=== PATIENT | male | born 1955 | race Caucasian/White ===

== ENCOUNTER 2016-09-02 14:29 | Outpatient (RCR) | payer MEDICARE, MEDICAID ==
[2016-07-01 12:21] LABS: INR 1.8 (0.8-1.4); PROTHROMBIN TIME PATIENT 20.8 SEC (12.2-14.7)
[2016-07-21 11:15] LABS: INR 2.4 (0.8-1.4); PROTHROMBIN TIME PATIENT 25.8 SEC (12.2-14.7)
[2016-08-03 15:06] LABS: INR 2.3 (0.8-1.4); PROTHROMBIN TIME PATIENT 24.8 SEC (12.2-14.7)
[~2016-09-02 14:29] MED LIST: ARPZ10T PO; ASP325TEC PO; ASPI-586 PO; ATEN100T88 PO; ATEN25TA PO; BUPR300T51 PO; CITA40TA11 PO; CITA40TA19 PO; DIGO250T15 PO; DILT240C PO; DILT240C53 PO; DILT360C26 PO; DIPH1TAB25 PO; DIPH1TAB45 PO; ENXP100I SC; ESCI20TA2 PO; ETRA200T PO; FRSM40T PO; FURO40TA4 PO; LISI20TA PO; LISI5TAB PO; LORA10TA56 PO; NAPR220T66 PO; OFL.3OP5 OP; OXC10TCR PO; OXYC-465 PO; OXYC10TA63 PO; OXYC10TA7 PO; POTA10CA43 PO; RALT400T PO; RISP0.5T21 PO; RISP0.5T3 PO; TENO300T5 PO; VIREAD PO; WARF-48 PO; WARF7.5T PO; WRF10T PO; WRF5T PO; ZLP10T PO; ZOLP10TA5 PO; intelence PO
[2016-09-02 14:54] LABS: INR 1.9 (0.8-1.4); PROTHROMBIN TIME PATIENT 21.4 SEC (12.2-14.7)
== END 2016-09-29 | disposition home or self-care (01) ==
LOC: LAB 14:29
PROVIDERS: ATTEND Internal Medicine Cardiovascular Disease
DX: I48.0 Paroxysmal atrial fibrillation (principal); Z79.01 Long term (current) use of anticoagulants
CPT/HCPCS: 36415; 85610

== ENCOUNTER 2016-09-30 08:00 | Outpatient (RCR) | payer MEDICARE, MEDICAID ==
[2016-11-07 09:08] LABS: INR 2.1 (0.8-1.4); PROTHROMBIN TIME PATIENT 23.2 SEC (12.2-14.7)
== END 2016-12-29 | disposition home or self-care (01) ==
LOC: LAB 08:00
PROVIDERS: ATTEND Internal Medicine Cardiovascular Disease
DX: I48.0 Paroxysmal atrial fibrillation (principal); Z79.01 Long term (current) use of anticoagulants
CPT/HCPCS: 36415; 85610

== ENCOUNTER → 2017-03-31 | Outpatient (CLI) | payer MEDICARE ==
[~2017-03-31] MED LIST changes: +DILT180C90 PO; +ELVI1TAB3 PO; +FA/M1TAB28 PO; +FURO80TA83 PO; +IBUP-2055 PO; +MULT-1029 PO; +POTA-51 PO
[2017-03-31 11:46] LABS: INR 1.6 (0.8-1.4); PROTHROMBIN TIME PATIENT 19.3 SEC (12.2-14.7)
[2017-03-31 11:51] LABS: CALCIUM 9.7 MG/DL (8.5-10.1); CREATININE SERUM 1.22 MG/DL (0.60-1.30); POTASSIUM 4.2 MMOL/L (3.6-5.0)
== END ==
LOC: LAB 11:17
PROVIDERS: ATTEND Nurse Practitioner Family
DX: Z51.81 Encounter for therapeutic drug level monitoring (principal); I48.91 Unspecified atrial fibrillation; Z79.01 Long term (current) use of anticoagulants
CPT/HCPCS: 36415; 80048; 85610

== ENCOUNTER 2017-07-19 09:30 | Outpatient (RCR) | payer MEDICARE ==
[2017-04-24 08:49] LABS: INR 3.7 (0.8-1.4); PROTHROMBIN TIME PATIENT 36.6 SEC (12.2-14.7)
[2017-04-24 08:56] LABS: BUN/CREATININE RATIO 16; CALCIUM 8.8 MG/DL (8.5-10.1); CARBON DIOXIDE 26 MMOL/L (21-32); CHLORIDE 102 MMOL/L (98-107); GFR ESTIMATED > 60; GLUCOSE 116 MG/DL (70-105); MAGNESIUM 1.7 MG/DL (1.8-2.4); POTASSIUM 3.7 MMOL/L (3.6-5.0); SODIUM 141 MMOL/L (135-145)
[2017-05-08 08:36] LABS: INR 2.6 (0.8-1.4)
[2017-05-31 08:41] LABS: INR 1.7 (0.8-1.4); PROTHROMBIN TIME PATIENT 20.4 SEC (12.2-14.7)
[2017-07-19 09:55] LABS: INR 2.8 (0.8-1.4); PROTHROMBIN TIME PATIENT 29.5 SEC (12.2-14.7)
== END 2017-07-23 | disposition home or self-care (01) ==
LOC: LAB 09:30
PROVIDERS: ATTEND Nurse Practitioner Family
DX: I48.0 Paroxysmal atrial fibrillation (principal); Z79.01 Long term (current) use of anticoagulants
CPT/HCPCS: 36415; 80048; 83735; 85610

== ENCOUNTER 2017-10-02 09:27 | Outpatient (RCR) | payer MEDICARE ==
[2017-10-02 09:44] LABS: INR 2.2 (0.8-1.4); PROTHROMBIN TIME PATIENT 24.4 SEC (12.2-14.7)
== END 2017-10-27 | disposition home or self-care (01) ==
LOC: LAB 09:27
PROVIDERS: ATTEND Nurse Practitioner Family
DX: I48.0 Paroxysmal atrial fibrillation (principal); Z79.01 Long term (current) use of anticoagulants
CPT/HCPCS: 36415; 85610

== ENCOUNTER → 2017-11-21 | Outpatient (CLI) | payer MEDICARE | LOC: CARD 11:09 | PROVIDERS: ATTEND Internal Medicine Cardiovascular Disease | DX: I48.0 Paroxysmal atrial fibrillation (principal); I50.33 Acute on chronic diastolic (congestive) heart failure; Z21 Asymptomatic human immunodeficiency virus [HIV] infection status; E66.9 Obesity, unspecified; M79.89 Other specified soft tissue disorders; Z79.01 Long term (current) use of anticoagulants | CPT/HCPCS: 93225; 93226 ==

== ENCOUNTER 2018-02-07 12:00 | Outpatient (CLI) | payer MEDICARE ==
[~2018-02-07] VITALS: Ht 182.9 cm; Wt 183.4 kg
== END 2018-02-07 13:33 | disposition home or self-care (01) ==
LOC: PREOP 12:00
PROVIDERS: ATTEND Surgery
DX: Z01.818 Encounter for other preprocedural examination (principal)

== ENCOUNTER 2018-02-12 09:22 | Day surgery (SDC) | payer MEDICARE ==
[~2018-02-12] VITALS: Ht 182.9 cm; Wt 183.4 kg
[2018-02-12] MEDS ORDERED: NS IV 500 ML 500 ML IV PRN (09:28)
[2018-02-12] MEDS ORDERED: MIDAZOLAM 2 MG/2 ML (VERSED) VIAL IVP ONE (09:30)
[2018-02-12] MEDS ORDERED: fentaNYL INJECTION 100 MCG/2 ML AMP IVP ONE (09:30)
[2018-02-12] MEDS ORDERED: NS IV 500 ML 500 ML ONE (09:31)
--- NOTE | 2018-02-12 09:39 | History & Physicial ---
History of Present Illness History of Present Illness Reason for visit/HPI to undergo colonoscopy regarding chronic diarrhea. Date of Admission 02/12/18 Date Seen by a Provider: Feb 12, 2018 Time Seen by a Provider: 09:36 I consulted on this patient on 02/12/18 09:35 Attending Physician Jonny Herrera MD Admitting Physician Marlene Cunningham MD Consult Allergies and Home Medications Allergies Coded Allergies: No Known Drug Allergies (Unverified , 02/07/18) Home Medications Bupropion HCl 300 Mg Tab.er.24h, 300 MG PO HS, (Reported) Citalopram Hydrobromide 40 Mg Tablet, 40 MG PO HS, (Reported) Digoxin 250 Mcg Tablet, 0.25 MG PO DAILY Prescribed by: ERMIAS POWELL on 12/03/14 1152 Diltiazem HCl 180 Mg Cap.er.24h, 360 MG PO DAILY@0900 Prescribed by: JOSE E CHAO on 03/28/17 1105 Diphenoxylate HCl/Atropine 1 Each Tablet, 1 TAB PO QID PRN for DIARRHEA, ( Reported) Elviteg/Chyna/Emtric/Tenofo Ala 1 Each Tablet, 1 TAB PO DAILY, (Reported) Furosemide 80 Mg Tablet, 80 MG PO DAILY Prescribed by: JOSE E CHAO on 03/28/17 1105 Ibuprofen 200 Mg Tablet, 400 MG PO DAILY PRN for PAIN-MILD, (Reported) TAKES 2 (200 MG) TABLETS Multivit-Min/FA/Lycopene/Lut 1 Each Tablet, 1 TAB PO HS, (Reported) Potassium Chloride 20 Meq Tablet.er, 20 MEQ PO DAILY Prescribed by: JOSE E CHAO on 03/28/17 1105 Risperidone 0.5 Mg Tablet, 0.5 MG PO HS, (Reported) Warfarin Sodium 5 Mg Tablet, 10 MG PO SuMoWeSa, (Reported) TAKES 2 (5 MG) TABLETS Warfarin Sodium 5 Mg Tablet, 5 MG PO TuTh, (Reported) Patient Home Medication List Home Medication List Reviewed: Yes Past Mvnshrk-Oqfwxb-Melzuq Hx Patient Social History Marrital Status: single Employed/Student: retired Recent Foreign Travel: No Contact w/other who traveled: No Recent Hopitalizations: No Immunizations Up To Date Date of Pneumonia Vaccine: Oct 31, 2014 Date of Influenza Vaccine: Dec 04, 2017 Seasonal Allergies Seasonal Allergies: No Surgeries Yes (CA REMOVED FROM NECK, SEVERAL BX) Respiratory Yes Currently Using BIPAP: Yes Cardiovascular Yes Atrial Fibrillation, Hypertension Neurological No Reproductive System Hx Reproductive Disorders: No HIV/AIDS: Yes (hiv) Genitourinary No Gastrointestinal Yes Chronic Diarrhea Musculoskeletal No Endocrine History of Endocrine Disorders: No HEENT History of HEENT Disorders: No Cancer Yes (Neck) Skin, Lymphoma Did You Recieve Any Treatments: Yes Type of Treatment: Surgical Intervention Psychosocial History of Psychiatric Problem: Yes Behavioral Health Disorders: Depression Integumentary History of Skin or Integumenta: No Blood Transfusions History of Blood Disorders: Yes (HIV DX IN 1994, ) Family Medical History Significant Family History: No Pertinent Family Hx Review of Systems Constitutional: no symptoms reported EENTM: no symptoms reported Cardiovascular: palpitations Gastrointestinal: see HPI Genitourinary: no symptoms reported Musculoskeletal: no symptoms reported Skin: no symptoms reported Psychiatric/Neurological: No Symptoms Reported Physical Exam Vital Signs Capillary Refill : Height, Weight, BMI Height: 6'0.00" Weight: 404lbs. 6.0oz. 183.199550hm; 54.8 BMI Method:Stated General Appearance: No Apparent Distress Neck: Normal Inspection Respiratory: Lungs Clear Cardiovascular: No Gallop, No JVD Gastrointestinal: Non Tender, Soft Rectal: Deferred Neurologic/Psychiatric: Alert, Oriented x3 Assessment/Plan Assessment and Plan gentleman with chronic diarrhea. Previous non-Hodgkin's lymphoma. For colonoscopy. Admission Diagnosis Admission Status: Other (Outpt Proc) JONNY HERRERA MD Feb 12, 2018 09:39
--- NOTE | 2018-02-12 09:39 | Conscious Sedation/ASA ---
Conscious Sedation Pre-Proced Time 09:39 ASA Score 3 For ASA 3 and 4: Consider anesthesia and medical clearance. Also, for patients with a history of failed moderate sedation consider anesthesia. Airway Lungs Heart ASA score ASA 1: a normal healthy patient ASA 2: a patient with a mild systemic disease (mid diabetes, controlled hypertension, obesity ASA 3: a patient with a severe systemic disease that limits activity (angina , COPD, prior Myocardial infarction) ASA 4: a patient with an incapacitating disease that is a constant threat to life (CHF, renal failure) ASA 5: a moribund patient not expected to survive 24 hrs. (ruptured aneurysm) ASA 6: a declared brain patient whose organs are being harvested. For emergent operations, add the letter E after the classification Mallampati Classification Grade 2 Sedation Plan Discussed options with patient/fam The patient is an appropriate candidate to undergo the planned procedure, sedation, and anesthesia. The patient immediately re-assessed prior to indication. LAKE HERRERA MD Feb 12, 2018 09:39
[2018-02-12] MEDS ORDERED: DILT120C53 PO (09:49)
[2018-02-12] MEDS ORDERED: MIDAZOLAM 2 MG/2 ML (VERSED) VIAL ONE ×6 (09:56→10:08)
[2018-02-12] MEDS ORDERED: fentaNYL INJECTION 100 MCG/2 ML AMP ONE ×2 (09:56→10:08)
[2018-02-12 09:58] VITALS: BP 142/107
--- NOTE | 2018-02-12 10:54 | Endo Procedure Record ---
Endo Procedure Report Date of Procedure Last Colonoscopy: Yes (UNSURE) Feb 12, 2018 Surgeon (s) LAKE HERRERA MD Post Procedure/Op Diagnosis sigmoid diverticulosis Sessile lesion at the mid-sigmoid colon at about 40 cm from the anal verge Procedure Performed colonoscopy to cecum Biopsy of sigmoid lesion Tattooing of sigmoid colon area Description of Procedure Anesthesia Type: Conscious Sedation Specimen(s) collected/removed tissue from the lesion at the sigmoid colon Description of the Procedure Indication for the procedure: This gentleman came in for colonoscopy to investigate chronic diarrhea. In addition, he has a family history of colon cancer as well. Informed consent was obtained after reviewing the procedure in detail. Description of the procedure: He was placed in left lateral decubitus position and his vital signs were monitored. Conscious sedation was achieved using Versed and fentanyl. Digital rectal examination was unremarkable. The colonoscope was then introduced into the rectum and advanced to the cecum. The quality of bowel preparation was excellent. The scope was then withdrawn slowly and the mucosa examined in a systematic fashion. Findings: 1. Sigmoid diverticulosis 2. Sessile lesion about 18 cm in diameter at the mid-sigmoid colon, about 40 cm from the anal verge. A few biopsy fragments were obtained and the area was tattooed with Ashley ink. He tolerated the procedure well and was taken back to the nursing area in a stable condition. Impression: Family history of colon cancer. Sessile lesion at the sigmoid colon possibly an early carcinoma or a villous adenoma. Regardless, it would require segmental resection, that would be scheduled subsequently Copy Copies To 1: FLORIAN BLUE MD, XAVIER M MD Feb 12, 2018 10:54
--- NOTE | 2018-02-12 10:55 | Discharge Inst-Simple/Standard ---
Discharge Inst-Standard Discharge Medications New, Converted or Re-Newed RX: Other Patient Instructions/Follow Up Plan of Care/Instructions/FU: resume warfarin tomorrow. Follow-up with me in a week to discuss and schedule surgery Activity as Tolerated: Yes Discharge Diet: No Restrictions LAKE HERRERA MD Feb 12, 2018 10:55
[2018-02-12 11:00] VITALS: BP 143/80
[2018-02-12 11:30] VITALS: BP 133/106
[2018-02-12 12:45] VITALS: BP 133/106
== END 2018-02-12 12:45 | disposition home or self-care (01) ==
LOC: ENDO 09:22
PROVIDERS: ATTEND Surgery
DX: K57.30 Diverticulosis of large intestine without perforation or abscess without bleeding (principal); Z80.0 Family history of malignant neoplasm of digestive organs; I48.91 Unspecified atrial fibrillation; I10 Essential (primary) hypertension; F32.9 Major depressive disorder, single episode, unspecified; Z85.828 Personal history of other malignant neoplasm of skin; Z85.72 Personal history of non-Hodgkin lymphomas; Z79.01 Long term (current) use of anticoagulants; Z79.899 Other long term (current) drug therapy

== ENCOUNTER 2018-03-13 15:23 | Outpatient (CLI) | payer MEDICARE ==
[~2018-03-13] VITALS: Ht 182.9 cm; Wt 183.3 kg
[~2018-03-13 15:23] MED LIST changes: +DILT120C53 PO
[2018-03-13] MEDS ORDERED: ALLO100T PO (15:33)
[2018-03-13] MEDS ORDERED: METO2.5T PO (15:33)
[2018-03-13] MEDS ORDERED: POTA-51 PO (15:33)
[2018-03-13] MEDS ORDERED: FURO80TA3 PO (15:33)
[2018-03-13] MEDS ORDERED: RISP0.5T3 PO (15:33)
[2018-03-13] MEDS ORDERED: WARF-48 PO ×2 (15:33)
[2018-03-13] MEDS ORDERED: DIGO250T PO (15:33)
== END 2018-03-13 15:35 | disposition home or self-care (01) ==
LOC: PREOP 15:23
PROVIDERS: ATTEND Surgery
DX: Z01.818 Encounter for other preprocedural examination (principal)

== ENCOUNTER 2018-04-24 14:20 | Outpatient (CLI) | payer MEDICARE, MEDICAID ==
[~2018-04-24] VITALS: Ht 182.9 cm; Wt 183.3 kg
[~2018-04-24 14:20] MED LIST changes: +ALLO100T PO; +DIGO250T PO; +FURO80TA3 PO; +METO2.5T PO
== END 2018-04-24 14:25 ==
LOC: PREOP 14:20
PROVIDERS: ATTEND Surgery
DX: Z01.818 Encounter for other preprocedural examination (principal)

== ENCOUNTER 2018-04-30 08:10 | Day surgery (SDC) | payer MEDICARE, MEDICAID ==
[~2018-04-30] VITALS: Ht 182.9 cm; Wt 183.3 kg
[2018-04-30 08:30] VITALS: BP 137/99
[2018-04-30] MEDS ORDERED: NS IV 500 ML 500 ML IV PRN (08:38)
[2018-04-30] MEDS ORDERED: NS IV 500 ML 500 ML ONE (08:43)
[2018-04-30] MEDS ORDERED: MIDAZOLAM 2 MG/2 ML (VERSED) VIAL IVP ONE (08:45)
[2018-04-30] MEDS ORDERED: fentaNYL INJECTION 100 MCG/2 ML AMP IVP ONE (08:45)
--- NOTE | 2018-04-30 09:32 | History & Physicial ---
History of Present Illness History of Present Illness Reason for visit/HPI to undergo flexible sigmoidoscopy regarding a lesion found at the sigmoid colon on a recent colonoscopy. Biopsies revealed inflammatory changes. Date of Admission 04/30/18 Date Seen by a Provider: Apr 30, 2018 Time Seen by a Provider: 09:30 I consulted on this patient on 04/30/18 09:30 Attending Physician Jonny Gaxiola MD Admitting Physician Marlene Cunningham MD Consult Allergies and Home Medications Allergies Coded Allergies: No Known Drug Allergies (Unverified , 02/07/18) Home Medications Allopurinol 100 Mg Tablet, 100 MG PO DAILY, (Reported) Bupropion HCl 300 Mg Tab.er.24h, 300 MG PO HS, (Reported) Citalopram Hydrobromide 40 Mg Tablet, 40 MG PO HS, (Reported) Digoxin 250 Mcg Tablet, 250 MCG PO DAILY, (Reported) Diltiazem HCl 120 Mg Cap.er.24h, 120 MG PO DAILY, (Reported) Diphenoxylate HCl/Atropine 1 Each Tablet, 1 TAB PO QID PRN for DIARRHEA, ( Reported) Elviteg/Chyna/Emtric/Tenofo Ala 1 Each Tablet, 1 TAB PO DAILY, (Reported) Furosemide 80 Mg Tablet, 80 MG PO DAILY, (Reported) Ibuprofen 200 Mg Tablet, 400 MG PO DAILY PRN for PAIN-MILD, (Reported) TAKES 2 (200 MG) TABLETS Metolazone 2.5 Mg Tablet, 2.5 MG PO DAILY, (Reported) Multivit-Min/FA/Lycopene/Lut 1 Each Tablet, 1 TAB PO HS, (Reported) Potassium Chloride 20 Meq Tablet.er, 40 MEQ PO BID, (Reported) take 2 (20meq) tabs Risperidone 0.5 Mg Tablet, 0.5 MG PO HS, (Reported) Risperidone 0.5 Mg Tablet, 0.5 MG PO DAILY, (Reported) Warfarin Sodium 5 Mg Tablet, 5 MG PO TuTh, (Reported) Warfarin Sodium 5 Mg Tablet, 10 MG PO SuMoWeFrSa, (Reported) take 2 (5mg) tabs Patient Home Medication List Home Medication List Reviewed: Yes Past Lqrdgcy-Hchfjy-Lhqrto Hx Patient Social History Marrital Status: single Employed/Student: retired Alcohol Use: Denies Use Recreational Drug Use: No Smoking Status: Never a Smoker 2nd Hand Smoke Exposure: No Recent Foreign Travel: No Contact w/other who traveled: No Recent Hopitalizations: No Immunizations Up To Date Date of Pneumonia Vaccine: Oct 31, 2014 Date of Influenza Vaccine: Dec 04, 2017 Seasonal Allergies Seasonal Allergies: No Surgeries Yes (CA REMOVED FROM NECK, SEVERAL BX) Respiratory Yes Currently Using BIPAP: Yes Cardiovascular Yes Atrial Fibrillation, Hypertension Neurological No Reproductive System Hx Reproductive Disorders: No HIV/AIDS: Yes (hiv) Genitourinary No Gastrointestinal Yes Chronic Diarrhea, Polyps Musculoskeletal No Endocrine History of Endocrine Disorders: No HEENT History of HEENT Disorders: No Cancer Yes (Neck) Skin, Lymphoma Did You Recieve Any Treatments: Yes Type of Treatment: Surgical Intervention Psychosocial History of Psychiatric Problem: Yes Behavioral Health Disorders: Depression Integumentary History of Skin or Integumenta: No Blood Transfusions History of Blood Disorders: Yes (HIV DX IN 1994, ) Family Medical History Significant Family History: No Pertinent Family Hx Review of Systems Constitutional: no symptoms reported EENTM: no symptoms reported Cardiovascular: no symptoms reported Gastrointestinal: no symptoms reported Genitourinary: no symptoms reported Musculoskeletal: no symptoms reported Skin: no symptoms reported Psychiatric/Neurological: No Symptoms Reported Physical Exam Vital Signs Vital Signs - First Documented 04/30/18 08:30 Temp 98.0 Pulse 77 Resp 16 B/P (MAP) 137/99 (112) Pulse Ox 93 O2 Delivery Room Air Capillary Refill : Height, Weight, BMI Height: 6'0.00" Weight: 404lbs. 0.0oz. 183.643791os; 54.8 BMI Method:Stated General Appearance: No Apparent Distress Neck: Normal Inspection Cardiovascular: Regular Rate, Rhythm Gastrointestinal: Soft Rectal: Deferred Neurologic/Psychiatric: Oriented x3 Assessment/Plan Assessment and Plan will depend on [place] monitor the family history of colon cancer. Sessile lesion at the sigmoid colon with inflammatory changes on histology. 4 repeat flexible sigmoidoscopy. Admission Diagnosis Admission Status: Other (Outpt Proc) JONNY GAXIOLA MD Apr 30, 2018 09:32
--- NOTE | 2018-04-30 09:32 | Conscious Sedation/ASA ---
Conscious Sedation Pre-Proced Time 09:32 ASA Score 2 For ASA 3 and 4: Consider anesthesia and medical clearance. Also, for patients with a history of failed moderate sedation consider anesthesia. Airway Lungs Heart ASA score ASA 1: a normal healthy patient ASA 2: a patient with a mild systemic disease (mid diabetes, controlled hypertension, obesity ASA 3: a patient with a severe systemic disease that limits activity (angina , COPD, prior Myocardial infarction) ASA 4: a patient with an incapacitating disease that is a constant threat to life (CHF, renal failure) ASA 5: a moribund patient not expected to survive 24 hrs. (ruptured aneurysm) ASA 6: a declared brain- patient whose organs are being harvested. For emergent operations, add the letter E after the classification Mallampati Classification Grade 2 Sedation Plan Discussed options with patient/fam The patient is an appropriate candidate to undergo the planned procedure, sedation, and anesthesia. The patient immediately re-assessed prior to indication. LAKE HERRERA MD Apr 30, 2018 09:32
[2018-04-30] MEDS ORDERED: MIDAZOLAM 2 MG/2 ML (VERSED) VIAL ONE ×4 (09:47→10:15)
[2018-04-30] MEDS ORDERED: fentaNYL INJECTION 100 MCG/2 ML AMP ONE (09:47)
--- NOTE | 2018-04-30 10:29 | Endo Procedure Record ---
Endo Procedure Report Date of Procedure Last Colonoscopy: Yes (02/12/18) Apr 30, 2018 Surgeon (s) LAKE HERRERA MD Post Procedure/Op Diagnosis sigmoid diverticulosis Tattoo over the sigmoid colon with no residual lesion identified Procedure Performed flexible sigmoidoscopy Description of Procedure Anesthesia Type: Conscious Sedation Specimen(s) collected/removed None Description of the Procedure Indication for the procedure: This gentleman, who has a family history of colon cancer, was found to have a sessile lesion at the sigmoid colon, a few months ago. Biopsies however showed inflammatory changes of the mucosa. Therefore, it is felt reasonable to perform proximal sigmoidoscopy to have a second look at the lesion prior to recommending definitive therapy. Informed consent was obtained after reviewing the procedure in detail. Description of the procedure: He was placed in left lateral decubitus position and his vital signs were monitored. Conscious sedation was achieved using Versed and fentanyl. Digital rectal examination was unremarkable. The flexible sigmoidoscope was introduced into the rectum and advanced to the descending colon. The scope was then withdrawn slowly and the mucosa examined in a systematic fashion. Findings: 1. Uncomplicated sigmoid diverticulosis 2.Tattoo used for marking the previous lesion identified a few months ago with no other mucosal abnormalities around the tattoo. It is therefore likely that mucosal inflammation was the culprit, leading to the false appearance of a definitive mucosal lesion. he tolerated the procedure well and was taken back to the nursing area in a stable condition. Impression: Sessile lesion identified in the sigmoid colon confirmed to be inflamed mucosa, which has since resolved. Positive family history. Recommend screening colonoscopy in 5 years. Copy Copies To 1: FLORIAN BLUE MD,LAKE Lim MD Apr 30, 2018 10:29
--- NOTE | 2018-04-30 10:31 | Discharge Inst-Simple/Standard ---
Discharge Inst-Standard Discharge Medications New, Converted or Re-Newed RX: Other Patient Instructions/Follow Up Plan of Care/Instructions/FU: repeat colonoscopy in 5 years Activity as Tolerated: Yes Discharge Diet: No Restrictions LAKE HERRERA MD Apr 30, 2018 10:31
[2018-04-30 10:40] VITALS: BP 108/57
[2018-04-30 11:10] VITALS: BP 110/68
[2018-04-30 11:45] VITALS: BP 110/68
== END 2018-04-30 11:45 | disposition home or self-care (01) ==
LOC: ENDO 08:10
PROVIDERS: ATTEND Surgery
DX: Z09 Encounter for follow-up examination after completed treatment for conditions other than malignant neoplasm (principal); Z86.010 Personal history of colon polyps; K57.30 Diverticulosis of large intestine without perforation or abscess without bleeding; Z80.0 Family history of malignant neoplasm of digestive organs; I48.91 Unspecified atrial fibrillation; I10 Essential (primary) hypertension; K52.9 Noninfective gastroenteritis and colitis, unspecified; B20 Human immunodeficiency virus [HIV] disease; F32.9 Major depressive disorder, single episode, unspecified; Z79.01 Long term (current) use of anticoagulants; Z79.899 Other long term (current) drug therapy; Z85.828 Personal history of other malignant neoplasm of skin; Z85.72 Personal history of non-Hodgkin lymphomas

== ENCOUNTER 2018-06-18 12:55 | Outpatient (RCR) | payer MEDICARE, MEDICAID ==
[2018-06-18 13:20] LABS: PROTHROMBIN TIME PATIENT 23.3 SEC (12.2-14.7)
[2018-06-18 13:24] LABS: BUN/CREATININE RATIO 18; CALCIUM 10.2 MG/DL (8.5-10.1); CARBON DIOXIDE 30 MMOL/L (21-32); CHLORIDE 99 MMOL/L (98-107); CREATININE SERUM 1.14 MG/DL (0.60-1.30); GFR ESTIMATED > 60; GLUCOSE 141 MG/DL (70-105); MAGNESIUM 1.4 MG/DL (1.8-2.4); POTASSIUM 3.2 MMOL/L (3.6-5.0); SODIUM 141 MMOL/L (135-145)
== END 2018-09-16 | disposition home or self-care (01) ==
LOC: LAB 12:55
PROVIDERS: ATTEND Internal Medicine Cardiovascular Disease
DX: I48.0 Paroxysmal atrial fibrillation (principal); I49.5 Sick sinus syndrome; I50.23 Acute on chronic systolic (congestive) heart failure; Z79.01 Long term (current) use of anticoagulants
CPT/HCPCS: 36415; 80048; 83735; 85610

== ENCOUNTER 2018-07-16 11:07 | Outpatient (RCR) | payer MEDICARE, MEDICAID ==
[2018-07-16 12:05] LABS: INR 2.7 (0.8-1.4); PROTHROMBIN TIME PATIENT 30.1 SEC (12.2-14.7)
== END 2018-10-14 | disposition home or self-care (01) ==
LOC: LAB 11:07
PROVIDERS: ATTEND Internal Medicine Cardiovascular Disease
DX: Z51.81 Encounter for therapeutic drug level monitoring (principal); I48.0 Paroxysmal atrial fibrillation; I50.33 Acute on chronic diastolic (congestive) heart failure; M79.89 Other specified soft tissue disorders; I49.5 Sick sinus syndrome; Z79.01 Long term (current) use of anticoagulants
CPT/HCPCS: 36415; 80162; 85610

== ENCOUNTER → 2018-07-16 | Outpatient (CLI) | payer MEDICARE, MEDICAID ==
[2018-07-16 12:10] LABS: BUN/CREATININE RATIO 21; CALCIUM 9.3 MG/DL (8.5-10.1); CARBON DIOXIDE 26 MMOL/L (21-32); CHLORIDE 101 MMOL/L (98-107); CREATININE SERUM 1.07 MG/DL (0.60-1.30); GFR ESTIMATED > 60; GLUCOSE 127 MG/DL (70-105); MAGNESIUM 1.5 MG/DL (1.8-2.4); POTASSIUM 3.4 MMOL/L (3.6-5.0); SODIUM 140 MMOL/L (135-145)
== END ==
LOC: LAB 11:15
PROVIDERS: ATTEND Nurse Practitioner Family
DX: E87.6 Hypokalemia (principal)
CPT/HCPCS: 36415; 80048; 83735

== ENCOUNTER → 2019-02-13 | Outpatient (CLI) | payer MEDICARE, MEDICAID ==
[2019-02-13 14:43] LABS: INR 3.1 (0.8-1.4); PROTHROMBIN TIME PATIENT 33.6 SEC (12.2-14.7)
[2019-02-13 14:45] LABS: ALBUMIN 3.8 GM/DL (3.2-4.5); BILIRUBIN,TOTAL 0.6 MG/DL (0.1-1.0); CALCIUM 9.6 MG/DL (8.5-10.1); CREATININE SERUM 1.27 MG/DL (0.60-1.30); MAGNESIUM 1.5 MG/DL (1.6-2.4); POTASSIUM 3.8 MMOL/L (3.6-5.0); TOTAL PROTEIN 7.3 GM/DL (6.4-8.2)
== END ==
LOC: LAB 14:14
PROVIDERS: ATTEND Nurse Practitioner Family
DX: I48.20 Chronic atrial fibrillation, unspecified (principal); I50.32 Chronic diastolic (congestive) heart failure; G47.33 Obstructive sleep apnea (adult) (pediatric)
CPT/HCPCS: 36415; 80053; 80162; 83735; 85610

== ENCOUNTER 2019-04-13 10:28 | Inpatient (IN) | payer MEDICARE, MEDICAID ==
[~2019-04-13] VITALS: Ht 182.8 cm; Wt 176.3 kg
[~2019-04-13 10:28] MED LIST changes: -DIGO250T PO; +DIGO250T3 PO; +DILT-28 PO; -DILT180C90 PO; -IBUP-2055 PO; +IBUP-2473 PO
[2019-04-13 10:50] LABS: BASOPHILS % (AUTO) 0 % (0-10); EOSINOPHILS # (AUTO) 0.1 10^3/uL (0.0-0.3); EOSINOPHILS % (AUTO) 1 % (0-10); HEMATOCRIT 46 % (40-54); HEMOGLOBIN 15.3 G/DL (13.3-17.7); LYMPHOCYTES # (AUTO) 2.9 X 10^3 (1.0-4.0); LYMPHOCYTES % (AUTO) 24 % (12-44); MEAN CORPUSCULAR HEMOGLOBIN 30 PG (25-34); MEAN CORPUSCULAR HGB CONC 33 G/DL (32-36); MEAN CORPUSCULAR VOLUME 90 FL (80-99); MEAN PLATELET VOLUME 9.5 FL (7.4-10.4); MONOCYTES # (AUTO) 1.2 X 10^3 (0.0-1.0); MONOCYTES % (AUTO) 10 % (0-12); NEUTROPHILS # (AUTO) 7.6 X 10^3 (1.8-7.8); NEUTROPHILS % (AUTO) 65 % (42-75); PLATELET COUNT 246 10^3/uL (130-400); RED CELL DISTRIBUTION WIDTH 14.5 % (10.0-14.5); WHITE BLOOD COUNT 11.8 10^3/uL (4.3-11.0)
[2019-04-13 11:07] LABS: INR 3.2 (0.8-1.4); PROTHROMBIN TIME PATIENT 33.9 SEC (12.2-14.7)
--- NOTE | 2019-04-13 11:11 | Diagnostic Imaging Report ---
INDICATION: Productive cough. Comparison made to the prior study from 08/24/2017. FINDINGS: Interstitial markings appear prominent which could relate to a bronchitis or interstitial pneumonia. There is no alveolar consolidation evident. There is no large effusion. No pneumothorax. Heart size prominent. The central pulmonary vascularity appears appropriate IMPRESSION: 1. Mild prominence of basilar interstitial markings which may relate to a bronchitis or interstitial pneumonia. No alveolar consolidation evident by plain radiography. There is no significant effusion. Cardiomegaly is unchanged from previous exam. Dictated by: Dictated on workstation # [id number]
[2019-04-13 11:14] LABS: ALANINE AMINOTRANSFERASE 26 U/L (0-55); ALBUMIN 3.8 GM/DL (3.2-4.5); ALKALINE PHOSPHATASE 103 U/L (40-136); BILIRUBIN,TOTAL 0.9 MG/DL (0.1-1.0); BUN/CREATININE RATIO 17; CALCIUM 9.5 MG/DL (8.5-10.1); CARBON DIOXIDE 27 MMOL/L (21-32); CHLORIDE 101 MMOL/L (98-107); CREATININE SERUM 1.16 MG/DL (0.60-1.30); GFR ESTIMATED > 60; GLUCOSE 136 MG/DL (70-105); MAGNESIUM 1.6 MG/DL (1.6-2.4); POTASSIUM 3.3 MMOL/L (3.6-5.0); SODIUM 141 MMOL/L (135-145); TOTAL PROTEIN 7.9 GM/DL (6.4-8.2)
[2019-04-13] MEDS ORDERED: RT-ALBUTEROL/IPRATROPIUM 3 ML (DUONEB) VIAL INH ONE (12:15)
--- NOTE | 2019-04-13 13:04 | ED General ---
General Chief Complaint: Respiratory Problems Stated Complaint: SOB/HX OF CHF Nursing Triage Note: PT PRESENTS TO ED WITH COMPLAINTS OF SOA AND COUGH/COLD S/S X 2 WEEKS BUT WORSE SINCE YESTERDAY Nursing Sepsis Screen: No Definite Risk Source of Information: Patient Exam Limitations: No Limitations History of Present Illness Date Seen by Provider: Apr 13, 2019 Time Seen by Provider: 10:33 Initial Comments This 63-year-old gentleman with HIV and congestive heart failure presents to the emergency room with history of one to 2 weeks of increasing shortness of breath. He has had some mild cough as well. He presumes this to be congestive heart failure exacerbation. He is afebrile. He denies any respiratory disease such as COPD or asthma. Oxygen saturation is 88 percent on room air on arrival. He denies chest pain. He takes Biktarvy for HIV suppression. Allergies and Home Medications Allergies Coded Allergies: No Known Drug Allergies (Unverified , 02/07/18) Home Medications Allopurinol 100 Mg Tablet, 100 MG PO DAILY, (Reported) Bupropion HCl 300 Mg Tab.er.24h, 300 MG PO HS, (Reported) Citalopram Hydrobromide 40 Mg Tablet, 40 MG PO HS, (Reported) Digoxin 250 Mcg Tablet, 250 MCG PO DAILY, (Reported) Diphenoxylate HCl/Atropine 1 Each Tablet, 1 TAB PO QID PRN for DIARRHEA, (Reported) Elviteg/Chyna/Emtric/Tenofo Ala 1 Each Tablet, 1 TAB PO DAILY, (Reported) Furosemide 80 Mg Tablet, 80 MG PO DAILY, (Reported) Ibuprofen 200 Mg Tablet, 400 MG PO DAILY PRN for PAIN-MILD, (Reported) TAKES 2 (200 MG) TABLETS Metolazone 2.5 Mg Tablet, 2.5 MG PO DAILY, (Reported) Multivit-Min/FA/Lycopene/Lut 1 Each Tablet, 1 TAB PO HS, (Reported) Potassium Chloride 20 Meq Tablet.er, 40 MEQ PO BID, (Reported) take 2 (20meq) tabs Risperidone 0.5 Mg Tablet, 0.5 MG PO HS, (Reported) Warfarin Sodium 5 Mg Tablet, 5 MG PO TuTh, (Reported) Warfarin Sodium 5 Mg Tablet, 10 MG PO SuMoWeFrSa, (Reported) take 2 (5mg) tabs Patient Home Medication List Home Medication List Reviewed: Yes Review of Systems Review of Systems Constitutional: no symptoms reported EENTM: no symptoms reported Respiratory: see HPI Cardiovascular: see HPI Gastrointestinal: no symptoms reported Genitourinary: no symptoms reported Musculoskeletal: no symptoms reported Skin: no symptoms reported Psychiatric/Neurological: No Symptoms Reported Hematologic/Lymphatic: See HPI Immunological/Allergic: no symptoms reported Past Mzpsjkf-Nhuqqf-Qsixui Hx Past Med/Social Hx: Reviewed Nursing Past Med/Soc Hx Patient Social History Alcohol Use: Rarely Uses Recreational Drug Use: No Smoking Status: Never a Smoker 2nd Hand Smoke Exposure: No Recent Foreign Travel: No Contact w/Someone Who Travel: No Recent Infectious Disease Expo: No Recent Hopitalizations: No Physical Abuse: No Sexual Abuse: No Mistreated: No Fear: No Immunizations Up To Date Date of Pneumonia Vaccine: Oct 31, 2014 Date of Influenza Vaccine: Dec 04, 2017 Seasonal Allergies Seasonal Allergies: No Past Medical History Surgeries: Yes (CA REMOVED FROM NECK, SEVERAL BX) Tonsillectomy Respiratory: Yes Asthma, Pneumonia, Sleep Apnea Currently Using CPAP: Yes Currently Using BIPAP: Yes Cardiac: Yes (CHF) Atrial Fibrillation, Chronic Edema/Swelling, Hypertension Neurological: No Reproductive Disorders: No HIV/AIDS: Yes (hiv) Genitourinary: No Gastrointestinal: Yes Chronic Diarrhea, Polyps Musculoskeletal: No Endocrine: No HEENT: No Cancer: Yes (Neck) Skin, Lymphoma Did You Recieve Any Treatments: Yes What Type of Treatment Did You: Surgical Intervention Psychosocial: Yes Depression Integumentary: No Blood Disorders: Yes (HIV DX IN 1994, ) Family Medical History No Pertinent Family Hx Physical Exam Vital Signs Vital Signs - First Documented 04/13/19 04/13/19 10:38 15:01 Temp 36.1 Pulse 92 Resp 20 B/P (MAP) 126/78 (94) Pulse Ox 93 O2 Delivery Nasal Cannula O2 Flow Rate 2.00 FiO2 32 Capillary Refill : Less Than 3 Seconds Height, Weight, BMI Height: 6'0.00" Weight: 404lbs. 0.0oz. 183.798859af; 55.00 BMI Method:Stated General Appearance: No Apparent Distress, WD/WN, Obese HEENT: PERRL/EOMI, Normal ENT Inspection Neck: Normal Inspection Respiratory: Lungs Clear, Normal Breath Sounds, No Accessory Muscle Use, No Respiratory Distress; No Crackles, No Wheezing Cardiovascular: No Edema, No Murmur, Irregularly Irregular Gastrointestinal: Non Tender, Soft Extremity: Non Tender, Other (mild lower extremity edema with chronic skin changes) Neurologic/Psychiatric: Alert, Oriented x3, No Motor/Sensory Deficits, Normal Mood/Affect Skin: Normal Color, Warm/Dry Focused Exam Lactate Level 04/13/19 13:30: Lactic Acid Level 1.78 Progress/Results/Core Measures Suspected Sepsis Recent Fever Within 48 Hours: No Infection Criteria Present: None New/Unexplained Altered Menta: No Sepsis Screen: No Definite Risk SIRS Temperature: Pulse: 92 Respiratory Rate: 20 Laboratory Tests 04/13/19 10:39: White Blood Count 11.8H Blood Pressure 126 /78 Mean: 94 04/13/19 13:30: Lactic Acid Level 1.78 Laboratory Tests 04/13/19 10:39: Creatinine 1.16, INR Comment 3.2H, Platelet Count 246, Total Bilirubin 0.9 Results/Orders Lab Results Laboratory Tests Test 04/13/19 10:39 04/13/19 13:30 04/14/19 05:38 Range/Units White Blood Count 11.8 H 4.3-11.0 10^3/uL Red Blood Count 5.09 4.35-5.85 10^6/uL Hemoglobin 15.3 13.3-17.7 G/DL Hematocrit 46 40-54 % Mean Corpuscular Volume 90 80-99 FL Mean Corpuscular Hemoglobin 30 25-34 PG Mean Corpuscular Hemoglobin Concent 33 32-36 G/DL Red Cell Distribution Width 14.5 10.0-14.5 % Platelet Count 246 130-400 10^3/uL Mean Platelet Volume 9.5 7.4-10.4 FL Neutrophils (%) (Auto) 65 42-75 % Lymphocytes (%) (Auto) 24 12-44 % Monocytes (%) (Auto) 10 0-12 % Eosinophils (%) (Auto) 1 0-10 % Basophils (%) (Auto) 0 0-10 % Neutrophils # (Auto) 7.6 1.8-7.8 X 10^3 Lymphocytes # (Auto) 2.9 1.0-4.0 X 10^3 Monocytes # (Auto) 1.2 H 0.0-1.0 X 10^3 Eosinophils # (Auto) 0.1 0.0-0.3 10^3/uL Basophils # (Auto) 0.0 0.0-0.1 10^3/uL Prothrombin Time 33.9 H 12.2-14.7 SEC INR Comment 3.2 H 0.8-1.4 Activated Partial Thromboplast Time 50 H 24-35 SEC Sodium Level 141 135-145 MMOL/L Potassium Level 3.3 L 3.6-5.0 MMOL/L Chloride Level 101 98-107 MMOL/L Carbon Dioxide Level 27 21-32 MMOL/L Anion Gap 13 5-14 MMOL/L Blood Urea Nitrogen 20 H 7-18 MG/DL Creatinine 1.16 0.60-1.30 MG/DL Estimat Glomerular Filtration Rate > 60 BUN/Creatinine Ratio 17 Glucose Level 136 H 70-105 MG/DL Calcium Level 9.5 8.5-10.1 MG/DL Corrected Calcium 9.7 8.5-10.1 MG/DL Magnesium Level 1.6 1.6-2.4 MG/DL Total Bilirubin 0.9 0.1-1.0 MG/DL Aspartate Amino Transf (AST/SGOT) 30 5-34 U/L Alanine Aminotransferase (ALT/SGPT) 26 0-55 U/L Alkaline Phosphatase 103 40-136 U/L Myoglobin 134.9 H 10.0-92.0 NG/ML Troponin I < 0.028 <0.028 NG/ML C-Reactive Protein High Sensitivity 2.50 H 0.00-0.50 MG/DL B-Type Natriuretic Peptide 99.2 <100.0 PG/ML Total Protein 7.9 6.4-8.2 GM/DL Albumin 3.8 3.2-4.5 GM/DL Digoxin Level 1.18 0.80-2.00 NG/ML Lactic Acid Level 1.78 0.50-2.00 MMOL/L Triglycerides Level 94 <150 MG/DL Cholesterol Level 143 < 200 MG/DL LDL Cholesterol Direct 107 1-129 MG/DL VLDL Cholesterol 19 5-40 MG/DL HDL Cholesterol 34 L 40-60 MG/DL Micro Results Microbiology 04/13/19 Influenza Types A,B Antigen (OFELIA) - Final, Complete My Orders Orders - RADHA TAVAREZ MD Cbc With Automated Diff (04/13/19 10:33) Magnesium (04/13/19 10:33) Chest 1 View, Ap/Pa Only (04/13/19 10:33) Ekg Tracing (04/13/19 10:33) Comprehensive Metabolic Panel (04/13/19 10:33) Myoglobin Serum (04/13/19 10:33) Protime With Inr (04/13/19 10:33) Partial Thromboplastin Time (04/13/19 10:33) O2 (04/13/19 10:33) Monitor-Rhythm Ecg Trace Only (04/13/19 10:33) Lipid Panel (04/14/19 06:00) Ed Iv/Invasive Line Start (04/13/19 10:33) BNP (04/13/19 10:33) Hs C Reactive Protein (04/13/19 10:39) Troponin I (04/13/19 10:39) Digoxin (04/13/19 12:10) Influenza A And B Antigens (04/13/19 12:10) Albuterol/Ipra Inhalation Soln (Duoneb I (04/13/19 12:15) Svn Small Volume Nebulizer (04/13/19 12:10) Blood Culture (04/13/19 13:15) Sputum Culture (04/13/19 13:15) Urinalysis (04/13/19 13:15) Urine Culture (04/13/19 13:15) Vital Signs Adult Sepsis Patie Q15M (04/13/19 13:15) Remove Rings In Anticipation O (04/13/19 13:15) Lactic Acid Analyzer (04/13/19 13:15) Ceftriaxone For Iv Use (Rocephin For I (04/13/19 13:30) Medications Given in ED Vital Signs/I&O 04/13/19 04/13/19 04/14/19 04/14/19 20:48 21:25 00:00 01:00 Temp 36.6 Pulse 85 74 81 Resp 18 B/P (MAP) 119/57 (77) Pulse Ox 90 94 O2 Delivery Nasal Cannula NIV CPAP O2 Flow Rate 4.00 04/14/19 04/14/19 04/14/19 04/14/19 02:41 04:00 07:00 07:56 Temp 35.8 37.0 Pulse 74 75 83 Resp 20 20 B/P (MAP) 121/63 (82) 120/69 (86) Pulse Ox 93 93 95 O2 Delivery NIV CPAP NIV CPAP Nasal Cannula O2 Flow Rate 4.00 4.00 Capillary Refill : Less Than 3 Seconds Blood Pressure Mean: 94 Progress Note : Time: 13:31 Progress Note Patient was placed on supportive oxygen therapy with nasal cannula. DuoNeb treatment was administered but did not improve his shortness of breath much. Chest x-ray was suggestive of bibasilar infiltrate. Influenza screen was negative. Based on workup findings, patient may have a mild bibasilar pneumonia. We will start antibiotic therapy with Rocephin and azithromycin. Lactic acid and blood cultures are pending. Admission was accepted by Dr. PATEL. Patient does not meet septic criteria at this time. ECG Initial ECG Impression Date: Apr 13, 2019 Initial ECG Impression Time: 10:41 Initial ECG Rate: 98 Initial ECG Rhythm: A Fib/Flutter Initial ECG Impression: Atrial Fibrillation Comment Atrial fibrillation with no acute ischemic changes. Rate controlled. Diagnostic Imaging Diagonstic Imaging: Xray Plain Films/CT/US/NM/MRI: chest Comments Chest x-ray viewed by me and report reviewed. See report below: NAME: BROOK GILBERT [facility] REC#: [id number] PT STATUS: REG ER : 1955 PHYSICIAN: RADHA TAVAREZ MD ADMIT DATE: 04/13/19/ER Signed Date of Exam:04/13/19 CHEST 1 VIEW, AP/PA ONLY INDICATION: Productive cough. Comparison made to the prior study from 08/24/2017. FINDINGS: Interstitial markings appear prominent which could relate to a bronchitis or interstitial pneumonia. There is no alveolar consolidation evident. There is no large effusion. No pneumothorax. Heart size prominent. The central pulmonary vascularity appears appropriate IMPRESSION: 1. Mild prominence of basilar interstitial markings which may relate to a bronchitis or interstitial pneumonia. No alveolar consolidation evident by plain radiography. There is no significant effusion. Cardiomegaly is unchanged from previous exam. Dictated by: Dictated on workstation # [id number] Dict: 04/13/19 1109 Trans: 04/13/19 1153 CV [id number] Interpreted by: ANAID RADFORD MD Electronically signed by: ANAID RADFORD MD 04/13/19 1153 Departure Communication (Admissions) Time/Spoke to Admitting Phy: 13:04 Dr. Patel Impression Primary Impression: Pneumonia Qualified Codes: J18.1 - Lobar pneumonia, unspecified organism Additional Impressions: Hypoxia HIV (human immunodeficiency virus infection) Qualified Codes: B20 - Human immunodeficiency virus [HIV] disease Disposition: ADMITTED INPATIENT Condition: Stable Admissions Decision to Admit Reason: Admit from ER (General) Decision to Admit/Date: Apr 13, 2019 Time/Decision to Admit Time: 13:00 Departure-Patient Inst. Referrals: FLORIAN BLUE MD (PCP/Family) Primary Care Physician RADHA TAVAREZ MD Apr 13, 2019 13:04
[2019-04-13] MEDS ORDERED: cefTRIAXone FOR IV USE 1,000 MG in WATER (STERILE) FOR INJECTION 10 ML IV ONE (13:30)
--- NOTE | 2019-04-13 14:00 | NUR ---
BROOK GILBERT Rolando admitted to room 416-1, with an admitting diagnosis of PNEUMONIA, on 04/13/19 from ER, accompanied by FAMILY.BROOK GILBERT introduced to surroundings, call light, bed controls, phone, TV, temperature control, lights, meal times, smoking policy, visitor policy, side rail policy, bathrooms and showers. Patient Rights given to patient in the handbook. BROOK GILBERT verbalizes understanding that [facility] is not responsible for the loss or damage to any personal effects or valuables that are kept in the patients posession during their hospitalization. The following Patient Care Plans were discussed with the PATIENT: Discharge Planning, INFECTION CONTROL,ADEQUATE OXYGENATION, and PAIN CONTROL. BROOK GILBERT verbalizes understanding of Interdisciplinary Patient Education.
[2019-04-13 14:05] VITALS: BP 122/69
--- NOTE | 2019-04-13 14:33 | History & Physical-Hospitalist ---
History of Present Illness HPI/Chief Complaint This is a 63-year-old white male well-known to me. He was originally diagnosed with HIV approximate 25 years ago. He presents to the emergency room today with a two-week history of an upper respiratory tract infection. He has been tested twice for influenza but has been told he was negative both times. He has been having a cough productive of greenish sputum and having progressive shortness of breath. At the time of my interview he is dyspneic with talking. Source: patient Exam Limitations: no limitations Date Seen 04/13/19 Time Seen by a Provider: 14:30 Attending Physician Stephenie Patel MD PCP Marlene Cunningham MD Referring Physician Date of Admission Apr 13, 2019 at 13:27 Home Medications & Allergies Home Medications Reviewed patient Home Medication Reconciliation performed by pharmacy medication reconciliations crane service technician and/or nursing. Patients Allergies have been reviewed. Allergies Allergies Coded Allergies No Known Drug Allergies (Nmlxqagvak63/12/18) Past Vbhdkqe-Xtwjea-Iekpih Hx Past Med/Social Hx: Reviewed Nursing Past Med/Soc Hx Patient Social History Marrital Status: single Employed/Student: retired ([employer]unte[employer]) Alcohol Use: Rarely Uses Recreational Drug Use: No Smoking Status: Never a Smoker 2nd Hand Smoke Exposure: No Recent Foreign Travel: No Contact w/other who traveled: No Recent Hopitalizations: No Recent Infectious Disease Expo: No Immunizations Up To Date Date of Pneumonia Vaccine: Oct 31, 2014 Date of Influenza Vaccine: Dec 04, 2017 Seasonal Allergies Seasonal Allergies: No Past Medical History Surgeries: Tonsillectomy Currently Using CPAP: Yes Currently Using BIPAP: Yes Cardiac: Atrial Fibrillation, Chronic Edema/Swelling, Hypertension Reproductive: No HIV/AIDS: Yes (hiv) Gastrointestinal: Chronic Diarrhea, Polyps Cancer: Skin, Lymphoma Did You Recieve Any Treatments: Yes What Type of Treatment Did You: Surgical Intervention Psychosocial: Depression History of Blood Disorders: Yes (HIV DX IN 1994, ) Family History No Pertinent Family Hx Review of Systems Constitutional: see HPI EENTM: dental problems Respiratory: cough, dyspnea on exertion, phlegm Cardiovascular: no symptoms reported Gastrointestinal: diarrhea Genitourinary: no symptoms reported Musculoskeletal: muscle pain Skin: no symptoms reported Psychiatric/Neurological: No Symptoms Reported Physical Exam Physical Exam Vital Signs Vital Signs - First Documented 04/13/19 10:38 Temp 36.1 Pulse 92 Resp 20 B/P (MAP) 126/78 (94) Pulse Ox 93 O2 Delivery Nasal Cannula O2 Flow Rate 2.00 Capillary Refill : Less Than 3 Seconds Height, Weight, BMI Height: 6'0.00" Weight: 404lbs. 0.0oz. 183.724499ai; 55.00 BMI Method:Stated General Appearance: Obese HEENT: Other (Poor dentition) Neck: Limited Range of Motion Respiratory: Rales, Rhonci, Wheezing Cardiovascular: No Murmur, Irregularly Irregular Gastrointestinal: Normal Bowel Sounds, Soft Rectal: Deferred Back: Normal Inspection, No CVA Tenderness Extremity: Pedal Edema, Other (Varicosities) Neurologic/Psychiatric: Alert, Oriented x3, No Motor/Sensory Deficits, Normal Mood/Affect Skin: Normal Color, Warm/Dry Results Results/Procedures Labs Laboratory Tests 04/13/19 10:39 Patient resulted labs reviewed. Imaging: Reviewed Imaging Report Assessment/Plan Admission Diagnosis Right lower lobe pneumonia with hypoxia Reactive airway disease Chronic atrial fibrillation Possible COPD History of CHF with diastolic dysfunction Aids with undetectable CD4 counts recently on retroviral therapy Plan to continue his home medications and begin on Rocephin and Zithromax for community-acquired pneumonia Admission Status: Inpatient Order (span 2 midnights) Reason for Inpatient Admission: Complicated medical problems in an immunocompromised patient Copy Copies To 1: MARLENE CUNNINGHAM MD, KATHLEEN M MD Apr 13, 2019 14:32
[2019-04-13 14:46] VITALS: BP 122/69
[2019-04-13] MEDS ORDERED: CATHETER FLUSH 10 ML SYR IV PRN (15:00)
[2019-04-13] MEDS ORDERED: ONDANSETRON 4 MG/2 ML (SDV) Z0FRAN IV PRN (15:00)
[2019-04-13] MEDS ORDERED: RT-ALBUTEROL/IPRATROPIUM 3 ML (DUONEB) VIAL INH PRN (15:15)
[2019-04-13] MEDS ORDERED: PATIENT MAY USE OWN MEDS, ALL MC SCH (15:30)
[2019-04-13] MEDS ORDERED: RX-DIPHENO./ATROP. 2.5/0.25 MG (LOMOTIL) TAB PPK#4 PO PRN (15:30)
[2019-04-13] MEDS ORDERED: IBUPROFEN TABLET 200 MG TAB PO PRN (15:30)
[2019-04-13] MEDS: AZITHROMYCIN INJECTION 500 MG in NS (IVPB) 250 ML IV SCH (15:48)
[2019-04-13 16:00] VITALS: BP 109/65
[2019-04-13] MEDS ORDERED: DIPHENOXYLATE/ATROPINE 2.5MG/0.025MG (LOMOTIL) TAB PO PRN (16:15)
[2019-04-13] MEDS: BIKTARVY PO SCH (17:10)
[2019-04-13] MEDS: KCL 20 MEQ TAB (K-DUR) PO SCH (17:11)
--- NOTE | 2019-04-13 17:22 | NUR ---
PATIENT HAS TAKEN SOME OF TODAY'S MEDS AND WANTS TO TAKE THEM ON SAME SCHEDULE AT HOME. PER THIS IS OK . PLEASE SEE NURSING ORDER TO HAVE PHARM RETIME TO PATIENT'S SCHEDULE
[2019-04-13] MEDS: RT-ALBUTEROL/IPRATROPIUM 3 ML (DUONEB) VIAL INH SCH ×2 (18:21→21:25)
[2019-04-13 20:00] VITALS: BP 112/52
[2019-04-13] MEDS: BUPROPION 300 MG PO SCH (20:08)
[2019-04-13] MEDS: RISPERIDONE 0.5 MG TABLET PO SCH (20:09)
[2019-04-13] MEDS: CITALOPRAM 40 MG TABLET PO SCH (20:09)
[2019-04-13] MEDS: warFARin 5 MG (COUMADIN) TAB PO SCH (20:11)
[2019-04-13] MEDS ORDERED: NON-FORMULARY MEDICATION 1 EA EA (Risperidone 0.5 MG) PO SCH (21:00)
[2019-04-13] MEDS ORDERED: NON-FORMULARY MEDICATION 1 EA EA (Citalopram Hydrobromide (Citalopram HBr) 40 MG) PO SCH (21:00)
[2019-04-13] MEDS ORDERED: NON-FORMULARY MEDICATION 1 EA EA (Potassium Chloride 40 MEQ) PO SCH (21:00)
[2019-04-13] MEDS ORDERED: NON-FORMULARY MEDICATION 1 EA EA (Bupropion HCl (Bupropion Xl) 300 MG) PO SCH (21:00)
--- NOTE | 2019-04-13 21:00 | NUR ---
Went through patient's night medications. Pt took all meds due on the eMAR and some medications not on the eMar including potassium and magnesium. Provided patient education on what medications to take while in the hospital, pt understood but still insisted on taking his home medications
[2019-04-13] MEDS: CATHETER FLUSH 10 ML SYR IV SCH (22:33)
[2019-04-14] VITALS: BP 119/57
[2019-04-14] MEDS: RT-ALBUTEROL/IPRATROPIUM 3 ML (DUONEB) VIAL INH SCH ×6 (02:38→21:43)
[2019-04-14 04:00] VITALS: BP 121/63
[2019-04-14] MEDS: CATHETER FLUSH 10 ML SYR IV SCH ×3 (06:00→19:57)
[2019-04-14 06:14] LABS: CHOLESTEROL 143 MG/DL (< 200); HDL CHOLESTEROL 34 MG/DL (40-60); TRIGLYCERIDES 94 MG/DL (<150); VLDL CHOLESTEROL 19 MG/DL (5-40)
[2019-04-14] MEDS ORDERED: FUROSEMIDE 40 MG (LASIX) TAB PO SCH (07:00)
[2019-04-14] MEDS: MULTIVIT W/MINERALS TAB (THERAGRAN M) PO SCH (07:32)
[2019-04-14] MEDS: KCL 20 MEQ TAB (K-DUR) PO SCH ×2 (07:34→13:47)
[2019-04-14 07:56] VITALS: BP 120/69
[2019-04-14] MEDS ORDERED: NON-FORMULARY MEDICATION 1 EA EA (Furosemide 80 MG) PO SCH (09:00)
[2019-04-14] MEDS ORDERED: DIGOXIN 0.25 MG (LANOXIN) TAB PO SCH (09:00)
[2019-04-14] MEDS: cefTRIAXone 1,000 MG/SWFI 10 ML IV PUSH IV SCH ×2 (09:40)
[2019-04-14] MEDS: ALLOPURINOL 100 MG (ZYLOPRIM) TAB PO SCH (09:40)
[2019-04-14] MEDS: BIKTARVY PO SCH (10:33)
[2019-04-14] MEDS: DIGOXIN 0.25 MG (LANOXIN) TAB PO SCH (10:34)
--- NOTE | 2019-04-14 11:47 | Progress Note - Hospitalist ---
Subjective HPI/CC On Admission Date Seen by Provider: Apr 14, 2019 Time Seen by Provider: 11:15 This is a 63-year-old white male well-known to me. He was originally diagnosed with HIV approximate 25 years ago. He presents to the emergency room today with a two-week history of an upper respiratory tract infection. He has been tested twice for influenza but has been told he was negative both times. He has been having a cough productive of greenish sputum and having progressive shortness of breath. At the time of my interview he is dyspneic with talking. Subjective/Events-last exam Patient looks a little stronger and is less dyspneic is morning. His cough is keeping him awake some but is nonproductive. Review of Systems Pulmonary: Dyspnea, Cough Focused Exam Lactate Level 04/13/19 13:30: Lactic Acid Level 1.78 Objective Exam Vital Signs Vital Signs Date Time Temp Pulse Resp B/P (MAP) Pulse Ox O2 Delivery O2 Flow Rate FiO2 04/15/19 12:13 76 04/15/19 11:31 92 Nasal Cannula 4.00 04/15/19 08:00 37.7 24 134/56 (82) 04/13/19 18:22 89 Capillary Refill : Less Than 3 SecondsLess Than 3 Seconds General Appearance: No Apparent Distress, WD/WN, Obese HEENT: Other (Or dentition) Neck: Limited Range of Motion Respiratory: Crackles, Rales, Wheezing Cardiovascular: Regular Rate, Rhythm, No Gallop, No JVD, No Murmur Gastrointestinal: Normal Bowel Sounds, Soft Rectal: Deferred Extremity: Pedal Edema Results/Procedures Lab Laboratory Tests 04/15/19 05:00 Patient resulted labs reviewed. Imaging: Reviewed Imaging Report Assessment/Plan Assessment and Plan Assess & Plan/Chief Complaint Right lower lobe pneumonia with hypoxia-Day number 2 Rocephin and Zithromax- preliminary sputum shows staph will add vancomycin and consider DC Zithromax Reactive airway disease-consider steroids Chronic atrial fibrillation-follow INR closely Possible COPD History of CHF with diastolic dysfunction Aids with undetectable viral load recently; on retroviral therapy Clinical Quality Measures DVT/VTE Risk/Contraindication: Risk Factor Score Per Nursin RFS Level Per Nursing on Admit: 4+=Very High PANFILO ESPARZA MD Apr 14, 2019 11:47
[2019-04-14 12:00] VITALS: BP 110/70
[2019-04-14] MEDS ORDERED: VANCOMYCIN INJECTION 0.1 MG in NS (IVPB) 250 ML IV SCH (12:00)
--- NOTE | 2019-04-14 12:09 | NUR ---
CR 1.16; CR CL > 70; WT 176.3 KG; VANCO 2000 MG IV Q12H; TROUGH AFTER 3RD DOSE
[2019-04-14] MEDS: VANCOMYCIN 2000 MG/NS 500 ML IVPB IV SCH ×4 (12:25→23:53)
[2019-04-14] MEDS: FUROSEMIDE 80 MG TABLET PO SCH (13:47)
[2019-04-14] MEDS: METOLAZONE 2.5 MG (ZAROXOLYN) TAB PO SCH (13:48)
[2019-04-14] MEDS: ACETAMINOPHEN 500 MG TAB (TYLENOL) PO PRN (14:24)
[2019-04-14 15:35] VITALS: BP 117/71
[2019-04-14] MEDS: AZITHROMYCIN INJECTION 500 MG in NS (IVPB) 250 ML IV SCH (15:56)
--- NOTE | 2019-04-14 18:55 | NUR ---
PT VOICED HE WOULD TAKE HIS COUMADIN AT 1999 --
[2019-04-14 19:21] VITALS: BP 102/67
[2019-04-14] MEDS: warFARin 5 MG (COUMADIN) TAB PO SCH (19:53)
[2019-04-14] MEDS: BUPROPION 300 MG PO SCH (19:54)
[2019-04-14] MEDS: RISPERIDONE 0.5 MG TABLET PO SCH (19:55)
[2019-04-14] MEDS: CITALOPRAM 40 MG TABLET PO SCH (19:57)
[2019-04-15] VITALS: BP 123/57
[2019-04-15] MEDS: RT-ALBUTEROL/IPRATROPIUM 3 ML (DUONEB) VIAL INH SCH ×6 (02:26→23:03)
[2019-04-15 04:00] VITALS: BP 126/57
[2019-04-15 05:43] LABS: BASOPHILS % (AUTO) 0 % (0-10); EOSINOPHILS # (AUTO) 0.1 10^3/uL (0.0-0.3); EOSINOPHILS % (AUTO) 0 % (0-10); HEMATOCRIT 40 % (40-54); HEMOGLOBIN 13.3 G/DL (13.3-17.7); LYMPHOCYTES # (AUTO) 3.1 X 10^3 (1.0-4.0); LYMPHOCYTES % (AUTO) 23 % (12-44); MEAN CORPUSCULAR HEMOGLOBIN 30 PG (25-34); MEAN CORPUSCULAR HGB CONC 33 G/DL (32-36); MEAN CORPUSCULAR VOLUME 91 FL (80-99); MEAN PLATELET VOLUME 10.1 FL (7.4-10.4); MONOCYTES # (AUTO) 1.6 X 10^3 (0.0-1.0); MONOCYTES % (AUTO) 12 % (0-12); NEUTROPHILS # (AUTO) 8.5 X 10^3 (1.8-7.8); NEUTROPHILS % (AUTO) 64 % (42-75); PLATELET COUNT 221 10^3/uL (130-400); RED CELL DISTRIBUTION WIDTH 14.4 % (10.0-14.5); WHITE BLOOD COUNT 13.3 10^3/uL (4.3-11.0)
[2019-04-15 06:00] LABS: PROTHROMBIN TIME PATIENT 40.9 SEC (12.2-14.7)
[2019-04-15 06:08] LABS: ALANINE AMINOTRANSFERASE 21 U/L (0-55); ALBUMIN 3.4 GM/DL (3.2-4.5); ALKALINE PHOSPHATASE 90 U/L (40-136); BUN/CREATININE RATIO 21; CALCIUM 8.7 MG/DL (8.5-10.1); CARBON DIOXIDE 26 MMOL/L (21-32); CHLORIDE 98 MMOL/L (98-107); CREATININE SERUM 1.13 MG/DL (0.60-1.30); GFR ESTIMATED > 60; GLUCOSE 164 MG/DL (70-105); POTASSIUM 2.7 MMOL/L (3.6-5.0); SODIUM 137 MMOL/L (135-145); TOTAL PROTEIN 7.4 GM/DL (6.4-8.2)
[2019-04-15] MEDS: MULTIVIT W/MINERALS TAB (THERAGRAN M) PO SCH (06:37)
[2019-04-15] MEDS: CATHETER FLUSH 10 ML SYR IV SCH ×3 (06:37→22:30)
[2019-04-15] MEDS: KCL 20 MEQ TAB (K-DUR) PO SCH ×2 (06:37→16:20)
[2019-04-15] MEDS: FUROSEMIDE 80 MG TABLET PO SCH (07:31)
[2019-04-15] MEDS: METOLAZONE 2.5 MG (ZAROXOLYN) TAB PO SCH (07:31)
[2019-04-15] MEDS: BIKTARVY PO SCH (07:33)
[2019-04-15] MEDS: DIGOXIN 0.25 MG (LANOXIN) TAB PO SCH (07:33)
[2019-04-15] MEDS: ALLOPURINOL 100 MG (ZYLOPRIM) TAB PO SCH (07:42)
[2019-04-15] MEDS: cefTRIAXone 1,000 MG/SWFI 10 ML IV PUSH IV SCH ×2 (07:43)
[2019-04-15 08:00] VITALS: BP 134/56
[2019-04-15] MEDS ORDERED: DILT-27 PO (08:04)
[2019-04-15] MEDS ORDERED: DILT180C85 PO (08:04)
[2019-04-15] MEDS ORDERED: FLUT16SP22 NSEACH (08:04)
[2019-04-15] MEDS ORDERED: BICT1TAB PO (08:11)
[2019-04-15] MEDS ORDERED: ASPI-983 PO (08:11)
[2019-04-15] MEDS ORDERED: MAGN400T39 PO (08:11)
--- NOTE | 2019-04-15 08:16 | NUR ---
SPOKE WITH THE PT (HE HAD ALL HIS HOME MEDS LABELED FOR USE) WELL GOING THRU THE EXT MED HISTORY TO COMPLETE THE MED REC, ALL MEDICATIONS HE HAS MATCHED THE EXT MED HISTORY AND HE WAS ABLE TO TELL ME HOW/WHEN HE TAKES ALL MEDS. PT TAKES 2 DIFFERENT STRENGTHS OF DILTIAZEM- DILTIAZEM 180MG: THE PT TAKES 2 CAPS AND DILTIAZEM 120MG: PT TAKES 1 CAP. HE TAKES THESE ALL AT THE SAME TIME. OTC MEDS: ASPIRIN 81MG [employer] MAGNESIUM
--- NOTE | 2019-04-15 09:38 | NUR ---
Pt is [employer] and declined Communion for today.
[2019-04-15 12:00] VITALS: BP 118/58
--- NOTE | 2019-04-15 13:08 | NUR ---
CM DISCHARGE PLANNING: Doctor has indicated that the patient might need oxygen when he is dismissed. Visited with the patient about what DME he would like to use if this is the case. He has elected [facility] if needed. Will fax to them if needed. He denies any further needs at this time.
[2019-04-15] MEDS ORDERED: KCL 20 MEQ TAB (K-DUR) PO NR (13:15)
--- NOTE | 2019-04-15 13:18 | NUR ---
DR. WEINER NOTIFIED OF KCL LEVEL OF 2.7. NEW ORDER NOTED.
--- NOTE | 2019-04-15 13:19 | NUR ---
DR. WEINER NOTIFIED OF INR LEVEL 4. STATED SHE WOULD TALK TO PHARMACIST ISRA ABOUT GIVING A LOWER DOSE OF COUMADIN.
--- NOTE | 2019-04-15 13:53 | NUR ---
RD ASSESSMENT PMHx: HIV; afib; HTN; chronic diarrhea; lymphoma; CHF PT INTERACTION: Pt was awake and pleasant during consult for MST score. Pt states current appetite is pretty good. Note avg PO intake of 100% of meals, per chart review. Pt states following a regular diet at home and has no issues with chewing/swallowing food. Pt states no recent episodes of nausea/vomiting, but note 3 episodes of emesis on 04/14 per chart review. Pt states some recent issues with diarrhea. Note last BM was 04/14 and pt not currently on bowel regimen per chart review. Pt states recent wt loss of "31# since January." This is significant wt loss at 7% [id number]. Note unable to determine recent wt hx, per chart review. Upon visual exam, pt appears to be very well-nourished with no visible signs of muscle/fat wasting and a BMI of 52.8. Though pt has had significant wt loss, given his PO intake and visual exam, pt does not meet criteria for malnutrition per ASPEN guidelines. ABNORMAL NUTRITION-RELATED LAB VALUES LOW: K 2.7 HIGH: BUN 24; glu 164 Est. kcal needs: 6156-9259 kcal | 25-30 kcal/kg IBW, based on IBW of 81 kg Est. Pro needs: 65-81 g Pro | 0.8-1.0 g Pro/kg IBW, based on IBW of 81 kg PES STATEMENT: Given pt's PO intake, no nutrition diagnosis at this time (NO-1.1) INTERVENTION: Continue with current diet order of 2000mg Na diet. Discontinue nutrition supplementation order of Ensure Enlive with meals TID, for increase kcal intake. Pt PO intake sufficient at this time to meet needs. Will continue to follow and reassess as pt needs and status change. MONITOR/EVALUATE: PO Intake; Plan of Care; Hydration Status; Weight Status; Lab Values Sebastián Martin, MS, RD, LD
[2019-04-15] MEDS: AZITHROMYCIN INJECTION 500 MG in NS (IVPB) 250 ML IV SCH (14:26)
[2019-04-15 16:14] VITALS: BP 118/72
[2019-04-15] MEDS: ACETAMINOPHEN 500 MG TAB (TYLENOL) PO PRN (16:19)
--- NOTE | 2019-04-15 16:19 | Progress Note ---
Subjective Subjective/Events-last exam Patient states that he is feeling better but not ready to go home. Patient does not have home oxygen requirement but is on 4LPM at this time. Tolerating PO diet. States that he gets short of breath with ambulation but is able to get up around the room. Review of Systems Pulmonary: Dyspnea, Cough Cardiovascular: No: Chest Pain, Palpitations Neurological: Weakness, Incoordination Focused Exam Lactate Level 04/13/19 13:30: Lactic Acid Level 1.78 Objective Exam Last Set of Vital Signs Vital Signs Date Time Temp Pulse Resp B/P (MAP) Pulse Ox O2 Delivery O2 Flow Rate FiO2 04/15/19 16:14 37.6 72 22 118/72 (87) 92 Nasal Cannula 4.00 04/13/19 18:22 89 Capillary Refill : Less Than 3 SecondsLess Than 3 Seconds I&O Intake and Output0 04/15/19 00:00 Intake Total 4260 ml Balance 4260 ml Intake Oral 3480 ml IV Total 780 ml # Voids 12 # Bowel Movements 2 # Emeses 3 General: Alert, Oriented X3, Cooperative, No Acute Distress Lungs: Clear to Auscultation, Normal Air Movement Heart: Regular Rate, No Murmurs Abdomen: Normal Bowel Sounds, Soft, No Tenderness, No Masses Extremities: No Edema, No Tenderness/Swelling Skin: No Rashes, No Breakdown Neuro: Sensation Intact, Cranial Nerves 3-12 NL Psych/Mental Status: Mental Status NL, Mood NL Results/Procedures Lab Laboratory Tests 04/15/19 05:00: White Blood Count 13.3H, Red Blood Count 4.40, Hemoglobin 13.3, Hematocrit 40, Mean Corpuscular Volume 91, Mean Corpuscular Hemoglobin 30, Mean Corpuscular Hemoglobin Concent 33, Red Cell Distribution Width 14.4, Platelet Count 221, Mean Platelet Volume 10.1, Neutrophils (%) (Auto) 64, Lymphocytes (%) (Auto) 23, Monocytes (%) (Auto) 12, Eosinophils (%) (Auto) 0, Basophils (%) (Auto) 0, Neutrophils # (Auto) 8.5H, Lymphocytes # (Auto) 3.1, Monocytes # (Auto) 1.6H, Eosinophils # (Auto) 0.1, Basophils # (Auto) 0.0, Prothrombin Time 40.9H, INR Comment 4.0H, Sodium Level 137, Potassium Level 2.7L, Chloride Level 98, Carbon Dioxide Level 26, Anion Gap 13, Blood Urea Nitrogen 24H, Creatinine 1.13, Estimat Glomerular Filtration Rate > 60, BUN/Creatinine Ratio 21, Glucose Level 164H, Calcium Level 8.7, Corrected Calcium 9.2, Total Bilirubin 1.0, Aspartate Amino Transf (AST/SGOT) 26, Alanine Aminotransferase (ALT/SGPT) 21, Alkaline Phosphatase 90, Total Protein 7.4, Albumin 3.4 Microbiology 04/13/19 Blood Culture - Preliminary, Resulted No growth 04/13/19 Gram Stain - Final, Resulted 04/13/19 Sputum Culture - Preliminary, Resulted Staphylococcus aureus Haemophilus influenza Usual oral raman Assessment/Plan Assessment/Plan (1) Right lower lobe pneumonia Status: Acute Assessment & Plan: - Continue IV antibiotics, MAT protocol Qualifiers: Qualified Codes: J18.1 - Lobar pneumonia, unspecified organism (2) Acute respiratory failure with hypoxia Status: Acute Assessment & Plan: - No home oxygen baseline requirement, will continue to titrate oxygen as tolerated (3) HIV (human immunodeficiency virus infection) Status: Acute Assessment & Plan: - Continue home anti viral medications Qualifiers: Qualified Codes: B20 - Human immunodeficiency virus [HIV] disease (4) Anticoagulant long-term use Status: Acute Assessment & Plan: - INR elevated today, holding coumadin today, Daily INRs (5) Obesity hypoventilation syndrome Status: Acute (6) Morbid obesity Status: Acute (7) DVT prophylaxis Status: Acute Assessment & Plan: - Coumadin Clinical Quality Measures DVT/VTE Risk/Contraindication: Risk Factor Score Per Nursin RFS Level Per Nursing on Admit: 4+=Very High LORRI WEINER MD Apr 15, 2019 16:19
[2019-04-15 20:04] VITALS: BP 128/59
[2019-04-15] MEDS: RISPERIDONE 0.5 MG TABLET PO SCH (21:00)
[2019-04-15] MEDS: BUPROPION 300 MG PO SCH (21:00)
[2019-04-15] MEDS: CITALOPRAM 40 MG TABLET PO SCH (21:00)
[2019-04-15] MEDS ORDERED: TROUGH ORDER-PHARMACY XX NR (23:00)
[2019-04-16] VITALS (7 sets, daily range): BP systolic 107–133; BP diastolic 62–72
[2019-04-16] MEDS: RT-ALBUTEROL/IPRATROPIUM 3 ML (DUONEB) VIAL INH SCH ×6 (02:49→22:28)
[2019-04-16] MEDS: CATHETER FLUSH 10 ML SYR IV SCH ×3 (05:36→23:06)
[2019-04-16 06:40] LABS: PROTHROMBIN TIME PATIENT 40.7 SEC (12.2-14.7)
[2019-04-16 06:48] LABS: ALBUMIN 3.4 GM/DL (3.2-4.5); BILIRUBIN,TOTAL 0.7 MG/DL (0.1-1.0); CALCIUM 8.8 MG/DL (8.5-10.1); CREATININE SERUM 1.22 MG/DL (0.60-1.30); POTASSIUM 3.3 MMOL/L (3.6-5.0); TOTAL PROTEIN 7.7 GM/DL (6.4-8.2)
[2019-04-16] MEDS: cefTRIAXone 1,000 MG/SWFI 10 ML IV PUSH IV SCH ×2 (08:17)
[2019-04-16] MEDS: AZITHROMYCIN 250 MG TAB (ZITHROMAX) PO SCH (08:17)
[2019-04-16] MEDS: KCL 20 MEQ TAB (K-DUR) PO SCH ×2 (08:17→17:40)
[2019-04-16] MEDS: ALLOPURINOL 100 MG (ZYLOPRIM) TAB PO SCH (08:17)
[2019-04-16] MEDS: BIKTARVY PO SCH (08:18)
[2019-04-16] MEDS: MULTIVIT W/MINERALS TAB (THERAGRAN M) PO SCH (08:19)
[2019-04-16] MEDS: FUROSEMIDE 80 MG TABLET PO SCH (08:20)
[2019-04-16] MEDS: DIGOXIN 0.25 MG (LANOXIN) TAB PO SCH (08:20)
[2019-04-16] MEDS: METOLAZONE 2.5 MG (ZAROXOLYN) TAB PO SCH (08:20)
--- NOTE | 2019-04-16 08:50 | NUR ---
patient refused to take his Lasix and Zaroxolyn this AM. patient stated he doesn't take them in the AM that he would take them later in the afternoon. patient also informed this nurse that he took his own Cardizem early this AM without letting anyone know
--- NOTE | 2019-04-16 17:41 | NUR ---
patient told this RN that he took his own 40meq K
[2019-04-16] MEDS ORDERED: warFARin 5 MG (COUMADIN) TAB PO SCH (18:00)
--- NOTE | 2019-04-16 20:42 | Progress Note ---
Subjective Subjective/Events-last exam Improved this AM. Tolerating ambulation and PO diet. Still requiring oxygen. Review of Systems General: No Chills, No Malaise Pulmonary: Dyspnea (with activity), Cough Cardiovascular: No: Chest Pain, Palpitations, Edema Gastrointestinal: No: Nausea, Vomiting, Abdominal Pain, Diarrhea, Constipation Genitourinary: No Dysuria, No Frequency Neurological: Weakness, Incoordination Objective Exam Last Set of Vital Signs Vital Signs Date Time Temp Pulse Resp B/P (MAP) Pulse Ox O2 Delivery O2 Flow Rate FiO2 04/16/19 20:00 37.4 78 18 114/62 (79) 92 Nasal Cannula 4.00 04/16/19 10:18 36 Capillary Refill : Less Than 3 SecondsLess Than 3 Seconds I&O Intake and Output 04/16/19 00:00 Intake Total 4312 ml Balance 4312 ml Intake Oral 3782 ml IV Total 530 ml # Voids 11 # Bowel Movements 5 General: Alert, Oriented X3, Cooperative, No Acute Distress HEENT: Mucous Memb Moist/[place] Lungs: Other (diffuse wheezing, normal work of breathing, no crackles) Heart: Regular Rate, No Murmurs Abdomen: Normal Bowel Sounds, Soft, No Tenderness, No Masses Extremities: Other (1+ pitting edema bilaterally) Neuro: Normal Speech, Sensation Intact, Cranial Nerves 3-12 NL Psych/Mental Status: Mental Status NL, Mood NL Results/Procedures Lab Laboratory Tests 04/16/19 06:14: Prothrombin Time 40.7H, INR Comment 4.0H, Sodium Level 141, Potassium Level 3.3L , Chloride Level 100, Carbon Dioxide Level 30, Anion Gap 11, Blood Urea Nitrogen 24H, Creatinine 1.22, Estimat Glomerular Filtration Rate 60, BUN/Creatinine Ratio 20, Glucose Level 117H, Calcium Level 8.8, Corrected Calcium 9.3, Total Bilirubin 0.7, Aspartate Amino Transf (AST/SGOT) 25, Alanine Aminotransferase (ALT/SGPT) 19, Alkaline Phosphatase 88, Total Protein 7.7, Albumin 3.4 Microbiology 04/13/19 Blood Culture - Preliminary, Resulted No growth 04/13/19 Gram Stain - Final, Complete 04/13/19 Sputum Culture - Final, Complete Usual oral raman Staphylococcus aureus Haemophilus influenza Assessment/Plan Assessment/Plan (1) Right lower lobe pneumonia Status: Acute Assessment & Plan: - Continue IV antibiotics, MAT protocol Qualifiers: Qualified Codes: J18.1 - Lobar pneumonia, unspecified organism (2) Acute respiratory failure with hypoxia Status: Acute Assessment & Plan: - No home oxygen baseline requirement, will continue to titrate oxygen as tolerated 04/16: Transition steroids to PO, home oxygen study in AM (3) HIV (human immunodeficiency virus infection) Status: Acute Assessment & Plan: - Continue home anti viral medications Qualifiers: Qualified Codes: B20 - Human immunodeficiency virus [HIV] disease (4) Anticoagulant long-term use Status: Acute Assessment & Plan: - INR elevated today, holding coumadin today, Daily INRs 04/16: Hold today, Repeat INR Monday as outpatient (5) Obesity hypoventilation syndrome Status: Acute (6) Morbid obesity Status: Acute (7) DVT prophylaxis Status: Acute Assessment & Plan: - Coumadin Clinical Quality Measures DVT/VTE Risk/Contraindication: Risk Factor Score Per Nursin RFS Level Per Nursing on Admit: 4+=Very High LORRI WEINER MD Apr 16, 2019 20:42
[2019-04-16] MEDS ORDERED: KCL 20 MEQ TAB (K-DUR) PO ONE (20:45)
[2019-04-16] MEDS: BUPROPION 300 MG PO SCH (23:05)
[2019-04-16] MEDS: CITALOPRAM 40 MG TABLET PO SCH (23:05)
[2019-04-16] MEDS: RISPERIDONE 0.5 MG TABLET PO SCH (23:06)
[2019-04-17] VITALS: BP 110/62
[2019-04-17] MEDS: RT-ALBUTEROL/IPRATROPIUM 3 ML (DUONEB) VIAL INH SCH ×6 (02:57→21:07)
[2019-04-17 04:00] VITALS: BP 100/68
[2019-04-17] MEDS: CATHETER FLUSH 10 ML SYR IV SCH ×3 (05:24→19:44)
[2019-04-17 05:46] LABS: BASOPHILS % (AUTO) 0 % (0-10); EOSINOPHILS # (AUTO) 0.1 10^3/uL (0.0-0.3); EOSINOPHILS % (AUTO) 1 % (0-10); HEMATOCRIT 40 % (40-54); HEMOGLOBIN 13.1 G/DL (13.3-17.7); LYMPHOCYTES # (AUTO) 3.5 X 10^3 (1.0-4.0); LYMPHOCYTES % (AUTO) 31 % (12-44); MEAN CORPUSCULAR HEMOGLOBIN 30 PG (25-34); MEAN CORPUSCULAR HGB CONC 33 G/DL (32-36); MEAN CORPUSCULAR VOLUME 92 FL (80-99); MEAN PLATELET VOLUME 9.6 FL (7.4-10.4); MONOCYTES # (AUTO) 1.3 X 10^3 (0.0-1.0); MONOCYTES % (AUTO) 12 % (0-12); NEUTROPHILS # (AUTO) 6.2 X 10^3 (1.8-7.8); NEUTROPHILS % (AUTO) 56 % (42-75); PLATELET COUNT 242 10^3/uL (130-400); RED CELL DISTRIBUTION WIDTH 14.3 % (10.0-14.5); WHITE BLOOD COUNT 11.1 10^3/uL (4.3-11.0)
[2019-04-17 06:17] LABS: BUN/CREATININE RATIO 21; CALCIUM 8.8 MG/DL (8.5-10.1); CARBON DIOXIDE 27 MMOL/L (21-32); CHLORIDE 99 MMOL/L (98-107); CREATININE SERUM 1.11 MG/DL (0.60-1.30); GFR ESTIMATED > 60; GLUCOSE 114 MG/DL (70-105); POTASSIUM 3.5 MMOL/L (3.6-5.0); SODIUM 139 MMOL/L (135-145)
[2019-04-17] MEDS: ALLOPURINOL 100 MG (ZYLOPRIM) TAB PO SCH (07:54)
[2019-04-17] MEDS: AZITHROMYCIN 250 MG TAB (ZITHROMAX) PO SCH (07:54)
[2019-04-17] MEDS: KCL 20 MEQ TAB (K-DUR) PO SCH ×2 (07:55→18:28)
[2019-04-17] MEDS: MULTIVIT W/MINERALS TAB (THERAGRAN M) PO SCH (07:56)
[2019-04-17 08:00] VITALS: BP 129/73
[2019-04-17] MEDS: cefTRIAXone 1,000 MG/SWFI 10 ML IV PUSH IV SCH ×2 (08:01)
[2019-04-17] MEDS: METOLAZONE 2.5 MG (ZAROXOLYN) TAB PO SCH (08:02)
[2019-04-17] MEDS: BIKTARVY PO SCH (08:02)
[2019-04-17] MEDS: DIGOXIN 0.25 MG (LANOXIN) TAB PO SCH (08:05)
[2019-04-17] MEDS: FUROSEMIDE 80 MG TABLET PO SCH (08:07)
--- NOTE | 2019-04-17 08:44 | Diagnostic Imaging Report ---
INDICATION: Hypoxemia. EXAMINATION: PA and lateral chest. FINDINGS: The heart size and pulmonary vascularity are normal. The lungs are clear. There are no effusions or pneumothoraces. IMPRESSION: Negative chest. Dictated by: Dictated on workstation # [id number]
--- NOTE | 2019-04-17 09:47 | NUR ---
PT IS COMPLAINING NOW OF PAIN STARTING IN HIS RT GROIN AREA AND GOING DOEN TO HIS RT FOOT. PAIN ON MOVEMENT,DESCRIBED STABBING AND CONSTANT. PAIN RATED AT 7
--- NOTE | 2019-04-17 10:05 | NUR ---
SPOKE WITH DR. WEINER. ORDER FOR TORADOL 30 MG IV ONCE.
[2019-04-17] MEDS ORDERED: KETOROLAC 30 MG/ML VIAL IVP NR (10:15)
[2019-04-17] MEDS ORDERED: KCL 20 MEQ TAB (K-DUR) PO NR (10:45)
--- NOTE | 2019-04-17 11:38 | NUR ---
PT STATES HE WILL NOT WALK TODAY FOR HOME O2 QUALIFICATION.
[2019-04-17 12:00] VITALS: BP 116/56
[2019-04-17] MEDS ORDERED: oxyCODONE/APAP 5/325MG (PERCOCET 5) TABLET PO NR (12:07)
--- NOTE | 2019-04-17 14:25 | NUR ---
Will continue to follow along for any discharge planning needs.
--- NOTE | 2019-04-17 14:31 | NUR ---
provided prayer and Communion.
[2019-04-17 16:00] VITALS: BP 117/56
[2019-04-17 19:38] VITALS: BP 120/72
[2019-04-17] MEDS: oxyCODONE/APAP 5/325MG (PERCOCET 5) TABLET PO PRN (19:44)
--- NOTE | 2019-04-17 19:44 | Progress Note ---
Subjective Subjective/Events-last exam Patient states that this AM he started having right leg pain with movement but it is ok when he is laying in bed. No other concerns. Tolerating PO diet. Review of Systems Pulmonary: Dyspnea, Cough Cardiovascular: No: Chest Pain, Palpitations Gastrointestinal: No: Nausea, Vomiting, Abdominal Pain, Diarrhea, Constipation Musculoskeletal: leg pain Neurological: Weakness, Incoordination Objective Exam Last Set of Vital Signs Vital Signs Date Time Temp Pulse Resp B/P (MAP) Pulse Ox O2 Delivery O2 Flow Rate FiO2 04/17/19 18:50 92 Room Air 04/17/19 16:00 37.4 83 22 117/56 (76) 04/17/19 08:00 4.00 04/16/19 10:18 36 Capillary Refill : Less Than 3 SecondsLess Than 3 Seconds I&O Intake and Output 04/17/19 00:00 Intake Total 3700 ml Balance 3700 ml Intake Oral 3700 ml # Voids 15 # Bowel Movements 4 General: Alert, Oriented X3, Cooperative, No Acute Distress Lungs: Clear to Auscultation, Normal Air Movement Heart: Regular Rate, No Murmurs Abdomen: Normal Bowel Sounds, Soft, No Tenderness, No Masses Extremities: Other (Right leg pain with active and passive ROM, no rashes or wounds present) Neuro: Normal Speech, Sensation Intact, Cranial Nerves 3-12 NL Results/Procedures Lab Laboratory Tests 04/17/19 05:25: White Blood Count 11.1H, Red Blood Count 4.34L, Hemoglobin 13.1L, Hematocrit 40, Mean Corpuscular Volume 92, Mean Corpuscular Hemoglobin 30, Mean Corpuscular Hemoglobin Concent 33, Red Cell Distribution Width 14.3, Platelet Count 242, Mean Platelet Volume 9.6, Neutrophils (%) (Auto) 56, Lymphocytes (%) (Auto) 31, Monocytes (%) (Auto) 12, Eosinophils (%) (Auto) 1, Basophils (%) (Auto) 0, Neutrophils # (Auto) 6.2, Lymphocytes # (Auto) 3.5, Monocytes # (Auto) 1.3H, Eosinophils # (Auto) 0.1, Basophils # (Auto) 0.0 04/17/19 05:35: Sodium Level 139, Potassium Level 3.5L, Chloride Level 99, Carbon Dioxide Level 27, Anion Gap 13, Blood Urea Nitrogen 23H, Creatinine 1.11, Estimat Glomerular Filtration Rate > 60, BUN/Creatinine Ratio 21, Glucose Level 114H, Calcium Level 8.8 Microbiology 04/13/19 Blood Culture - Preliminary, Resulted No growth 04/13/19 Gram Stain - Final, Complete 04/13/19 Sputum Culture - Final, Complete Usual oral raman Staphylococcus aureus Haemophilus influenza Assessment/Plan Assessment/Plan (1) Right lower lobe pneumonia Status: Acute Assessment & Plan: - Continue IV antibiotics, MAT protocol Qualifiers: Qualified Codes: J18.1 - Lobar pneumonia, unspecified organism (2) Acute respiratory failure with hypoxia Status: Acute Assessment & Plan: - No home oxygen baseline requirement, will continue to titrate oxygen as tolerated 04/16: Transition steroids to PO, home oxygen study in AM 04/17: Home oxygen study today (3) HIV (human immunodeficiency virus infection) Status: Acute Assessment & Plan: - Continue home anti viral medications Qualifiers: Qualified Codes: B20 - Human immunodeficiency virus [HIV] disease (4) Anticoagulant long-term use Status: Acute Assessment & Plan: - INR elevated today, holding coumadin today, Daily INRs 04/16: Hold today, Repeat INR Monday as outpatient (5) Obesity hypoventilation syndrome Status: Acute (6) Morbid obesity Status: Acute (7) DVT prophylaxis Status: Acute Assessment & Plan: - Coumadin (8) Right leg pain Status: Acute Assessment & Plan: 04/17: Started on pain medication, PT to work on ROM and Stretching, seems to be muscle related since he has been sitting in recliner most of the days Clinical Quality Measures DVT/VTE Risk/Contraindication: Risk Factor Score Per Nursin RFS Level Per Nursing on Admit: 3=High LORRI WEINER MD Apr 17, 2019 19:44
[2019-04-17] MEDS: RISPERIDONE 0.5 MG TABLET PO SCH (21:00)
[2019-04-17] MEDS: BUPROPION 300 MG PO SCH (22:30)
[2019-04-17] MEDS: CITALOPRAM 40 MG TABLET PO SCH (22:30)
[2019-04-18] VITALS: BP 119/62
[2019-04-18] MEDS: oxyCODONE/APAP 5/325MG (PERCOCET 5) TABLET PO PRN (01:00)
[2019-04-18] MEDS: RT-ALBUTEROL/IPRATROPIUM 3 ML (DUONEB) VIAL INH SCH ×4 (01:55→15:24)
[2019-04-18 03:55] VITALS: BP 104/58
[2019-04-18] MEDS: CATHETER FLUSH 10 ML SYR IV SCH (06:17)
[2019-04-18 06:35] LABS: BASOPHILS % (AUTO) 0 % (0-10); EOSINOPHILS # (AUTO) 0.1 10^3/uL (0.0-0.3); EOSINOPHILS % (AUTO) 1 % (0-10); HEMATOCRIT 36 % (40-54); HEMOGLOBIN 11.8 G/DL (13.3-17.7); LYMPHOCYTES # (AUTO) 3.3 X 10^3 (1.0-4.0); LYMPHOCYTES % (AUTO) 29 % (12-44); MEAN CORPUSCULAR HEMOGLOBIN 30 PG (25-34); MEAN CORPUSCULAR HGB CONC 33 G/DL (32-36); MEAN CORPUSCULAR VOLUME 92 FL (80-99); MEAN PLATELET VOLUME 9.4 FL (7.4-10.4); MONOCYTES # (AUTO) 1.4 X 10^3 (0.0-1.0); MONOCYTES % (AUTO) 13 % (0-12); NEUTROPHILS # (AUTO) 6.5 X 10^3 (1.8-7.8); NEUTROPHILS % (AUTO) 57 % (42-75); PLATELET COUNT 264 10^3/uL (130-400); RED CELL DISTRIBUTION WIDTH 14.2 % (10.0-14.5); WHITE BLOOD COUNT 11.4 10^3/uL (4.3-11.0)
[2019-04-18 06:48] LABS: INR 1.9 (0.8-1.4); PROTHROMBIN TIME PATIENT 22.2 SEC (12.2-14.7)
[2019-04-18 06:56] LABS: ALANINE AMINOTRANSFERASE 24 U/L (0-55); ALBUMIN 3.3 GM/DL (3.2-4.5); ALKALINE PHOSPHATASE 93 U/L (40-136); BILIRUBIN,TOTAL 0.8 MG/DL (0.1-1.0); BUN/CREATININE RATIO 25; CARBON DIOXIDE 29 MMOL/L (21-32); CHLORIDE 99 MMOL/L (98-107); CREATININE SERUM 1.13 MG/DL (0.60-1.30); GFR ESTIMATED > 60; GLUCOSE 112 MG/DL (70-105); POTASSIUM 3.4 MMOL/L (3.6-5.0); SODIUM 140 MMOL/L (135-145); TOTAL PROTEIN 7.7 GM/DL (6.4-8.2)
[2019-04-18 08:00] VITALS: BP 124/67
[2019-04-18] MEDS: KCL 20 MEQ TAB (K-DUR) PO SCH (08:26)
[2019-04-18] MEDS: MULTIVIT W/MINERALS TAB (THERAGRAN M) PO SCH (08:26)
[2019-04-18] MEDS: BIKTARVY PO SCH (08:28)
[2019-04-18] MEDS: DIGOXIN 0.25 MG (LANOXIN) TAB PO SCH (08:29)
[2019-04-18] MEDS: METOLAZONE 2.5 MG (ZAROXOLYN) TAB PO SCH (08:29)
[2019-04-18] MEDS: FUROSEMIDE 80 MG TABLET PO SCH (08:29)
[2019-04-18] MEDS: ALLOPURINOL 100 MG (ZYLOPRIM) TAB PO SCH (08:29)
[2019-04-18] MEDS: ACETAMINOPHEN 500 MG TAB (TYLENOL) PO PRN (08:34)
--- NOTE | 2019-04-18 10:47 | Discharge Summary ---
Diagnosis/Chief Complaint Date of Admission Apr 13, 2019 at 13:27 Date of Discharge 04/18/2019 Admission Diagnosis Admission Diagnosis See problem list Discharge Diagnosis See below Problems/Diagnosis: (1) Right lower lobe pneumonia Assessment & Plan: - Continue IV antibiotics, MAT protocol 04/18: Patient completed course of antibiotics while in the hospital Qualifiers: Qualified Codes: J18.1 - Lobar pneumonia, unspecified organism Status: Acute (2) Acute respiratory failure with hypoxia Assessment & Plan: - No home oxygen baseline requirement, will continue to titrate oxygen as tolerated 04/16: Transition steroids to PO, home oxygen study in AM 04/17: Home oxygen study today 04/18: Did not require any oxygen with activity, Would benefit from outpatient pulmonary rehab Status: Acute (3) HIV (human immunodeficiency virus infection) Assessment & Plan: - Continue home anti viral medications Qualifiers: Qualified Codes: B20 - Human immunodeficiency virus [HIV] disease Status: Acute (4) Anticoagulant long-term use Assessment & Plan: - INR elevated today, holding coumadin today, Daily INRs 04/16: Hold today, Repeat INR Monday as outpatient Status: Acute (5) Obesity hypoventilation syndrome Status: Acute (6) Morbid obesity Status: Acute (7) DVT prophylaxis Assessment & Plan: - Coumadin Status: Acute (8) Right leg pain Assessment & Plan: 04/17: Started on pain medication, PT to work on ROM and Stretching, seems to be muscle related since he has been sitting in recliner most of the days 04/18: Improved today, Continue to work on ambulation Status: Acute Discharge Summary-Simple/Stand Consultations Discharge Physical Examination Allergies: Coded Allergies: No Known Drug Allergies (Unverified , 02/07/18) Vitals & I&Os Vital Sign - Last 12Hours Date Time Temp Pulse Resp B/P (MAP) Pulse Ox O2 Delivery O2 Flow Rate FiO2 04/18/19 08:00 36.3 76 18 124/67 (86) 92 Nasal Cannula 4.00 04/16/19 10:18 36 Intake and Output 04/18/19 00:00 Intake Total 2440 ml Output Total 900 ml Balance 1540 ml General Appearance: Alert, Oriented X3, Cooperative, No Acute Distress HEENT: Mucous Memb Moist/[place] Respiratory: Clear to Auscultation, Normal Air Movement Cardiovascular: Regular Rate, No Murmurs Abdominal: Normal Bowel Sounds, Soft, No Tenderness, No Masses Extremities: Other (chronic venous statis changes bilaterally) Skin: No Rashes, No Breakdown Neuro: Normal Speech, Strength at 5/5 X4 Ext, Sensation Intact, Cranial Nerves 3-12 NL Psych/Mental Status: Mental Status NL, Mood NL Hospital Course Was the Problem List Reviewed?: Yes See final discharge diagnosis. Pending Labs Needs INR recheck Discussion & Recommendations 63 yo M with h/o HIV that presented with acute respiratory failure that was found to have PNA. Patient was started on IV antibiotics and was able to titrate off oxygen. Patient WBC count remained stable throughout admission. Follows with Dr Blue for HIV treatment. Patient would benefit from outpatient pulmonary rehab. Discharge Condition at discharge stable Instructions to patient/family Please see electronic discharge instructions given to patient. Discharge Medications Reviewed and agree with Discharge Medication list on patient's Discharge Instruction sheet Clinical Quality Measures DVT/VTE Risk/Contraindication: Risk Factor Score Per Nursin RFS Level Per Nursing on Admit: 3=High Copy Copies To 1: FLORIAN BLUE MD, HOLLY R MD Apr 18, 2019 10:47
--- NOTE | 2019-04-18 10:51 | Discharge Summary ---
Discharge [facility] Reconcile Patient Problems Problems Reviewed?: Yes Discharge Medications New, Converted or Re-Newed RX: Other Continued Medications: Allopurinol (Allopurinol) 100 Mg Tablet 100 MG PO DAILY, TAB Aspirin (Aspirin EC) 81 Mg Tablet.dr 81 MG PO HS, TAB Bictegrav/Emtricit/Tenofov Ala (Biktarvy 50-200-25 mg Tablet) 1 Each Tablet 1 EACH PO DAILY, TAB Bupropion HCl (Bupropion Xl) 300 Mg Tab.er.24h 300 MG PO HS, TAB Citalopram Hydrobromide (Citalopram HBr) 40 Mg Tablet 40 MG PO HS Digoxin (Digoxin) 250 Mcg Tablet 250 MCG PO DAILY, TAB Diphenoxylate HCl/Atropine (Diphenoxylate-Atrop 2.5-0.025) 1 Each Tablet 1 TAB PO QID PRN for DIARRHEA Fluticasone Propionate (Fluticasone Propionate) 16 Gm [place].susp 1 SPRAY NSEACH DAILY Furosemide (Furosemide) 80 Mg Tablet 80 MG PO 1400, TAB Ibuprofen (Ibuprofen) 200 Mg Tablet 400 MG PO DAILY PRN for PAIN-MILD, TAB TAKES 2 (200 MG) TABLETS Magnesium Oxide (Magnesium) 400 Mg Tablet 400 MG PO BID, TAB Metolazone (Metolazone) 2.5 Mg Tablet 2.5 MG PO 1400, TAB Multivit-Min/FA/Lycopene/Lut (Centrum Silver Tablet) 1 Each Tablet 1 TAB PO DAILY, TAB Potassium Chloride (Potassium Chloride) 20 Meq Tablet.er 60 MEQ PO TID, TAB TAKES 3 (20MEQ) TABS TO EQUAL 60MEQ THREE TIMES DAILY Risperidone (Risperidone) 0.5 Mg Tablet 0.5 MG PO HS Warfarin Sodium (Warfarin Sodium) 5 Mg Tablet 5 MG PO TuTh, TAB Warfarin Sodium (Warfarin Sodium) 5 Mg Tablet 10 MG PO SuMoWeFrSa, TAB TAKES 2 (5MG) TABS TO EQUAL 10MG Discontinued Medications: Diltiazem HCl (Diltiazem 24Hr ER) 180 Mg Cap.er.24h 360 MG PO DAILY Diltiazem HCl (Diltiazem 24Hr ER) 120 Mg Cap.er.24h 120 MG PO DAILY Patient Instructions Goal/Follow Up Appt: You will be called with appt for Dr Cunningham next week Activity & Diet Discharge Diet: Cardiac Diet Activity as Tolerated: Yes LORRI WEINER MD Apr 18, 2019 10:51
--- NOTE | 2019-04-18 11:51 | NUR ---
provided prayer and Communion.
[2019-04-18 12:00] VITALS: BP 110/69
--- NOTE | 2019-04-18 12:12 | NUR ---
PT WALKED 300 FEET ON ROOM AIR DIN'T REQUIRE OXYGEN
--- NOTE | 2019-04-18 15:00 | NUR ---
Important Message from Medicare presented, reviewed, signed and placed in patient chart. Patient voiced no intention to appeal and deny any needs or further questions at this time.
[2019-04-18 15:30] VITALS: BP 110/69
--- NOTE | 2019-04-18 15:44 | NUR ---
CM FINALIZED DISCHARGE PLAN: Discharge to home, self care. He did not need oxygen at discharge per RT O2 study. The patient denied any other needs for discharge.
--- NOTE | 2019-04-18 15:55 | NUR ---
ADITYABOOGIEBROOK demonstrates understanding of discharge instructions and accurately returns instructions upon questioning. Copy of Post-Discharge Instructions and Medication Discharge Instructions given to patient. ADITYABOOGIEBROOK is able to manage continuing needs after discharge. Patients belongings returned to patient. Skin dry and intact; no breakdown noted. Patient discharged from [facility] on 04/18/19 at 1555. BROOK GILBERT Rolando left floor via wheelchair, accompanied by staff and friend.
== END 2019-04-18 15:55 | disposition home or self-care (01) | DRG 974 ==
LOC: EDUNIT# 10:28 → ER 10:29 → 4TH 13:27
PROVIDERS: ADMIT Internal Medicine; ATTEND Internal Medicine
DX: J18.9 Pneumonia, unspecified organism (principal); B20 Human immunodeficiency virus [HIV] disease; J96.01 Acute respiratory failure with hypoxia; I48.20 Chronic atrial fibrillation, unspecified; I50.32 Chronic diastolic (congestive) heart failure; E66.2 Morbid (severe) obesity with alveolar hypoventilation; Z68.43 Body mass index [BMI] 50.0-59.9, adult; C85.90 Non-Hodgkin lymphoma, unspecified, unspecified site; I11.0 Hypertensive heart disease with heart failure; Z66 Do not resuscitate; J44.9 Chronic obstructive pulmonary disease, unspecified; R09.02 Hypoxemia; K52.9 Noninfective gastroenteritis and colitis, unspecified; Z79.899 Other long term (current) drug therapy; Z79.01 Long term (current) use of anticoagulants; Z85.828 Personal history of other malignant neoplasm of skin; G47.30 Sleep apnea, unspecified
CPT/HCPCS: 36415; 71045; 71046; 80048; 80053; 80061; 80162; 83605; 83735; 83874; 83880; 84484; 85025; 85610; 85730; 86141; 87040; 87070; 87077; 87185; 87186; 87205; 87804; 93005; 93041; 94640; 94760; 94761; 96374

== ENCOUNTER → 2019-09-13 | Outpatient (CLI) | payer MEDICARE, MEDICAID ==
[~2019-09-13] MED LIST changes: +ASPI-983 PO; +BICT1TAB PO; -BUPR300T51 PO; +BUPR300T98 PO; +DILT-27 PO; +DILT180C85 PO; +FLUT16SP22 NSEACH; +MAGN400T39 PO
[2019-09-13 09:24] LABS: INR 2.1 (0.8-1.4); PROTHROMBIN TIME PATIENT 23.6 SEC (12.2-14.7)
[2019-09-13 09:26] LABS: CHLORIDE 103 MMOL/L (98-107); POTASSIUM 3.8 MMOL/L (3.6-5.0); SODIUM 141 MMOL/L (135-145)
[2019-09-13 09:27] LABS: CALCIUM 9.3 MG/DL (8.5-10.1); GLUCOSE 118 MG/DL (70-105)
[2019-09-13 09:29] LABS: CARBON DIOXIDE 26 MMOL/L (21-32)
[2019-09-13 09:31] LABS: CREATININE SERUM 1.18 MG/DL (0.60-1.30); GFR ESTIMATED > 60
[2019-09-13 09:32] LABS: BUN/CREATININE RATIO 20
[2019-09-13 09:33] LABS: MAGNESIUM 1.5 MG/DL (1.6-2.4)
== END ==
LOC: LAB 08:49
PROVIDERS: ATTEND Internal Medicine Cardiovascular Disease
DX: Z79.01 Long term (current) use of anticoagulants (principal); I48.20 Chronic atrial fibrillation, unspecified
CPT/HCPCS: 36415; 80048; 83735; 85610

== ENCOUNTER → 2020-07-17 | Outpatient (CLI) | payer MEDICARE, MEDICAID ==
[~2020-07-17] MED LIST changes: +ASPI-1238 PO; -ASPI-983 PO; +CEPH500T PO; +DILT180C82 PO; -OXYC-465 PO; +OXYC-556 PO; +POTA20TA8 PO; -RISP0.5T3 PO; +RISP0.5T65 PO; +SPIR25TA5 PO; +SPIR50TA PO
== END ==
LOC: WOUNDCARE 13:21
PROVIDERS: ATTEND Surgery
DX: L97.512 Non-pressure chronic ulcer of other part of right foot with fat layer exposed (principal); I89.0 Lymphedema, not elsewhere classified; S91.109A Unspecified open wound of unspecified toe(s) without damage to nail, initial encounter; L84 Corns and callosities
CPT/HCPCS: 99213

== ENCOUNTER 2020-07-25 10:30 | Observation (INO) | payer MEDICARE, MEDICAID ==
[2020-07-25] VITALS (11 sets, daily range): BP systolic 80–144; BP diastolic 51–105
[~2020-07-25] VITALS: Ht 180.3 cm; Wt 186.0 kg
--- NOTE | 2020-07-25 11:29 | ED GI ---
General Chief Complaint: Rect Problems Stated Complaint: BLOODY STOOL Source of Information: Patient Exam Limitations: No Limitations History of Present Illness Date Seen by Provider: July 25, 2020 Time Seen by Provider: 11:22 Initial Comments Patient is a 64-year-old male who presents to the emergency department today with a chief complaint of bloody stools and diarrhea. Patient states that he has been having diarrhea with bloody stools since . He had a little bit of nausea on Monday prior to the onset of symptoms. He denies any abdominal pain or cramping. He denies any recent fevers or chills. No chest pain or shortness of breath. The patient is chronically anticoagulated on Coumadin with a history of atrial fibrillation. He states that he is having diarrhea "hourly". He is currently on cefdinir for history of having the second toe on his right foot removed at the beginning of the month. All other review of systems reviewed and negative except as stated above. Timing/Duration: 3-4 Days Severity/Quality: Moderate Activities at Onset: None Allergies and Home Medications Allergies Coded Allergies: No Known Drug Allergies (Unverified , 02/07/18) Home Medications Allopurinol 100 Mg Tablet, 100 MG PO DAILY, (Reported) Last Action: Continued Aspirin 81 Mg Tablet.dr, 81 MG PO HS, (Reported) Last Action: Held Bictegrav/Emtricit/Tenofov Ala 1 Each Tablet, 1 EACH PO DAILY, (Reported) Last Action: Converted Bupropion HCl 300 Mg Tab.er.24h, 300 MG PO HS, (Reported) Last Action: Converted Cefdinir 300 Mg Capsule, 300 MG PO BID, (Reported) Last Action: Continued Citalopram Hydrobromide 40 Mg Tablet, 40 MG PO HS, (Reported) Last Action: Converted Diltiazem HCl 180 Mg Capsule.er, 360 MG PO DAILY, (Reported) TAKES 120MG + 2 (180MG) TABS TO EQUAL 480MG DAILY Last Action: Converted Diltiazem HCl 120 Mg Cap.er.24h, 120 MG PO DAILY, (Reported) TAKES 120MG + 2 (180MG) TABS TO EQUAL 480MG DAILY Last Action: Continued Furosemide 80 Mg Tablet, 80 MG PO BID Prescribed by: JOSE E CHAO on 06/29/20 0940 Last Action: Converted Ibuprofen 200 Mg Tablet, 400 MG PO DAILY PRN for PAIN-MILD, (Reported) TAKES 2 (200 MG) TABLETS Last Action: Continued Magnesium Oxide 400 Mg Tablet, 400 MG PO BID, (Reported) Last Action: Converted Multivit-Min/FA/Lycopene/Lut 1 Each Tablet, 1 TAB PO DAILY, (Reported) Last Action: Converted Potassium Chloride 20 Meq Tab.er.prt, 120 MEQ PO BID, (Reported) TAKES 6 (20MEQ) TABS TWICE DAILY Last Action: Continued Risperidone 0.5 Mg Tablet, 0.5 MG PO HS, (Reported) Last Action: Continued Spironolactone 50 Mg Tablet, 50 MG PO DAILY Prescribed by: JOSE E CHAO on 06/29/20 0940 Last Action: Converted Warfarin Sodium 5 Mg Tablet, 5 MG PO , (Reported) Last Action: Held Warfarin Sodium 5 Mg Tablet, 10 MG PO SUN,MO,WE,FR,SA, (Reported) TAKES 2 (5MG) TABS TO EQUAL 10MG Last Action: Held Patient Home Medication List Home Medication List Reviewed: Yes Review of Systems Review of Systems Constitutional: see HPI EENTM: No Symptoms Reported Respiratory: No Symptoms Reported Gastrointestinal: Diarrhea, Other (Bloody stools) Genitourinary: No Symptoms Reported Musculoskeletal: no symptoms reported Skin: no symptoms reported All Other Systems Reviewed Negative Unless Noted: Yes Past Hczmshp-Vyykkc-Nexejs Hx Patient Social History 2nd Hand Smoke Exposure: No Recent Hopitalizations: No Immunizations Up To Date Date of Pneumonia Vaccine: Apr 17, 2013 Date of Influenza Vaccine: Nov 28, 2019 Seasonal Allergies Seasonal Allergies: No Past Medical History Surgeries: Yes (CA REMOVED FROM NECK, SEVERAL BX) Tonsillectomy Respiratory: Yes Asthma, Pneumonia, Sleep Apnea Currently Using CPAP: Yes Currently Using BIPAP: Yes Cardiac: Yes (CHF) Atrial Fibrillation, Chronic Edema/Swelling, Hypertension Neurological: No Reproductive Disorders: No HIV/AIDS: Yes (hiv) Genitourinary: No Gastrointestinal: Yes Chronic Diarrhea, Polyps Musculoskeletal: No Endocrine: No HEENT: No Cancer: Yes (Neck) Skin, Lymphoma Did You Recieve Any Treatments: Yes What Type of Treatment Did You: Surgical Intervention Psychosocial: Yes Depression Integumentary: No Blood Disorders: Yes (HIV DX IN 1994, ) Family Medical History Cardiovascular disease G8 SISTER Colon cancer G8 BROTHER Diabetes mellitus 19 MOTHER G8 SISTER FHx: COPD (chronic obstructive pulmonary disease) 19 FATHER Malignant neoplasm of prostate G8 BROTHER Paternal family history of emphysema No Pertinent Family Hx Physical Exam Vital Signs Vital Signs - First Documented 07/25/20 10:45 Temp 35.5 Pulse 66 Resp 20 B/P (MAP) 119/108 (112) Pulse Ox 95 O2 Delivery Room Air Capillary Refill : Height/Weight/BMI Height: 6'0.00" Weight: 404lbs. 0.0oz. [id number]; 58.68 BMI Method:Stated General Appearance: WD/WN, no apparent distress HEENT: PERRL/EOMI Respiratory: lungs clear, normal breath sounds, no respiratory distress Cardiovascular: irregularly irregular Gastrointestinal: normal bowel sounds, non tender, soft Extremities: non-tender, normal inspection, other (Right foot in a walking boot with foot wrapped) Skin: normal color, warm/dry Progress/Results/Core Measures Results/Orders Lab Results Laboratory Tests Test 07/25/20 11:04 07/25/20 11:13 Range/Units Stool Occult Blood Immunoassay POSITIVE H NEGATIVE White Blood Count 10.6 4.3-11.0 10^3/uL Red Blood Count 4.78 4.30-5.52 10^6/uL Hemoglobin 14.6 13.3-17.7 g/dL Hematocrit 45 40-54 % Mean Corpuscular Volume 93 80-99 fL Mean Corpuscular Hemoglobin 31 25-34 pg Mean Corpuscular Hemoglobin Concent 33 32-36 g/dL Red Cell Distribution Width 14.2 10.0-14.5 % Platelet Count 190 130-400 10^3/uL Mean Platelet Volume 9.7 9.0-12.2 fL Immature Granulocyte % (Auto) 1 % Neutrophils (%) (Auto) 52 42-75 % Lymphocytes (%) (Auto) 36 12-44 % Monocytes (%) (Auto) 9 0-12 % Eosinophils (%) (Auto) 1 0-10 % Basophils (%) (Auto) 0 0-10 % Neutrophils # (Auto) 5.6 1.8-7.8 10^3/uL Lymphocytes # (Auto) 3.8 1.0-4.0 10^3/uL Monocytes # (Auto) 1.0 0.0-1.0 10^3/uL Eosinophils # (Auto) 0.1 0.0-0.3 10^3/uL Basophils # (Auto) 0.0 0.0-0.1 10^3/uL Immature Granulocyte # (Auto) 0.1 0.0-0.1 10^3/uL Prothrombin Time 26.1 H 12.2-14.7 SEC INR Comment 2.4 H 0.8-1.4 Sodium Level 137 135-145 MMOL/L Potassium Level 5.8 H 3.6-5.0 MMOL/L Chloride Level 99 98-107 MMOL/L Carbon Dioxide Level 22 21-32 MMOL/L Anion Gap 16 H 5-14 MMOL/L Blood Urea Nitrogen 26 H 7-18 MG/DL Creatinine 1.42 H 0.60-1.30 MG/DL Estimat Glomerular Filtration Rate 50 BUN/Creatinine Ratio 18 Glucose Level 109 H 70-105 MG/DL Calcium Level 10.0 8.5-10.1 MG/DL Corrected Calcium 9.9 8.5-10.1 MG/DL Total Bilirubin 0.6 0.1-1.0 MG/DL Aspartate Amino Transf (AST/SGOT) 25 5-34 U/L Alanine Aminotransferase (ALT/SGPT) 16 0-55 U/L Alkaline Phosphatase 91 40-136 U/L Total Protein 8.4 H 6.4-8.2 GM/DL Albumin 4.1 3.2-4.5 GM/DL My Orders Orders - ANTHONY SORENSEN MD Occult Blood Stool (07/25/20 11:31) Cbc With Automated Diff (07/25/20 11:31) Protime With Inr (07/25/20 11:31) Orthostatic Vital Signs (Adult (07/25/20 12:08) Vital Signs/I&O 07/25/20 10:45 Temp 35.5 Pulse 66 Resp 20 B/P (MAP) 119/108 (112) Pulse Ox 95 O2 Delivery Room Air Progress Progress Note : Time: 12:48 Progress Note Case discussed with Dr. Savage, will consult, request the patient be admitted to medicine. Recommends n.p.o., 2 units of FFP, every 8 hour CBCs and 2 units of PRBCs on standby. Discussed with Dr. Keane who asks for a CMP to be added to the labs and consult with Dr. Obrien as well Departure Communication (Admissions) Time/Spoke to Admitting Phy: 12:[address] Keane who accepts the patient for admission Time/Spoke to Consulting Phy: 12:[address] Savage Impression Primary Impression: Lower GI bleed Additional Impression: Anticoagulated on Coumadin Disposition: ADMITTED INPATIENT Condition: Stable Admissions Decision to Admit Reason: Admit from ER (General) Decision to Admit/Date: July 25, 2020 Time/Decision to Admit Time: 12:49 Departure-Patient Inst. Referrals: [facility] (PCP) Primary Care Physician SAVANNAH RHOADES APRN (Family) Primary Care Physician ANTHONY SORENSEN MD July 25, 2020 11:29
[2020-07-25 11:38] LABS: BASOPHILS % (AUTO) 0 % (0-10); EOSINOPHILS # (AUTO) 0.1 10^3/uL (0.0-0.3); EOSINOPHILS % (AUTO) 1 % (0-10); HEMATOCRIT 45 % (40-54); HEMOGLOBIN 14.6 g/dL (13.3-17.7); LYMPHOCYTES # (AUTO) 3.8 10^3/uL (1.0-4.0); LYMPHOCYTES % (AUTO) 36 % (12-44); MEAN CORPUSCULAR HEMOGLOBIN 31 pg (25-34); MEAN CORPUSCULAR HGB CONC 33 g/dL (32-36); MEAN CORPUSCULAR VOLUME 93 fL (80-99); MEAN PLATELET VOLUME 9.7 fL (9.0-12.2); MONOCYTES % (AUTO) 9 % (0-12); NEUTROPHILS # (AUTO) 5.6 10^3/uL (1.8-7.8); NEUTROPHILS % (AUTO) 52 % (42-75); PLATELET COUNT 190 10^3/uL (130-400); WHITE BLOOD COUNT 10.6 10^3/uL (4.3-11.0)
[2020-07-25 11:43] LABS: INR 2.4 (0.8-1.4); PROTHROMBIN TIME PATIENT 26.1 SEC (12.2-14.7)
--- NOTE | 2020-07-25 12:51 | History & Physical-Hospitalist ---
History of Present Illness HPI/Chief Complaint Chief complaint: Gastrointestinal bleed History of present illness: This is a 64-year-old white male clinic patient of [facility] with multiple comorbidities including atrial fibrillation on Coumadin for stroke prophylaxis anticoagulation who presents with bloody stools. He reports an abrupt onset of this issue and has never had anything like this before. He denies any pain or nausea. Dr. Savage's been consulted and 2 units of FFP will be given for reversal of INR coagulopathy from Coumadin and we will be monitoring patient closely for the need of transfusion. Even though his hemoglobin admission was 14 he has had 17 bloody stools since he was admitted to the ER. Cardiology will be consulted also. Considering how many bloody stools he is having we will admit to cardiac stepdown for close monitoring. He has made it clear he is DO NOT RESUSCITATE and that order is placed. It is to be noted he was just discharged on 06/29/20 by this examiner after osteomyelitis of a toe with cellulitis and severe hypokalemia. Source: patient Exam Limitations: no limitations Date Seen 07/25/20 Time Seen by a Provider: 13:00 Attending Physician [facility]/k,[facility] Referring Physician Date of Admission Home Medications & Allergies Home Medications Reviewed patient Home Medication Reconciliation performed by pharmacy medication reconciliations shampoo technician and/or nursing. Patients Allergies have been reviewed. Allergies Allergies Coded Allergies No Known Drug Allergies ([id number]/12/18) Past [place]-[employer]-Futnck Hx Patient Social History Marrital Status: single Employed/Student: retired Smoking Status: Former Smoker Alcohol Use?: No Immunizations Up To Date Date of Influenza Vaccine: Nov 28, 2019 Tetanus Booster (TDap): Less Than 5 Years Hepatitis A: No Hepatitis B: No Date of Pneumonia Vaccine: Apr 17, 2013 Seasonal Allergies Seasonal Allergies: No Current Status Primary Language: Romansh Past Medical History Surgeries: Tonsillectomy Asthma, Pneumonia, Sleep Apnea Currently Using CPAP: Yes Currently Using BIPAP: Yes Atrial Fibrillation, Chronic Edema/Swelling, Hypertension HIV/AIDS: Yes (hiv) Chronic Diarrhea, Polyps Skin, Lymphoma Did You Recieve Any Treatments: Yes What Type of Treatment Did You: Surgical Intervention Depression Blood Disorders: Yes (HIV DX IN 1994, ) PMHx: HIV Non-Hodgkin's lymphoma (1994, remission) Depression Congestive heart failure Atrial fibrillation Sleep apnea on CPAP SurgHx: Tonsillectomy Right neck mass removal 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 Family Medical History Cardiovascular disease G8 SISTER Colon cancer G8 BROTHER Diabetes mellitus 19 MOTHER G8 SISTER FHx: COPD (chronic obstructive pulmonary disease) 19 FATHER Malignant neoplasm of prostate G8 BROTHER Paternal family history of emphysema No Pertinent Family Hx Review of Systems Constitutional: see HPI, malaise, weakness Gastrointestinal: melena Physical Exam Physical Exam Vital Signs Vital Signs - First Documented 07/25/20 10:45 Temp 35.5 Pulse 66 Resp 20 B/P (MAP) 119/108 (112) Pulse Ox 95 O2 Delivery Room Air Capillary Refill : Greater Than 3 Seconds Height, Weight, BMI Height: 6'0.00" Weight: 404lbs. 0.0oz. 183.624944tl; 57.00 BMI Method:Stated General Appearance: Anxious, Chronically ill, Mild Distress, Obese Eyes: Right Eye Normal Inspection, Right Eye PERRL HEENT: PERRL/EOMI, Normal ENT Inspection, Pharynx Normal, Moist Mucous Membranes Neck: Full Range of Motion, Normal Inspection, Non Tender Respiratory: Chest Non Tender, Lungs Clear, Normal Breath Sounds, No Accessory Muscle Use, No Respiratory Distress Cardiovascular: Regular Rate, Rhythm, No Edema, No Gallop, No JVD, No Murmur, Normal Peripheral Pulses Gastrointestinal: Normal Bowel Sounds, No Organomegaly, No Pulsatile Mass, Non Tender, Soft Back: Normal Inspection, No CVA Tenderness, No Vertebral Tenderness Extremity: Normal Capillary Refill, Normal Inspection, Normal Range of Motion, Non Tender, No Calf Tenderness, No Pedal Edema Neurologic/Psychiatric: Alert, Oriented x3, No Motor/Sensory Deficits, Normal Mood/Affect Skin: Normal Color, Warm/Dry Lymphatic: No Adenopathy Results Results/Procedures Labs Laboratory Tests 07/25/20 11:13 Patient resulted labs reviewed. Assessment/Plan Admission Diagnosis Assessment: GI Bleed AF OAC GAGE OHS CHF Hypoxemia HIV+ Plan: Monitor closely Transfuse if necessary FFP to reverse INR Hold Coumadin Admission Status: Inpatient Order (span 2 midnights) Reason for Inpatient Admission: GIB Diagnosis/Problems Diagnosis/Problems (1) Lower GI bleed Status: Acute (2) Anticoagulated on Coumadin Status: Acute (3) CHF (congestive heart failure) (4) Nocturnal hypoxia Status: Chronic (5) Human immunodeficiency virus Status: Chronic (6) Atrial fibrillation Status: Chronic (7) Morbid obesity Status: Chronic (8) Sleep apnea, obstructive Status: Chronic (9) Obesity hypoventilation syndrome Status: Chronic PAULA GOLDSMITH DO July 25, 2020 12:51
[2020-07-25] MEDS ORDERED: NS IV 500 ML 500 ML IV SCH ×2 (13:00→14:45)
[2020-07-25 13:03] LABS: ALBUMIN 4.1 GM/DL (3.2-4.5)
[2020-07-25 13:04] LABS: POTASSIUM 5.8 MMOL/L (3.6-5.0)
[2020-07-25 13:06] LABS: TOTAL PROTEIN 8.4 GM/DL (6.4-8.2)
[2020-07-25 13:08] LABS: BILIRUBIN,TOTAL 0.6 MG/DL (0.1-1.0)
[2020-07-25 13:10] LABS: CREATININE SERUM 1.42 MG/DL (0.60-1.30)
--- NOTE | 2020-07-25 13:54 | Pulmonary Consultation ---
History of Present Illness History of Present Illness Date Seen by Provider: July 25, 2020 Date of Admission 64 y/o male on coumadin for a fib presents with 3 day hx of bloody stools and diarrhea. Hgb: 14.6 INR: 2.4 PLAN: ICU admission for jessica LGI bleed FFP being given Monitor for ongoing bleeding Allergies and Home Medications Allergies Coded Allergies: No Known Drug Allergies (Unverified , 02/07/18) Home Medications Allopurinol 100 Mg Tablet, 100 MG PO DAILY, (Reported) Aspirin 81 Mg Tablet.dr, 81 MG PO HS, (Reported) Bictegrav/Emtricit/Tenofov Ala 1 Each Tablet, 1 EACH PO DAILY, (Reported) Bupropion HCl 300 Mg Tab.er.24h, 300 MG PO HS, (Reported) Cephalexin 500 Mg Tablet, 500 MG PO TID Prescribed by: JIM MEEK on 06/28/20 1143 Citalopram Hydrobromide 40 Mg Tablet, 40 MG PO HS, (Reported) Diltiazem HCl 180 Mg Capsule.er, 360 MG PO DAILY, (Reported) TAKES 120MG + 2 (180MG) TABS TO EQUAL 480MG DAILY Diltiazem HCl 120 Mg Cap.er.24h, 120 MG PO DAILY, (Reported) TAKES 120MG + 2 (180MG) TABS TO EQUAL 480MG DAILY Furosemide 80 Mg Tablet, 80 MG PO BID Prescribed by: JOSE E CHAO on 06/29/20 0940 Ibuprofen 200 Mg Tablet, 400 MG PO DAILY PRN for PAIN-MILD, (Reported) TAKES 2 (200 MG) TABLETS Magnesium Oxide 400 Mg Tablet, 400 MG PO BID, (Reported) Multivit-Min/FA/Lycopene/Lut 1 Each Tablet, 1 TAB PO DAILY, (Reported) Potassium Chloride 20 Meq Tab.er.prt, 120 MEQ PO BID, (Reported) TAKES 6 (20MEQ) TABS TWICE DAILY Risperidone 0.5 Mg Tablet, 0.5 MG PO HS, (Reported) Spironolactone 50 Mg Tablet, 50 MG PO DAILY Prescribed by: JOSE E CHAO on 06/29/20 0940 Warfarin Sodium 5 Mg Tablet, 5 MG PO ,TH, (Reported) Warfarin Sodium 5 Mg Tablet, 10 MG PO SUN,MO,WE,FR,SA, (Reported) TAKES 2 (5MG) TABS TO EQUAL 10MG Past Medical/Social/Family Hx Immunizations Up To Date Tetanus Booster (TDap): Less Than 5 Years Hepatitis A: No Hepatitis B: No TB Skin Test: Negative Date of Pneumonia Vaccine: Apr 17, 2013 Current Status Primary Language: Icelandic Past Medical History PMHx: HIV Non-Hodgkin's lymphoma (1994, remission) Depression Congestive heart failure Atrial fibrillation Sleep apnea on CPAP SurgHx: Tonsillectomy Right neck mass removal 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 Sepsis Event Evaluation Height, Weight, BMI Height: 6'0.00" Weight: 404lbs. 0.0oz. 183.573056ka; 57.00 BMI Method:Stated Exam Exam Vital Signs Date Time Temp Pulse Resp B/P (MAP) Pulse Ox O2 Delivery O2 Flow Rate FiO2 07/25/20 10:45 35.5 66 20 119/108 (112) 95 Room Air Height & Weight Height: 6'0.00" Weight: 404lbs. 0.0oz. 183.418639bk; 57.00 BMI Method:Stated Capillary Refill: Greater Than 3 Seconds Gastrointestinal: normal bowel sounds, non tender, soft Results Lab Laboratory Tests 07/25/20 11:13 RUSTAM SANTOS MD July 25, 2020 13:54
[2020-07-25] MEDS ORDERED: NS IV 500 ML 500 ML ONE (14:24)
[2020-07-25] MEDS ORDERED: RT-ALBUTEROL SULF 2.5 MG/3 ML PRE-MIX VIAL INH PRN (15:00)
[2020-07-25] MEDS ORDERED: CEFD300C3 PO (15:10)
[2020-07-25] MEDS ORDERED: IBUPROFEN TABLET 200 MG TAB PO PRN (17:00)
[2020-07-25] MEDS ORDERED: PATIENT MAY USE OWN MEDS, ALL MC SCH (17:00)
--- NOTE | 2020-07-25 17:20 | Consultation-Cardiology ---
HPI-Cardiology Cardiology Consultation: Date of Consultation 07/25/20 Date of Admission Attending Physician Suha Keane DO Admitting Physician [facility] Consulting Physician Raphael OBRIEN MD HPI: Time Seen by a Provider: 16:30 Chief Complaint: Lower GI bleeding This is a 64-year-old gentleman who has history of longstanding persistent atrial fibrillation on Coumadin. He presents with complaints of bloody stools. He has been having it for a few days. He denies any other abdominal symptoms. He denies any other cardiac symptoms and specifically denies chest pain and shortness of breath. He denies active smoking. Review of Systems-Cardiology Review of Systems Constitutional: As described under HPI; No As described under HPI, No no symptoms reported, No chills, No fever, No lightheadedness Eyes: No As described under HPI, No no symptoms reported, No blindness, No blurred vision, No contact lenses, No drainage, No decreased acuity, No foreign body sensation, No pain, No vision change Ears/Nose/Throat: No As described under HPI, No no symptoms reported, No chronic hearing loss, No ear discharge, No ear pain, No nasal drainage, No ulcerations Respiratory: No no symptoms reported; As described under HPI; No As described under HPI, No cough, No orthopnea, No shortness of breath, No SOB with excertion Cardiovascular: No no symptoms reported; As described under HPI; No As described under HPI, No chest pain, No edema, No irregular heart rate, No lightheadedness, No palpitations Gastrointestinal: No no symptoms reported, No As described under HPI, No abdomen distended, No abdominal pain; blood streaked bowels; No constipation, No diarrhea, No nausea, No vomiting, No stool coloration changes Genitourinary: No As described under HPI, No burning, No dysuria, No discharge, No frequency, No flank pain, No hematuria, No urgency Skin: No rash, No skin related problems, No ulcerations Psychiatric/Neurological: No anxiety, No depression, No seizure, No focal weakness, No syncope Hematologic: No bleeding abnormalities All Other Systems Reviewed Negative Unless Noted: Yes MDZ-Nrcnbl-Tqouqg Hx Patient Social History Marrital Status: single Employed/Student: retired Smoking Status: Former Smoker 2nd Hand Smoke Exposure: No Have you traveled recently?: No Alcohol Use?: No Pt feels they are or have been: No Immunizations Up To Date Date of Pneumonia Vaccine: Apr 17, 2013 Date of Influenza Vaccine: Nov 28, 2019 Past Medical History PMH As described under Assessment. Family Medical History Family Medical History: He has reported that his mother had a heart attck in her 50s. He also has fam h/o DM Family History: Cardiovascular disease G8 SISTER Colon cancer G8 BROTHER Diabetes mellitus 19 MOTHER G8 SISTER FHx: COPD (chronic obstructive pulmonary disease) 19 FATHER Malignant neoplasm of prostate G8 BROTHER Paternal family history of emphysema Allergies and Home Medications Allergies Coded Allergies: No Known Drug Allergies (Unverified , 02/07/18) Home Medications Allopurinol 100 Mg Tablet, 100 MG PO DAILY, (Reported) Last Action: Continued Aspirin 81 Mg Tablet.dr, 81 MG PO HS, (Reported) Last Action: Held Bictegrav/Emtricit/Tenofov Ala 1 Each Tablet, 1 EACH PO DAILY, (Reported) Last Action: Converted Bupropion HCl 300 Mg Tab.er.24h, 300 MG PO HS, (Reported) Last Action: Converted Cefdinir 300 Mg Capsule, 300 MG PO BID, (Reported) Last Action: Continued Citalopram Hydrobromide 40 Mg Tablet, 40 MG PO HS, (Reported) Last Action: Converted Diltiazem HCl 180 Mg Capsule.er, 360 MG PO DAILY, (Reported) TAKES 120MG + 2 (180MG) TABS TO EQUAL 480MG DAILY Last Action: Converted Diltiazem HCl 120 Mg Cap.er.24h, 120 MG PO DAILY, (Reported) TAKES 120MG + 2 (180MG) TABS TO EQUAL 480MG DAILY Last Action: Continued Furosemide 80 Mg Tablet, 80 MG PO BID Prescribed by: JOSE E CHAO on 06/29/20 0940 Last Action: Converted Ibuprofen 200 Mg Tablet, 400 MG PO DAILY PRN for PAIN-MILD, (Reported) TAKES 2 (200 MG) TABLETS Last Action: Continued Magnesium Oxide 400 Mg Tablet, 400 MG PO BID, (Reported) Last Action: Converted Multivit-Min/FA/Lycopene/Lut 1 Each Tablet, 1 TAB PO DAILY, (Reported) Last Action: Converted Potassium Chloride 20 Meq Tab.er.prt, 120 MEQ PO BID, (Reported) TAKES 6 (20MEQ) TABS TWICE DAILY Last Action: Continued Risperidone 0.5 Mg Tablet, 0.5 MG PO HS, (Reported) Last Action: Continued Spironolactone 50 Mg Tablet, 50 MG PO DAILY Prescribed by: JOSE E CHAO on 06/29/20 0940 Last Action: Converted Warfarin Sodium 5 Mg Tablet, 5 MG PO , (Reported) Last Action: Held Warfarin Sodium 5 Mg Tablet, 10 MG PO SUN,MO,WE,FR,SA, (Reported) TAKES 2 (5MG) TABS TO EQUAL 10MG Last Action: Held Patient Home Medication List Home Medication List Reviewed: Yes Physical Exam-Cardiology Physical Exam Vital Signs/I&O 07/25/20 07/25/20 07/25/20 07/25/20 10:45 14:06 14:15 14:15 Temp 35.5 35.5 Pulse 66 75 98 95 75 98 Resp 20 20 23 B/P (MAP) 119/108 (112) 80/51 (61) 89/67 (74) 140/101 (114) 106/78 (87) 89/67 (74) Pulse Ox 95 95 95 O2 Delivery Room Air Room Air 07/25/20 07/25/20 07/25/20 07/25/20 14:23 14:53 14:53 15:00 Temp 35.5 35.5 Pulse 97 118 118 92 Resp 21 31 B/P (MAP) 105/86 100/86 (91) Pulse Ox 95 97 O2 Delivery Room Air FiO2 21 07/25/20 07/25/20 15:11 16:58 Temp 36.4 36.4 Pulse 92 70 Resp 21 B/P (MAP) 100/86 144/89 Pulse Ox 95 O2 Delivery Room Air Capillary Refill : Greater Than 3 Seconds Constitutional: appears stated age, AAO x 3; No apparent distress; well- developed, well-nourished HEENT: PERRL; No discharge; hearing is well preserved, oral hygience is good; No ulceration, No xanthelasmas are seen Neck: No carotid bruit; carotid pulses are 2 + bilaterally Respiratory: chest is bilaterally symmetric, lungs clear to auscultation Cardiovascular: irregularly irregular, S1 and S2 Gastrointestinal: soft, audible bowel sounds; No spleenomegaly Rectal: deferred Extremities: No clubbing, No cyanosis; no lower extremity edema bilateral; No significant edema Neurologic/Psychiatric: no motor/sensory deficits, alert, normal mood/affect, oriented x 3, power is 5/5 both on sides Skin: No rash, No ulcerations Data Review Labs Laboratory Tests 07/25/20 11:04: Stool Occult Blood Immunoassay POSITIVEH 07/25/20 11:13: White Blood Count 10.6, Red Blood Count 4.78, Hemoglobin 14.6, Hematocrit 45, Mean Corpuscular Volume 93, Mean Corpuscular Hemoglobin 31, Mean Corpuscular Hemoglobin Concent 33, Red Cell Distribution Width 14.2, Platelet Count 190, Mean Platelet Volume 9.7, Immature Granulocyte % (Auto) 1, Neutrophils (%) (Auto) 52, Lymphocytes (%) (Auto) 36, Monocytes (%) (Auto) 9, Eosinophils (%) (Auto) 1, Basophils (%) (Auto) 0, Neutrophils # (Auto) 5.6, Lymphocytes # (Auto) 3.8, Monocytes # (Auto) 1.0, Eosinophils # (Auto) 0.1, Basophils # (Auto) 0.0, Immature Granulocyte # (Auto) 0.1, Prothrombin Time 26.1H, INR Comment 2.4H, Sodium Level 137, Potassium Level 5.8H, Chloride Level 99, Carbon Dioxide Level 22, Anion Gap 16H, Blood Urea Nitrogen 26H, Creatinine 1.42H, Estimat Glomerular Filtration Rate 50, BUN/Creatinine Ratio 18, Glucose Level 109H, Calcium Level 10.0, Corrected Calcium 9.9, Total Bilirubin 0.6, Aspartate Amino Transf (AST/SGOT) 25, Alanine Aminotransferase (ALT/SGPT) 16, Alkaline Phosphatase 91, Total Protein 8.4H, Albumin 4.1 ECG Impression ECG Initial ECG Impression: Atrial Fibrillation A/P-Cardiology Assessment/Admission Diagnosis Lower GI bleeding, Longstanding persistent atrial fibrillation on oral anticoagulation Plan Awaiting general surgery evaluation. Atrial fibrillation with well-controlled ventricular rate. Due to very likely active lower GI bleeding, I have discussed at length with the patient and recommended to hold Coumadin till evaluation of general surgery and further endoscopies are completed. There is a risk of stroke if the patient is off Coumadin but I explained that the risk of significant worsening of bleeding is higher therefore we will hold Coumadin. In the presence of INR 2.4 on Coumadin, the likelihood of acute mesenteric ischemia is low, however I will defer that to the general surgery team. Thank you for your consultation. Please call me if you have any questions. Karthikeyan Obrien MD, FACP, FACC, FSCAI, FHRS, CCDS Interventional Cardiology Cardiac Electrophysiology Vascular Medicine and Endovascular Interventions Raphael OBRIEN MD July 25, 2020 17:20
--- NOTE | 2020-07-25 17:53 | Consultation - Surgery ---
History of Present Illness History of Present Illness Patient Consulted On(drake/time) 07/25/20 17:47 Date Seen by Provider: July 25, 2020 Time Seen by Provider: 16:44 History of Present Illness Consult requested for GI bleed from Dr. Keane. Patient is a 64-year-old male who for approximately 2 days has been having diarrhea stools and bleeding. Patient frequency of bloody stools was increasing so he went to the emergency department today. Patient states nothing really helping improve this. Nothing really seems to be making it worse either that he knows of. Patient is on Coumadin for atrial fibrillation. Patient denies any abdominal pain. He denies any reflux symptoms. Patient with last colonoscopy and flexible sigmoidoscopy in 2019 which demonstrated diverticulosis and sessile polyp in the sigmoid region which was tattooed reexamined with flexible sigmoidoscopy and not present. He denies any nausea vomiting fever sweats chills shortness of breath or chest pain. Patient with recent right second toe amputation which she states he really has not been taking any pain medication for either. Allergies and Home Medications Allergies Coded Allergies: No Known Drug Allergies (Unverified , 02/07/18) Home Medications Allopurinol 100 Mg Tablet, 100 MG PO DAILY, (Reported) Last Action: Continued Aspirin 81 Mg Tablet.dr, 81 MG PO HS, (Reported) Last Action: Held Bictegrav/Emtricit/Tenofov Ala 1 Each Tablet, 1 EACH PO DAILY, (Reported) Last Action: Converted Bupropion HCl 300 Mg Tab.er.24h, 300 MG PO HS, (Reported) Last Action: Converted Cefdinir 300 Mg Capsule, 300 MG PO BID, (Reported) Last Action: Continued Citalopram Hydrobromide 40 Mg Tablet, 40 MG PO HS, (Reported) Last Action: Converted Diltiazem HCl 180 Mg Capsule.er, 360 MG PO DAILY, (Reported) TAKES 120MG + 2 (180MG) TABS TO EQUAL 480MG DAILY Last Action: Converted Diltiazem HCl 120 Mg Cap.er.24h, 120 MG PO DAILY, (Reported) TAKES 120MG + 2 (180MG) TABS TO EQUAL 480MG DAILY Last Action: Continued Furosemide 80 Mg Tablet, 80 MG PO BID Prescribed by: JOSE E CHAO on 06/29/20 0940 Last Action: Converted Ibuprofen 200 Mg Tablet, 400 MG PO DAILY PRN for PAIN-MILD, (Reported) TAKES 2 (200 MG) TABLETS Last Action: Continued Magnesium Oxide 400 Mg Tablet, 400 MG PO BID, (Reported) Last Action: Converted Multivit-Min/FA/Lycopene/Lut 1 Each Tablet, 1 TAB PO DAILY, (Reported) Last Action: Converted Potassium Chloride 20 Meq Tab.er.prt, 120 MEQ PO BID, (Reported) TAKES 6 (20MEQ) TABS TWICE DAILY Last Action: Continued Risperidone 0.5 Mg Tablet, 0.5 MG PO HS, (Reported) Last Action: Continued Spironolactone 50 Mg Tablet, 50 MG PO DAILY Prescribed by: JOSE E CHAO on 06/29/20 0940 Last Action: Converted Warfarin Sodium 5 Mg Tablet, 5 MG PO , (Reported) Last Action: Held Warfarin Sodium 5 Mg Tablet, 10 MG PO SUN,MO,WE,FR,SA, (Reported) TAKES 2 (5MG) TABS TO EQUAL 10MG Last Action: Held Patient Home Medication List Home Medication List Reviewed: Yes Past Eqibxit-Ogqdhg-Nbmqfc Hx Patient Social History Smoking Status: Former Smoker 2nd Hand Smoke Exposure: No Recent Hopitalizations: No Alcohol Use?: No Have you traveled recently?: No Immunizations Up To Date Date of Pneumonia Vaccine: Apr 17, 2013 Date of Influenza Vaccine: Nov 28, 2019 Seasonal Allergies Seasonal Allergies: No Surgeries History of Surgeries: Yes (CA REMOVED FROM NECK, SEVERAL BX) Surgeries: Tonsillectomy Respiratory History of Respiratory Disorde: Yes Respiratory Disorders: Asthma, Pneumonia, Sleep Apnea Cardiovascular History of Cardiac Disorders: Yes (CHF) Cardiac Disorders: Atrial Fibrillation, Chronic Edema/Swelling, Hypertension Neurological History of Neurological Disord: No Reproductive System Hx Reproductive Disorders: No HIV/AIDS: Yes (hiv) Genitourinary History of Genitourinary Disor: No Gastrointestinal History of Gastrointestinal Di: Yes Gastrointestinal Disorders: Chronic Diarrhea, Polyps Musculoskeletal History of Musculoskeletal Dis: No Endocrine History of Endocrine Disorders: No HEENT History of HEENT Disorders: No Cancer History of Cancer: Yes (Neck) Cancer: Skin, Lymphoma Psychosocial History of Psychiatric Problem: Yes Behavioral Health Disorders: Depression Integumentary History of Skin or Integumenta: No Blood Transfusions History of Blood Disorders: Yes (HIV DX IN 1994, ) Reviewed Nursing Assessment Reviewed/Agree w Nursing PMH: Yes Family Medical History Significant Family History: No Pertinent Family Hx Family Medial History: Cardiovascular disease G8 SISTER Colon cancer G8 BROTHER Diabetes mellitus 19 MOTHER G8 SISTER FHx: COPD (chronic obstructive pulmonary disease) 19 FATHER Malignant neoplasm of prostate G8 BROTHER Paternal family history of emphysema Review of Systems-General Constitutional: No chills, No diaphoresis EENTM: No blurred vision, No double vision Respiratory: No cough, No dyspnea on exertion Cardiovascular: No chest pain, No edema Gastrointestinal: melena; No nausea, No vomiting Genitourinary: No decreased output, No discharge Musculoskeletal: No back pain, No joint pain Skin: No change in color, No change in hair/nails Psychiatric/Neurological: Denies Anxiety, Denies Depressed, Denies Emotional Problems All Other Systems Reviewed Negative Unless Noted: Yes (Negative excepted noted.) Physical Exam-General Problems Physical Exam Vital Signs Vital Signs - First Documented 07/25/20 10:45 Temp 35.5 Pulse 66 Resp 20 B/P (MAP) 119/108 (112) Pulse Ox 95 O2 Delivery Room Air Capillary Refill : Greater Than 3 Seconds General Appearance: no apparent distress, obese HEENT: PERRL/EOMI, normal ENT inspection Neck: non-tender, supple Respiratory: chest non-tender, no respiratory distress, no accessory muscle use Cardiovascular: no JVD, irregularly irregular Gastrointestinal: non tender, soft, no organomegaly Rectal: deferred Back: normal inspection, no CVA tenderness Extremities: non-tender, normal inspection, other (Right second toe amputation) 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, alert, normal mood/affect, oriented x 3 Skin: normal color, warm/dry Lymphatic: no adenopathy Data Review Labs Laboratory Tests 07/25/20 11:04: Stool Occult Blood Immunoassay POSITIVEH 07/25/20 11:13: White Blood Count 10.6, Red Blood Count 4.78, Hemoglobin 14.6, Hematocrit 45, Mean Corpuscular Volume 93, Mean Corpuscular Hemoglobin 31, Mean Corpuscular Hemoglobin Concent 33, Red Cell Distribution Width 14.2, Platelet Count 190, Mean Platelet Volume 9.7, Immature Granulocyte % (Auto) 1, Neutrophils (%) (Auto) 52, Lymphocytes (%) (Auto) 36, Monocytes (%) (Auto) 9, Eosinophils (%) (Auto) 1, Basophils (%) (Auto) 0, Neutrophils # (Auto) 5.6, Lymphocytes # (Auto) 3.8, Monocytes # (Auto) 1.0, Eosinophils # (Auto) 0.1, Basophils # (Auto) 0.0, I mmature Granulocyte # (Auto) 0.1, Prothrombin Time 26.1H, INR Comment 2.4H, Sodium Level 137, Potassium Level 5.8H, Chloride Level 99, Carbon Dioxide Level 22, Anion Gap 16H, Blood Urea Nitrogen 26H, Creatinine 1.42H, Estimat Glomerular Filtration Rate 50, BUN/Creatinine Ratio 18, Glucose Level 109H, Calcium Level 10.0, Corrected Calcium 9.9, Total Bilirubin 0.6, Aspartate Amino Transf (AST/SGOT) 25, Alanine Aminotransferase (ALT/SGPT) 16, Alkaline Phosphatase 91, Total Protein 8.4H, Albumin 4.1 Assessment/Plan Assessment/Plan Assessment/Plan Gastrointestinal bleed likely lower Atrial fibrillation Long-term anticoagulation HIV Recent right second toe amputation Morbid obesity Diverticulosis Patient is a 64-year-old male who is having bleeding per rectum. He is on long- term anticoagulation with Coumadin. He is receiving 2 units of FFP to reverse this he has an elevated INR of 2.4. His hemoglobin is 14 however he is continu ed to have bloody bowel movements so we will continue to monitor and give packed red blood cells as needed. We will continue to follow INR and giving FFP to keep at 1.6 or lower. Patient n.p.o. except meds. Hold anticoagulation. If continues to have bleeding may need to have endoscopy. Will give Protonix 40 mg twice daily in case upper source. SARABJIT ORTIZ DO July 25, 2020 17:53
[2020-07-25 18:27] LABS: INR 2.1 (0.8-1.4); PROTHROMBIN TIME PATIENT 23.8 SEC (12.2-14.7)
[2020-07-25] MEDS: NS IV 1000 ML 1,000 ML IV SCH (19:01)
[2020-07-25] MEDS: BUPROPION HCL PO SCH (20:20)
[2020-07-25] MEDS: FUROSEMIDE PO SCH (20:20)
[2020-07-25] MEDS: risperiDONE 0.5 MG (RisperDAL) TABLET PO SCH (20:28)
[2020-07-25] MEDS: CEFDINIR 300 MG (OMNICEF) CAP PO SCH (20:29)
[2020-07-25] MEDS: PANTOPRAZOLE 40 MG (PROTONIX) VIAL IV SCH (20:29)
[2020-07-25] MEDS: CITALOPRAM HYDROBROMIDE PO SCH (20:30)
[2020-07-25] MEDS: KCL 20 MEQ TAB (K-DUR) PO SCH (20:30)
[2020-07-25] MEDS: MAGNESIUM OXIDE (MAG-OX)400 MG TAB PO SCH (20:30)
[2020-07-25 23:48] LABS: BASOPHILS % (AUTO) 0 % (0-10); EOSINOPHILS # (AUTO) 0.1 10^3/uL (0.0-0.3); EOSINOPHILS % (AUTO) 2 % (0-10); HEMATOCRIT 36 % (40-54); LYMPHOCYTES # (AUTO) 3.2 10^3/uL (1.0-4.0); LYMPHOCYTES % (AUTO) 42 % (12-44); MEAN CORPUSCULAR HEMOGLOBIN 31 pg (25-34); MEAN CORPUSCULAR HGB CONC 33 g/dL (32-36); MEAN CORPUSCULAR VOLUME 93 fL (80-99); MEAN PLATELET VOLUME 9.5 fL (9.0-12.2); MONOCYTES # (AUTO) 0.8 10^3/uL (0.0-1.0); MONOCYTES % (AUTO) 10 % (0-12); NEUTROPHILS # (AUTO) 3.6 10^3/uL (1.8-7.8); NEUTROPHILS % (AUTO) 46 % (42-75); PLATELET COUNT 143 10^3/uL (130-400); WHITE BLOOD COUNT 7.7 10^3/uL (4.3-11.0)
[2020-07-25 23:59] LABS: PROTHROMBIN TIME PATIENT 22.9 SEC (12.2-14.7)
[2020-07-26] VITALS (10 sets, daily range): BP systolic 89–120; BP diastolic 58–82
[2020-07-26] MEDS ORDERED: NS IV 500 ML 500 ML IV SCH ×2 (00:30→07:30)
[2020-07-26] MEDS: NS IV 1000 ML 1,000 ML IV SCH ×2 (03:20→10:45)
[2020-07-26 06:16] LABS: BASOPHILS % (AUTO) 1 % (0-10); EOSINOPHILS # (AUTO) 0.1 10^3/uL (0.0-0.3); EOSINOPHILS % (AUTO) 2 % (0-10); HEMATOCRIT 35 % (40-54); HEMOGLOBIN 11.1 g/dL (13.3-17.7); LYMPHOCYTES # (AUTO) 2.3 10^3/uL (1.0-4.0); LYMPHOCYTES % (AUTO) 38 % (12-44); MEAN CORPUSCULAR HEMOGLOBIN 30 pg (25-34); MEAN CORPUSCULAR HGB CONC 32 g/dL (32-36); MEAN CORPUSCULAR VOLUME 94 fL (80-99); MEAN PLATELET VOLUME 9.1 fL (9.0-12.2); MONOCYTES # (AUTO) 0.6 10^3/uL (0.0-1.0); MONOCYTES % (AUTO) 11 % (0-12); NEUTROPHILS # (AUTO) 2.9 10^3/uL (1.8-7.8); NEUTROPHILS % (AUTO) 48 % (42-75); PLATELET COUNT 125 10^3/uL (130-400); WHITE BLOOD COUNT 6.1 10^3/uL (4.3-11.0)
[2020-07-26 06:25] LABS: INR 1.8 (0.8-1.4); PROTHROMBIN TIME PATIENT 21.7 SEC (12.2-14.7)
[2020-07-26 06:26] LABS: ALBUMIN 3.4 GM/DL (3.2-4.5); POTASSIUM 4.1 MMOL/L (3.6-5.0)
[2020-07-26 06:29] LABS: TOTAL PROTEIN 6.7 GM/DL (6.4-8.2)
[2020-07-26 06:31] LABS: BILIRUBIN,TOTAL 0.8 MG/DL (0.1-1.0)
[2020-07-26 06:32] LABS: CREATININE SERUM 1.25 MG/DL (0.60-1.30)
--- NOTE | 2020-07-26 06:42 | Progress Note - Hospitalist ---
Subjective HPI/CC On Admission Date Seen by Provider: July 26, 2020 Time Seen by Provider: 11:00 Chief complaint: Gastrointestinal bleed History of present illness: This is a 64-year-old white male clinic patient of replaced by [facility] with multiple comorbidities including atrial fibrillation on Coumadin for stroke prophylaxis anticoagulation who presents with bloody stools. He reports an abrupt onset of this issue and has never had anything like this before. He denies any pain or nausea. Dr. Savage's been consulted and 2 units of FFP will be given for reversal of INR coagulopathy from Coumadin and we will be monitoring patient closely for the need of transfusion. Even though his hemoglobin admission was 14 he has had 17 bloody stools since he was admitted to the ER. Cardiology will be consulted also. Considering how many bloody stools he is having we will admit to cardiac stepdown for close monitoring. He has made it clear he is DO NOT RESUSCITATE and that order is placed. It is to be noted he was just discharged on 06/29/20 by this examiner after osteomyelitis of a toe with cellulitis and severe hypokalemia. Subjective/Events-last exam Patient doing much better Less bloody stools now Seems to be doing pretty well otherwise Hemoglobin 11 INR 1.8 status post 1 more unit of FFP today Dr. Savage looked at the amputated toe site and local wound care was given to nurse Review of Systems Gastrointestinal: Melena, Hematochezia Objective Exam Vital Signs Vital Signs Date Time Temp Pulse Resp B/P (MAP) Pulse Ox O2 Delivery O2 Flow Rate FiO2 07/26/20 18:28 70 22 117/82 (94) 94 Room Air 07/26/20 16:00 35.6 07/26/20 03:52 3.00 07/25/20 14:53 21 Capillary Refill : Greater Than 3 Seconds General Appearance: No Apparent Distress, WD/WN, Chronically ill, Obese Respiratory: Lungs Clear Cardiovascular: Regular Rate, Rhythm Neurologic/Psychiatric: Alert, Oriented x3 Results/Procedures Lab Laboratory Tests 07/25/20 23:40 07/26/20 05:57 07/26/20 13:58 Patient resulted labs reviewed. Assessment/Plan Assessment and Plan Assess & Plan/Chief Complaint Assessment: GI Bleed AF OAC GAGE OHS CHF Hypoxemia HIV+ Plan: Monitor closely Transfuse if necessary FFP to reverse INR Hold Coumadin 07/26/2020 Local wound care to amputation site on toe 1 more unit of FFP Monitor for bloody stools Diagnosis/Problems Diagnosis/Problems (1) Lower GI bleed Status: Acute (2) Anticoagulated on Coumadin Status: Acute (3) CHF (congestive heart failure) (4) Nocturnal hypoxia Status: Chronic (5) Human immunodeficiency virus Status: Chronic (6) Atrial fibrillation Status: Chronic (7) Morbid obesity Status: Chronic (8) Sleep apnea, obstructive Status: Chronic (9) Obesity hypoventilation syndrome Status: Chronic PAULA GOLDSMITH DO July 26, 2020 06:42
[2020-07-26] MEDS: PANTOPRAZOLE 40 MG (PROTONIX) VIAL IV SCH ×2 (07:21→20:39)
[2020-07-26] MEDS: KCL 20 MEQ TAB (K-DUR) PO SCH ×2 (07:22→20:42)
[2020-07-26] MEDS: NON-FORMULARY MEDICATION 1 EA EA (Bictegrav/Emtricit/Tenofov Ala (Biktarvy 50-200-25 mg Ta PO SCH (07:22)
[2020-07-26] MEDS: CEFDINIR 300 MG (OMNICEF) CAP PO SCH ×2 (07:28→20:43)
[2020-07-26] MEDS: ALLOPURINOL 100 MG (ZYLOPRIM) TAB PO SCH (07:28)
[2020-07-26] MEDS: FUROSEMIDE PO SCH ×2 (07:29→20:41)
[2020-07-26] MEDS: DILTIAZEM HCL PO SCH (07:30)
[2020-07-26] MEDS: dilTIAZem120 MG (CARDIZEM CD) CAP PO SCH (07:31)
[2020-07-26] MEDS: MULTIVIT W/MINERALS TAB (THERAGRAN M) PO SCH (07:31)
[2020-07-26] MEDS: SPIRONOLACTONE PO SCH (07:31)
[2020-07-26] MEDS: MAGNESIUM OXIDE (MAG-OX)400 MG TAB PO SCH ×2 (07:32→20:42)
--- NOTE | 2020-07-26 10:33 | Pulmonary Progress Note ---
Subjective Date Seen by a Provider: July 26, 2020 Time Seen by a Provider: 11:13 Subjective/Events-last exam ICU rounding, Here for A fib and LGI bleed No more active bleeding, Was on coumadin, was given one more unit of FFP, INR down from 2.4 to 1.8 Hb has been stable 11 this am. Chronic a fib, rate between 70 to 120, controlled with Cardizem BP has been ok, not orthostatic Getting HAART for HIV, DNR by pt request Sepsis Event Evaluation Height, Weight, BMI Height: 6'0.00" Weight: 404lbs. 0.0oz. [id number]; 57.18 BMI Method:Stated Exam Exam Vital Signs Date Time Temp Pulse Resp B/P (MAP) Pulse Ox O2 Delivery O2 Flow Rate FiO2 07/26/20 10:13 35.5 110 27 114/78 96 Room Air 07/26/20 09:00 95 Room Air 07/26/20 08:45 35.6 92 29 120/79 95 Room Air 07/26/20 08:31 35.6 77 26 110/66 96 Room Air 07/26/20 07:20 35.8 Room Air 07/26/20 07:00 99 07/26/20 04:00 81 18 105/73 (84) 98 Non Rebreather 07/26/20 03:52 35.6 108 26 92 Nasal Cannula 3.00 07/26/20 01:19 35.6 77 15 91/58 95 Room Air 07/26/20 01:04 35.7 80 18 89/74 94 Room Air 07/26/20 01:00 83 07/26/20 00:04 36.0 81 18 116/60 (78) 98 Room Air 07/26/20 00:00 95 Room Air 07/25/20 20:28 35.7 74 17 109/80 98 Room Air 07/25/20 20:14 35.7 81 16 114/69 (84) 94 Room Air 07/25/20 20:13 35.7 81 15 114/69 94 Room Air 07/25/20 20:00 76 21 114/69 (84) 94 Room Air 07/25/20 20:00 94 Room Air 07/25/20 19:00 85 07/25/20 16:58 36.4 70 144/89 07/25/20 16:00 77 20 123/105 (111) 95 Room Air 07/25/20 15:11 36.4 92 21 100/86 95 Room Air 07/25/20 15:00 95 Room Air 07/25/20 15:00 92 31 100/86 (91) 97 Room Air 07/25/20 14:53 35.5 118 21 105/86 07/25/20 14:53 35.5 118 95 21 07/25/20 14:23 97 07/25/20 14:15 95 23 140/101 (114) 95 Room Air 07/25/20 14:15 35.5 98 20 89/67 (74) 95 07/25/20 14:06 75 80/51 (61) 75 106/78 (87) 98 89/67 (74) 07/25/20 10:45 35.5 66 20 119/108 (112) 95 Room Air I & O 07/26/20 07:00 Intake Total 500 ml Balance 500 ml Height & Weight Height: 6'0.00" Weight: 404lbs. 0.0oz. 183.577005jp; 57.18 BMI Method:Stated General Appearance: Anxious, Chronically ill, Mild Distress, Obese HEENT: PERRL/EOMI, Normal ENT Inspection, Pharynx Normal, Moist Mucous Membranes Neck: Full Range of Motion, Normal Inspection, Non Tender Respiratory: Chest Non Tender, Lungs Clear, Normal Breath Sounds, No Accessory Muscle Use, No Respiratory Distress Cardiovascular: Regular Rate, Rhythm, No Edema, No Gallop, No JVD, No Murmur, Normal Peripheral Pulses, Irregularly Irregular Capillary Refill: Greater Than 3 Seconds Gastrointestinal: normal bowel sounds, non tender, soft, no organomegaly; No no pulsatile mass, No abnormal bowel sounds, No distended, No guarding, No rebound, No tenderness, No hernia, No mass, No hepatomegaly, No spleenomegaly, No other Extremity: Normal Capillary Refill, Normal Inspection, Normal Range of Motion, Non Tender, No Calf Tenderness, No Pedal Edema Neurologic/Psychiatric: Alert, Oriented x3, No Motor/Sensory Deficits, Normal Mood/Affect Skin: Normal Color, Warm/Dry Lymphatic: No Adenopathy Results Lab Laboratory Tests 07/25/20 11:13 07/25/20 23:40 07/26/20 05:57 Assessment/Plan Assessment/Plan Bleeding appears under control, a fib mostly controlled, pt requests DNR Plan to observe, if no further bleeding and Hb stable, can go to from cardiac step down to [facility] On Cardizem for rate control and cefedinir for HIV Time spent with patient (mins): 15 RUSTAM SAMANIEGO MD July 26, 2020 10:33
--- NOTE | 2020-07-26 10:48 | Progress Note - Surgery ---
Subjective Date Seen by a Provider: July 26, 2020 Time Seen by a Provider: 10:40 Subjective/Events-last exam Less bloody bm had 6 overnight. INR 1.8 and got another unit of FFP. Hgb 11.1 has received one unit of blood. No new complaints. Denies n/v fever sweats chills shortness of breath or chest pain. Currently NPO. Objective Exam Vital Signs Date Time Temp Pulse Resp B/P (MAP) Pulse Ox O2 Delivery O2 Flow Rate FiO2 07/26/20 10:13 35.5 110 27 114/78 96 Room Air 07/26/20 09:00 95 Room Air 07/26/20 08:45 35.6 92 29 120/79 95 Room Air 07/26/20 08:31 35.6 77 26 110/66 96 Room Air 07/26/20 07:20 35.8 Room Air 07/26/20 07:00 99 07/26/20 04:00 81 18 105/73 (84) 98 Non Rebreather 07/26/20 03:52 35.6 108 26 92 Nasal Cannula 3.00 07/26/20 01:19 35.6 77 15 91/58 95 Room Air 07/26/20 01:04 35.7 80 18 89/74 94 Room Air 07/26/20 01:00 83 07/26/20 00:04 36.0 81 18 116/60 (78) 98 Room Air 07/26/20 00:00 95 Room Air 07/25/20 20:28 35.7 74 17 109/80 98 Room Air 07/25/20 20:14 35.7 81 16 114/69 (84) 94 Room Air 07/25/20 20:13 35.7 81 15 114/69 94 Room Air 07/25/20 20:00 76 21 114/69 (84) 94 Room Air 07/25/20 20:00 94 Room Air 07/25/20 19:00 85 07/25/20 16:58 36.4 70 144/89 07/25/20 16:00 77 20 123/105 (111) 95 Room Air 07/25/20 15:11 36.4 92 21 100/86 95 Room Air 07/25/20 15:00 95 Room Air 07/25/20 15:00 92 31 100/86 (91) 97 Room Air 07/25/20 14:53 35.5 118 21 105/86 07/25/20 14:53 35.5 118 95 21 07/25/20 14:23 97 07/25/20 14:15 95 23 140/101 (114) 95 Room Air 07/25/20 14:15 35.5 98 20 89/67 (74) 95 07/25/20 14:06 75 80/51 (61) 75 106/78 (87) 98 89/67 (74) 07/25/20 10:45 35.5 66 20 119/108 (112) 95 Room Air I & O 07/26/20 07:00 Intake Total 500 ml Balance 500 ml Capillary Refill : Greater Than 3 Seconds General Appearance: No Apparent Distress, Anxious, Chronically ill, Obese HEENT: PERRL/EOMI, Normal ENT Inspection, Pharynx Normal, Moist Mucous Membranes Neck: Full Range of Motion, Normal Inspection, Non Tender Respiratory: Chest Non Tender, No Accessory Muscle Use, No Respiratory Distress Cardiovascular: No Murmur, Normal Peripheral Pulses, Irregularly Irregular Gastrointestinal: normal bowel sounds, non tender, soft, no organomegaly; No no pulsatile mass, No abnormal bowel sounds, No distended, No guarding, No rebound, No tenderness, No hernia, No mass, No hepatomegaly, No spleenomegaly, No other Extremity: Normal Capillary Refill, Normal Range of Motion, Non Tender, No Calf Tenderness, No Pedal Edema Neurologic/Psychiatric: Alert, Oriented x3, No Motor/Sensory Deficits, Normal Mood/Affect Skin: Normal Color, Warm/Dry Lymphatic: No Adenopathy Results Lab Laboratory Tests 07/25/20 11:04: Stool Occult Blood Immunoassay POSITIVEH 07/25/20 11:13: White Blood Count 10.6, Red Blood Count 4.78, Hemoglobin 14.6, Hematocrit 45, Mean Corpuscular Volume 93, Mean Corpuscular Hemoglobin 31, Mean Corpuscular Hemoglobin Concent 33, Red Cell Distribution Width 14.2, Platelet Count 190, Mean Platelet Volume 9.7, Immature Granulocyte % (Auto) 1, Neutrophils (%) (Auto) 52, Lymphocytes (%) (Auto) 36, Monocytes (%) (Auto) 9, Eosinophils (%) (Auto) 1, Basophils (%) (Auto) 0, Neutrophils # (Auto) 5.6, Lymphocytes # (Auto) 3.8, Monocytes # (Auto) 1.0, Eosinophils # (Auto) 0.1, Basophils # (Auto) 0.0, Immature Granulocyte # (Auto) 0.1, Prothrombin Time 26.1H, INR Comment 2.4H, Sodium Level 137, Potassium Level 5.8H, Chloride Level 99, Carbon Dioxide Level 22, Anion Gap 16H, Blood Urea Nitrogen 26H, Creatinine 1.42H, Estimat Glomerular Filtration Rate 50, BUN/Creatinine Ratio 18, Glucose Level 109H, Calcium Level 10.0, Corrected Calcium 9.9, Total Bilirubin 0.6, Aspartate Amino Transf (AST/SGOT) 25, Alanine Aminotransferase (ALT/SGPT) 16, Alkaline Phosphatase 91, Total Protein 8.4H, Albumin 4.1 07/25/20 18:09: Prothrombin Time 23.8H, INR Comment 2.1H 07/25/20 23:40: White Blood Count 7.7, Red Blood Count 3.87L, Hemoglobin 12.0L, Hematocrit 36L, Mean Corpuscular Volume 93, Mean Corpuscular Hemoglobin 31, Mean Corpuscular Hemoglobin Concent 33, Red Cell Distribution Width 14.2, Platelet Count 143, Mean Platelet Volume 9.5, Immature Granulocyte % (Auto) 1, Neutrophils (%) (Au to) 46, Lymphocytes (%) (Auto) 42, Monocytes (%) (Auto) 10, Eosinophils (%) (Auto) 2, Basophils (%) (Auto) 0, Neutrophils # (Auto) 3.6, Lymphocytes # (Auto) 3.2, Monocytes # (Auto) 0.8, Eosinophils # (Auto) 0.1, Basophils # (Auto) 0.0, Immature Granulocyte # (Auto) 0.1, Prothrombin Time 22.9H, INR Comment 2.0H 07/26/20 05:57: White Blood Count 6.1, Red Blood Count 3.69L, Hemoglobin 11.1L, Hematocrit 35L, Mean Corpuscular Volume 94, Mean Corpuscular Hemoglobin 30, Mean Corpuscular Hemoglobin Concent 32, Red Cell Distribution Width 14.4, Platelet Count 125L, Mean Platelet Volume 9.1, Immature Granulocyte % (Auto) 1, Neutrophils (%) (Aut o) 48, Lymphocytes (%) (Auto) 38, Monocytes (%) (Auto) 11, Eosinophils (%) (Auto) 2, Basophils (%) (Auto) 1, Neutrophils # (Auto) 2.9, Lymphocytes # (Auto) 2.3, Monocytes # (Auto) 0.6, Eosinophils # (Auto) 0.1, Basophils # (Auto) 0.0, Immature Granulocyte # (Auto) 0.1, Prothrombin Time 21.7H, INR Comment 1.8H, Sodium Level 139, Potassium Level 4.1, Chloride Level 102, Carbon Dioxide Level 25, Anion Gap 12, Blood Urea Nitrogen 24H, Creatinine 1.25, Estimat Glomerular Filtration Rate 58, BUN/Creatinine Ratio 19, Glucose Level 105, Calcium Level 9.0, Corrected Calcium 9.5, Total Bilirubin 0.8, Aspartate Amino Transf (AST/SGOT) 21, Alanine Aminotransferase (ALT/SGPT) 13, Alkaline Phosphatase 71, Total Protein 6.7, Albumin 3.4 Assessment/Plan Assessment/Plan Assessment/Plan Gastrointestinal bleed likely lower Atrial fibrillation Long-term anticoagulation HIV Recent right second toe amputation Morbid obesity Diverticulosis Patient is a 64-year-old male who is having bleeding per rectum. He is on long- term anticoagulation with Coumadin. He is receiving FFP to reverse this he has an elevated INR of 1.8 last draw, follow. Will continue to monitor hgb and give packed red blood cells as needed. We will continue to follow INR and giving FFP to keep at 1.6 or lower. Patient start clears. Hold anticoagulation. If continues to have bleeding may need to have endoscopy. Will give Protonix 40 mg twice daily in case upper source. SARABJIT ORTIZ DO July 26, 2020 10:48
--- NOTE | 2020-07-26 13:33 | Cardiology Progress Note ---
Cardiology SOAP Progress Note Subjective: No cardiac complaints. Objective: I&O/Vital Signs 07/26/20 07/26/20 07/26/20 07/26/20 03:52 04:00 07:00 07:20 Temp 35.6 35.8 Pulse 108 81 99 Resp 26 18 B/P (MAP) 105/73 (84) Pulse Ox 92 98 O2 Delivery Nasal Cannula Non Rebreather Room Air O2 Flow Rate 3.00 07/26/20 07/26/20 07/26/20 07/26/20 08:31 08:45 09:00 10:13 Temp 35.6 35.6 35.5 Pulse 77 92 110 Resp 26 29 27 B/P (MAP) 110/66 120/79 114/78 Pulse Ox 96 95 95 96 O2 Delivery Room Air Room Air Room Air Room Air 07/26/20 07/26/20 11:59 12:40 Temp 35.2 Pulse 82 92 Resp 20 B/P (MAP) 105/66 (79) Pulse Ox 97 O2 Delivery Room Air 07/26/20 00:00 Intake Total 500 ml Balance 500 ml Weight (Pounds): 404 Weight (Ounces): 0.0 Weight (Calculated Kilograms): 183.467177 Constitutional: appears stated age, AAO x 3; No apparent distress; well- developed, well-nourished Respiratory: chest is bilaterally symmetric, lungs clear to auscultation Cardiovascular: irregularly irregular, S1 and S2 Gastrointestional: soft, audible bowel sounds; No spleenomegaly Extremities: No clubbing, No cyanosis; no lower extremity edema bilateral; No significant edema Neurologic/Psychiatric: no motor/sensory deficits, alert, normal mood/affect, oriented x 3, power is 5/5 both on sides Skin: No rash, No ulcerations Results/Procedures: Labs Laboratory Tests 07/25/20 18:09: Prothrombin Time 23.8H, INR Comment 2.1H 07/25/20 23:40: Prothrombin Time 22.9H, INR Comment 2.0H, White Blood Count 7.7, Red Blood Count 3.87L, Hemoglobin 12.0L, Hematocrit 36L, Mean Corpuscular Volume 93, Mean Corpuscular Hemoglobin 31, Mean Corpuscular Hemoglobin Concent 33, Red Cell Distribution Width 14.2, Platelet Count 143, Mean Platelet Volume 9.5, Immature Granulocyte % (Auto) 1, Neutrophils (%) (Auto) 46, Lymphocytes (%) (Auto) 42, Monocytes (%) (Auto) 10, Eosinophils (%) (Auto) 2, Basophils (%) (Auto) 0, Neutrophils # (Auto) 3.6, Lymphocytes # (Auto) 3.2, Monocytes # (Auto) 0.8, Eosinophils # (Auto) 0.1, Basophils # (Auto) 0.0, Immature Granulocyte # (Auto) 0.1 07/26/20 05:57: Prothrombin Time 21.7H, INR Comment 1.8H, White Blood Count 6.1, Red Blood Count 3.69L, Hemoglobin 11.1L, Hematocrit 35L, Mean Corpuscular Volume 94, Mean Corpuscular Hemoglobin 30, Mean Corpuscular Hemoglobin Concent 32, Red Cell Distribution Width 14.4, Platelet Count 125L, Mean Platelet Volume 9.1, Immature Granulocyte % (Auto) 1, Neutrophils (%) (Auto) 48, Lymphocytes (%) (Auto) 38, Monocytes (%) (Auto) 11, Eosinophils (%) (Auto) 2, Basophils (%) (Auto) 1, Neutrophils # (Auto) 2.9, Lymphocytes # (Auto) 2.3, Monocytes # (Auto) 0.6, Eosinophils # (Auto) 0.1, Basophils # (Auto) 0.0, Immature Granulocyte # (Auto) 0.1, Sodium Level 139, Potassium Level 4.1, Chloride Level 102, Carbon Dioxide Level 25, Anion Gap 12, Blood Urea Nitrogen 24H, Creatinine 1.25, Estimat Glomerular Filtration Rate 58, BUN/Creatinine Ratio 19, Glucose Level 105, Calcium Level 9.0, Corrected Calcium 9.5, Total Bilirubin 0.8, Aspartate Amino Transf (AST/SGOT) 21, Alanine Aminotransferase (ALT/SGPT) 13, Alkaline Phosphatase 71, Total Protein 6.7, Albumin 3.4 A/P: Assessment/Dx: Lower GI bleeding, Longstanding persistent atrial fibrillation on oral anticoagulation Plan: Awaiting general surgery evaluation. Atrial fibrillation with well-controlled ventricular rate. Due to very likely active lower GI bleeding, I have discussed at length with the patient and recommended to hold Coumadin till evaluation of general surgery and further endoscopies are completed. There is a risk of stroke if the patient is off Coumadin but I explained that the risk of significant worsening of bleeding is higher therefore we will hold Coumadin. In the presence of INR 2.4 on Coumadin, the likelihood of acute mesenteric ischemia is low, however I will defer that to the general surgery team. Coumadin will be restarted once primary team and gene ral surgery gives their clearance of no bleeding. Thank you for your consultation. Please call me if you have any questions. Karthikeyan Obrien MD, FACP, FACC, FSCAI, FHRS, CCDS Interventional Cardiology Cardiac Electrophysiology Vascular Medicine and Endovascular Interventions Raphael OBRIEN MD July 26, 2020 13:33
[2020-07-26 14:04] LABS: BASOPHILS % (AUTO) 0 % (0-10); EOSINOPHILS # (AUTO) 0.1 10^3/uL (0.0-0.3); EOSINOPHILS % (AUTO) 2 % (0-10); HEMATOCRIT 37 % (40-54); LYMPHOCYTES # (AUTO) 3.7 10^3/uL (1.0-4.0); LYMPHOCYTES % (AUTO) 42 % (12-44); MEAN CORPUSCULAR HEMOGLOBIN 31 pg (25-34); MEAN CORPUSCULAR HGB CONC 33 g/dL (32-36); MEAN CORPUSCULAR VOLUME 94 fL (80-99); MEAN PLATELET VOLUME 9.3 fL (9.0-12.2); MONOCYTES # (AUTO) 0.8 10^3/uL (0.0-1.0); MONOCYTES % (AUTO) 9 % (0-12); NEUTROPHILS # (AUTO) 4.2 10^3/uL (1.8-7.8); NEUTROPHILS % (AUTO) 47 % (42-75); PLATELET COUNT 156 10^3/uL (130-400)
[2020-07-26 14:18] LABS: INR 1.8 (0.8-1.4); PROTHROMBIN TIME PATIENT 21.4 SEC (12.2-14.7)
[2020-07-26] MEDS: CITALOPRAM HYDROBROMIDE PO SCH (20:40)
[2020-07-26] MEDS: BUPROPION HCL PO SCH (20:41)
[2020-07-26] MEDS: risperiDONE 0.5 MG (RisperDAL) TABLET PO SCH (20:42)
[2020-07-26 22:03] LABS: BASOPHILS % (AUTO) 0 % (0-10); EOSINOPHILS # (AUTO) 0.2 10^3/uL (0.0-0.3); EOSINOPHILS % (AUTO) 2 % (0-10); HEMATOCRIT 35 % (40-54); HEMOGLOBIN 11.6 g/dL (13.3-17.7); LYMPHOCYTES # (AUTO) 4.1 10^3/uL (1.0-4.0); LYMPHOCYTES % (AUTO) 45 % (12-44); MEAN CORPUSCULAR HEMOGLOBIN 31 pg (25-34); MEAN CORPUSCULAR HGB CONC 33 g/dL (32-36); MEAN CORPUSCULAR VOLUME 94 fL (80-99); MEAN PLATELET VOLUME 9.8 fL (9.0-12.2); MONOCYTES # (AUTO) 0.9 10^3/uL (0.0-1.0); MONOCYTES % (AUTO) 10 % (0-12); NEUTROPHILS # (AUTO) 3.9 10^3/uL (1.8-7.8); NEUTROPHILS % (AUTO) 43 % (42-75); PLATELET COUNT 170 10^3/uL (130-400); WHITE BLOOD COUNT 9.2 10^3/uL (4.3-11.0)
[2020-07-26 22:17] LABS: INR 1.8 (0.8-1.4); PROTHROMBIN TIME PATIENT 21.4 SEC (12.2-14.7)
[2020-07-27 00:09] VITALS: BP 107/62
[2020-07-27 04:20] VITALS: BP 112/72
[2020-07-27 06:10] LABS: BASOPHILS % (AUTO) 0 % (0-10); EOSINOPHILS # (AUTO) 0.1 10^3/uL (0.0-0.3); EOSINOPHILS % (AUTO) 2 % (0-10); HEMATOCRIT 34 % (40-54); LYMPHOCYTES # (AUTO) 2.4 10^3/uL (1.0-4.0); LYMPHOCYTES % (AUTO) 40 % (12-44); MEAN CORPUSCULAR HEMOGLOBIN 30 pg (25-34); MEAN CORPUSCULAR HGB CONC 32 g/dL (32-36); MEAN CORPUSCULAR VOLUME 95 fL (80-99); MEAN PLATELET VOLUME 9.6 fL (9.0-12.2); MONOCYTES # (AUTO) 0.6 10^3/uL (0.0-1.0); MONOCYTES % (AUTO) 10 % (0-12); NEUTROPHILS # (AUTO) 2.8 10^3/uL (1.8-7.8); NEUTROPHILS % (AUTO) 47 % (42-75); PLATELET COUNT 135 10^3/uL (130-400); WHITE BLOOD COUNT 6.1 10^3/uL (4.3-11.0)
[2020-07-27 06:21] LABS: INR 1.8 (0.8-1.4); PROTHROMBIN TIME PATIENT 21.5 SEC (12.2-14.7)
[2020-07-27] MEDS: MULTIVIT W/MINERALS TAB (THERAGRAN M) PO SCH (07:52)
[2020-07-27] MEDS: MAGNESIUM OXIDE (MAG-OX)400 MG TAB PO SCH ×2 (07:52→20:27)
[2020-07-27] MEDS: FUROSEMIDE PO SCH ×2 (07:53→20:25)
[2020-07-27] MEDS: NON-FORMULARY MEDICATION 1 EA EA (Bictegrav/Emtricit/Tenofov Ala (Biktarvy 50-200-25 mg Ta PO SCH (07:54)
[2020-07-27] MEDS: SPIRONOLACTONE PO SCH (07:54)
[2020-07-27] MEDS: DILTIAZEM HCL PO SCH (07:55)
[2020-07-27] MEDS: CEFDINIR 300 MG (OMNICEF) CAP PO SCH ×2 (07:56→20:32)
[2020-07-27] MEDS: ALLOPURINOL 100 MG (ZYLOPRIM) TAB PO SCH (07:57)
[2020-07-27] MEDS: KCL 20 MEQ TAB (K-DUR) PO SCH ×2 (07:58→20:28)
[2020-07-27] MEDS: dilTIAZem120 MG (CARDIZEM CD) CAP PO SCH (07:58)
[2020-07-27] MEDS: PANTOPRAZOLE 40 MG (PROTONIX) VIAL IV SCH ×2 (07:59→20:27)
[2020-07-27 10:22] LABS: ALBUMIN 3.6 GM/DL (3.2-4.5); CHLORIDE 100 MMOL/L (98-107); POTASSIUM 4.5 MMOL/L (3.6-5.0); SODIUM 138 MMOL/L (135-145)
[2020-07-27 10:23] LABS: CALCIUM 9.1 MG/DL (8.5-10.1)
[2020-07-27 10:24] LABS: GLUCOSE 105 MG/DL (70-105)
[2020-07-27 10:25] LABS: TOTAL PROTEIN 6.9 GM/DL (6.4-8.2)
--- NOTE | 2020-07-27 10:25 | Progress Note - Hospitalist ---
Subjective HPI/CC On Admission Date Seen by Provider: July 27, 2020 Time Seen by Provider: 11:00 Chief complaint: Gastrointestinal bleed History of present illness: This is a 64-year-old white male clinic patient of [facility] with multiple comorbidities including atrial fibrillation on Coumadin for stroke prophylaxis anticoagulation who presents with bloody stools. He reports an abrupt onset of this issue and has never had anything like this before. He denies any pain or nausea. Dr. Savage's been consulted and 2 units of FFP will be given for reversal of INR coagulopathy from Coumadin and we will be monitoring patient closely for the need of transfusion. Even though his hemoglobin admission was 14 he has had 17 bloody stools since he was admitted to the ER. Cardiology will be consulted also. Considering how many bloody stools he is having we will admit to cardiac stepdown for close monitoring. He has made it clear he is DO NOT RESUSCITATE and that order is placed. It is to be noted he was just discharged on 06/29/20 by this examiner after osteomyelitis of a toe with cellulitis and severe hypokalemia. Subjective/Events-last exam Patient doing pretty well No more bloody stools and he has had 2 bowel movements Creatinine 1.19 INR 1.8 after 3 units of FFP total Hemoglobin is 11 Transferring to the floor Advancing diet to soft Review of Systems General: Fatigue Objective Exam Vital Signs Vital Signs Date Time Temp Pulse Resp B/P (MAP) Pulse Ox O2 Delivery O2 Flow Rate FiO2 07/27/20 16:00 36.3 70 16 105/51 (69) 95 Room Air 07/27/20 04:20 3.00 07/25/20 14:53 21 Capillary Refill : Greater Than 3 Seconds General Appearance: No Apparent Distress, WD/WN, Chronically ill, Obese Respiratory: No Accessory Muscle Use, No Respiratory Distress, Decreased Breath Sounds Cardiovascular: Regular Rate, Rhythm Neurologic/Psychiatric: Alert Results/Procedures Lab Laboratory Tests 07/26/20 22:00 07/27/20 06:05 Patient resulted labs reviewed. Assessment/Plan Assessment and Plan Assess & Plan/Chief Complaint Assessment: GI Bleed AF OAC GAGE OHS CHF Hypoxemia HIV+ Plan: Monitor closely Transfuse if necessary FFP to reverse INR Hold Coumadin 07/26/2020 Local wound care to amputation site on toe 1 more unit of FFP Monitor for bloody stools 07/27/2020: Monitor hemoglobin Transfer to the floor Monitor closely Diagnosis/Problems Diagnosis/Problems (1) Lower GI bleed Status: Acute (2) Anticoagulated on Coumadin Status: Acute (3) CHF (congestive heart failure) (4) Nocturnal hypoxia Status: Chronic (5) Human immunodeficiency virus Status: Chronic (6) Atrial fibrillation Status: Chronic (7) Morbid obesity Status: Chronic (8) Sleep apnea, obstructive Status: Chronic (9) Obesity hypoventilation syndrome Status: Chronic PAULA GOLDSMITH DO July 27, 2020 10:25
[2020-07-27 10:26] LABS: BILIRUBIN,TOTAL 0.6 MG/DL (0.1-1.0); CARBON DIOXIDE 27 MMOL/L (21-32)
[2020-07-27 10:28] LABS: ALKALINE PHOSPHATASE 68 U/L (40-136); CREATININE SERUM 1.19 MG/DL (0.60-1.30); GFR ESTIMATED > 60
[2020-07-27 10:29] LABS: BUN/CREATININE RATIO 14
[2020-07-27 10:31] LABS: ALANINE AMINOTRANSFERASE 15 U/L (0-55)
--- NOTE | 2020-07-27 11:42 | Progress Note - Surgery ---
Subjective Date Seen by a Provider: July 27, 2020 Time Seen by a Provider: 11:39 Subjective/Events-last exam Having regular bowel movements without blood. Hgb 11. INR 1.8. No abdominal pain. No new complaints. Denies n/v fever sweats chills shortness of breath or chest pain. Objective Exam Vital Signs Date Time Temp Pulse Resp B/P (MAP) Pulse Ox O2 Delivery O2 Flow Rate FiO2 07/27/20 11:23 36.8 07/27/20 08:56 Room Air 07/27/20 08:05 36.2 07/27/20 07:00 64 07/27/20 04:20 36.1 80 11 112/72 (85) 98 Non Rebreather 3.00 07/27/20 01:00 75 07/27/20 00:09 35.2 77 14 107/62 (77) 99 Non Rebreather 4.00 07/26/20 20:54 95 Room Air 07/26/20 19:20 36.2 69 18 113/79 (90) 96 Room Air 07/26/20 19:00 63 07/26/20 18:28 70 22 117/82 (94) 94 Room Air 07/26/20 16:00 35.6 07/26/20 12:40 92 07/26/20 11:59 35.2 82 20 105/66 (79) 97 Room Air I & O 07/27/20 06:59 Intake Total 3040 ml Balance 3040 ml Capillary Refill : Greater Than 3 Seconds General Appearance: No Apparent Distress, WD/WN, Chronically ill, Obese HEENT: PERRL/EOMI, Normal ENT Inspection, Pharynx Normal, Moist Mucous Membranes Neck: Full Range of Motion, Normal Inspection, Non Tender Respiratory: Chest Non Tender, No Accessory Muscle Use, No Respiratory Distress Cardiovascular: Regular Rate, Rhythm, No JVD Gastrointestinal: normal bowel sounds, non tender, soft Extremity: Normal Capillary Refill, Normal Inspection, Normal Range of Motion, Non Tender, No Calf Tenderness, No Pedal Edema, Other (right lower ext 2nd toe amputation) Neurologic/Psychiatric: Alert, Oriented x3, Normal Mood/Affect Skin: Normal Color, Warm/Dry Lymphatic: No Adenopathy Results Lab Laboratory Tests 07/26/20 13:58: White Blood Count 9.0, Red Blood Count 3.91L, Hemoglobin 12.0L, Hematocrit 37L, Mean Corpuscular Volume 94, Mean Corpuscular Hemoglobin 31, Mean Corpuscular Hemoglobin Concent 33, Red Cell Distribution Width 14.4, Platelet Count 156, Mean Platelet Volume 9.3, Immature Granulocyte % (Auto) 1, Neutrophils (%) (Aut o) 47, Lymphocytes (%) (Auto) 42, Monocytes (%) (Auto) 9, Eosinophils (%) (Auto) 2, Basophils (%) (Auto) 0, Neutrophils # (Auto) 4.2, Lymphocytes # (Auto) 3.7, Monocytes # (Auto) 0.8, Eosinophils # (Auto) 0.1, Basophils # (Auto) 0.0, Immature Granulocyte # (Auto) 0.1, Prothrombin Time 21.4H, INR Comment 1.8H 07/26/20 22:00: White Blood Count 9.2, Red Blood Count 3.74L, Hemoglobin 11.6L, Hematocrit 35L, Mean Corpuscular Volume 94, Mean Corpuscular Hemoglobin 31, Mean Corpuscular Hemoglobin Concent 33, Red Cell Distribution Width 14.3, Platelet Count 170, Mean Platelet Volume 9.8, Immature Granulocyte % (Auto) 1, Neutrophils (%) (Auto) 43, Lymphocytes (%) (Auto) 45H, Monocytes (%) (Auto) 10, Eosinophils (%) (Auto) 2, Basophils (%) (Auto) 0, Neutrophils # (Auto) 3.9, Lymphocytes # (Auto) 4.1H, Monocytes # (Auto) 0.9, Eosinophils # (Auto) 0.2, Basophils # (Auto) 0.0, Immature Granulocyte # (Auto) 0.1, Prothrombin Time 21.4H, INR Comment 1.8H 07/27/20 06:05: White Blood Count 6.1, Red Blood Count 3.62L, Hemoglobin 11.0L, Hematocrit 34L, Mean Corpuscular Volume 95, Mean Corpuscular Hemoglobin 30, Mean Corpuscular Hemoglobin Concent 32, Red Cell Distribution Width 14.2, Platelet Count 135, Mean Platelet Volume 9.6, Immature Granulocyte % (Auto) 1, Neutrophils (%) (Auto) 47, Lymphocytes (%) (Auto) 40, Monocytes (%) (Auto) 10, Eosinophils (%) (Auto) 2, Basophils (%) (Auto) 0, Neutrophils # (Auto) 2.8, Lymphocytes # (Auto) 2.4, Monocytes # (Auto) 0.6, Eosinophils # (Auto) 0.1, Basophils # (Auto) 0.0, Immature Granulocyte # (Auto) 0.0, Prothrombin Time 21.5H, INR Comment 1.8H, Sodium Level 138, Potassium Level 4.5, Chloride Level 100, Carbon Dioxide Level 27, Anion Gap 11, Blood Urea Nitrogen 17, Creatinine 1.19, Estimat Glomerular Filtration Rate > 60, BUN/Creatinine Ratio 14, Glucose Level 105, Calcium Level 9.1, Corrected Calcium 9.4, Total Bilirubin 0.6, Aspartate Amino Transf (AST/SGOT) 24, Alanine Aminotransferase (ALT/SGPT) 15, Alkaline Phosphatase 68, Total Protein 6.9, Albumin 3.6 Assessment/Plan Assessment/Plan Assessment/Plan Gastrointestinal bleed likely lower Atrial fibrillation Long-term anticoagulation HIV Recent right second toe amputation Morbid obesity Diverticulosis Patient is a 64-year-old male who is having bleeding per rectum. He is on long- term anticoagulation with Coumadin. He is received FFP to reverse this he has an elevated INR of 1.8 last draw, follow. Will continue to monitor hgb and give packed red blood cells as needed. We will continue to follow INR and giving FFP if needed. Patient advance to soft. Hold anticoagulation. If continues to have bleeding may need to have endoscopy. Will give Protonix 40 mg twice daily in case upper source. SARABJIT ORTIZ DO July 27, 2020 11:42
--- NOTE | 2020-07-27 11:53 | Progress Note - Cardiology ---
Cardiology SOAP Progress Note Subjective: Gen malaise and weakness present Has not had further GI bleed No n/v No cp or palp or syncope or shortness of breath rest Objective: I&O/Vital Signs 07/27/20 07/27/20 07/27/20 07/27/20 00:09 01:00 04:20 07:00 Temp 35.2 36.1 Pulse 77 75 80 64 Resp 14 11 B/P (MAP) 107/62 (77) 112/72 (85) Pulse Ox 99 98 O2 Delivery Non Rebreather Non Rebreather O2 Flow Rate 4.00 3.00 07/27/20 07/27/20 07/27/20 08:05 08:56 11:23 Temp 36.2 36.8 O2 Delivery Room Air 07/27/20 00:00 Intake Total 1450 ml Balance 1450 ml Weight (Pounds): 404 Weight (Ounces): 0.0 Weight (Calculated Kilograms): 183.515961 Constitutional: appears stated age, AAO x 3; No apparent distress; well- developed, well-nourished Respiratory: chest is bilaterally symmetric, lungs clear to auscultation Cardiovascular: irregularly irregular, S1 and S2 Gastrointestional: soft, audible bowel sounds; No spleenomegaly Extremities: other (mild, bilateral leg edema and reddish brown skin disoloration, amputated 2 R toe); No clubbing, No cyanosis, No significant edema Neurologic/Psychiatric: no motor/sensory deficits, alert, normal mood/affect, oriented x 3, power is 5/5 both on sides Skin: No rash, No ulcerations Results/Procedures: Labs Laboratory Tests 07/26/20 13:58: White Blood Count 9.0, Red Blood Count 3.91L, Hemoglobin 12.0L, Hematocrit 37L, Mean Corpuscular Volume 94, Mean Corpuscular Hemoglobin 31, Mean Corpuscular Hemoglobin Concent 33, Red Cell Distribution Width 14.4, Platelet Count 156, Mean Platelet Volume 9.3, Immature Granulocyte % (Auto) 1, Neutrophils (%) (Auto) 47, Lymphocytes (%) (Auto) 42, Monocytes (%) (Auto) 9, Eosinophils (%) (Auto) 2, Basophils (%) (Auto) 0, Neutrophils # (Auto) 4.2, Lymphocytes # (Auto) 3.7, Monocytes # (Auto) 0.8, Eosinophils # (Auto) 0.1, Basophils # (Auto) 0.0, Immature Granulocyte # (Auto) 0.1, Prothrombin Time 21.4H, INR Comment 1.8H 07/26/20 22:00: White Blood Count 9.2, Red Blood Count 3.74L, Hemoglobin 11.6L, Hematocrit 35L, Mean Corpuscular Volume 94, Mean Corpuscular Hemoglobin 31, Mean Corpuscular Hemoglobin Concent 33, Red Cell Distribution Width 14.3, Platelet Count 170, Mean Platelet Volume 9.8, Immature Granulocyte % (Auto) 1, Neutrophils (%) (Auto) 43, Lymphocytes (%) (Auto) 45H, Monocytes (%) (Auto) 10, Eosinophils (%) (Auto) 2, Basophils (%) (Auto) 0, Neutrophils # (Auto) 3.9, Lymphocytes # (Auto) 4.1H, Monocytes # (Auto) 0.9, Eosinophils # (Auto) 0.2, Basophils # (Auto) 0.0, Immature Granulocyte # (Auto) 0.1, Prothrombin Time 21.4H, INR Comment 1.8H 07/27/20 06:05: White Blood Count 6.1, Red Blood Count 3.62L, Hemoglobin 11.0L, Hematocrit 34L, Mean Corpuscular Volume 95, Mean Corpuscular Hemoglobin 30, Mean Corpuscular He moglobin Concent 32, Red Cell Distribution Width 14.2, Platelet Count 135, Mean Platelet Volume 9.6, Immature Granulocyte % (Auto) 1, Neutrophils (%) (Auto) 47, Lymphocytes (%) (Auto) 40, Monocytes (%) (Auto) 10, Eosinophils (%) (Auto) 2, Basophils (%) (Auto) 0, Neutrophils # (Auto) 2.8, Lymphocytes # (Auto) 2.4, Monocytes # (Auto) 0.6, Eosinophils # (Auto) 0.1, Basophils # (Auto) 0.0, Immature Granulocyte # (Auto) 0.0, Prothrombin Time 21.5H, INR Comment 1.8H, Sodium Level 138, Potassium Level 4.5, Chloride Level 100, Carbon Dioxide Level 27, Anion Gap 11, Blood Urea Nitrogen 17, Creatinine 1.19, Estimat Glomerular Filtration Rate > 60, BUN/Creatinine Ratio 14, Glucose Level 105, Calcium Level 9.1, Corrected Calcium 9.4, Total Bilirubin 0.6, Aspartate Amino Transf (AST/SGOT) 24, Alanine Aminotransferase (ALT/SGPT) 15, Alkaline Phosphatase 68, Total Protein 6.9, Albumin 3.6 Laboratory Tests 07/25/20 23:40 07/26/20 05:57 07/26/20 13:58 07/26/20 22:00 07/27/20 06:05 A/P: Assessment: GI bleed, managed by Med and Surg services Chronic atrial fibrillation - OAC with warfarin, currently being held by the Med and Surg svces due to GI bleed H/o osteomyelitis of R 2nd toe, s/p amputation on 06/25/20 Bilat leg swelling related to venous insuff and ac on chronic diastolic CHF, improving Chronic diastolic CHF H/o intermittent hypokalemia due to diuretic therapy for decomp CHF Morbid obesity (BMI approx 59) HIV positive status, managed by Dr Woods in [place], [place] Chronic joint and back pain H/o depression Obstructive sleep apnea syndrome, treated with CPAP Echocardiogram of Feb [address] Obrien showed wall thickness is mildly to mod increased. Concentric hypertrophy. LVEF 55-65%. LA and RA dilated. Mild MR. Mild to mod TR Minimal carotid arterial plaque on carotid u/s of April 2019 Plan: * I interviewed and examined the patient and reviewed his records * Complex management due to multiple comorbidities * Resume oral anticoag JAMMIE (after full eval and treatment of the source of GI bleed) * I reviewed and discussed his CV issues with him and answered questions in detail * Monitor labs REKHA BLEVINS MD FACP FAC CCDS July 27, 2020 11:53
[2020-07-27 12:50] VITALS: BP 128/68
[2020-07-27 16:00] VITALS: BP 105/51
[2020-07-27 20:00] VITALS: BP 122/61
[2020-07-27] MEDS: risperiDONE 0.5 MG (RisperDAL) TABLET PO SCH (20:32)
[2020-07-27] MEDS: BUPROPION HCL PO SCH (20:33)
[2020-07-27] MEDS: CITALOPRAM HYDROBROMIDE PO SCH (20:38)
[2020-07-27 23:37] VITALS: BP 109/68
[2020-07-28 03:58] VITALS: BP 118/80
[2020-07-28 05:37] LABS: BASOPHILS % (AUTO) 0 % (0-10); EOSINOPHILS # (AUTO) 0.1 10^3/uL (0.0-0.3); EOSINOPHILS % (AUTO) 2 % (0-10); HEMATOCRIT 36 % (40-54); HEMOGLOBIN 11.6 g/dL (13.3-17.7); LYMPHOCYTES # (AUTO) 2.7 10^3/uL (1.0-4.0); LYMPHOCYTES % (AUTO) 35 % (12-44); MEAN CORPUSCULAR HEMOGLOBIN 31 pg (25-34); MEAN CORPUSCULAR HGB CONC 33 g/dL (32-36); MEAN CORPUSCULAR VOLUME 94 fL (80-99); MEAN PLATELET VOLUME 9.6 fL (9.0-12.2); MONOCYTES # (AUTO) 0.7 10^3/uL (0.0-1.0); MONOCYTES % (AUTO) 9 % (0-12); NEUTROPHILS # (AUTO) 4.2 10^3/uL (1.8-7.8); NEUTROPHILS % (AUTO) 53 % (42-75); PLATELET COUNT 147 10^3/uL (130-400); WHITE BLOOD COUNT 7.9 10^3/uL (4.3-11.0)
[2020-07-28 05:53] LABS: ALBUMIN 3.7 GM/DL (3.2-4.5); INR 1.6 (0.8-1.4); PROTHROMBIN TIME PATIENT 19.4 SEC (12.2-14.7)
[2020-07-28] MEDS: MULTIVIT W/MINERALS TAB (THERAGRAN M) PO SCH (05:54)
[2020-07-28 05:55] LABS: CALCIUM 9.5 MG/DL (8.5-10.1)
[2020-07-28 05:56] LABS: TOTAL PROTEIN 7.2 GM/DL (6.4-8.2)
[2020-07-28 05:58] LABS: BILIRUBIN,TOTAL 0.7 MG/DL (0.1-1.0)
[2020-07-28 06:00] LABS: CREATININE SERUM 1.31 MG/DL (0.60-1.30)
[2020-07-28 08:00] VITALS: BP 107/63
[2020-07-28] MEDS: PANTOPRAZOLE 40 MG (PROTONIX) VIAL IV SCH (08:45)
[2020-07-28] MEDS: MAGNESIUM OXIDE (MAG-OX)400 MG TAB PO SCH (08:45)
[2020-07-28] MEDS: SPIRONOLACTONE PO SCH (08:46)
[2020-07-28] MEDS: dilTIAZem120 MG (CARDIZEM CD) CAP PO SCH (08:49)
[2020-07-28] MEDS: FUROSEMIDE PO SCH (08:49)
[2020-07-28] MEDS: ALLOPURINOL 100 MG (ZYLOPRIM) TAB PO SCH (08:52)
[2020-07-28] MEDS: NON-FORMULARY MEDICATION 1 EA EA (Bictegrav/Emtricit/Tenofov Ala (Biktarvy 50-200-25 mg Ta PO SCH (08:57)
[2020-07-28] MEDS: DILTIAZEM HCL PO SCH (08:59)
[2020-07-28] MEDS: KCL 20 MEQ TAB (K-DUR) PO SCH (09:00)
[2020-07-28] MEDS ORDERED: FURO80TA3 PO (09:05)
[2020-07-28] MEDS ORDERED: SPIR50TA4 PO (09:05)
[2020-07-28] MEDS ORDERED: OXYC10TA7 PO (09:05)
[2020-07-28] MEDS ORDERED: PANT40TA2 PO (11:00)
--- NOTE | 2020-07-28 11:00 | Discharge Summary ---
Discharge Summary Hospital Course Was the Problem List Reviewed?: Yes Problems/Dx: (1) Lower GI bleed Status: Acute (2) Anticoagulated on Coumadin Status: Acute (3) CHF (congestive heart failure) (4) Nocturnal hypoxia Status: Chronic (5) Human immunodeficiency virus Status: Chronic (6) Atrial fibrillation Status: Chronic Qualifiers: Qualified Codes: I48.20 - Chronic atrial fibrillation, unspecified (7) Morbid obesity Status: Chronic (8) Sleep apnea, obstructive Status: Chronic (9) Obesity hypoventilation syndrome Status: Chronic Hospital Course Date of Admission: July 25, 2020 at 12:49 Admission Diagnosis : Family Physician/Provider: Bernice Skelton Aprn Date of Discharge: 07/28/20 Discharge Diagnosis: GIB, Anemia, Coumadin treatment, AF, obesity, toe amputation site Hospital Course: Hospital Course: Pt had a short hospital course. He was admitted after GI bleed closely monitored in the ICU for chronic AF and INR was reversed with FFP from Coumadin for stroke prophylaxis. Overall he did drop 3 points on his Hgb and pt was deemed stable. INR 1.6, Coumadin was restarted by Dr. Sylvester. Aspirin was held dependent on Dr. Zheng decision. He was discharged in improved condition with local wound care to his toe amputated site and he did resume home health care. Labs and Pending Lab Test: Laboratory Tests 07/28/20 05:11: White Blood Count 7.9, Red Blood Count 3.80L, Hemoglobin 11.6L, Hematocrit 36L, Mean Corpuscular Volume 94, Mean Corpuscular Hemoglobin 31, Mean Corpuscular Hemoglobin Concent 33, Red Cell Distribution Width 14.1, Platelet Count 147, Mean Platelet Volume 9.6, Immature Granulocyte % (Auto) 1, Neutrophils (%) (Auto) 53, Lymphocytes (%) (Auto) 35, Monocytes (%) (Auto) 9, Eosinophils (%) (Auto) 2, Basophils (%) (Auto) 0, Neutrophils # (Auto) 4.2, Lymphocytes # (Auto) 2.7, Monocytes # (Auto) 0.7, Eosinophils # (Auto) 0.1, Basophils # (Auto) 0.0, Immature Granulocyte # (Auto) 0.1, Prothrombin Time 19.4H, INR Comment 1.6H, Sodium Level 138, Potassium Level 5.0, Chloride Level 101, Carbon Dioxide Level 26, Anion Gap 11, Blood Urea Nitrogen 17, Creatinine 1.31H, Estimat Glomerular Filtration Rate 55, BUN/Creatinine Ratio 13, Glucose Level 96, Calcium Level 9.5, Corrected Calcium 9.7, Total Bilirubin 0.7, Aspartate Amino Transf (AST/SGOT) 28, Alanine Aminotransferase (ALT/SGPT) 15, Alkaline Phosphatase 71, Total Protein 7.2, Albumin 3.7 Home Meds Active Protonix (Pantoprazole Sodium) 40 Mg Tablet.dr 40 Mg PO DAILY Reported Oxycodone HCl 10 Mg Tablet 10 Mg PO Q6H PRN 7 Days Furosemide 80 Mg Tablet 160 Mg PO DAILY TAKES 2 (80MG) TABS Spironolactone 50 Mg Tablet 50 Mg PO DAILY Cefdinir 300 Mg Capsule 300 Mg PO BID FILLED 07-18-2020 #16/12 DAY SUPPLY Klor-Con M20 (Potassium Chloride) 20 Meq Tab.er.prt 120 Meq PO BID TAKES 6 (20MEQ) TABS TWICE DAILY Diltiazem 24Hr ER (Diltiazem HCl) 120 Mg Cap.er.24h 120 Mg PO DAILY TAKES 120MG + 2 (180MG) TABS TO EQUAL 480MG DAILY Diltiazem ER (Diltiazem HCl) 180 Mg Capsule.er 360 Mg PO DAILY TAKES 120MG + 2 (180MG) TABS TO EQUAL 480MG DAILY Aspirin EC (Aspirin) 81 Mg Tablet.dr 81 Mg PO HS Magnesium (Magnesium Oxide) 400 Mg Tablet 400 Mg PO BID Biktarvy 50-200-25 mg Tablet (Bictegrav/Emtricit/Tenofov Ala) 1 Each Tablet 1 Each PO DAILY Warfarin Sodium 5 Mg Tablet 10 Mg PO SUN,MO,WE,FR,SA TAKES 2 (5MG) TABS TO EQUAL 10MG Warfarin Sodium 5 Mg Tablet 5 Mg PO Allopurinol 100 Mg Tablet 100 Mg PO DAILY Ibuprofen 200 Mg Tablet 400 Mg PO DAILY PRN TAKES 2 (200 MG) TABLETS Centrum Silver Tablet (Multivit-Min/FA/Lycopene/Lut) 1 Each Tablet 1 Tab PO DAILY Risperidone 0.5 Mg Tablet 0.5 Mg PO HS Citalopram HBr (Citalopram Hydrobromide) 40 Mg Tablet 40 Mg PO HS Bupropion Xl (Bupropion HCl) 300 Mg Tab.er.24h 300 Mg PO HS Assessment/Pt Instructions CHC 1 week Discharge Planning: <30 minutes discharge planning Discharge Instructions Discharge Diet: Cardiac Diet Discharge Physical Examination Vital Signs Vital Signs Date Time Temp Pulse Resp B/P (MAP) Pulse Ox O2 Delivery O2 Flow Rate FiO2 07/28/20 09:00 Room Air 07/28/20 08:00 35.8 98 20 107/63 (78) 94 07/27/20 04:20 3.00 07/25/20 14:53 21 General Appearance: No Apparent Distress, WD/WN, Chronically ill Allergies: Coded Allergies: No Known Drug Allergies (Unverified , 02/07/18) Discharge Summary Date of Admission July 25, 2020 at 12:49 Date of Discharge Discharge Date: Jul 28, 2020 Admission Diagnosis Assessment: GI Bleed AF OAC GAGE OHS CHF Hypoxemia HIV+ Plan: Monitor closely Transfuse if necessary FFP to reverse INR Hold Coumadin Discharge Diagnosis Assessment: GI Bleed AF OAC GAGE OHS CHF Hypoxemia HIV+ Plan: Monitor closely Transfuse if necessary FFP to reverse INR Hold Coumadin 07/26/2020 Local wound care to amputation site on toe 1 more unit of FFP Monitor for bloody stools 07/27/2020: Monitor hemoglobin Transfer to the floor Monitor closely (1) Lower GI bleed Status: Acute (2) Anticoagulated on Coumadin Status: Acute (3) CHF (congestive heart failure) (4) Nocturnal hypoxia Status: Chronic (5) Human immunodeficiency virus Status: Chronic (6) Atrial fibrillation Status: Chronic Qualifiers: Qualified Codes: I48.20 - Chronic atrial fibrillation, unspecified (7) Morbid obesity Status: Chronic (8) Sleep apnea, obstructive Status: Chronic (9) Obesity hypoventilation syndrome Status: Chronic PAULA GOLDSMITH DO Jul 28, 2020 11:00
--- NOTE | 2020-07-28 11:01 | D/C HH Face to Face Order ---
D/C Face to Face Orders Reconcile Patient Problems Problems Reviewed?: Yes Instructions for Patient Via [facility], Patient Instructions/FollowUp: [facility] PCP [address] Sylvester managing coumadin Physician to follow Patient: [facility] Discharge Diet for Home: Soft Diet Patient Problems: GI Bleed Anemia AF Coumadin treatment Patient Data-Allergies,Ht & Wt Patient Allergies: Coded Allergies: No Known Drug Allergies (Unverified , 02/07/18) Height (Feet): 6 Height (Inches): 0.00 Weight (Pounds): 404 Weight (Ounces): 0.0 Home Health Need/Face to Face Date of Face to Face: Jul 28, 2020 Clinical Findings: Generalized weakness and fatigue, Instability, Muscle weakness, Shortness of breath, Unsteady gait I have seen Pt [id number]: Yes Discharged To: Home Diagnosis/Conditions: GIB Patient is Homebound due to: Pro fall risk due to instabilty, Muscle weakness Homebound Status Due to the above stated illness, injury or surgical procedure (medical condition or diagnosis) and associated clinical findings, the patient is homebound because of his/her inability to leave home except with aid of a supportive device and/or person AND leaving the home requires a considerable and taxing effort or is medically contraindicated. Pt req the following assistanc: [facility] Nursing Orders Home Health Services Order: Nursing Services, Patient Companion-Evaluate & Treat, Physical Therapy-Evaluate & Treat, Wound Care-Eval/Treat (toe amputation site) Home Health Infusion Therapy Line Start Date: July 26, 2020 Certify Stmt I certify that this patient is under my care and that I, a nurse practitioner or a physician; a contract assistant working with me, had a face to face encounter that - meets the physician face to face encounter requirements with this patient as dated. PAULA GOLDSMITH DO Jul 28, 2020 11:01
[2020-07-28 11:18] VITALS: BP 130/69
--- NOTE | 2020-07-28 12:20 | Progress Note - Cardiology ---
Cardiology SOAP Progress Note Objective: I&O/Vital Signs 07/28/20 07/28/20 07/28/20 07/28/20 03:58 08:00 09:00 11:18 Temp 36.2 35.8 36.4 Pulse 75 98 102 Resp 20 20 22 B/P (MAP) 118/80 (93) 107/63 (78) 130/69 (89) Pulse Ox 96 94 93 O2 Delivery Room Air Room Air Room Air Room Air 07/28/20 00:00 Intake Total 1751 ml Balance 1751 ml Weight (Pounds): 404 Weight (Ounces): 0.0 Weight (Calculated Kilograms): [phone] Constitutional: appears stated age, AAO x 3; No apparent distress; well- developed, well-nourished Respiratory: chest is bilaterally symmetric, lungs clear to auscultation Cardiovascular: irregularly irregular, S1 and S2 Gastrointestional: soft, audible bowel sounds; No spleenomegaly Extremities: other (mild, bilateral leg edema and reddish brown skin disoloration, amputated 2 R toe); No clubbing, No cyanosis, No significant edema Neurologic/Psychiatric: no motor/sensory deficits, alert, normal mood/affect, oriented x 3, power is 5/5 both on sides Skin: No rash, No ulcerations Results/Procedures: Labs Laboratory Tests 07/28/20 05:11: White Blood Count 7.9, Red Blood Count 3.80L, Hemoglobin 11.6L, Hematocrit 36L, Mean Corpuscular Volume 94, Mean Corpuscular Hemoglobin 31, Mean Corpuscular He moglobin Concent 33, Red Cell Distribution Width 14.1, Platelet Count 147, Mean Platelet Volume 9.6, Immature Granulocyte % (Auto) 1, Neutrophils (%) (Auto) 53, Lymphocytes (%) (Auto) 35, Monocytes (%) (Auto) 9, Eosinophils (%) (Auto) 2, Basophils (%) (Auto) 0, Neutrophils # (Auto) 4.2, Lymphocytes # (Auto) 2.7, Monocytes # (Auto) 0.7, Eosinophils # (Auto) 0.1, Basophils # (Auto) 0.0, Immature Granulocyte # (Auto) 0.1, Prothrombin Time 19.4H, INR Comment 1.6H, Sodium Level 138, Potassium Level 5.0, Chloride Level 101, Carbon Dioxide Level 26, Anion Gap 11, Blood Urea Nitrogen 17, Creatinine 1.31H, Estimat Glomerular Filtration Rate 55, BUN/Creatinine Ratio 13, Glucose Level 96, Calcium Level 9.5, Corrected Calcium 9.7, Total Bilirubin 0.7, Aspartate Amino Transf (AST/SGOT) 28, Alanine Aminotransferase (ALT/SGPT) 15, Alkaline Phosphatase 71, Total Protein 7.2, Albumin 3.7 Laboratory Tests 07/26/20 13:58 07/26/20 22:00 07/27/20 06:05 07/28/20 05:11 A/P: Assessment: GI bleed, managed by Med and Surg services Chronic atrial fibrillation - OAC with warfarin, currently being held by the Med and Surg svces due to GI bleed H/o osteomyelitis of R 2nd toe, s/p amputation on 06/25/20 Bilat leg swelling related to venous insuff and ac on chronic diastolic CHF, improving Chronic diastolic CHF H/o intermittent hypokalemia due to diuretic therapy for decomp CHF Morbid obesity (BMI approx 59) HIV positive status, managed by Dr Woods in [place], [place] Chronic joint and back pain H/o depression Obstructive sleep apnea syndrome, treated with CPAP Echocardiogram of Feb [address] Obrien showed wall thickness is mildly to mod increased. Concentric hypertrophy. LVEF 55-65%. LA and RA dilated. Mild MR. Mild to mod TR Minimal carotid arterial plaque on carotid u/s of April 2019 Plan: * Complex management due to multiple comorbidities * Resume oral anticoag at previous dose it ok with Dr. Savage and Dr. Keane * I reviewed and discussed his CV issues with him and answered questions in detail * Monitor labs JOSE E CHAO Jul 28, 2020 12:20
--- NOTE | 2020-07-28 15:57 | Progress Note - Surgery ---
Subjective Date Seen by a Provider: Jul 28, 2020 Time Seen by a Provider: 11:40 Subjective/Events-last exam Doing well. No more bloody bm. Hgb stable. No new complaints. Denies n/v fever sweats chills shortness of breath or chest pain. Objective Exam Vital Signs Date Time Temp Pulse Resp B/P (MAP) Pulse Ox O2 Delivery O2 Flow Rate FiO2 07/28/20 11:18 36.4 102 22 130/69 (89) 93 Room Air 07/28/20 09:00 Room Air 07/28/20 08:00 35.8 98 20 107/63 (78) 94 Room Air 07/28/20 03:58 36.2 75 20 118/80 (93) 96 Room Air 07/27/20 23:37 35.9 69 20 109/68 (82) 94 Room Air 07/27/20 20:27 Room Air 07/27/20 20:00 36.0 84 20 122/61 (81) 97 Room Air 07/27/20 16:00 36.3 70 16 105/51 (69) 95 Room Air I & O 07/28/20 06:59 Intake Total 2951 ml Balance 2951 ml Capillary Refill : Greater Than 3 Seconds General Appearance: No Apparent Distress, WD/WN, Chronically ill, Obese HEENT: PERRL/EOMI, Normal ENT Inspection, Pharynx Normal, Moist Mucous Membranes Neck: Full Range of Motion, Normal Inspection, Non Tender Respiratory: Chest Non Tender, No Accessory Muscle Use, No Respiratory Distress, Decreased Breath Sounds Cardiovascular: Regular Rate, Rhythm, No JVD Gastrointestinal: normal bowel sounds, non tender, soft Extremity: Normal Capillary Refill, Normal Inspection, Normal Range of Motion, Non Tender, No Calf Tenderness, No Pedal Edema, Other (right lower ext 2nd toe amputation slight open wound) Neurologic/Psychiatric: Alert, Oriented x3 Skin: Normal Color, Warm/Dry Lymphatic: No Adenopathy Results Lab Laboratory Tests 07/28/20 05:11: White Blood Count 7.9, Red Blood Count 3.80L, Hemoglobin 11.6L, Hematocrit 36L, Mean Corpuscular Volume 94, Mean Corpuscular Hemoglobin 31, Mean Corpuscular Hemoglobin Concent 33, Red Cell Distribution Width 14.1, Platelet Count 147, Me an Platelet Volume 9.6, Immature Granulocyte % (Auto) 1, Neutrophils (%) (Auto) 53, Lymphocytes (%) (Auto) 35, Monocytes (%) (Auto) 9, Eosinophils (%) (Auto) 2, Basophils (%) (Auto) 0, Neutrophils # (Auto) 4.2, Lymphocytes # (Auto) 2.7, Monocytes # (Auto) 0.7, Eosinophils # (Auto) 0.1, Basophils # (Auto) 0.0, Immature Granulocyte # (Auto) 0.1, Prothrombin Time 19.4H, INR Comment 1.6H, Sodium Level 138, Potassium Level 5.0, Chloride Level 101, Carbon Dioxide Level 26, Anion Gap 11, Blood Urea Nitrogen 17, Creatinine 1.31H, Estimat Glomerular Filtration Rate 55, BUN/Creatinine Ratio 13, Glucose Level 96, Calcium Level 9.5, Corrected Calcium 9.7, Total Bilirubin 0.7, Aspartate Amino Transf (AST/SGOT) 28, Alanine Aminotransferase (ALT/SGPT) 15, Alkaline Phosphatase 71, Total Protein 7.2, Albumin 3.7 Assessment/Plan Assessment/Plan Assessment/Plan Gastrointestinal bleed likely lower Atrial fibrillation Long-term anticoagulation HIV Recent right second toe amputation Morbid obesity Diverticulosis Patient is a 64-year-old male who is having bleeding per rectum. He is on long- term anticoagulation with Coumadin. Hgb stable. Tolerating diet. Can restart anticoagulation. Discussed doing endoscopy outpatient. SARABJIT ORTIZ DO Jul 28, 2020 15:57
[2020-07-28 16:05] VITALS: BP 130/69
== END 2020-07-28 16:07 | disposition home health service (06) ==
LOC: EDUNIT# 10:30 → ER 10:32 → ICU 12:49 → 4TH 07-27 12:40
PROVIDERS: ADMIT Internal Medicine; ATTEND Internal Medicine
DX: K92.2 Gastrointestinal hemorrhage, unspecified (principal); I48.91 Unspecified atrial fibrillation; F32.9 Major depressive disorder, single episode, unspecified; K59.09 Other constipation; I11.0 Hypertensive heart disease with heart failure; I50.9 Heart failure, unspecified; J45.909 Unspecified asthma, uncomplicated; R09.02 Hypoxemia; Z89.429 Acquired absence of other toe(s), unspecified side; E66.2 Morbid (severe) obesity with alveolar hypoventilation; Z21 Asymptomatic human immunodeficiency virus [HIV] infection status; Z85.828 Personal history of other malignant neoplasm of skin; Z79.899 Other long term (current) drug therapy; Z79.82 Long term (current) use of aspirin; Z79.01 Long term (current) use of anticoagulants; Z85.72 Personal history of non-Hodgkin lymphomas; Z99.89 Dependence on other enabling machines and devices; Z90.89 Acquired absence of other organs; Z87.891 Personal history of nicotine dependence; Z80.0 Family history of malignant neoplasm of digestive organs; Z83.3 Family history of diabetes mellitus; Z80.42 Family history of malignant neoplasm of prostate; Z83.6 Family history of other diseases of the respiratory system
CPT/HCPCS: 80053 ×4; 82274; 85025 ×4; 85610 ×4; 86850; 86900; 86901; 86920; 99283; P9016; P9017 ×2; 36415; 36430

== ENCOUNTER 2020-08-06 17:33 | Inpatient (IN) | payer MEDICARE, MEDICAID ==
[~2020-08-06] VITALS: Ht 180 cm; Wt 185.8 kg
[~2020-08-06 17:33] MED LIST changes: +CEFD300C3 PO; +PANT40TA2 PO; +SPIR50TA4 PO
--- NOTE | 2020-08-06 17:53 | ED Lower Extremity ---
General Chief Complaint: Lower Extremity Stated Complaint: R TOE INFECTION Source: patient Exam Limitations: no limitations (TAMERA CARPIO APRN) History of Present Illness Date Seen by Provider: Aug 06, 2020 Time Seen by Provider: 17:49 Initial Comments To ER by private vehicle from Dr. Marlene Cunningham's clinic with reports of possible fracture of the right third toe and possible osteomyelitis. Patient had an amputation of the right second toe in June of this year secondary to osteomyelitis and cellulitis. Since then he has had a problem with a dehisced wound at the amputation site. He is HIV positive with a history of Nonhodgkins lymphoma, CHF, depression, a-fib, heart failure, morbid obesity and sleep apnea. . He denies fevers chills nausea vomiting or systemic symptoms. He is currently on Levaquin 750 mg daily for wound infection in his toe. Onset: other Severity: moderate Pain/Injury Location: right 2nd toe, right 3rd toe Method of Injury: unknown Modifying Factors: Worse With Movement (TAMERA CARPIO APRN) Allergies and Home Medications Allergies Coded Allergies: No Known Drug Allergies (Unverified , 02/07/18) Home Medications Allopurinol 100 Mg Tablet, 100 MG PO DAILY, (Reported) Last Action: Continued Aspirin 81 Mg Tablet.dr, 81 MG PO HS, (Reported) Last Action: Continued Bictegrav/Emtricit/Tenofov Ala 1 Each Tablet, 1 EACH PO DAILY, (Reported) Last Action: Converted Bupropion HCl 300 Mg Tab.er.24h, 300 MG PO HS, (Reported) Last Action: Converted Citalopram Hydrobromide 40 Mg Tablet, 40 MG PO HS, (Reported) Last Action: Converted Diltiazem HCl 180 Mg Capsule.er, 360 MG PO DAILY, (Reported) TAKES 120MG + 2 (180MG) TABS TO EQUAL 480MG DAILY Last Action: Converted Diltiazem HCl 120 Mg Cap.er.24h, 120 MG PO DAILY, (Reported) TAKES 120MG + 2 (180MG) TABS TO EQUAL 480MG DAILY Last Action: Continued Furosemide 80 Mg Tablet, 160 MG PO DAILY, (Reported) TAKES 2 (80MG) TABS Last Action: Converted Levofloxacin 750 Mg Tablet, 750 MG PO DAILY, (Reported) FILLED 08-03-2020 #10 DAY SUPPLY Last Action: Held Magnesium Oxide 400 Mg Tablet, 400 MG PO BID, (Reported) Last Action: Converted Multivit-Min/FA/Lycopene/Lut 1 Each Tablet, 1 TAB PO DAILY, (Reported) Last Action: Converted Oxycodone HCl 10 Mg Tablet, 10 MG PO Q6H PRN for PAIN-SEVERE (8-10), (Reported) Last Action: Converted Pantoprazole Sodium 40 Mg Tablet.dr, 40 MG PO DAILY, (Reported) Last Action: Continued Potassium Chloride 20 Meq Tab.er.prt, 40 MEQ PO BID, (Reported) TAKES 2 (20MEQ) TABS TWICE DAILY Last Action: Continued Risperidone 0.5 Mg Tablet, 0.5 MG PO HS, (Reported) Last Action: Continued Spironolactone 50 Mg Tablet, 50 MG PO DAILY, (Reported) Last Action: Converted Warfarin Sodium 5 Mg Tablet, 5 MG PO ,, (Reported) Last Action: Continued Warfarin Sodium 5 Mg Tablet, 10 MG PO SUN,MO,WE,FR,SA, (Reported) TAKES 2 (5MG) TABS TO EQUAL 10MG Last Action: Continued Patient Home Medication List Home Medication List Reviewed: Yes (TAMERA CARPIO APRN) Review of Systems Constitutional: see HPI; No chills, No fever EENTM: see HPI Respiratory: no symptoms reported Cardiovascular: no symptoms reported Genitourinary: no symptoms reported Musculoskeletal: no symptoms reported Skin: no symptoms reported Psychiatric/Neurological: No Symptoms Reported (TAMERA CARPIO APRN) Past Hhwatxs-Dmqlpu-Tehqqn Hx Patient Social History 2nd Hand Smoke Exposure: No Recent Hopitalizations: No (TAMERA CARPIO APRN) Immunizations Up To Date Date of Pneumonia Vaccine: Apr 17, 2013 Date of Influenza Vaccine: Nov 28, 2019 (TAMERA CARPIO APRN) Seasonal Allergies Seasonal Allergies: No (TAMERA CARPIO APRN) Past Medical History Surgeries: Yes (CA REMOVED FROM NECK, SEVERAL BX) Tonsillectomy Respiratory: Yes Asthma, Pneumonia, Sleep Apnea Currently Using CPAP: Yes Currently Using BIPAP: Yes Cardiac: Yes (CHF) Atrial Fibrillation, Chronic Edema/Swelling, Hypertension Neurological: No Reproductive Disorders: No HIV/AIDS: Yes (hiv) Genitourinary: No Gastrointestinal: Yes Chronic Diarrhea, Polyps Musculoskeletal: No Endocrine: No HEENT: No Cancer: Yes (Neck) Skin, Lymphoma Did You Recieve Any Treatments: Yes What Type of Treatment Did You: Surgical Intervention Psychosocial: Yes Depression Integumentary: No Blood Disorders: Yes (HIV DX IN 1994, ) (TAMERA CARPIO APRN) Family Medical History Cardiovascular disease G8 SISTER Colon cancer G8 BROTHER Diabetes mellitus 19 MOTHER G8 SISTER FHx: COPD (chronic obstructive pulmonary disease) 19 FATHER Malignant neoplasm of prostate G8 BROTHER Paternal family history of emphysema No Pertinent Family Hx (TAMERA CARPIO APRN) Physical Exam Vital Signs Vital Signs - First Documented 08/06/20 17:54 Temp 36.8 Pulse 100 Resp 18 B/P (MAP) 137/66 (89) Pulse Ox 95 O2 Delivery Room Air (RADHA TAVAREZ MD) Vital Signs Capillary Refill : (TAMERA CARPIO APRN) Height, Weight, BMI Height: 6'0.00" Weight: 404lbs. 0.0oz. 183.516352ls; 57.18 BMI Method:Stated General Appearance: WD/WN, no apparent distress, obese Respiratory: no respiratory distress, no accessory muscle use Hips: bilateral hip non-tender, bilateral hip normal inspection, bilateral hip normal range of motion Legs: bilateral leg non-tender, bilateral leg normal inspection, bilateral leg normal range of motion Knees: bilateral knee non-tender, bilateral knee normal inspection, bilateral knee normal range of motion Ankles: bilateral ankle non-tender, bilateral ankle normal inspection, bilateral ankle normal range of motion Feet: right foot other (There is a gaping wound to the distal aspect of the right second metatarsal that is tunneling and gaping by about 1.5 cm. Minimal erythema of surrounding tissues.) Neurologic/Psychiatric: alert, normal mood/affect, oriented x 3 Skin: normal color, warm/dry (TAMERA CARPIO APRN) Progress/Results/Core Measures Results/Orders Lab Results Laboratory Tests Test 08/06/20 17:49 Range/Units White Blood Count 10.6 4.3-11.0 10^3/uL Red Blood Count 4.36 4.30-5.52 10^6/uL Hemoglobin 13.2 L 13.3-17.7 g/dL Hematocrit 41 40-54 % Mean Corpuscular Volume 93 80-99 fL Mean Corpuscular Hemoglobin 30 25-34 pg Mean Corpuscular Hemoglobin Concent 33 32-36 g/dL Red Cell Distribution Width 14.6 H 10.0-14.5 % Platelet Count 290 130-400 10^3/uL Mean Platelet Volume 8.9 L 9.0-12.2 fL Immature Granulocyte % (Auto) 3 % Neutrophils (%) (Auto) 55 42-75 % Lymphocytes (%) (Auto) 32 12-44 % Monocytes (%) (Auto) 9 0-12 % Eosinophils (%) (Auto) 1 0-10 % Basophils (%) (Auto) 1 0-10 % Neutrophils # (Auto) 5.8 1.8-7.8 10^3/uL Lymphocytes # (Auto) 3.4 1.0-4.0 10^3/uL Monocytes # (Auto) 1.0 0.0-1.0 10^3/uL Eosinophils # (Auto) 0.1 0.0-0.3 10^3/uL Basophils # (Auto) 0.1 0.0-0.1 10^3/uL Immature Granulocyte # (Auto) 0.3 H 0.0-0.1 10^3/uL Erythrocyte Sedimentation Rate 62 H 0-30 MM/HR Prothrombin Time 26.6 H 12.2-14.7 SEC INR Comment 2.4 H 0.8-1.4 Activated Partial Thromboplast Time 37 H 24-35 SEC Sodium Level 139 135-145 MMOL/L Potassium Level 4.1 3.6-5.0 MMOL/L Chloride Level 99 98-107 MMOL/L Carbon Dioxide Level 24 21-32 MMOL/L Anion Gap 16 H 5-14 MMOL/L Blood Urea Nitrogen 34 H 7-18 MG/DL Creatinine 1.88 H 0.60-1.30 MG/DL Estimat Glomerular Filtration Rate 36 BUN/Creatinine Ratio 18 Glucose Level 104 70-105 MG/DL Lactic Acid Level 2.92 *H 0.50-2.00 MMOL/L Calcium Level 10.2 H 8.5-10.1 MG/DL Corrected Calcium 10.0 8.5-10.1 MG/DL Total Bilirubin 0.6 0.1-1.0 MG/DL Aspartate Amino Transf (AST/SGOT) 24 5-34 U/L Alanine Aminotransferase (ALT/SGPT) 19 0-55 U/L Alkaline Phosphatase 83 40-136 U/L C-Reactive Protein High Sensitivity 1.38 H 0.00-0.50 MG/DL Total Protein 9.2 H 6.4-8.2 GM/DL Albumin 4.2 3.2-4.5 GM/DL (RADHA TAVAREZ MD) Vital Signs/I&O 08/06/20 17:54 Temp 36.8 Pulse 100 Resp 18 B/P (MAP) 137/66 (89) Pulse Ox 95 O2 Delivery Room Air (RADHA TAVAREZ MD) Diagnostic Imaging Diagonstic Imaging: Xray Comments NAME: BROOK GILBERT [facility] REC#: [id number] PT STATUS: REG ER : 1955 PHYSICIAN: TAMERA CARPIO APRN ADMIT DATE: 08/06/20/ER Draft Date of Exam:08/06/20 FOOT, RIGHT, 3 VIEW Right foot at 6:51. Indication: Injury to 3rd toe 3 views were obtained. There is a displaced fracture involving the lateral aspect of the base of the proximal phalanx of the 3rd digit. On the oblique view there appears to be approximately 3 mm of diastases between the main fracture fragments. There is also generalized soft tissue edema over the forefoot. There is no other fracture or acute abnormality appreciated. In particular there is no evidence for bony destruction to suggest osteomyelitis. However in the interval since the prior right foot exam of 06/16/2020 the patient has undergone amputation of the phalanges of the 2nd digit. The Lisfranc joint seems well maintained. There is no evidence for a calcaneal spur. IMPRESSION: 1. There is a displaced fracture along the lateral aspect of the base of the proximal phalanx of the 3rd digit. There is no acute bony abnormality noted otherwise. 2. There has been interval amputation of the phalanges of the 2nd digit since the prior study. Dictated on workstation # [id number] Dict: 08/06/201919 Trans: 08/06/201923 [facility] [id number] Interpreted by: TALITA GARCÍA MD Electronically signed by: (TAMERA CARPIO APRN) Departure Impression Primary Impression: Non-healing amputation site Additional Impressions: Morbid obesity Anticoagulant long-term use Disposition: ADMITTED INPATIENT Condition: Stable Departure-Patient Inst. Referrals: [facility] (PCP) Primary Care Physician SAVANNAH RHOADES APRN (Family) Primary Care Physician Attending physician note: I was physically present as attending physician in the emergency department during the care of this patient, but I did not participate directly in the care of this patient. (RADHA TAVAREZ MD) TAMERA CARPIO APRN Aug 06, 2020 17:53 RADHA TAVAREZ MD Aug 07, 2020 14:21
[2020-08-06 18:00] LABS: BASOPHILS # (AUTO) 0.1 10^3/uL (0.0-0.1); BASOPHILS % (AUTO) 1 % (0-10); EOSINOPHILS # (AUTO) 0.1 10^3/uL (0.0-0.3); EOSINOPHILS % (AUTO) 1 % (0-10); HEMATOCRIT 41 % (40-54); HEMOGLOBIN 13.2 g/dL (13.3-17.7); LYMPHOCYTES # (AUTO) 3.4 10^3/uL (1.0-4.0); LYMPHOCYTES % (AUTO) 32 % (12-44); MEAN CORPUSCULAR HEMOGLOBIN 30 pg (25-34); MEAN CORPUSCULAR HGB CONC 33 g/dL (32-36); MEAN CORPUSCULAR VOLUME 93 fL (80-99); MEAN PLATELET VOLUME 8.9 fL (9.0-12.2); MONOCYTES % (AUTO) 9 % (0-12); NEUTROPHILS # (AUTO) 5.8 10^3/uL (1.8-7.8); NEUTROPHILS % (AUTO) 55 % (42-75); PLATELET COUNT 290 10^3/uL (130-400); WHITE BLOOD COUNT 10.6 10^3/uL (4.3-11.0)
[2020-08-06] MEDS ORDERED: NS IV 1000 ML 1,000 ML IV SCH (18:00)
[2020-08-06 18:14] LABS: ALBUMIN 4.2 GM/DL (3.2-4.5); POTASSIUM 4.1 MMOL/L (3.6-5.0)
[2020-08-06 18:15] LABS: CALCIUM 10.2 MG/DL (8.5-10.1)
[2020-08-06 18:16] LABS: TOTAL PROTEIN 9.2 GM/DL (6.4-8.2)
[2020-08-06 18:18] LABS: BILIRUBIN,TOTAL 0.6 MG/DL (0.1-1.0)
[2020-08-06 18:20] LABS: CREATININE SERUM 1.88 MG/DL (0.60-1.30); INR 2.4 (0.8-1.4); PROTHROMBIN TIME PATIENT 26.6 SEC (12.2-14.7)
[2020-08-06 18:35] LABS: ERYTHROCYTE SEDIMENTATION RATE 62 MM/HR (0-30)
--- NOTE | 2020-08-06 19:24 | Diagnostic Imaging Report ---
Right foot at 6:51. Indication: Injury to 3rd toe 3 views were obtained. There is a displaced fracture involving the lateral aspect of the base of the proximal phalanx of the 3rd digit. On the oblique view there appears to be approximately 3 mm of diastases between the main fracture fragments. There is also generalized soft tissue edema over the forefoot. There is no other fracture or acute abnormality appreciated. In particular there is no evidence for bony destruction to suggest osteomyelitis. However in the interval since the prior right foot exam of 06/16/2020 the patient has undergone amputation of the phalanges of the 2nd digit. The Lisfranc joint seems well maintained. There is no evidence for a calcaneal spur. IMPRESSION: 1. There is a displaced fracture along the lateral aspect of the base of the proximal phalanx of the 3rd digit. There is no acute bony abnormality noted otherwise. 2. There has been interval amputation of the phalanges of the 2nd digit since the prior study. Dictated by: Dictated on workstation # [id number]
[2020-08-06] MEDS ORDERED: PIPERACILLIN SODIUM/TAZOBACTAM 4.5 GM in NS (IVPB) 100 ML IV ONE (20:15)
[2020-08-06 20:35] VITALS: BP 115/70
[2020-08-06] MEDS ORDERED: ASPIRIN 81 MG CHEW (CHILDREN'S ASA) PO SCH (21:00)
[2020-08-06] MEDS ORDERED: LACTATED RINGERS 1,000 ML IV SCH (21:30)
[2020-08-06] MEDS: buPROPion SR 150 MG (WELLBUTRIN SR) TAB PO SCH (21:46)
[2020-08-06] MEDS: MULTIVIT W/MINERALS TAB (THERAGRAN M) PO SCH (21:47)
[2020-08-06] MEDS: MAGNESIUM OXIDE (MAG-OX)400 MG TAB PO SCH (21:47)
[2020-08-06] MEDS: risperiDONE 0.5 MG (RisperDAL) TABLET PO SCH (21:47)
[2020-08-06 21:52] LABS: CALCIUM 9.4 MG/DL (8.5-10.1); CREATININE SERUM 1.79 MG/DL (0.60-1.30); POTASSIUM 3.9 MMOL/L (3.6-5.0)
[2020-08-06] MEDS ORDERED: warFARin 5 MG (COUMADIN) TAB PO SCH (22:00)
[2020-08-06] MEDS ORDERED: VANCOMYCIN INJECTION 2,000 MG in NS IV 500 ML 500 ML IV ONE (22:30)
[2020-08-06] MEDS: VANCOMYCIN 1 GM/NS 250 ML IVPB IV SCH ×2 (23:27)
[2020-08-07 00:11] VITALS: BP 103/65
[2020-08-07] MEDS: VANCOMYCIN 1 GM/NS 250 ML IVPB IV SCH ×6 (00:41→20:28)
[2020-08-07] MEDS: PIPERACILLIN/TAZO 4.5 GM/NS 100 ML IV SCH ×6 (01:46→17:04)
[2020-08-07] MEDS: LACTATED RINGERS 1,000 ML IV SCH ×4 (01:53→21:42)
[2020-08-07 04:28] VITALS: BP 131/72
[2020-08-07 04:31] LABS: BASOPHILS % (AUTO) 0 % (0-10); EOSINOPHILS # (AUTO) 0.1 10^3/uL (0.0-0.3); EOSINOPHILS % (AUTO) 1 % (0-10); HEMATOCRIT 34 % (40-54); HEMOGLOBIN 10.9 g/dL (13.3-17.7); LYMPHOCYTES # (AUTO) 2.2 10^3/uL (1.0-4.0); LYMPHOCYTES % (AUTO) 31 % (12-44); MEAN CORPUSCULAR HEMOGLOBIN 31 pg (25-34); MEAN CORPUSCULAR HGB CONC 32 g/dL (32-36); MEAN CORPUSCULAR VOLUME 95 fL (80-99); MEAN PLATELET VOLUME 9.1 fL (9.0-12.2); MONOCYTES # (AUTO) 0.7 10^3/uL (0.0-1.0); MONOCYTES % (AUTO) 10 % (0-12); NEUTROPHILS # (AUTO) 3.9 10^3/uL (1.8-7.8); NEUTROPHILS % (AUTO) 55 % (42-75); PLATELET COUNT 218 10^3/uL (130-400); WHITE BLOOD COUNT 7.2 10^3/uL (4.3-11.0)
[2020-08-07 04:42] LABS: CALCIUM 8.9 MG/DL (8.5-10.1)
[2020-08-07 04:47] LABS: CREATININE SERUM 1.59 MG/DL (0.60-1.30)
--- NOTE | 2020-08-07 06:24 | History & Physical-Hospitalist ---
History of Present Illness HPI/Chief Complaint Chief complaint: Wound dehiscence on foot History of present illness: This is a 65-year-old white male clinic patient of formerly [facility], [facility] known to me from multiple hospital stays most recent was for rectal bleeding on Coumadin 2 weeks ago but presented to the ER with drainage of the right second toe amputation site with dehiscence. Dr. Savage's been consulted. Culture was done on the drainage. Home meds have been restarted and INR is good at 2.3. PICC line will be needed for IV antibiotics. He has not had any more rectal bleeding. Source: patient Exam Limitations: no limitations Date Seen 08/07/20 Time Seen by a Provider: 11:00 Attending Physician Shefali Smith MD [facility] [place] Referring Physician Date of Admission Aug 06, 2020 at 19:12 Home Medications & Allergies Home Medications Reviewed patient Home Medication Reconciliation performed by pharmacy medication reconciliations polygraph technician and/or nursing. Patients Allergies have been reviewed. Allergies Allergies Coded Allergies No Known Drug Allergies (Wfgbskxmpe00/12/18) Past Fvswvud-Sywusm-Lxwpkm Hx Patient Social History Marrital Status: single Employed/Student: retired Tobacco Use?: No Smoking Status: Never a Smoker Smokeless Tobacco Frequency: Never a User Use of E-Cig and/or Vaping dev: No Use of E-Cig and/or Vaping Kevin: Never a User Substance use?: No Alcohol Use?: No Pt feels they are or have been: No Immunizations Up To Date Date of Influenza Vaccine: Nov 28, 2019 First/Initial COVID19 Vaccinat: 04/15/20 Second COVID19 Vaccination [place]ador: 05/11/20 Tetanus Booster (TDap): Unknown Hepatitis A: No Hepatitis B: No Date of Pneumonia Vaccine: Apr 17, 2013 Seasonal Allergies Seasonal Allergies: No Current Status Advance Directives: Yes Advance Directive Location: Home Communicates: Verbally Primary Language: Latvian Preferred Spoken Language: Latvian Is interpretation needed?: No Implanted or Applied Medical D: None Past Medical History Surgeries: Tonsillectomy Asthma, Pneumonia, Sleep Apnea Currently Using CPAP: Yes Currently Using BIPAP: Yes Atrial Fibrillation, Chronic Edema/Swelling, Hypertension HIV/AIDS: Yes (hiv) Chronic Diarrhea, Polyps Skin, Lymphoma Did You Recieve Any Treatments: Yes What Type of Treatment Did You: Surgical Intervention Depression Blood Disorders: Yes (HIV DX IN 1994, ) PMHx: HIV Non-Hodgkin's lymphoma (1994, remission) Depression Congestive heart failure Atrial fibrillation Sleep apnea on CPAP SurgHx: Tonsillectomy Right neck mass removal 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 Family Medical History Cardiovascular disease G8 SISTER Colon cancer G8 BROTHER Diabetes mellitus 19 MOTHER G8 SISTER FHx: COPD (chronic obstructive pulmonary disease) 19 FATHER Malignant neoplasm of prostate G8 BROTHER Paternal family history of emphysema No Pertinent Family Hx Review of Systems Constitutional: see HPI, malaise, weakness Skin: see HPI Physical Exam Physical Exam Vital Signs Vital Signs - First Documented 08/06/20 17:54 Temp 36.8 Pulse 100 Resp 18 B/P (MAP) 137/66 (89) Pulse Ox 95 O2 Delivery Room Air Capillary Refill : Less Than 3 Seconds Height, Weight, BMI Height: 6'0.00" Weight: 404lbs. 0.0oz. [id number]; 55.00 BMI Method:Stated General Appearance: No Apparent Distress, Chronically ill, Obese Eyes: Right Eye Normal Inspection, Right Eye PERRL HEENT: PERRL/EOMI, Normal ENT Inspection, Pharynx Normal, Moist Mucous Membranes Neck: Full Range of Motion, Normal Inspection, Non Tender Respiratory: Chest Non Tender, Lungs Clear, Normal Breath Sounds, No Accessory Muscle Use, No Respiratory Distress Cardiovascular: Regular Rate, Rhythm, No Edema, No Gallop, No JVD, No Murmur, Normal Peripheral Pulses Gastrointestinal: Normal Bowel Sounds, No Organomegaly, No Pulsatile Mass, Non Tender, Soft Back: Normal Inspection, No CVA Tenderness, No Vertebral Tenderness Extremity: Normal Capillary Refill, Normal Inspection, Normal Range of Motion, Non Tender, No Calf Tenderness, No Pedal Edema Neurologic/Psychiatric: Alert, Oriented x3, No Motor/Sensory Deficits, Normal Mood/Affect Skin: Normal Color, Warm/Dry, Other (Right foot with dressing) Lymphatic: No Adenopathy Results Results/Procedures Labs Laboratory Tests 08/06/20 17:49 08/06/20 21:25 08/07/20 04:22 Patient resulted labs reviewed. Assessment/Plan Admission Diagnosis Assessment: Right second toe amputation site dehiscence with drainage Chronic atrial fibrillation Coumadin for anticoagulation Recent rectal bleeding Morbid obesity Plan: IV antibiotics Dr. Savage consult Pain control Home meds Admission Status: Inpatient Order (span 2 midnights) Reason for Inpatient Admission: Wound dehiscence with infection Diagnosis/Problems Diagnosis/Problems (1) Osteomyelitis of second toe of right foot Status: Acute (2) Cellulitis of right lower extremity Status: Acute (3) Obesity hypoventilation syndrome Status: Chronic (4) Sleep apnea, obstructive Status: Chronic (5) Anticoagulant long-term use Status: Chronic (6) Congestive heart failure Status: Chronic (7) Morbid obesity Status: Chronic (8) Atrial fibrillation Status: Chronic (9) Chronic diarrhea Status: Chronic (10) Human immunodeficiency virus Status: Chronic (11) Nocturnal hypoxia Status: Chronic PAULA GOLDSMITH DO Aug 07, 2020 06:24
[2020-08-07 07:33] LABS: INR 2.3 (0.8-1.4); PROTHROMBIN TIME PATIENT 26.1 SEC (12.2-14.7)
[2020-08-07 07:40] VITALS: BP 96/65
[2020-08-07] MEDS: MAGNESIUM OXIDE (MAG-OX)400 MG TAB PO SCH ×2 (07:47→17:04)
[2020-08-07] MEDS ORDERED: LEVO750T39 PO (10:29)
[2020-08-07] MEDS ORDERED: PANT40TA52 PO (10:29)
[2020-08-07 11:50] VITALS: BP 108/66
[2020-08-07] MEDS ORDERED: warFARin 5 MG (COUMADIN) TAB PO SCH ×3 (12:30→21:00)
[2020-08-07] MEDS ORDERED: NON-FORMULARY MEDICATION 1 EA EA (Oxycodone HCl 10 MG) PO PRN (12:30)
--- NOTE | 2020-08-07 13:24 | Diagnostic Imaging Report ---
HISTORY: PICC line placement COMPARISON: 06/24/2020 TECHNIQUE: Frontal view of the chest. FINDINGS: The tip of the right PICC line projects over the cavoatrial junction. There is mild cardiomegaly which appears stable. There are central opacities which are likely due to edema, similar to the prior exam. No pleural effusion or pneumothorax is seen. IMPRESSION: 1. The tip of the right PICC line projects over the cavoatrial junction. 2. Stable cardiomegaly with perihilar opacities, likely from edema. Dictated by: Dictated on workstation # [id number]
[2020-08-07 15:45] VITALS: BP 114/58
[2020-08-07] MEDS: KCL 20 MEQ TAB (K-DUR) PO SCH (17:05)
[2020-08-07] MEDS ORDERED: PATIENT MAY USE OWN MED,SINGLE MED PO SCH (18:00)
--- NOTE | 2020-08-07 18:18 | Consultation - Surgery ---
History of Present Illness History of Present Illness Patient Consulted On(drake/time) 08/07/20 18:10 Date Seen by Provider: Aug 07, 2020 Time Seen by Provider: 15:00 History of Present Illness Consult requested by Dr. Keane for right second toe wound. Patient is a 65-year-old male who underwent amputation and has had a wound to the right foot. This is continued to get worse she states. He was scheduled for second opinion with myself outpatient however this continued to worsen and he went to the emergency department for further evaluation. Patient states he still having some drainage. He is having erythema around the wound. Concerned of patient might of fractured the third toe as well. Patient states today the wound looks little bit better. He has no other complaints. He denies any nausea vomiting fever sweats chills shortness of breath or chest pain. Patient has not had any bloody bowel movements since last hospital admission. Allergies and Home Medications Allergies Coded Allergies: No Known Drug Allergies (Unverified , 02/07/18) Home Medications Allopurinol 100 Mg Tablet, 100 MG PO DAILY, (Reported) Last Action: Continued Aspirin 81 Mg Tablet.dr, 81 MG PO HS, (Reported) Last Action: Continued Bictegrav/Emtricit/Tenofov Ala 1 Each Tablet, 1 EACH PO DAILY, (Reported) Last Action: Converted Bupropion HCl 300 Mg Tab.er.24h, 300 MG PO HS, (Reported) Last Action: Converted Citalopram Hydrobromide 40 Mg Tablet, 40 MG PO HS, (Reported) Last Action: Converted Diltiazem HCl 180 Mg Capsule.er, 360 MG PO DAILY, (Reported) TAKES 120MG + 2 (180MG) TABS TO EQUAL 480MG DAILY Last Action: Converted Diltiazem HCl 120 Mg Cap.er.24h, 120 MG PO DAILY, (Reported) TAKES 120MG + 2 (180MG) TABS TO EQUAL 480MG DAILY Last Action: Continued Furosemide 80 Mg Tablet, 160 MG PO DAILY, (Reported) TAKES 2 (80MG) TABS Last Action: Converted Levofloxacin 750 Mg Tablet, 750 MG PO DAILY, (Reported) FILLED 08-03-2020 #10/10 DAY SUPPLY Last Action: Held Magnesium Oxide 400 Mg Tablet, 400 MG PO BID, (Reported) Last Action: Converted Multivit-Min/FA/Lycopene/Lut 1 Each Tablet, 1 TAB PO DAILY, (Reported) Last Action: Converted Oxycodone HCl 10 Mg Tablet, 10 MG PO Q6H PRN for PAIN-SEVERE (8-10), (Reported) Last Action: Converted Pantoprazole Sodium 40 Mg Tablet.dr, 40 MG PO DAILY, (Reported) Last Action: Continued Potassium Chloride 20 Meq Tab.er.prt, 40 MEQ PO BID, (Reported) TAKES 2 (20MEQ) TABS TWICE DAILY Last Action: Continued Risperidone 0.5 Mg Tablet, 0.5 MG PO HS, (Reported) Last Action: Continued Spironolactone 50 Mg Tablet, 50 MG PO DAILY, (Reported) Last Action: Converted Warfarin Sodium 5 Mg Tablet, 5 MG PO , (Reported) Last Action: Continued Warfarin Sodium 5 Mg Tablet, 10 MG PO SUN,MO,WE,FR,SA, (Reported) TAKES 2 (5MG) TABS TO EQUAL 10MG Last Action: Continued Patient Home Medication List Home Medication List Reviewed: Yes Past Prkxmfs-Jqawwh-Cythbs Hx Patient Social History Smoking Status: Never a Smoker 2nd Hand Smoke Exposure: No Recent Hopitalizations: No Alcohol Use?: No Have you traveled recently?: No Immunizations Up To Date Tetanus Booster (TDap): Less than 5yrs Date of Pneumonia Vaccine: Apr 17, 2013 Date of Influenza Vaccine: Nov 28, 2019 Seasonal Allergies Seasonal Allergies: No Surgeries History of Surgeries: Yes (CA REMOVED FROM NECK, SEVERAL BX) Surgeries: Tonsillectomy Respiratory History of Respiratory Disorde: Yes Respiratory Disorders: Asthma, Pneumonia, Sleep Apnea Cardiovascular History of Cardiac Disorders: Yes (CHF) Cardiac Disorders: Atrial Fibrillation, Chronic Edema/Swelling, Hypertension Neurological History of Neurological Disord: No Reproductive System Hx Reproductive Disorders: No HIV/AIDS: Yes (hiv) Genitourinary History of Genitourinary Disor: No Gastrointestinal History of Gastrointestinal Di: Yes Gastrointestinal Disorders: Chronic Diarrhea, Polyps Musculoskeletal History of Musculoskeletal Dis: No Endocrine History of Endocrine Disorders: No HEENT History of HEENT Disorders: No Cancer History of Cancer: Yes (Neck) Cancer: Skin, Lymphoma Psychosocial History of Psychiatric Problem: Yes Behavioral Health Disorders: Depression Integumentary History of Skin or Integumenta: No Blood Transfusions History of Blood Disorders: Yes (HIV DX IN 1994, ) Reviewed Nursing Assessment Reviewed/Agree w Nursing PMH: Yes Family Medical History Significant Family History: No Pertinent Family Hx Family Medial History: Cardiovascular disease G8 SISTER Colon cancer G8 BROTHER Diabetes mellitus 19 MOTHER G8 SISTER FHx: COPD (chronic obstructive pulmonary disease) 19 FATHER Malignant neoplasm of prostate G8 BROTHER Paternal family history of emphysema Review of Systems-General Constitutional: No diaphoresis EENTM: No blurred vision, No double vision Respiratory: No cough, No dyspnea on exertion Cardiovascular: No chest pain, No palpitations Gastrointestinal: No abdominal pain, No heartburn Genitourinary: No decreased output, No discharge Musculoskeletal: No back pain, No joint pain Skin: change in color, other (Open wound right second toe amputation site) Psychiatric/Neurological: Denies Anxiety, Denies Depressed, Denies Emotional Problems All Other Systems Reviewed Negative Unless Noted: Yes (Negative excepted noted.) Physical Exam-General Problems Physical Exam Vital Signs Vital Signs - First Documented 08/06/20 17:54 Temp 36.8 Pulse 100 Resp 18 B/P (MAP) 137/66 (89) Pulse Ox 95 O2 Delivery Room Air Capillary Refill : Less Than 3 Seconds General Appearance: no apparent distress, obese HEENT: PERRL/EOMI, normal ENT inspection Neck: non-tender, supple Respiratory: chest non-tender, no respiratory distress, no accessory muscle use Cardiovascular: regular rate, rhythm, no JVD Gastrointestinal: non tender, soft, no organomegaly Rectal: deferred Back: no CVA tenderness, no vertebral tenderness Extremities: other (Right foot open wound at site of second toe amputation. Wound has a fair amount of slough and some slightly purulent material draining. Slight surrounding erythema no fluctuance) Neurologic/Psychiatric: alert, normal mood/affect, oriented x 3 Skin: normal color, warm/dry, other (Erythematous changes around right second toe wound) Data Review Labs Laboratory Tests 08/06/20 21:25: Sodium Level 138, Potassium Level 3.9, Chloride Level 101, Carbon Dioxide Level 26, Anion Gap 11, Blood Urea Nitrogen 32H, Creatinine 1.79H, Estimat Glomerular Filtration Rate 38, BUN/Creatinine Ratio 18, Glucose Level 139H, Calcium Level 9.4 08/07/20 01:05: Lactic Acid Level 4.30*H 08/07/20 04:22: Sodium Level 139, Potassium Level 4.0, Chloride Level 102, Carbon Dioxide Level 25, Anion Gap 12, Blood Urea Nitrogen 28H, Creatinine 1.59H, Estimat Glomerular Filtration Rate 44, BUN/Creatinine Ratio 18, Glucose Level 119H, Calcium Level 8.9, Lactic Acid Level 1.20, White Blood Count 7.2, Red Blood Count 3.57L, Hemoglobin 10.9L, Hematocrit 34L, Mean Corpuscular Volume 95, Mean Corpuscular Hemoglobin 31, Mean Corpuscular Hemoglobin Concent 32, Red Cell Distribution Width 14.8H, Platelet Count 218, Mean Platelet Volume 9.1, Immature Granulocyte % (Auto) 2, Neutrophils (%) (Auto) 55, Lymphocytes (%) (Auto) 31, Monocytes (%) (Auto) 10, Eosinophils (%) (Auto) 1, Basophils (%) (Auto) 0, Neutrophils # (Auto) 3.9, Lymphocytes # (Auto) 2.2, Monocytes # (Auto) 0.7, Eosinophils # (Auto) 0.1, Basophils # (Auto) 0.0, Immature Granulocyte # (Auto) 0.2H 08/07/20 07:08: Prothrombin Time 26.1H, INR Comment 2.3H Assessment/Plan Assessment/Plan Assessment/Plan Status post amputation of right second toe Right third proximal phalanx fracture along lateral aspect no other acute bony abnormality HIV positive Recent history of gastrointestinal bleed no active bleeding at this time. Long-term anticoagulation Patient was discussed need for debridement of right second toe wound. He is in agreement. Using sharp debridement technique slough was excised for an overall dimension of 2x 2 x 4 cm once slough was completely debrided, patient tolerated debridement without difficulty. Wound care nurse placed wound VAC. Wound VAC to be changed twice weekly. Continue medical management. SARABJIT ORTIZ DO Aug 07, 2020 18:18
[2020-08-07 19:27] VITALS: BP 109/66
[2020-08-07] MEDS: MULTIVIT W/MINERALS TAB (THERAGRAN M) PO SCH (20:28)
[2020-08-07] MEDS: ASPIRIN E.C. 81 MG (ECOTRIN) TAB PO SCH (20:28)
[2020-08-07] MEDS: warFARin 10 MG (COUMADIN) TAB PO SCH (20:28)
[2020-08-07] MEDS: buPROPion SR 150 MG (WELLBUTRIN SR) TAB PO SCH (20:28)
[2020-08-07] MEDS: risperiDONE 0.5 MG (RisperDAL) TABLET PO SCH (20:29)
[2020-08-07] MEDS ORDERED: NON-FORMULARY MEDICATION 1 EA EA (Magnesium Oxide (Magnesium) 400 MG) PO SCH (21:00)
[2020-08-07] MEDS ORDERED: NON-FORMULARY MEDICATION 1 EA EA (Citalopram Hydrobromide (Citalopram HBr) 40 MG) PO SCH (21:00)
[2020-08-07] MEDS ORDERED: warFARin 10 MG (COUMADIN) TAB PO SCH (21:00)
[2020-08-07] MEDS ORDERED: risperiDONE 0.5 MG (RisperDAL) TABLET PO SCH (21:00)
[2020-08-07] MEDS ORDERED: NON-FORMULARY MEDICATION 1 EA EA (Bupropion HCl (Bupropion Xl) 300 MG) PO SCH (21:00)
[2020-08-08] VITALS: BP 114/65
[2020-08-08] MEDS: PIPERACILLIN/TAZO 4.5 GM/NS 100 ML IV SCH ×6 (02:19→17:57)
[2020-08-08] MEDS: LACTATED RINGERS 1,000 ML IV SCH ×2 (02:20→10:28)
[2020-08-08] MEDS: FUROSEMIDE 40 MG (LASIX) TAB PO SCH (06:24)
[2020-08-08] MEDS: MULTIVIT W/MINERALS TAB (THERAGRAN M) PO SCH (06:24)
--- NOTE | 2020-08-08 06:30 | Progress Note - Hospitalist ---
Subjective HPI/CC On Admission Date Seen by Provider: Aug 08, 2020 Time Seen by Provider: 11:10 Chief complaint: Wound dehiscence on foot History of present illness: This is a 65-year-old white male clinic patient of [facility] known to me from multiple hospital stays most recent was for rectal bleeding on Coumadin 2 weeks ago but presented to the ER with drainage of the right second toe amputation site with dehiscence. Dr. Savage's been consulted. Culture was done on the drainage. Home meds have been restarted and INR is good at 2.3. PICC line will be needed for IV antibiotics. He has not had any more rectal bleeding. Subjective/Events-last exam Patient doing pretty well IV antibiotics tolerated Check meds and labs INR 2.4 Hep locking IV fluid Wound VAC in place Pain is controlled Review of Systems Musculoskeletal: foot pain Focused Exam Lactate Level 08/06/20 17:49: Lactic Acid Level 2.92*H 08/07/20 01:05: Lactic Acid Level 4.30*H 08/07/20 04:22: Lactic Acid Level 1.20 Objective Exam Vital Signs Vital Signs Date Time Temp Pulse Resp B/P (MAP) Pulse Ox O2 Delivery O2 Flow Rate FiO2 08/08/20 23:19 35.8 80 18 108/61 (77) 96 Room Air Capillary Refill : Less Than 3 Seconds General Appearance: No Apparent Distress, WD/WN, Chronically ill, Obese Respiratory: Lungs Clear Cardiovascular: Irregularly Irregular Neurologic/Psychiatric: Alert, Oriented x3, No Motor/Sensory Deficits Results/Procedures Lab Laboratory Tests 08/08/20 06:15 Patient resulted labs reviewed. Assessment/Plan Assessment and Plan Assess & Plan/Chief Complaint Assessment: Right second toe amputation site dehiscence with drainage Chronic atrial fibrillation Coumadin for anticoagulation Recent rectal bleeding Morbid obesity Plan: IV antibiotics Dr. Savage consult Pain control Home meds 08/08/2020: IV antibiotics Monitor labs Diagnosis/Problems Diagnosis/Problems (1) Osteomyelitis of second toe of right foot Status: Acute (2) Cellulitis of right lower extremity Status: Acute (3) Obesity hypoventilation syndrome Status: Chronic (4) Sleep apnea, obstructive Status: Chronic (5) Anticoagulant long-term use Status: Chronic (6) Congestive heart failure Status: Chronic (7) Morbid obesity Status: Chronic (8) Atrial fibrillation Status: Chronic (9) Chronic diarrhea Status: Chronic (10) Human immunodeficiency virus Status: Chronic (11) Nocturnal hypoxia Status: Chronic PAULA GOLDSMITH DO Aug 08, 2020 06:30
[2020-08-08 06:34] LABS: BASOPHILS % (AUTO) 1 % (0-10); EOSINOPHILS # (AUTO) 0.1 10^3/uL (0.0-0.3); EOSINOPHILS % (AUTO) 2 % (0-10); HEMATOCRIT 34 % (40-54); HEMOGLOBIN 10.8 g/dL (13.3-17.7); LYMPHOCYTES % (AUTO) 30 % (12-44); MEAN CORPUSCULAR HEMOGLOBIN 30 pg (25-34); MEAN CORPUSCULAR HGB CONC 32 g/dL (32-36); MEAN CORPUSCULAR VOLUME 96 fL (80-99); MEAN PLATELET VOLUME 8.9 fL (9.0-12.2); MONOCYTES # (AUTO) 0.6 10^3/uL (0.0-1.0); MONOCYTES % (AUTO) 9 % (0-12); NEUTROPHILS # (AUTO) 3.8 10^3/uL (1.8-7.8); NEUTROPHILS % (AUTO) 56 % (42-75); PLATELET COUNT 187 10^3/uL (130-400); WHITE BLOOD COUNT 6.7 10^3/uL (4.3-11.0)
[2020-08-08 06:41] LABS: ALBUMIN 3.1 GM/DL (3.2-4.5)
[2020-08-08 06:42] LABS: CALCIUM 8.5 MG/DL (8.5-10.1)
[2020-08-08 06:44] LABS: TOTAL PROTEIN 6.6 GM/DL (6.4-8.2)
[2020-08-08 06:45] LABS: BILIRUBIN,TOTAL 0.3 MG/DL (0.1-1.0); INR 2.4 (0.8-1.4); PROTHROMBIN TIME PATIENT 26.3 SEC (12.2-14.7)
[2020-08-08 06:47] LABS: CREATININE SERUM 1.27 MG/DL (0.60-1.30)
[2020-08-08 06:56] LABS: VANCOMYCIN,TROUGH 13.6 UG/ML (10.0-20.0)
[2020-08-08] MEDS ORDERED: TROUGH ORDER-PHARMACY XX NR (07:00)
[2020-08-08 08:18] VITALS: BP 116/81
[2020-08-08] MEDS: MAGNESIUM OXIDE (MAG-OX)400 MG TAB PO SCH ×2 (08:19→17:57)
[2020-08-08] MEDS: SPIRONOLACTONE 25 MG (ALDACTONE) TAB PO SCH (08:20)
[2020-08-08] MEDS: KCL 20 MEQ TAB (K-DUR) PO SCH ×2 (08:20→17:57)
[2020-08-08] MEDS: dilTIAZem120 MG (CARDIZEM CD) CAP PO SCH (08:20)
[2020-08-08] MEDS: PANTOPRAZOLE 40 MG (PROTONIX) TAB PO SCH (08:21)
[2020-08-08] MEDS: BIKTARVY PO SCH (08:24)
[2020-08-08] MEDS: VANCOMYCIN 1 GM/NS 250 ML IVPB IV SCH ×4 (08:24→20:51)
[2020-08-08] MEDS: ALLOPURINOL 100 MG (ZYLOPRIM) TAB PO SCH (08:30)
[2020-08-08] MEDS ORDERED: NON-FORMULARY MEDICATION 1 EA EA (Spironolactone 50 MG) PO SCH (09:00)
[2020-08-08] MEDS ORDERED: NON-FORMULARY MEDICATION 1 EA EA (Multivit-Min/FA/Lycopene/Lut (Centrum Silver Tablet) 1 T PO SCH (09:00)
[2020-08-08] MEDS ORDERED: FUROSEMIDE 160 MG PO SCH (09:00)
[2020-08-08] MEDS ORDERED: NON-FORMULARY MEDICATION 1 EA EA (Diltiazem HCl (Diltiazem ER) 360 MG) PO SCH (09:00)
--- NOTE | 2020-08-08 11:31 | Progress Note - Surgery ---
Subjective Date Seen by a Provider: Aug 08, 2020 Time Seen by a Provider: 11:29 Subjective/Events-last exam Patient is doing well. He has no complaints at this time. Wound VAC has been placed to the right lower extremity. No expanding erythema. Denies any other complaints at this time. Denies any nausea vomiting fever sweats chills shortness of breath or chest pain. Focused Exam Lactate Level 08/06/20 17:49: Lactic Acid Level 2.92*H 08/07/20 01:05: Lactic Acid Level 4.30*H 08/07/20 04:22: Lactic Acid Level 1.20 Objective Exam Vital Signs Date Time Temp Pulse Resp B/P (MAP) Pulse Ox O2 Delivery O2 Flow Rate FiO2 08/08/20 08:54 Room Air 08/08/20 08:18 35.6 101 22 116/81 (93) 95 Room Air 08/08/20 00:00 36.6 88 20 114/65 (81) 96 Room Air 08/07/20 20:00 Room Air 08/07/20 19:27 36.6 76 20 109/66 (80) 95 Room Air 08/07/20 15:45 36.6 85 20 114/58 (76) 95 Room Air 08/07/20 11:50 36.3 170 20 108/66 (80) 95 Room Air I & O 08/08/20 07:00 Intake Total 8600 ml Balance 8600 ml Capillary Refill : Less Than 3 Seconds General Appearance: No Apparent Distress, Chronically ill, Obese HEENT: PERRL/EOMI, Normal ENT Inspection, Pharynx Normal, Moist Mucous Membranes Neck: Full Range of Motion, Normal Inspection, Non Tender Respiratory: Chest Non Tender, No Accessory Muscle Use, No Respiratory Distress Cardiovascular: Regular Rate, Rhythm, No Edema, No Gallop, No JVD, No Murmur, Normal Peripheral Pulses Gastrointestinal: non tender, soft, no organomegaly Extremity: Normal Capillary Refill, Normal Inspection, Normal Range of Motion, Non Tender, No Calf Tenderness, No Pedal Edema Neurologic/Psychiatric: Alert, Oriented x3, No Motor/Sensory Deficits, Normal Mood/Affect Skin: Normal Color, Warm/Dry, Other (Right foot with dressing) Lymphatic: No Adenopathy Results Lab Laboratory Tests 08/08/20 06:15: White Blood Count 6.7, Red Blood Count 3.57L, Hemoglobin 10.8L, Hematocrit 34L, Mean Corpuscular Volume 96, Mean Corpuscular Hemoglobin 30, Mean Corpuscular Hemoglobin Concent 32, Red Cell Distribution Width 14.9H, Platelet Count 187, Mean Platelet Volume 8.9L, Immature Granulocyte % (Auto) 2, Neutrophils (%) (Auto) 56, Lymphocytes (%) (Auto) 30, Monocytes (%) (Auto) 9, Eosinophils (%) (Auto) 2, Basophils (%) (Auto) 1, Neutrophils # (Auto) 3.8, Lymphocytes # (Auto) 2.0, Monocytes # (Auto) 0.6, Eosinophils # (Auto) 0.1, Basophils # (Auto) 0.0, Immature Granulocyte # (Auto) 0.1, Prothrombin Time 26.3H, INR Comment 2.4H, Sodium Level 140, Potassium Level 4.0, Chloride Level 106, Carbon Dioxide Level 26, Anion Gap 8, Blood Urea Nitrogen 19H, Creatinine 1.27, Estimat Glomerular Filtration Rate 57, BUN/Creatinine Ratio 15, Glucose Level 120H, Calcium Level 8.5, Corrected Calcium 9.2, Total Bilirubin 0.3, Aspartate Amino Transf (AST/SGOT) 16, Alanine Aminotransferase (ALT/SGPT) 13, Alkaline Phosphatase 73, Total Protein 6.6, Albumin 3.1L, Vancomycin Level Trough 13.6 Microbiology 08/07/20 Gram Stain - Final, Resulted 08/07/20 Wound Culture, Resulted Pending Assessment/Plan Assessment/Plan Assessment/Plan Status post amputation of right second toe Right third proximal phalanx fracture along lateral aspect no other acute bony abnormality HIV positive Recent history of gastrointestinal bleed no active bleeding at this time. Long-term anticoagulation Wound care nurse placed wound VAC (MONDAY) Wound VAC to be changed twice weekly. Continue medical management. SARABJIT ORTIZ DO Aug 08, 2020 11:31
[2020-08-08 12:00] VITALS: BP 130/80
[2020-08-08 16:00] VITALS: BP 130/56
[2020-08-08] MEDS: warFARin 10 MG (COUMADIN) TAB PO SCH (20:51)
[2020-08-08] MEDS: ASPIRIN E.C. 81 MG (ECOTRIN) TAB PO SCH (20:51)
[2020-08-08] MEDS: risperiDONE 0.5 MG (RisperDAL) TABLET PO SCH (20:51)
[2020-08-08] MEDS: buPROPion SR 150 MG (WELLBUTRIN SR) TAB PO SCH (20:51)
[2020-08-08 23:19] VITALS: BP 108/61
[2020-08-09] MEDS: PIPERACILLIN/TAZO 4.5 GM/NS 100 ML IV SCH ×6 (02:30→17:43)
[2020-08-09] MEDS: MULTIVIT W/MINERALS TAB (THERAGRAN M) PO SCH (06:10)
[2020-08-09] MEDS: FUROSEMIDE 40 MG (LASIX) TAB PO SCH (06:10)
[2020-08-09 06:26] LABS: BASOPHILS % (AUTO) 0 % (0-10); EOSINOPHILS # (AUTO) 0.2 10^3/uL (0.0-0.3); EOSINOPHILS % (AUTO) 2 % (0-10); HEMATOCRIT 35 % (40-54); HEMOGLOBIN 10.9 g/dL (13.3-17.7); LYMPHOCYTES # (AUTO) 2.6 10^3/uL (1.0-4.0); LYMPHOCYTES % (AUTO) 33 % (12-44); MEAN CORPUSCULAR HEMOGLOBIN 30 pg (25-34); MEAN CORPUSCULAR HGB CONC 31 g/dL (32-36); MEAN CORPUSCULAR VOLUME 95 fL (80-99); MEAN PLATELET VOLUME 8.8 fL (9.0-12.2); MONOCYTES # (AUTO) 0.7 10^3/uL (0.0-1.0); MONOCYTES % (AUTO) 9 % (0-12); NEUTROPHILS # (AUTO) 4.2 10^3/uL (1.8-7.8); NEUTROPHILS % (AUTO) 53 % (42-75); PLATELET COUNT 197 10^3/uL (130-400); WHITE BLOOD COUNT 7.9 10^3/uL (4.3-11.0)
[2020-08-09 06:38] LABS: INR 2.3 (0.8-1.4); PROTHROMBIN TIME PATIENT 25.8 SEC (12.2-14.7)
[2020-08-09 06:39] LABS: ALBUMIN 3.2 GM/DL (3.2-4.5); POTASSIUM 3.7 MMOL/L (3.6-5.0)
[2020-08-09 06:41] LABS: CALCIUM 8.6 MG/DL (8.5-10.1)
[2020-08-09 06:42] LABS: TOTAL PROTEIN 6.8 GM/DL (6.4-8.2)
[2020-08-09 06:44] LABS: BILIRUBIN,TOTAL 0.3 MG/DL (0.1-1.0)
[2020-08-09 06:45] LABS: CREATININE SERUM 1.21 MG/DL (0.60-1.30)
[2020-08-09 08:24] VITALS: BP 146/72
[2020-08-09] MEDS: MAGNESIUM OXIDE (MAG-OX)400 MG TAB PO SCH ×2 (08:41→17:43)
[2020-08-09] MEDS: ALLOPURINOL 100 MG (ZYLOPRIM) TAB PO SCH (08:41)
[2020-08-09] MEDS: SPIRONOLACTONE 25 MG (ALDACTONE) TAB PO SCH (08:41)
[2020-08-09] MEDS: VANCOMYCIN 1 GM/NS 250 ML IVPB IV SCH ×4 (08:41→20:19)
[2020-08-09] MEDS: dilTIAZem120 MG (CARDIZEM CD) CAP PO SCH (08:42)
[2020-08-09] MEDS: PANTOPRAZOLE 40 MG (PROTONIX) TAB PO SCH (08:42)
[2020-08-09] MEDS: BIKTARVY PO SCH (08:42)
[2020-08-09] MEDS: KCL 20 MEQ TAB (K-DUR) PO SCH ×2 (08:48→17:43)
--- NOTE | 2020-08-09 09:36 | Progress Note - Hospitalist ---
Subjective HPI/CC On Admission Date Seen by Provider: Aug 09, 2020 Time Seen by Provider: 09:30 Chief complaint: Wound dehiscence on foot History of present illness: This is a 65-year-old white male clinic patient of [facility] known to me from multiple hospital stays most recent was for rectal bleeding on Coumadin 2 weeks ago but presented to the ER with drainage of the right second toe amputation site with dehiscence. Dr. Savage's been consulted. Culture was done on the drainage. Home meds have been restarted and INR is good at 2.3. PICC line will be needed for IV antibiotics. He has not had any more rectal bleeding. Subjective/Events-last exam Patient doing pretty well Has no complaints No pain is reported Labs noted Coumadin maintained Wound VAC fell off Wet to dry dressing maintained Review of Systems General: Fatigue, Malaise Musculoskeletal: foot pain Focused Exam Lactate Level 08/07/20 01:05: Lactic Acid Level 4.30*H 08/07/20 04:22: Lactic Acid Level 1.20 Objective Exam Vital Signs Vital Signs Date Time Temp Pulse Resp B/P (MAP) Pulse Ox O2 Delivery O2 Flow Rate FiO2 08/09/20 16:00 35.7 76 20 108/71 (83) 96 Room Air Capillary Refill : Less Than 3 Seconds General Appearance: No Apparent Distress, WD/WN, Chronically ill Respiratory: Lungs Clear Cardiovascular: Irregularly Irregular Neurologic/Psychiatric: Alert, Oriented x3 Results/Procedures Lab Laboratory Tests 08/09/20 06:16 Patient resulted labs reviewed. Assessment/Plan Assessment and Plan Assess & Plan/Chief Complaint Assessment: Right second toe amputation site dehiscence with drainage Chronic atrial fibrillation Coumadin for anticoagulation Recent rectal bleeding Morbid obesity Plan: IV antibiotics Dr. Savage consult Pain control Home meds 08/08/2020: IV antibiotics Monitor labs 08/09/2020: Wound VAC fell off will replace tomorrow IV antibiotics Diagnosis/Problems Diagnosis/Problems (1) Osteomyelitis of second toe of right foot Status: Acute (2) Cellulitis of right lower extremity Status: Acute (3) Obesity hypoventilation syndrome Status: Chronic (4) Sleep apnea, obstructive Status: Chronic (5) Anticoagulant long-term use Status: Chronic (6) Congestive heart failure Status: Chronic (7) Morbid obesity Status: Chronic (8) Atrial fibrillation Status: Chronic (9) Chronic diarrhea Status: Chronic (10) Human immunodeficiency virus Status: Chronic (11) Nocturnal hypoxia Status: Chronic PAULA GOLDSMITH DO Aug 09, 2020 09:36
[2020-08-09 12:21] VITALS: BP 127/74
--- NOTE | 2020-08-09 13:01 | Progress Note - Surgery ---
Subjective Date Seen by a Provider: Aug 09, 2020 Time Seen by a Provider: 13:00 Subjective/Events-last exam Patient pulled wound VAC out of right second toe on accident. Patient states he is doing okay no other complaints. Denies any nausea vomiting fever sweats chills shortness of breath or chest pain. Focused Exam Lactate Level 08/06/20 17:49: Lactic Acid Level 2.92*H 08/07/20 01:05: Lactic Acid Level 4.30*H 08/07/20 04:22: Lactic Acid Level 1.20 Objective Exam Vital Signs Date Time Temp Pulse Resp B/P (MAP) Pulse Ox O2 Delivery O2 Flow Rate FiO2 08/09/20 12:21 35.3 90 20 127/74 (91) 95 Room Air 08/09/20 08:24 36.1 74 22 146/72 (96) 94 Room Air 08/09/20 08:00 Room Air 08/08/20 23:19 35.8 80 18 108/61 (77) 96 Room Air 08/08/20 20:00 Room Air 08/08/20 16:00 35.8 83 18 130/56 (80) 95 Room Air I & O 08/09/20 07:00 Intake Total 4474 ml Balance 4474 ml Capillary Refill : Less Than 3 Seconds General Appearance: No Apparent Distress, WD/WN, Chronically ill, Obese HEENT: PERRL/EOMI, Normal ENT Inspection, Pharynx Normal, Moist Mucous Membranes Neck: Full Range of Motion, Normal Inspection, Non Tender Respiratory: Lungs Clear Cardiovascular: Irregularly Irregular Gastrointestinal: non tender, soft, no organomegaly Extremity: Normal Capillary Refill, Non Tender, No Calf Tenderness, No Pedal Edema, Other (Open right second toe clean no drainage) Neurologic/Psychiatric: Alert, Oriented x3, No Motor/Sensory Deficits Skin: Normal Color, Warm/Dry, Other (Right foot with dressing) Lymphatic: No Adenopathy Results Lab Laboratory Tests 08/09/20 06:16: White Blood Count 7.9, Red Blood Count 3.65L, Hemoglobin 10.9L, Hematocrit 35L, Mean Corpuscular Volume 95, Mean Corpuscular Hemoglobin 30, Mean Corpuscular Hemoglobin Concent 31L, Red Cell Distribution Width 15.1H, Platelet Count 197, Mean Platelet Volume 8.8L, Immature Granulocyte % (Auto) 2, Neutrophils (%) (Auto) 53, Lymphocytes (%) (Auto) 33, Monocytes (%) (Auto) 9, Eosinophils (%) (Auto) 2, Basophils (%) (Auto) 0, Neutrophils # (Auto) 4.2, Lymphocytes # (Auto) 2.6, Monocytes # (Auto) 0.7, Eosinophils # (Auto) 0.2, Basophils # (Auto) 0.0, Immature Granulocyte # (Auto) 0.2H, Prothrombin Time 25.8H, INR Comment 2.3H, Sodium Level 141, Potassium Level 3.7, Chloride Level 104, Carbon Dioxide Level 27, Anion Gap 10, Blood Urea Nitrogen 21H, Creatinine 1.21, Estimat Glomerular Filtration Rate 60, BUN/Creatinine Ratio 17, Glucose Level 102, Calcium Level 8.6, Corrected Calcium 9.2, Total Bilirubin 0.3, Aspartate Amino Transf (AST/SGOT) 18, Alanine Aminotransferase (ALT/SGPT) 14, Alkaline Phosphatase 64, Total Protein 6.8, Albumin 3.2 Microbiology 08/07/20 Gram Stain - Final, Resulted 08/07/20 Wound Culture, Resulted Pending 08/06/20 Blood Culture - Preliminary, Resulted No growth Assessment/Plan Assessment/Plan Assessment/Plan Status post amputation of right second toe Right third proximal phalanx fracture along lateral aspect no other acute bony abnormality HIV positive Recent history of gastrointestinal bleed no active bleeding at this time. Long-term anticoagulation Patient actually pulled wound VAC out. Placed wet-to-dry dressing. We will have wound VAC placed tomorrow. Continue with medical management. SARABJIT ORTIZ DO Aug 09, 2020 13:01
[2020-08-09 16:00] VITALS: BP 108/71
[2020-08-09] MEDS: warFARin 10 MG (COUMADIN) TAB PO SCH (20:19)
[2020-08-09] MEDS: ASPIRIN E.C. 81 MG (ECOTRIN) TAB PO SCH (20:19)
[2020-08-09] MEDS: risperiDONE 0.5 MG (RisperDAL) TABLET PO SCH (20:19)
[2020-08-09] MEDS: buPROPion SR 150 MG (WELLBUTRIN SR) TAB PO SCH (20:19)
[2020-08-10] VITALS: BP 128/78
[2020-08-10] MEDS: PIPERACILLIN/TAZO 4.5 GM/NS 100 ML IV SCH ×6 (02:34→17:39)
[2020-08-10] MEDS: FUROSEMIDE 40 MG (LASIX) TAB PO SCH (06:12)
[2020-08-10] MEDS: MULTIVIT W/MINERALS TAB (THERAGRAN M) PO SCH (06:12)
--- NOTE | 2020-08-10 06:31 | Progress Note - Hospitalist ---
Subjective HPI/CC On Admission Date Seen by Provider: Aug 10, 2020 Time Seen by Provider: 10:00 Chief complaint: Wound dehiscence on foot History of present illness: This is a 65-year-old white male clinic patient of [facility] known to me from multiple hospital stays most recent was for rectal bleeding on Coumadin 2 weeks ago but presented to the ER with drainage of the right second toe amputation site with dehiscence. Dr. Savage's been consulted. Culture was done on the drainage. Home meds have been restarted and INR is good at 2.3. PICC line will be needed for IV antibiotics. He has not had any more rectal bleeding. Subjective/Events-last exam Pt doing pretty well Wound-vac will be replaced IV antibiotics tolerated Will check labs in the morning Coumadin maintained Review of Systems Musculoskeletal: foot pain Objective Exam Vital Signs Vital Signs Date Time Temp Pulse Resp B/P (MAP) Pulse Ox O2 Delivery O2 Flow Rate FiO2 08/10/20 23:34 35.4 69 20 112/75 (87) 96 Room Air Capillary Refill : Less Than 3 Seconds General Appearance: No Apparent Distress, WD/WN, Chronically ill, Obese Respiratory: Lungs Clear Cardiovascular: Irregularly Irregular Neurologic/Psychiatric: Alert, Oriented x3 Results/Procedures Lab Patient resulted labs reviewed. Assessment/Plan Assessment and Plan Assess & Plan/Chief Complaint Assessment: Right second toe amputation site dehiscence with drainage Chronic atrial fibrillation Coumadin for anticoagulation Recent rectal bleeding Morbid obesity Plan: IV antibiotics Dr. Savage consult Pain control Home meds 08/08/2020: IV antibiotics Monitor labs 08/09/2020: Wound VAC fell off will replace tomorrow IV antibiotics 08/10/2020: Replace wound VAC IV antibiotics Diagnosis/Problems Diagnosis/Problems (1) Osteomyelitis of second toe of right foot Status: Acute (2) Cellulitis of right lower extremity Status: Acute (3) Obesity hypoventilation syndrome Status: Chronic (4) Sleep apnea, obstructive Status: Chronic (5) Anticoagulant long-term use Status: Chronic (6) Congestive heart failure Status: Chronic (7) Morbid obesity Status: Chronic (8) Atrial fibrillation Status: Chronic (9) Chronic diarrhea Status: Chronic (10) Human immunodeficiency virus Status: Chronic (11) Nocturnal hypoxia Status: Chronic PAULA GOLDSMITH DO Aug 10, 2020 06:31
[2020-08-10] MEDS: ALLOPURINOL 100 MG (ZYLOPRIM) TAB PO SCH (08:26)
[2020-08-10] MEDS: MAGNESIUM OXIDE (MAG-OX)400 MG TAB PO SCH ×2 (08:26→17:39)
[2020-08-10] MEDS: VANCOMYCIN 1 GM/NS 250 ML IVPB IV SCH ×4 (08:26→20:17)
[2020-08-10] MEDS: dilTIAZem120 MG (CARDIZEM CD) CAP PO SCH (08:27)
[2020-08-10] MEDS: PANTOPRAZOLE 40 MG (PROTONIX) TAB PO SCH (08:27)
[2020-08-10] MEDS: KCL 20 MEQ TAB (K-DUR) PO SCH ×2 (08:27→17:40)
[2020-08-10] MEDS: SPIRONOLACTONE 25 MG (ALDACTONE) TAB PO SCH (08:27)
[2020-08-10] MEDS: BIKTARVY PO SCH (08:27)
[2020-08-10 08:30] VITALS: BP 113/74
[2020-08-10 15:59] VITALS: BP 105/60
[2020-08-10] MEDS: ASPIRIN E.C. 81 MG (ECOTRIN) TAB PO SCH (20:17)
[2020-08-10] MEDS: buPROPion SR 150 MG (WELLBUTRIN SR) TAB PO SCH (20:17)
[2020-08-10] MEDS: risperiDONE 0.5 MG (RisperDAL) TABLET PO SCH (20:18)
[2020-08-10] MEDS: warFARin 10 MG (COUMADIN) TAB PO SCH (20:18)
--- NOTE | 2020-08-10 21:18 | Progress Note - Surgery ---
Subjective Date Seen by a Provider: Aug 10, 2020 Time Seen by a Provider: 07:31 Subjective/Events-last exam Patient is doing well. No new complaints. Patient to have wound VAC placed today. Denies any nausea vomiting fever sweats chills shortness of breath or chest pain. Objective Exam Vital Signs Date Time Temp Pulse Resp B/P (MAP) Pulse Ox O2 Delivery O2 Flow Rate FiO2 08/10/20 20:20 Room Air 08/10/20 15:59 36.0 71 20 105/60 (75) 96 Room Air 08/10/20 08:30 36.4 84 20 113/74 (87) 95 Room Air 08/10/20 08:00 Room Air 08/10/20 00:00 35.0 56 18 128/78 (95) 96 Room Air I & O 08/10/20 06:59 Intake Total 4280 ml Balance 4280 ml Capillary Refill : Less Than 3 Seconds General Appearance: No Apparent Distress, Chronically ill, Obese HEENT: PERRL/EOMI, Normal ENT Inspection, Pharynx Normal, Moist Mucous Membranes Neck: Full Range of Motion, Normal Inspection, Non Tender Respiratory: Chest Non Tender, No Accessory Muscle Use, No Respiratory Distress Cardiovascular: No JVD, Irregularly Irregular Gastrointestinal: non tender, soft, no organomegaly Extremity: Normal Capillary Refill, Non Tender, No Calf Tenderness, No Pedal Edema, Other (Open right second toe clean no drainage) Neurologic/Psychiatric: Alert, Oriented x3 Skin: Normal Color, Warm/Dry, Other (Right foot with dressing) Lymphatic: No Adenopathy Results Lab Microbiology 08/07/20 Gram Stain - Final, Complete 08/07/20 Wound Culture - Final, Complete Mixed Bacterial Pauline 08/06/20 Blood Culture - Preliminary, Resulted No growth Assessment/Plan Assessment/Plan Assessment/Plan Status post amputation of right second toe Right third proximal phalanx fracture along lateral aspect no other acute bony abnormality HIV positive Recent history of gastrointestinal bleed no active bleeding at this time. Long-term anticoagulation Patient accidentally pulled wound VAC out. Placed wet-to-dry dressing. We will have wound VAC placed today. Continue with medical management. We are arranging outpatient wound VAC and wound care. Home soon. SARABJIT ORTIZ DO Aug 10, 2020 21:18
[2020-08-10 23:34] VITALS: BP 112/75
[2020-08-11] MEDS: PIPERACILLIN/TAZO 4.5 GM/NS 100 ML IV SCH ×4 (01:42→09:44)
[2020-08-11] MEDS: FUROSEMIDE 40 MG (LASIX) TAB PO SCH (06:01)
[2020-08-11] MEDS: MULTIVIT W/MINERALS TAB (THERAGRAN M) PO SCH (06:01)
[2020-08-11 06:20] LABS: BASOPHILS # (AUTO) 0.1 10^3/uL (0.0-0.1); BASOPHILS % (AUTO) 1 % (0-10); EOSINOPHILS # (AUTO) 0.1 10^3/uL (0.0-0.3); EOSINOPHILS % (AUTO) 2 % (0-10); HEMATOCRIT 35 % (40-54); HEMOGLOBIN 11.1 g/dL (13.3-17.7); LYMPHOCYTES # (AUTO) 2.7 10^3/uL (1.0-4.0); LYMPHOCYTES % (AUTO) 33 % (12-44); MEAN CORPUSCULAR HEMOGLOBIN 30 pg (25-34); MEAN CORPUSCULAR HGB CONC 32 g/dL (32-36); MEAN CORPUSCULAR VOLUME 94 fL (80-99); MONOCYTES # (AUTO) 0.7 10^3/uL (0.0-1.0); MONOCYTES % (AUTO) 9 % (0-12); NEUTROPHILS # (AUTO) 4.5 10^3/uL (1.8-7.8); NEUTROPHILS % (AUTO) 55 % (42-75); PLATELET COUNT 182 10^3/uL (130-400); WHITE BLOOD COUNT 8.2 10^3/uL (4.3-11.0)
[2020-08-11 06:27] LABS: ALBUMIN 3.3 GM/DL (3.2-4.5); CHLORIDE 101 MMOL/L (98-107); POTASSIUM 3.6 MMOL/L (3.6-5.0); SODIUM 139 MMOL/L (135-145)
[2020-08-11 06:28] LABS: CALCIUM 8.6 MG/DL (8.5-10.1); INR 2.7 (0.8-1.4); PROTHROMBIN TIME PATIENT 29.2 SEC (12.2-14.7)
[2020-08-11 06:29] LABS: GLUCOSE 113 MG/DL (70-105)
[2020-08-11 06:30] LABS: CARBON DIOXIDE 28 MMOL/L (21-32)
--- NOTE | 2020-08-11 06:30 | Progress Note - Hospitalist ---
Subjective HPI/CC On Admission Date Seen by Provider: Aug 11, 2020 Time Seen by Provider: 09:30 Chief complaint: Wound dehiscence on foot History of present illness: This is a 65-year-old white male clinic patient of [facility] known to me from multiple hospital stays most recent was for rectal bleeding on Coumadin 2 weeks ago but presented to the ER with drainage of the right second toe amputation site with dehiscence. Dr. Savage's been consulted. Culture was done on the drainage. Home meds have been restarted and INR is good at 2.3. PICC line will be needed for IV antibiotics. He has not had any more rectal bleeding. Subjective/Events-last exam Pt doing pretty well Wound vac awaiting approval with insurance IV antibiotics maintained INR 2.7 Review of Systems General: Fatigue, Malaise Musculoskeletal: leg pain Objective Exam Vital Signs Vital Signs Date Time Temp Pulse Resp B/P (MAP) Pulse Ox O2 Delivery O2 Flow Rate FiO2 08/11/20 15:40 35.3 57 20 98/64 96 Room Air Capillary Refill : Less Than 3 Seconds General Appearance: No Apparent Distress, WD/WN, Chronically ill Respiratory: Lungs Clear Cardiovascular: Irregularly Irregular Neurologic/Psychiatric: Alert, Oriented x3, No Motor/Sensory Deficits, Normal Mood/Affect Results/Procedures Lab Laboratory Tests 08/11/20 06:05 Patient resulted labs reviewed. Assessment/Plan Assessment and Plan Assess & Plan/Chief Complaint Assessment: Right second toe amputation site dehiscence with drainage Chronic atrial fibrillation Coumadin for anticoagulation Recent rectal bleeding Morbid obesity Plan: IV antibiotics Dr. Savage consult Pain control Home meds 08/08/2020: IV antibiotics Monitor labs 08/09/2020: Wound VAC fell off will replace tomorrow IV antibiotics 08/10/2020: Replace wound VAC IV antibiotics 08/11/2020: Await insurance approval for wound VAC then DC Diagnosis/Problems Diagnosis/Problems (1) Osteomyelitis of second toe of right foot Status: Acute (2) Cellulitis of right lower extremity Status: Acute (3) Obesity hypoventilation syndrome Status: Chronic (4) Sleep apnea, obstructive Status: Chronic (5) Anticoagulant long-term use Status: Chronic (6) Congestive heart failure Status: Chronic (7) Morbid obesity Status: Chronic (8) Atrial fibrillation Status: Chronic Qualifiers: Qualified Codes: I48.21 - Permanent atrial fibrillation (9) Chronic diarrhea Status: Chronic (10) Human immunodeficiency virus Status: Chronic (11) Nocturnal hypoxia Status: Chronic PAULA GOLDSMITH DO Aug 11, 2020 06:30
[2020-08-11 06:31] LABS: BILIRUBIN,TOTAL 0.4 MG/DL (0.1-1.0)
[2020-08-11 06:33] LABS: ALKALINE PHOSPHATASE 63 U/L (40-136); CREATININE SERUM 1.18 MG/DL (0.60-1.30); GFR ESTIMATED > 60
[2020-08-11 06:34] LABS: BUN/CREATININE RATIO 14
[2020-08-11 06:36] LABS: ALANINE AMINOTRANSFERASE 11 U/L (0-55)
[2020-08-11 08:00] VITALS: BP 98/64
[2020-08-11] MEDS: SPIRONOLACTONE 25 MG (ALDACTONE) TAB PO SCH (08:32)
[2020-08-11] MEDS: MAGNESIUM OXIDE (MAG-OX)400 MG TAB PO SCH (08:32)
[2020-08-11] MEDS: VANCOMYCIN 1 GM/NS 250 ML IVPB IV SCH ×2 (08:33)
[2020-08-11] MEDS: ALLOPURINOL 100 MG (ZYLOPRIM) TAB PO SCH (08:33)
[2020-08-11] MEDS: KCL 20 MEQ TAB (K-DUR) PO SCH (08:33)
[2020-08-11] MEDS: PANTOPRAZOLE 40 MG (PROTONIX) TAB PO SCH (08:33)
[2020-08-11] MEDS: BIKTARVY PO SCH (08:34)
--- NOTE | 2020-08-11 12:10 | Consultation-Cardiology ---
HPI-Cardiology Cardiology Consultation: Date of Consultation 08/11/20 Time Seen by a Provider: 12:15 Date of Admission 08-06-20 Attending Physician Shefali Smith MD Admitting Physician [place]/Counts Include [facility] B[facility] At [facility] Consulting Physician Luis Sylvester MD HPI: Chief Complaint: Asymptomatic hypotension Mr. Gilbert is a 65 yr old male admitted on 08-06-20 d/t non-healing surgical site post right second toe amputation in June 2020. He currently has a wound vac in [facility]. His BP this morning was noted to be 98/64 HR 57. Therefore we have been consulted. He is currently sitting up in a recliner at the bedside. His BP has been rechecked at this time and is 107 systolic with HR 76. Apical HR is 88 at the time of my assessment. He does not report any c/o CP. No c/o dizziness, lightheadedness. No c/o syncope or near syncope. Chronic mild to mod SANCHEZ which is unchanged. No c/o palpitations. Review of Systems-Cardiology Review of Systems Constitutional: No chills, No fever, No lightheadedness, No malaise Eyes: No vision change Ears/Nose/Throat: No epistaxis, No recent hearing loss Respiratory: As described under HPI Cardiovascular: As described under HPI Gastrointestinal: No constipation, No diarrhea, No nausea, No vomiting Genitourinary: No dysuria, No hematuria Musculoskeletal: no symptoms reported Skin: other (open wound to right foot at site of amputation) Psychiatric/Neurological: No anxiety, No depression, No seizure, No focal weakness, No syncope Hematologic: No bleeding abnormalities All Other Systems Reviewed Negative Unless Noted: Yes (Negative excepted noted.) HRZ-Iurpya-Arephi Hx Patient Social History Marrital Status: single Employed/Student: retired Smoking Status: Never a Smoker 2nd Hand Smoke Exposure: No Have you traveled recently?: No Alcohol Use?: No Pt feels they are or have been: No Immunizations Up To Date Tetanus Booster (TDap): Less than 5yrs Date of Pneumonia Vaccine: Apr 17, 2013 Date of Influenza Vaccine: Nov 28, 2019 Past Medical History PMH As described under Assessment. Family Medical History Family Medical History: He has reported that his mother had a heart attck in her 50s. He also has fam h/o DM Family History: Cardiovascular disease G8 SISTER Colon cancer G8 BROTHER Diabetes mellitus 19 MOTHER G8 SISTER FHx: COPD (chronic obstructive pulmonary disease) 19 FATHER Malignant neoplasm of prostate G8 BROTHER Paternal family history of emphysema Allergies and Home Medications Allergies Coded Allergies: No Known Drug Allergies (Unverified , 02/07/18) Home Medications Allopurinol 100 Mg Tablet, 100 MG PO DAILY, (Reported) Last Action: Continued Aspirin 81 Mg Tablet.dr, 81 MG PO HS, (Reported) Last Action: Continued Bictegrav/Emtricit/Tenofov Ala 1 Each Tablet, 1 EACH PO DAILY, (Reported) Last Action: Converted Bupropion HCl 300 Mg Tab.er.24h, 300 MG PO HS, (Reported) Last Action: Converted Citalopram Hydrobromide 40 Mg Tablet, 40 MG PO HS, (Reported) Last Action: Converted Diltiazem HCl 180 Mg Capsule.er, 360 MG PO DAILY, (Reported) TAKES 120MG + 2 (180MG) TABS TO EQUAL 480MG DAILY Last Action: Converted Diltiazem HCl 120 Mg Cap.er.24h, 120 MG PO DAILY, (Reported) TAKES 120MG + 2 (180MG) TABS TO EQUAL 480MG DAILY Last Action: Continued Furosemide 80 Mg Tablet, 160 MG PO DAILY, (Reported) TAKES 2 (80MG) TABS Last Action: Converted Levofloxacin 750 Mg Tablet, 750 MG PO DAILY, (Reported) FILLED 08-03-2020 #10/10 DAY SUPPLY Last Action: Held Magnesium Oxide 400 Mg Tablet, 400 MG PO BID, (Reported) Last Action: Converted Multivit-Min/FA/Lycopene/Lut 1 Each Tablet, 1 TAB PO DAILY, (Reported) Last Action: Converted Oxycodone HCl 10 Mg Tablet, 10 MG PO Q6H PRN for PAIN-SEVERE (8-10), (Reported) Last Action: Converted Pantoprazole Sodium 40 Mg Tablet.dr, 40 MG PO DAILY, (Reported) Last Action: Continued Potassium Chloride 20 Meq Tab.er.prt, 40 MEQ PO BID, (Reported) TAKES 2 (20MEQ) TABS TWICE DAILY Last Action: Continued Risperidone 0.5 Mg Tablet, 0.5 MG PO HS, (Reported) Last Action: Continued Spironolactone 50 Mg Tablet, 50 MG PO DAILY, (Reported) Last Action: Converted Warfarin Sodium 5 Mg Tablet, 5 MG PO , (Reported) Last Action: Continued Warfarin Sodium 5 Mg Tablet, 10 MG PO SUN,MO,WE,FR,SA, (Reported) TAKES 2 (5MG) TABS TO EQUAL 10MG Last Action: Continued Physical Exam-Cardiology Physical Exam Vital Signs/I&O 08/11/20 08/11/20 07:53 08:00 Temp 35.3 Pulse 57 Resp 20 B/P (MAP) 98/64 (75) Pulse Ox 96 O2 Delivery Room Air Room Air 08/11/20 00:00 Intake Total 1844 ml Balance 1844 ml Capillary Refill : Less Than 3 Seconds Constitutional: well-developed, well-nourished HEENT: PERRL, hearing is well preserved, oral hygience is good Neck: No carotid bruit; carotid pulses are 2 + bilaterally Respiratory: No accessory muscle use, No respiratory distress; other (good air entry) Cardiovascular: irregularly irregular; No JVD; S1 and S2 Gastrointestinal: No tender; soft, round, audible bowel sounds Rectal: deferred Extremities: no lower extremity edema bilateral Neurologic/Psychiatric: grossly intact (moves all extremities) Skin: other (dressing, wound vac and podiatry shoe to right foot) Data Review Labs Laboratory Tests 08/11/20 06:05: White Blood Count 8.2, Red Blood Count 3.71L, Hemoglobin 11.1L, Hematocrit 35L, Mean Corpuscular Volume 94, Mean Corpuscular Hemoglobin 30, Mean Corpuscular Hemoglobin Concent 32, Red Cell Distribution Width 15.0H, Platelet Count 182, Mean Platelet Volume 9.0, Immature Granulocyte % (Auto) 2, Neutrophils (%) (Auto) 55, Lymphocytes (%) (Auto) 33, Monocytes (%) (Auto) 9, Eosinophils (%) (Auto) 2, Basophils (%) (Auto) 1, Neutrophils # (Auto) 4.5, Lymphocytes # (Auto) 2.7, Monocytes # (Auto) 0.7, Eosinophils # (Auto) 0.1, Basophils # (Auto) 0.1, Immature Granulocyte # (Auto) 0.1, Prothrombin Time 29.2H, INR Comment 2.7H, Sodium Level 139, Potassium Level 3.6, Chloride Level 101, Carbon Dioxide Level 28, Anion Gap 10, Blood Urea Nitrogen 17, Creatinine 1.18, Estimat Glomerular Filtration Rate > 60, BUN/Creatinine Ratio 14, Glucose Level 113H, Calcium Level 8.6, Corrected Calcium 9.2, Total Bilirubin 0.4, Aspartate Amino Transf (AST/SGOT) 17, Alanine Aminotransferase (ALT/SGPT) 11, Alkaline Phosphatase 63, Total Protein 7.0, Albumin 3.3 Microbiology 08/07/20 Gram Stain - Final, Complete 08/07/20 Wound Culture - Final, Complete Mixed Bacterial Pauline 08/06/20 Blood Culture - Preliminary, Resulted No growth Radiology NAME: [facility] REC#: [id number] PT STATUS: ADM IN : 1955 PHYSICIAN: PAULA GOLDSMITH DO ADMIT DATE: 08/07/20 Signed Date of Exam:08/07/20 CHEST 1 VIEW, AP/PA ONLY HISTORY: PICC line placement COMPARISON: 06/24/2020 TECHNIQUE: Frontal view of the chest. FINDINGS: The tip of the right PICC line projects over the cavoatrial junction. There is mild cardiomegaly which appears stable. There are central opacities which are likely due to edema, similar to the prior exam. No pleural effusion or pneumothorax is seen. IMPRESSION: 1. The tip of the right PICC line projects over the cavoatrial junction. 2. Stable cardiomegaly with perihilar opacities, likely from edema. Dictated by: Dictated on workstation # [id number] Dict: 08/07/20 1321 Trans: 08/07/20 1549 CVB [id number] Interpreted by: MANOLO WARREN MD Electronically signed by: MANOLO WARREN MD 08/07/20 1549 A/P-Cardiology Assessment/Admission Diagnosis Low normal BP - asymptomatic Chronic atrial fibrillation - OAC with warfarin - therapeutic INR H/o osteomyelitis of R 2nd toe, s/p amputation on 06/25/20 Bilat leg swelling related to venous insuff and chronic diastolic CHF - clinically compensated Chronic diastolic CHF - clinically compensated H/o intermittent hypokalemia due to diuretic therapy for decomp CHF Morbid obesity (BMI approx 59) HIV positive status, managed by Dr Woods in [place], [place] Chronic joint and back pain H/o depression Obstructive sleep apnea syndrome, treated with CPAP Echocardiogram of Feb [address] Obrien showed wall thickness is mildly to mod increased. Concentric hypertrophy. LVEF 55-65%. LA and RA dilated. Mild MR. Mild to mod TR Minimal carotid arterial plaque on carotid u/s of April 2019 Discussion and Recomendations D/t low normal BP - albeit asymptomatic we will decrease his Cardize CD to 360mg daily EKG today Continue all other cardiac medications Advise close INR f/t d/t rising INR along with abx tx Monitor electrolytes - replace as indicated Chronic diastolic CHF - clinically compensated on current regimen Management of non-healing right foot surgical wound with surgical/medical services We would like to thank Dr. Goldsmith for this consult Further recs will be based on his hospital course JOSE E CHAO Aug 11, 2020 12:10
[2020-08-11] MEDS ORDERED: DILT360C26 PO (12:41)
[2020-08-11] MEDS ORDERED: dilTIAZem120 MG (CARDIZEM CD) CAP PO NR (13:15)
--- NOTE | 2020-08-11 14:34 | D/C HH Face to Face Order ---
D/C Face to Face Orders Reconcile Patient Problems Problems Reviewed?: Yes Instructions for Patient Via [facility] [employer], Patient Instructions/FollowUp: dr sheppard as scheduled Physician to follow Patient: silver Discharge Diet for Home: No Restrictions Patient Problems: right foot wound with wound vac Patient Data-Allergies,Ht & Wt Patient Allergies: Coded Allergies: No Known Drug Allergies (Unverified , 02/07/18) Height (Feet): 6 Height (Inches): 0.00 Weight (Pounds): 404 Weight (Ounces): 0.0 Home Health Need/Face to Face Date of Face to Face: Aug 11, 2020 Clinical Findings: Non-healing wound I have seen Pt [id number]: Yes Discharged To: Home Diagnosis/Conditions: right foot wound Patient is Homebound due to: Pain w/ambulation Homebound Status Due to the above stated illness, injury or surgical procedure (medical condition or diagnosis) and associated clinical findings, the patient is homebound because of his/her inability to leave home except with aid of a supportive device and/or person AND leaving the home requires a considerable and taxing effort or is medically contraindicated. Pt req the following assistanc: [facility] Nursing Orders Home Health Services Order: Nursing Services, Wound Care-Eval/Treat Home Health Infusion Therapy Line Start Date: Aug 07, 2020 Certify Stmt I certify that this patient is under my care and that I, a nurse practitioner or a physician; a language assistant working with me, had a face to face encounter that - meets the physician face to face encounter requirements with this patient as dated. PAULA GOLDSMITH DO Aug 11, 2020 14:34
--- NOTE | 2020-08-11 14:35 | Discharge Summary ---
Discharge Summary Hospital Course Was the Problem List Reviewed?: Yes Problems/Dx: (1) Osteomyelitis of second toe of right foot Status: Acute (2) Cellulitis of right lower extremity Status: Acute (3) Obesity hypoventilation syndrome Status: Chronic (4) Sleep apnea, obstructive Status: Chronic (5) Anticoagulant long-term use Status: Chronic (6) Congestive heart failure Status: Chronic (7) Morbid obesity Status: Chronic (8) Atrial fibrillation Status: Chronic Qualifiers: Qualified Codes: I48.21 - Permanent atrial fibrillation (9) Chronic diarrhea Status: Chronic (10) Human immunodeficiency virus Status: Chronic (11) Nocturnal hypoxia Status: Chronic Hospital Course Date of Admission: Aug 07, 2020 at 14:00 Admission Diagnosis : Family Physician/Provider: Bernice Skelton Aprn Date of Discharge: 08/11/20 Discharge Diagnosis: Right foot wound status post infection, wound VAC in place Hospital Course: Standard hospital course after admitted for right toe amputation site infection with drainage. Dr. Savage consulted. Wound VAC put in place and approved with insurance. IV antibiotics maintained while he was here. Labs remained stable. Labs and Pending Lab Test: Laboratory Tests 08/11/20 06:05: White Blood Count 8.2, Red Blood Count 3.71L, Hemoglobin 11.1L, Hematocrit 35L, Mean Corpuscular Volume 94, Mean Corpuscular Hemoglobin 30, Mean Corpuscular Hemoglobin Concent 32, Red Cell Distribution Width 15.0H, Platelet Count 182, Mean Platelet Volume 9.0, Immature Granulocyte % (Auto) 2, Neutrophils (%) (Auto) 55, Lymphocytes (%) (Auto) 33, Monocytes (%) (Auto) 9, Eosinophils (%) (Auto) 2, Basophils (%) (Auto) 1, Neutrophils # (Auto) 4.5, Lymphocytes # (Auto) 2.7, Monocytes # (Auto) 0.7, Eosinophils # (Auto) 0.1, Basophils # (Auto) 0.1, Immature Granulocyte # (Auto) 0.1, Prothrombin Time 29.2H, INR Comment 2.7H, Sodium Level 139, Potassium Level 3.6, Chloride Level 101, Carbon Dioxide Level 28, Anion Gap 10, Blood Urea Nitrogen 17, Creatinine 1.18, Estimat Glomerular Filtration Rate > 60, BUN/Creatinine Ratio 14, Glucose Level 113H, Calcium Level 8.6, Corrected Calcium 9.2, Total Bilirubin 0.4, Aspartate Amino Transf (AST/SGOT) 17, Alanine Aminotransferase (ALT/SGPT) 11, Alkaline Phosphatase 63, Total Protein 7.0, Albumin 3.3 Microbiology 08/07/20 Gram Stain - Final, Complete 08/07/20 Wound Culture - Final, Complete Mixed Bacterial Pauline 08/06/20 Blood Culture - Preliminary, Resulted No growth Home Meds Active Reported Pantoprazole Sodium 40 Mg Tablet. 40 Mg PO DAILY Levofloxacin 750 Mg Tablet 750 Mg PO DAILY FILLED 08-03-2020 #12/06 DAY SUPPLY Oxycodone HCl 10 Mg Tablet 10 Mg PO Q6H PRN Furosemide 80 Mg Tablet 160 Mg PO DAILY TAKES 2 (80MG) TABS Spironolactone 50 Mg Tablet 50 Mg PO DAILY Klor-Con M20 (Potassium Chloride) 20 Meq Tab.er.prt 40 Meq PO BID TAKES 2 (20MEQ) TABS TWICE DAILY Diltiazem 24Hr ER (Diltiazem HCl) 120 Mg Cap.er.24h 120 Mg PO DAILY TAKES 120MG + 2 (180MG) TABS TO EQUAL 480MG DAILY Diltiazem ER (Diltiazem HCl) 180 Mg Capsule.er 360 Mg PO DAILY TAKES 120MG + 2 (180MG) TABS TO EQUAL 480MG DAILY Aspirin EC (Aspirin) 81 Mg Tablet. 81 Mg PO HS Magnesium (Magnesium Oxide) 400 Mg Tablet 400 Mg PO BID Biktarvy 50-200-25 mg Tablet (Bictegrav/Emtricit/Tenofov Ala) 1 Each Tablet 1 Each PO DAILY Warfarin Sodium 5 Mg Tablet 10 Mg PO MON,MO,,FR,SA TAKES 2 (5MG) TABS TO EQUAL 10MG Warfarin Sodium 5 Mg Tablet 5 Mg PO Allopurinol 100 Mg Tablet 100 Mg PO DAILY Centrum Silver Tablet (Multivit-Min/FA/Lycopene/Lut) 1 Each Tablet 1 Tab PO DAILY Risperidone 0.5 Mg Tablet 0.5 Mg PO HS Citalopram HBr (Citalopram Hydrobromide) 40 Mg Tablet 40 Mg PO HS Bupropion Xl (Bupropion HCl) 300 Mg Tab.er.24h 300 Mg PO HS Assessment/Pt Instructions [facility] [address] Savage as scheduled Discharge Planning: <30 minutes discharge planning Discharge Instructions Discharge Diet: No Restrictions Discharge Physical Examination Vital Signs Vital Signs Date Time Temp Pulse Resp B/P (MAP) Pulse Ox O2 Delivery O2 Flow Rate FiO2 08/11/20 08:00 35.3 57 20 98/64 (75) 96 Room Air General Appearance: No Apparent Distress, WD/WN Allergies: Coded Allergies: No Known Drug Allergies (Unverified , 02/07/18) Discharge Summary Date of Admission Aug 07, 2020 at 14:00 Date of Discharge Discharge Date: Aug 11, 2020 Admission Diagnosis Assessment: Right second toe amputation site dehiscence with drainage Chronic atrial fibrillation Coumadin for anticoagulation Recent rectal bleeding Morbid obesity Plan: IV antibiotics Dr. Savage consult Pain control Home meds Discharge Diagnosis Assessment: Right second toe amputation site dehiscence with drainage Chronic atrial fibrillation Coumadin for anticoagulation Recent rectal bleeding Morbid obesity Plan: IV antibiotics Dr. Savage consult Pain control Home meds 08/08/2020: IV antibiotics Monitor labs 08/09/2020: Wound VAC fell off will replace tomorrow IV antibiotics 08/10/2020: Replace wound VAC IV antibiotics (1) Osteomyelitis of second toe of right foot Status: Acute (2) Cellulitis of right lower extremity Status: Acute (3) Obesity hypoventilation syndrome Status: Chronic (4) Sleep apnea, obstructive Status: Chronic (5) Anticoagulant long-term use Status: Chronic (6) Congestive heart failure Status: Chronic (7) Morbid obesity Status: Chronic (8) Atrial fibrillation Status: Chronic Qualifiers: Qualified Codes: I48.21 - Permanent atrial fibrillation (9) Chronic diarrhea Status: Chronic (10) Human immunodeficiency virus Status: Chronic (11) Nocturnal hypoxia Status: Chronic PAULA GOLDSMITH DO Aug 11, 2020 14:35
[2020-08-11 15:40] VITALS: BP 98/64
--- NOTE | 2020-08-11 16:51 | Consultation-Cardiology ---
HPI-Cardiology Cardiology Consultation: Date of Consultation 08/11/20 Time Seen by a Provider: 15:00 Date of Admission Attending Physician Shefali Smith MD Admitting Physician [facility] Consulting Physician REKHA BLEVINS MD, MA, FACP, FACC, FSCAI, CCDS HPI: Chief Complaint: Reason for consultation: Asymptomatic hypotension HPI Mr. Cope is a 65 yr old male admitted on 08-06-20 d/t non-healing surgical site post right second toe amputation in June 2020. He currently has a wound vac in place. His BP this morning was noted to be 98/64 HR 57. Therefore we have been consulted. He is currently sitting up in a recliner at the bedside. His BP has been rechecked at this time and is 107 systolic with HR 76. Apical HR is 88 at the time of my assessment. He does not report any c/o CP. No c/o dizziness, lightheadedness. No c/o syncope or near syncope. Chronic mild to mod SANCHEZ which is unchanged. No c/o palpitations. Review of Systems-Cardiology Review of Systems Constitutional: No chills, No fever, No lightheadedness, No malaise Eyes: No vision change Ears/Nose/Throat: No epistaxis, No recent hearing loss Respiratory: As described under HPI Cardiovascular: As described under HPI Gastrointestinal: No constipation, No diarrhea, No nausea, No vomiting Genitourinary: No dysuria, No hematuria Musculoskeletal: no symptoms reported Skin: other (open wound to right foot at site of amputation) Psychiatric/Neurological: No anxiety, No depression, No seizure, No focal weakness, No syncope Hematologic: No bleeding abnormalities All Other Systems Reviewed Negative Unless Noted: Yes (Negative excepted noted.) [id number] Hx Patient Social History Marrital Status: single Employed/Student: retired Smoking Status: Never a Smoker 2nd Hand Smoke Exposure: No Have you traveled recently?: No Alcohol Use?: No Pt feels they are or have been: No Immunizations Up To Date Tetanus Booster (TDap): Less than 5yrs Date of Pneumonia Vaccine: Apr 17, 2013 Date of Influenza Vaccine: Nov 28, 2019 Past Medical History PMH As described under Assessment. Family Medical History Family Medical History: He has reported that his mother had a heart attck in her 50s. He also has fam h/o DM Family History: Cardiovascular disease G8 SISTER Colon cancer G8 BROTHER Diabetes mellitus 19 MOTHER G8 SISTER FHx: COPD (chronic obstructive pulmonary disease) 19 FATHER Malignant neoplasm of prostate G8 BROTHER Paternal family history of emphysema Allergies and Home Medications Allergies Coded Allergies: No Known Drug Allergies (Unverified , 02/07/18) Home Medications Allopurinol 100 Mg Tablet, 100 MG PO DAILY, (Reported) Last Action: Continued Aspirin 81 Mg Tablet.dr, 81 MG PO HS, (Reported) Last Action: Continued Bictegrav/Emtricit/Tenofov Ala 1 Each Tablet, 1 EACH PO DAILY, (Reported) Last Action: Converted Bupropion HCl 300 Mg Tab.er.24h, 300 MG PO HS, (Reported) Last Action: Converted Citalopram Hydrobromide 40 Mg Tablet, 40 MG PO HS, (Reported) Last Action: Converted Diltiazem HCl 180 Mg Capsule.er, 360 MG PO DAILY, (Reported) TAKES 120MG + 2 (180MG) TABS TO EQUAL 480MG DAILY Last Action: Converted Diltiazem HCl 120 Mg Cap.er.24h, 120 MG PO DAILY, (Reported) TAKES 120MG + 2 (180MG) TABS TO EQUAL 480MG DAILY Last Action: Continued Furosemide 80 Mg Tablet, 160 MG PO DAILY, (Reported) TAKES 2 (80MG) TABS Last Action: Converted Magnesium Oxide 400 Mg Tablet, 400 MG PO BID, (Reported) Last Action: Converted Multivit-Min/FA/Lycopene/Lut 1 Each Tablet, 1 TAB PO DAILY, (Reported) Last Action: Converted Oxycodone HCl 10 Mg Tablet, 10 MG PO Q6H PRN for PAIN-SEVERE (8-10), (Reported) Last Action: Converted Pantoprazole Sodium 40 Mg Tablet.dr, 40 MG PO DAILY, (Reported) Last Action: Continued Potassium Chloride 20 Meq Tab.er.prt, 40 MEQ PO BID, (Reported) TAKES 2 (20MEQ) TABS TWICE DAILY Last Action: Continued Risperidone 0.5 Mg Tablet, 0.5 MG PO HS, (Reported) Last Action: Continued Spironolactone 50 Mg Tablet, 50 MG PO DAILY, (Reported) Last Action: Converted Warfarin Sodium 5 Mg Tablet, 5 MG PO , (Reported) Last Action: Continued Warfarin Sodium 5 Mg Tablet, 10 MG PO BRIAN RODRIGUEZ,,FR,SA, (Reported) TAKES 2 (5MG) TABS TO EQUAL 10MG Last Action: Continued Patient Home Medication List Home Medication List Reviewed: Yes Physical Exam-Cardiology Physical Exam Vital Signs/I&O 08/11/20 08/11/20 08/11/20 07:53 08:00 15:40 Temp 35.3 35.3 Pulse 57 57 Resp 20 20 B/P (MAP) 98/64 (75) 98/64 Pulse Ox 96 96 O2 Delivery Room Air Room Air Room Air 08/11/20 00:00 Intake Total 1844 ml Balance 1844 ml Capillary Refill : Less Than 3 Seconds Constitutional: well-developed, well-nourished HEENT: PERRL, hearing is well preserved, oral hygience is good Neck: No carotid bruit; carotid pulses are 2 + bilaterally Respiratory: No accessory muscle use, No respiratory distress; other (good air entry) Cardiovascular: irregularly irregular; No JVD; S1 and S2 Gastrointestinal: No tender; soft, round, audible bowel sounds Rectal: deferred Extremities: no lower extremity edema bilateral Neurologic/Psychiatric: grossly intact (moves all extremities) Skin: other (dressing, wound vac and podiatry shoe to right foot) Data Review Labs Laboratory Tests 08/11/20 06:05: White Blood Count 8.2, Red Blood Count 3.71L, Hemoglobin 11.1L, Hematocrit 35L, Mean Corpuscular Volume 94, Mean Corpuscular Hemoglobin 30, Mean Corpuscular Hemoglobin Concent 32, Red Cell Distribution Width 15.0H, Platelet Count 182, Mean Platelet Volume 9.0, Immature Granulocyte % (Auto) 2, Neutrophils (%) (Auto) 55, Lymphocytes (%) (Auto) 33, Monocytes (%) (Auto) 9, Eosinophils (%) (Auto) 2, Basophils (%) (Auto) 1, Neutrophils # (Auto) 4.5, Lymphocytes # (Auto) 2.7, Monocytes # (Auto) 0.7, Eosinophils # (Auto) 0.1, Basophils # (Auto) 0.1, Immature Granulocyte # (Auto) 0.1, Prothrombin Time 29.2H, INR Comment 2.7H, Sodium Level 139, Potassium Level 3.6, Chloride Level 101, Carbon Dioxide Level 28, Anion Gap 10, Blood Urea Nitrogen 17, Creatinine 1.18, Estimat Glomerular Filtration Rate > 60, BUN/Creatinine Ratio 14, Glucose Level 113H, Calcium Level 8.6, Corrected Calcium 9.2, Total Bilirubin 0.4, Aspartate Amino Transf (AST/SGOT) 17, Alanine Aminotransferase (ALT/SGPT) 11, Alkaline Phosphatase 63, Total Protein 7.0, Albumin 3.3 Microbiology 08/07/20 Gram Stain - Final, Complete 08/07/20 Wound Culture - Final, Complete Mixed Bacterial Pauline 08/06/20 Blood Culture - Preliminary, Resulted No growth A/P-Cardiology Assessment/Admission Diagnosis Low normal BP - asymptomatic Chronic atrial fibrillation - OAC with warfarin - therapeutic INR H/o osteomyelitis of R 2nd toe, s/p amputation on 06/25/20 Bilat leg swelling related to venous insuff and chronic diastolic CHF - clinically compensated Chronic diastolic CHF - clinically compensated H/o intermittent hypokalemia due to diuretic therapy for decomp CHF Morbid obesity (BMI approx 59) HIV positive status, managed by Dr Woods in [place], [place] Chronic joint and back pain H/o depression Obstructive sleep apnea syndrome, treated with CPAP Echocardiogram of Feb [address] Obrien showed wall thickness is mildly to mod increased. Concentric hypertrophy. LVEF 55-65%. LA and RA dilated. Mild MR. Mild to mod TR Minimal carotid arterial plaque on carotid u/s of April 2019 Discussion and Recomendations BP is low normal, but appears to be at usual baseline ECG shows that vent response to chronic A Fib is still relatively fast He has ch diastolic CHF and has done well on current diuretic regimen Accordingly, we recommend continuation of previous cardiac regimen Advise close INR f/t d/t rising INR along with abx tx Monitor electrolytes - replace as indicated Management of non-healing right foot surgical wound with Surgical and Medical services We would like to thank Dr. Keane for this consult Further recs will be based on his hospital course REKHA BLEVINS MD FACP FAC CCDS Aug 11, 2020 16:51
--- NOTE | 2020-08-11 17:37 | Progress Note - Surgery ---
Subjective Date Seen by a Provider: Aug 11, 2020 Time Seen by a Provider: 11:38 Subjective/Events-last exam Patient doing well. Patient has wound VAC in place. Patient has no pain to the right lower extremity. Denies any new complaints. Denies any nausea vomiting fever sweats chills shortness of breath or chest pain. Objective Exam Vital Signs Date Time Temp Pulse Resp B/P (MAP) Pulse Ox O2 Delivery O2 Flow Rate FiO2 08/11/20 15:40 35.3 57 20 98/64 96 Room Air 08/11/20 08:00 35.3 57 20 98/64 (75) 96 Room Air 08/11/20 07:53 Room Air 08/10/20 23:34 35.4 69 20 112/75 (87) 96 Room Air 08/10/20 20:20 Room Air I & O 08/11/20 07:00 Intake Total 2244 ml Balance 2244 ml Capillary Refill : Less Than 3 Seconds General Appearance: No Apparent Distress, WD/WN, Chronically ill, Obese HEENT: PERRL/EOMI, Normal ENT Inspection, Pharynx Normal, Moist Mucous Membranes Neck: Full Range of Motion, Normal Inspection, Non Tender Respiratory: Chest Non Tender, No Accessory Muscle Use, No Respiratory Distress Cardiovascular: No JVD, Irregularly Irregular Gastrointestinal: non tender, soft, no organomegaly Extremity: Normal Capillary Refill, Non Tender, No Calf Tenderness, No Pedal Edema, Other (Wound VAC in place right foot no surrounding erythema) Neurologic/Psychiatric: Alert, Oriented x3 Skin: Normal Color, Warm/Dry, Other Lymphatic: No Adenopathy Results Lab Laboratory Tests 08/11/20 06:05: White Blood Count 8.2, Red Blood Count 3.71L, Hemoglobin 11.1L, Hematocrit 35L, Mean Corpuscular Volume 94, Mean Corpuscular Hemoglobin 30, Mean Corpuscular Hemoglobin Concent 32, Red Cell Distribution Width 15.0H, Platelet Count 182, Mean Platelet Volume 9.0, Immature Granulocyte % (Auto) 2, Neutrophils (%) (Auto) 55, Lymphocytes (%) (Auto) 33, Monocytes (%) (Auto) 9, Eosinophils (%) (Auto) 2, Basophils (%) (Auto) 1, Neutrophils # (Auto) 4.5, Lymphocytes # (Auto) 2.7, Monocytes # (Auto) 0.7, Eosinophils # (Auto) 0.1, Basophils # (Auto) 0.1, Immature Granulocyte # (Auto) 0.1, Prothrombin Time 29.2H, INR Comment 2.7H, Sodium Level 139, Potassium Level 3.6, Chloride Level 101, Carbon Dioxide Level 28, Anion Gap 10, Blood Urea Nitrogen 17, Creatinine 1.18, Estimat Glomerular Filtration Rate > 60, BUN/Creatinine Ratio 14, Glucose Level 113H, Calcium Level 8.6, Corrected Calcium 9.2, Total Bilirubin 0.4, Aspartate Amino Transf (AST/SGOT) 17, Alanine Aminotransferase (ALT/SGPT) 11, Alkaline Phosphatase 63, Total Protein 7.0, Albumin 3.3 Microbiology 08/07/20 Gram Stain - Final, Complete 08/07/20 Wound Culture - Final, Complete Mixed Bacterial Pauline 08/06/20 Blood Culture - Preliminary, Resulted No growth Assessment/Plan Assessment/Plan Assessment/Plan Status post amputation of right second toe Right third proximal phalanx fracture along lateral aspect no other acute bony abnormality HIV positive Recent history of gastrointestinal bleed no active bleeding at this time. Long-term anticoagulation Patient with wound VAC in place. Continue with wound VAC management. Okay to CT home. Any issues be seen at that time. SARABJIT ORTIZ DO Aug 11, 2020 17:37
[2020-08-12] MEDS ORDERED: dilTIAZem120 MG (CARDIZEM CD) CAP PO SCH (09:00)
== END 2020-08-11 15:42 | disposition home health service (06) | DRG 565 ==
LOC: EDUNIT# 17:33 → ER 17:34 → 4TH 19:12 → OBSVTOIN 08-07 14:00
PROVIDERS: ADMIT Family Medicine; ATTEND Family Medicine
DX: T87.43 Infection of amputation stump, right lower extremity (principal); I48.20 Chronic atrial fibrillation, unspecified; L03.115 Cellulitis of right lower limb; Z68.43 Body mass index [BMI] 50.0-59.9, adult; I50.32 Chronic diastolic (congestive) heart failure; T87.81 Dehiscence of amputation stump; Z79.01 Long term (current) use of anticoagulants; E66.01 Morbid (severe) obesity due to excess calories; G47.33 Obstructive sleep apnea (adult) (pediatric); K52.9 Noninfective gastroenteritis and colitis, unspecified; Z21 Asymptomatic human immunodeficiency virus [HIV] infection status; R09.02 Hypoxemia; I87.2 Venous insufficiency (chronic) (peripheral); E87.6 Hypokalemia; G89.29 Other chronic pain; M54.9 Dorsalgia, unspecified; F32.9 Major depressive disorder, single episode, unspecified; S92.911A Unspecified fracture of right toe(s), initial encounter for closed fracture; I11.0 Hypertensive heart disease with heart failure; J45.909 Unspecified asthma, uncomplicated; Z85.72 Personal history of non-Hodgkin lymphomas
CPT/HCPCS: 36415; 36569; 71045; 73630; 76937; 80048; 80053; 80202; 83605; 85025; 85610; 85652; 85730; 86141; 87040; 87070; 87205; 93005; G0378

== ENCOUNTER → 2020-10-28 | Outpatient (CLI) | payer MEDICARE, MEDICAID ==
[~2020-10-28] MED LIST changes: +LEVO750T39 PO; +PANT40TA52 PO
== END ==
LOC: WOUNDCARE 13:33
PROVIDERS: ATTEND Surgery
DX: G60.8 Other hereditary and idiopathic neuropathies (principal); I89.0 Lymphedema, not elsewhere classified; L97.522 Non-pressure chronic ulcer of other part of left foot with fat layer exposed; B20 Human immunodeficiency virus [HIV] disease
CPT/HCPCS: 11042; A6197; G0463

== ENCOUNTER → 2020-11-04 | Outpatient (CLI) | payer MEDICARE, MEDICAID | LOC: WOUNDCARE 13:37 | PROVIDERS: ATTEND Surgery | DX: B20 Human immunodeficiency virus [HIV] disease (principal); G60.8 Other hereditary and idiopathic neuropathies; I96 Gangrene, not elsewhere classified; I89.0 Lymphedema, not elsewhere classified; L97.522 Non-pressure chronic ulcer of other part of left foot with fat layer exposed | CPT/HCPCS: 99213 ==

== ENCOUNTER → 2020-11-18 | Outpatient (CLI) | payer MEDICARE, MEDICAID | LOC: WOUNDCARE 13:45 | PROVIDERS: ATTEND Surgery | DX: G60.8 Other hereditary and idiopathic neuropathies (principal); I89.0 Lymphedema, not elsewhere classified; L97.522 Non-pressure chronic ulcer of other part of left foot with fat layer exposed; B20 Human immunodeficiency virus [HIV] disease | CPT/HCPCS: 99212 ==

== ENCOUNTER 2020-11-27 17:59 | Emergency (ER) | payer MEDICARE, MEDICAID ==
[~2020-11-27] VITALS: Ht 183 cm; Wt 179.2 kg
[2020-11-27] MEDS ORDERED: OXYMETAZOLINE (AFRIN) 0.05% NA 30 ML BTL ONE (18:11)
[2020-11-27] MEDS ORDERED: TRANEXAMIC ACID 100 MG/ML 10 ML INJECTION ONE (18:15)
[2020-11-27] MEDS ORDERED: PHENYLEPHRINE 0.5% NASAL SPR (NEO-SYNEPHRINE) REG ONE (18:15)
[2020-11-27 18:24] LABS: HEMATOCRIT 49 % (40-54); HEMOGLOBIN 15.6 g/dL (13.3-17.7); MEAN CORPUSCULAR HEMOGLOBIN 29 pg (25-34); MEAN CORPUSCULAR HGB CONC 32 g/dL (32-36); MEAN CORPUSCULAR VOLUME 91 fL (80-99); MEAN PLATELET VOLUME 9.2 fL (9.0-12.2); PLATELET COUNT 214 10^3/uL (130-400); WHITE BLOOD COUNT 13.7 10^3/uL (4.3-11.0)
--- NOTE | 2020-11-27 18:35 | ED EENT ---
History of Present Illness General Chief Complaint: Nasal Problems Stated Complaint: NOSE BLEED Nursing Triage Note: PT AMB TO RM 6 W REPORTS OF NOSE BLEED SX 1654. REPORTS THIS IS HIS 4TH NOSE BLEED THIS WEEK. Source: patient History of Present Illness Date Seen by Provider: Nov 27, 2020 Time Seen by Provider: 18:01 Initial Comments PT ARRIVES VIA POV FROM HOME C/O NOSEBLEED FROM LEFT NARE SINCE 1654 TONIGHT STATES THIS IS THE 4TH TIME IT HAS HAPPENED THIS WEEK--HAS NOT SOUGHT CARE UNTIL TONIGHT FOR THIS --STATES THE OTHER TIMES, THE BLEEDING STOPPED ON IT'S OWN DENIES COUGHING, SNEEZING, RUBBING OR PICKING HIS NOSE PRIOR TO ONSET OF NOSEBLEED DENIES URI/SINUS SYMPTOMS RECENTLY PT IS ON COUMADIN FOR CHRONIC ATRIAL FIBRILLATION, AND HAD LEVEL CHECKED EARLIER IN THE WEEK AND INR WAS 2.4 HAS HAD NOSEBLEED THIS BAD ONCE BEFORE-A FEW YEARS AGO. HAS NOT SEEN ENT RECENTLY PCP: [facility], DR. Ele BLUE Allergies and Home Medications Allergies Coded Allergies: No Known Drug Allergies (Unverified , 02/07/18) Patient Home Medication List Home Medication List Reviewed: Yes Allopurinol (Allopurinol) 100 Mg Tablet, 100 MG PO DAILY, (Reported) Entered as Reported by: SAVITA CARBALLO on 03/13/18 153 Aspirin (Aspirin EC) 81 Mg Tablet.dr, 81 MG PO HS, (Reported) Entered as Reported by: TERESITA FOX on 04/15/19 0811 Bictegrav/Emtricit/Tenofov Ala (Biktarvy 50-200-25 mg Tablet) 1 Each Tablet, 1 EACH PO DAILY, (Reported) Entered as Reported by: TERESITA FOX on 04/15/19 0811 Bupropion HCl (Bupropion Xl) 300 Mg Tab.er.24h, 300 MG PO HS, (Reported) Entered as Reported by: MIGUEL RICHARDSON on 11/29/141948 Cephalexin (Cephalexin) 500 Mg Tablet, 500 MG PO QID Prescribed by: SUNG ROWE on 11/27/20 185 Citalopram Hydrobromide (Citalopram HBr) 40 Mg Tablet, 40 MG PO HS, (Reported) Entered as Reported by: DOT ENCISO on 12/01/14 0915 Diltiazem HCl (Diltiazem ER) 180 Mg Capsule.er, 360 MG PO DAILY, (Reported) Entered as Reported by: STEPHANIE ROSALES on 06/24/20 1418 Diltiazem HCl (Diltiazem 24Hr ER) 120 Mg Cap.er.24h, 120 MG PO DAILY, (Reported) Entered as Reported by: STEPHANIE ROSALES on 06/24/20 1418 Furosemide (Furosemide) 80 Mg Tablet, 160 MG PO DAILY, (Reported) Entered as Reported by: TERESITA FOX on 07/28/20 09 Magnesium Oxide (Magnesium) 400 Mg Tablet, 400 MG PO BID, (Reported) Entered as Reported by: TERESITA FOX on 04/15/19 0811 Multivit-Min/FA/Lycopene/Lut (Centrum Silver Tablet) 1 Each Tablet, 1 TAB PO DAILY, (Reported) Entered as Reported by: VAHID PEARSON on 03/26/17 1732 Oxycodone HCl (Oxycodone HCl) 10 Mg Tablet, 10 MG PO Q6H PRN for PAIN-SEVERE (8- 10), (Reported) Entered as Reported by: TERESITA FOX on 07/28/20 0905 Pantoprazole Sodium (Pantoprazole Sodium) 40 Mg Tablet.dr, 40 MG PO DAILY, ( Reported) Entered as Reported by: TERESITA FOX on 08/07/20 1029 Potassium Chloride (Klor-Con M20) 20 Meq Tab.er.prt, 40 MEQ PO BID, (Reported) Entered as Reported by: TERESITA FOX on 06/25/20 0834 Risperidone (Risperidone) 0.5 Mg Tablet, 0.5 MG PO HS, (Reported) Entered as Reported by: DOT ENCISO on 12/01/14 0915 Spironolactone (Spironolactone) 50 Mg Tablet, 50 MG PO DAILY, (Reported) Entered as Reported by: TERESITA FOX on 07/28/20 09 Warfarin Sodium (Warfarin Sodium) 5 Mg Tablet, 5 MG PO , (Reported) Entered as Reported by: SAVITA CARBALLO on 03/13/18 1533 Warfarin Sodium (Warfarin Sodium) 5 Mg Tablet, 10 MG PO BRIAN RODRIGUEZ,WE,FR,SA, (Reported) Entered as Reported by: SAVITA CARBALLO on 03/13/18 1533 Review of Systems Review of Systems Constitutional: no symptoms reported; No dizziness Eyes: No Symptoms Reported Ears: No Symptoms Reported Nose: see HPI, epistaxis; denies pain Mouth: no symptoms reported Throat: no symptoms reported Respiratory: no symptoms reported Cardiovascular: no symptoms reported; No chest pain, No edema, No palpitations, No syncope Gastrointestinal: no symptoms reported; No nausea, No vomiting Skin: no symptoms reported Neurological: No Symptoms Reported Hematologic/Lymphatic: See HPI Immunological/Allergic: HIV/AIDS Past Unofwbm-Oppvtj-Jlbdeb Hx Patient Social History Tobacco Use?: No Smoking Status: Never a Smoker Substance use?: Yes Additional substance use comme: HX OF IV DRUG USE Alcohol Use?: No Immunizations Up To Date Tetanus Booster (TDap): Less than 5yrs Seasonal Allergies Seasonal Allergies: No Past Medical History Surgery/Hospitalization HX: AMPUTATION RIGHT 2ND TOE BY DR. MCLAUGHLIN 06/2020 FOR OSTEOMYELITIS COLONOSCOPY / POLYPECTOMY [address] HERRERA MULTIPLE BIOPSIES FOR LYMPHOMA CARDIAC CATH--NO INTERVENTION CARDIAC ABLATION 2010 FOR ATRIAL FIBRILLATION IN [place] Surgeries: Yes (CA REMOVED FROM NECK, SEVERAL BX) Amputation, Cardiac, Orthopedic, Tonsillectomy Respiratory: Yes (PNEUMOCYSTIS PNEUMONIA BY HX) Asthma, Pneumonia, Sleep Apnea Currently Using CPAP: Yes Currently Using BIPAP: Yes Cardiac: Yes (CHF; CHRONIC RIGHT LEG SWELLING;CARDIAC ABLATION FOR AFIB;CATH-NO INTERVENT) Atrial Fibrillation, Chronic Edema/Swelling, Hypertension Neurological: No Reproductive Disorders: No HIV/AIDS: Yes (HIV +/AIDS-HX OF PNEUMOCYSTIS PNEUMONIA) Genitourinary: No Gastrointestinal: Yes Gastrointestinal Bleed, Diverticulosis, Chronic Diarrhea, Polyps Musculoskeletal: Yes (RIGHT 2ND TOE AMPUTATED FOR OSTEOMYELITIS;CHRONIC JOINT AND BACK PAIN ) Amputee, Arthritis, Chronic Back Pain Endocrine: Yes (MORBID OBESITY) HEENT: Yes (NOSEBLEEDS-RARELY; POOR DENTITION) Cancer: Yes (NON-HODGKIN'S LYMPHOMA) Skin, Lymphoma Did You Recieve Any Treatments: Yes What Type of Treatment Did You: Surgical Intervention Psychosocial: Yes Anxiety, Depression Integumentary: Yes (CELLULITIS/OSTEOMYELITIS) Blood Disorders: Yes (HIV DX IN 1994, ) Family Medical History Cardiovascular disease G8 SISTER Colon cancer G8 BROTHER Diabetes mellitus 19 MOTHER G8 SISTER FHx: COPD (chronic obstructive pulmonary disease) 19 FATHER Malignant neoplasm of prostate G8 BROTHER Paternal family history of emphysema No Pertinent Family Hx Physical Exam Vital Signs Vital Signs - First Documented 11/27/20 18:05 Temp 35.6 Pulse 86 Resp 18 B/P (MAP) 126/116 (119) Pulse Ox 94 O2 Delivery Room Air Height, Weight, BMI Height: 6'0.00" Weight: 404lbs. 0.0oz. 183.431063xp; 53.00 BMI Method:Stated General Appearance: WD/WN, obese, other (ANXIOUS) Nose: other (PROFUSE BLEEDING FROM LEFT NARE, WITH OVERFLOW BLEEDING IN RIGHT NARE, WITH LARGE AMOUNT OF BLOOD IN MOUTH AND PHARYNX, WITH LARGE CLOTS IN ALL AREAS WELL) Mouth/Throat: other ( ABOVE) Cardiovascular: tachycardia, irregularly irregular Respiratory: normal breath sounds Neurologic/Psychiatric: no motor/sensory deficits, alert, oriented x 3 Skin: normal color, warm/dry; No ecchymosis Procedures/Interventions Nasal : Nasal Location: Left Clots Cleared from Nasal: Patient Blowing Nasal Drops Instilled: Afrin Inspection with: Otoscope Nasal Procedures: Rapid Rhino Progress AFRIN INSTILLED AFTER CLOTS CLEARED BY PT BLOWING ATTEMPTED TO PASS 7.5 CM POSTERIOR RAPID RHINO SATURATED WITH TXA--UNABLE TO COMPLETELY PASS PASSED 5.5 CM ANTERIOR RAPID RHINO SATURATED WITH TXA PT GARGLED AND CLEARED BLOOD FROM MOUTH AND PHARYNX PT OBSERVED IN ER FOR AN HOUR POST-PACKING, AND NO RE-BLEEDING NOTED. Progress/Results/Core Measures Results/Orders Lab Results Laboratory Tests Test 11/27/20 18:09 Range/Units White Blood Count 13.7 H 4.3-11.0 10^3/uL Red Blood Count 5.38 4.30-5.52 10^6/uL Hemoglobin 15.6 13.3-17.7 g/dL Hematocrit 49 40-54 % Mean Corpuscular Volume 91 80-99 fL Mean Corpuscular Hemoglobin 29 25-34 pg Mean Corpuscular Hemoglobin Concent 32 32-36 g/dL Red Cell Distribution Width 14.8 H 10.0-14.5 % Platelet Count 214 130-400 10^3/uL Mean Platelet Volume 9.2 9.0-12.2 fL Prothrombin Time 30.3 H 12.2-14.7 SEC INR Comment 2.9 H 0.8-1.4 Activated Partial Thromboplast Time 45 H 24-35 SEC My Orders Orders - SUNG ROWE DO Cbc No Diff (11/27/20 18:08) Protime With Inr (11/27/20 18:08) Partial Thromboplastin Time (11/27/20 18:08) Phenylephrine 0.5% Nasal [place] (Quentin-Syne (11/27/20 18:15) Tranexamic Acid Injection (Cyklokapron I (11/27/20 18:15) Oxymetazoline 0.05% Nasal [place] (Afrin 0. (11/27/20 18:11) Rx-Cephalexin Capsule (Rx-Keflex Capsule (11/27/20 19:00) Oxymetazoline 0.05% Nasal [place] (Afrin 0. (11/27/20 19:15) Medications Given in ED Current Medications Medications Dose Ordered Sig/Cam Route Start Time Stop Time Status Last Admin Dose Admin Tranexamic Acid ONCE ONCE NA 11/27/20 18:15 11/27/20 18:16 DC 11/27/20 16:20 1 MG Vital Signs/I&O 11/27/20 18:05 Temp 35.6 Pulse 86 Resp 18 B/P (MAP) 126/116 (119) Pulse Ox 94 O2 Delivery Room Air Blood Pressure Mean: 119 Progress Progress Note : Progress Note NOSE PACKED WITH RAPID RHINO PT OBSERVED IN ER FOR AN HOUR POST PACKING NO REBLEEDING NOTED Departure Communication (Admissions) 0382--SPOKE WITH DR. PEACE, AGREES WITH PLAN OF CARE. ADVISES TO START KEFLEX. HE WILL SEE PT IN OFFICE MONDAY OR MONDAY, UNLESS PT RE-BLEEDS AND COMES BACK TO ER OVER WEEKEND Impression Primary Impression: Left-sided epistaxis Additional Impression: COUMADIN THERAPY FOR CHRONIC ATRIAL FIBRILLATION Disposition: HOME, SELF-CARE Condition: Improved Departure-Patient Inst. Decision time for Depature: 18:55 Referrals: [facility]/ (PCP) Primary Care Physician SAVANNAH RHOADES APRN (Family) Primary Care Physician ENA PEACE MD Patient Instructions: Nosebleeds (DC) Add. Discharge Instructions: LEAVE PACKING IN PLACE DO NOT BLOW OR RUB NOSE, AND TRY TO AVOID SNEEZING IF POSSIBLE FOLLOW UP WITH DR. PEACE ON MONDAY OR MONDAY, CALL OFFICE FIRST THING MONDAY MORNING RETURN TO ER IF YOU START BLEEDING AGAIN CONTINUE YOUR REGULAR MEDICATIONS PRESCRIBED All discharge instructions reviewed with patient and/or family. Voiced understanding. Scripts Cephalexin (Cephalexin) 500 Mg Tablet 500 MG PO QID, #20 TAB 0 Refills Prov: SUNG ROWE DO 11/27/20 SUNG ROWE DO Nov 27, 2020 18:35
[2020-11-27 18:50] LABS: INR 2.9 (0.8-1.4); PROTHROMBIN TIME PATIENT 30.3 SEC (12.2-14.7)
[2020-11-27] MEDS ORDERED: CEPH500T PO (18:59)
[2020-11-27] MEDS ORDERED: RX-CEPHALEXIN (KEFLEX) 250 MG CAP PPK#4 PO STA (19:00)
[2020-11-27] MEDS ORDERED: OXYMETAZOLINE (AFRIN) 0.05% NA 30 ML BTL SCH (19:15)
[2020-11-27 19:25] VITALS: BP 126/81
== END 2020-11-27 19:25 | disposition home or self-care (01) ==
LOC: EDUNIT# 17:59 → ER 18:01
DX: R04.0 Epistaxis (principal); I48.20 Chronic atrial fibrillation, unspecified; E66.01 Morbid (severe) obesity due to excess calories; R00.0 Tachycardia, unspecified; J45.909 Unspecified asthma, uncomplicated; G47.30 Sleep apnea, unspecified; I11.0 Hypertensive heart disease with heart failure; I50.9 Heart failure, unspecified; F41.9 Anxiety disorder, unspecified; F32.9 Major depressive disorder, single episode, unspecified; G89.29 Other chronic pain; M54.9 Dorsalgia, unspecified; Z79.01 Long term (current) use of anticoagulants; Z68.43 Body mass index [BMI] 50.0-59.9, adult; Z79.899 Other long term (current) drug therapy; Z79.82 Long term (current) use of aspirin; Z79.891 Long term (current) use of opiate analgesic
CPT/HCPCS: 30901; 36415; 85027; 85610; 85730

== ENCOUNTER 2020-12-08 05:36 | Outpatient (CLI) | payer MEDICARE, MEDICAID ==
[~2020-12-08] VITALS: Ht 182.9 cm; Wt 181.1 kg
== END 2020-12-08 14:14 | disposition home or self-care (01) ==
LOC: PREOP 05:36
PROVIDERS: ATTEND Surgery
DX: Z01.818 Encounter for other preprocedural examination (principal)

== ENCOUNTER 2020-12-15 07:47 | Day surgery (SDC) | payer MEDICARE, MEDICAID ==
[~2020-12-15] VITALS: Ht 182.9 cm; Wt 181.1 kg
[2020-12-15] MEDS ORDERED: LACTATED RINGERS 1,000 ML IV ONE (07:57)
[2020-12-15] MEDS ORDERED: LACTATED RINGERS 1,000 ML IV STA (07:59)
[2020-12-15 08:10] VITALS: BP 140/111
[2020-12-15] MEDS ORDERED: PROPOFOL INJECTION 50 ML IV ONE (09:05)
[2020-12-15] MEDS ORDERED: proPOfol 200 MG/20 ML (DIPRIVAN) VIAL IV ONE (09:40)
--- NOTE | 2020-12-15 09:58 | Anesthesia-General Post-Op ---
MAC Patient Condition Mental Status/LOC: Same as Preop Cardiovascular: Satisfactory Nausea/Vomiting: Absent Respiratory: Satisfactory Pain: Controlled Complications: Absent Post Op Complications Complications None Follow Up Care/Instructions Patient Instructions None needed. Anesthesiology Discharge Order Discharge Order Patient is doing well, no complaints, stable vital signs, no apparent adverse anesthesia problems. No complications reported per nursing. GUERA CANO CRNA Dec 15, 2020 09:58
[2020-12-15 10:00] VITALS: BP 135/61
--- NOTE | 2020-12-15 10:02 | Progress Note-Post Operative ---
Post-Operative Progess Note Surgeon (s)/Kennel Staff Member (s) Surgeon SARABJIT ORTIZ DO Kennel Staff Member: na Pre-Operative Diagnosis blood in stool Post-Operative Diagnosis diverticulosis, ascending colon polyps Procedure & Operative Findings Date of Procedure 12/15/20 Procedure Performed/Findings colonoscopy c hot bx polypectomy x 3 Anesthesia Type per image consultant Estimated Blood Loss Estimated blood loss (mL): none Specimens/Packing Specimens Removed ascending colon polyps SARABJIT ORTIZ DO Dec 15, 2020 10:01
--- NOTE | 2020-12-15 10:04 | Discharge Inst-Simple/Standard ---
Discharge Inst-Standard Patient Instructions/Follow Up Plan of Care/Instructions/FU: 2 weeks Hussein Activity as Tolerated: Yes Discharge Diet: Regular Diet Other Inst to Patient high fiber diet SARABJIT ORTIZ DO Dec 15, 2020 10:04
[2020-12-15 10:05] VITALS: BP 125/81
[2020-12-15 10:50] VITALS: BP 93/73
--- NOTE | 2020-12-15 23:11 | OPERATIVE REPORT ---
DATE OF SERVICE: 12/15/2020 PREOPERATIVE DIAGNOSIS: Blood in stool. POSTOPERATIVE DIAGNOSES: Diverticulosis and ascending colon polyps. PROCEDURE: Colonoscopy with hot biopsy polypectomy x3. SURGEON: Sarabjit Savage DO ANESTHESIA: Per [employer] SALES ENGINEER. ESTIMATED BLOOD LOSS: None. COMPLICATIONS: None. INDICATIONS: The patient is a 65-year-old male needing colonoscopy due to blood in stool. He understands risks and benefits and wished to proceed. Consent was signed in the chart. DESCRIPTION OF PROCEDURE: The patient was taken to the endoscopy suite, placed in left lateral recumbent position. Timeout was performed. Digital rectal exam was performed. No palpable polyps, masses or ulcerations. Scope was inserted in the rectum and advanced all the way to cecum with minimal difficulty. Prep ____ quite a bit of particulate, but lots of irrigation and suction used to gain adequate visualization. No polyps, masses or ulcerations within the cecum. In the ascending colon, there were 3 polyps, which hot biopsy polypectomies were performed. Scope was then continuously retracted back. No polyps, masses or ulcerations within the remainder of the ascending, transverse, descending and sigmoid colon. Through the sigmoid colon, a significant amount of diverticulosis is present. Scope was then continued to be retracted back in the rectum. It was also retroflexed noting no other pathology. Scope was returned to its normal position. Also, of note, in the sigmoid colon, area of tattooing around the significant amount of diverticulosis. No other pathology was noted. Scope was then slowly retracted back until completely removed. The patient tolerated procedure well without any complications, taken to recovery room in stable condition. RECOMMENDATIONS: The patient to follow up on pathology. He will need a repeat colonoscopy in 5 years. Any issues before that a return of symptoms prior to 5 years, he should be reevaluated at that time. He is also recommended high-fiber diet for diverticulosis. CC: Bernice Skelton - requested, unable to deliver. Job ID: [id number] DocumentID: [id number] Dictated Date: 12/15/2020 10:06:42 Policeman Date: 12/15/2020 18:28:54 Dictated By: SARABJIT SAVAGE DO
== END 2020-12-15 10:50 | disposition home or self-care (01) ==
LOC: ENDO 07:47
PROVIDERS: ATTEND Surgery
DX: D12.2 Benign neoplasm of ascending colon (principal); K57.30 Diverticulosis of large intestine without perforation or abscess without bleeding; I11.0 Hypertensive heart disease with heart failure; I50.9 Heart failure, unspecified; I48.91 Unspecified atrial fibrillation; F32.A Depression, unspecified; F41.9 Anxiety disorder, unspecified; B20 Human immunodeficiency virus [HIV] disease; E66.01 Morbid (severe) obesity due to excess calories; Z68.43 Body mass index [BMI] 50.0-59.9, adult; C85.90 Non-Hodgkin lymphoma, unspecified, unspecified site; Z80.0 Family history of malignant neoplasm of digestive organs; Z80.42 Family history of malignant neoplasm of prostate; Z79.01 Long term (current) use of anticoagulants; Z79.899 Other long term (current) drug therapy; Z79.82 Long term (current) use of aspirin

== ENCOUNTER 2021-04-23 22:11 | Inpatient (IN) | payer MEDICARE, MEDICAID ==
[~2021-04-23] VITALS: Ht 182.8 cm; Wt 196.9 kg
[~2021-04-23 22:11] MED LIST changes: -CITA40TA11 PO; +CITA40TA13 PO; +POTA-169 PO; -POTA20TA8 PO
--- NOTE | 2021-04-23 22:31 | ED Respiratory ---
General Chief Complaint: Respiratory Problems Stated Complaint: SOB/FEVER Source: patient, EMS Exam Limitations: no limitations History of Present Illness Date Seen by Provider: Apr 23, 2021 Time Seen by Provider: 22:03 Initial Comments Patient from home by EMS with chief complaint of shortness of air and chills starting last night. He says earlier in the week he went out [employer] but otherwise spends most of his time at home. He is up-to-date on vaccinations for COVID and influenza. He had a headache so he took some Tylenol and then shortly before calling EMS he felt like he had a fever 100.1 temperature. He has had a cough and shortness of air worse on exertion. He has a history of heart failure but no coronary disease. He also has atrial fibrillation on blood thinners. He does not note that he has had increased weight gain, swelling around the middle or legs. He is having chronic orthopnea. He does not have COPD or asthma and does not smoke cigarettes. He does not take breathing treatments. He does not feel wheezy. Has a history of HIV known to Dr. Woods, [facility] for primary care and Dr. Sylvester for cardiology. EMS reports that he got up and walked to the cot but was exquisitely short of breath with even that minimal exertion. He states he has not been compliant with his CPAP lately. He does not wear supplemental oxygen at baseline. Echocardiogram from 2018 shows an EF of 55 to 65%. Allergies and Home Medications Allergies Coded Allergies: No Known Drug Allergies (Unverified , 02/07/18) Patient Home Medication List Home Medication List Reviewed: Yes Acetaminophen (Tylenol Extra Strength) 500 Mg Tablet, 1,000 MG PO Q8H PRN for PAIN-MILD (1-4), (Reported) Entered as Reported by: MALENA YUN on 04/26/21 1014 Last Action: Reviewed Allopurinol (Allopurinol) 100 Mg Tablet, 100 MG PO DAILY, (Reported) Entered as Reported by: SAVITA CARBALLO on 03/13/18 1533 Last Action: Reviewed Aspirin (Aspirin EC) 81 Mg Tablet., 81 MG PO HS, (Reported) Entered as Reported by: TERESITA FOX on 04/15/19 0811 Last Action: Reviewed Bictegrav/Emtricit/Tenofov Ala (Biktarvy 50-200-25 mg Tablet) 1 Each Tablet, 1 EACH PO DAILY, (Reported) Entered as Reported by: TERESITA FOX on 04/15/19810 Last Action: Reviewed Bupropion HCl (Bupropion Xl) 300 Mg Tab.er.24h, 300 MG PO HS, (Reported) Entered as Reported by: MIGUEL RICHARDSON on 11/29/14 194 Last Action: Reviewed Carboxymethylcellulose Sodium (Refresh Tears) 15 Ml Drops, 1 DROP OP DAILY PRN for DRY EYES, (Reported) Entered as Reported by: MALENA YUN on 04/26/21 1017 Last Action: Reviewed Cefdinir (Cefdinir) 300 Mg Capsule, 300 MG PO BID Prescribed by: STEPHANIE ROSALES on 04/26/21 1226 Citalopram Hydrobromide (Citalopram HBr) 40 Mg Tablet, 40 MG PO HS, (Reported) Entered as Reported by: DOT ENCISO on 12/01/14 0915 Last Action: Reviewed Diltiazem HCl (Diltiazem ER) 180 Mg Capsule.er, 360 MG PO DAILY, (Reported) Entered as Reported by: STEPHANIE ROSALES on 06/24/20 141 Last Action: Reviewed Diltiazem HCl (Diltiazem 24Hr ER) 120 Mg Cap.er.24h, 120 MG PO DAILY, (Reported) Entered as Reported by: STEPHANIE ROSALES on 06/24/201417 Last Action: Reviewed Furosemide (Furosemide) 80 Mg Tablet, 160 MG PO DAILY, (Reported) Entered as Reported by: TERESITA FOX on 07/28/20904 Last Action: Reviewed Magnesium Oxide (Magnesium) 400 Mg Tablet, 400 MG PO BID, (Reported) Entered as Reported by: TERESITA FOX on 04/15/19810 Last Action: Reviewed Multivit-Min/FA/Lycopene/Lut (Centrum Silver Tablet) 1 Each Tablet, 1 TAB PO DAILY, (Reported) Entered as Reported by: VAHID PEARSON on 03/26/17 1732 Last Action: Reviewed Oxycodone HCl (Oxycodone HCl) 10 Mg Tablet, 10 MG PO Q6H PRN for PAIN-SEVERE (8- 10), (Reported) Entered as Reported by: TERESITA FOX on 07/28/20904 Last Action: Reviewed Potassium Chloride (Klor-Con M20) 20 Meq Tab.er.prt, 40 MEQ PO BID, (Reported) Entered as Reported by: TERESITA FOX on 06/25/20 0834 Last Action: Reviewed Risperidone (Risperidone) 0.5 Mg Tablet, 0.5 MG PO HS, (Reported) Entered as Reported by: DOT ENCISO on 12/01/14 0915 Last Action: Reviewed Spironolactone (Spironolactone) 50 Mg Tablet, 50 MG PO DAILY, (Reported) Entered as Reported by: TERESITA FOX on 07/28/20904 Last Action: Reviewed Warfarin Sodium (Warfarin Sodium) 5 Mg Tablet, 5 MG PO MON,FRI@2100, (Reported) Entered as Reported by: SAVITA CARBALLO on 03/13/18 1533 Last Action: Reviewed Warfarin Sodium (Warfarin Sodium) 5 Mg Tablet, 10 MG PO SUN,TU,WED,THURS,SAT@2100, (Reported) Entered as Reported by: MALENA YUN on 04/26/21 1003 Last Action: Reviewed Discontinued Medications Warfarin Sodium (Warfarin Sodium) 10 Mg Tablet, 10 MG PO DAILY, (Reported) Discontinued Reason: Prescription changed Entered as Reported by: SMITH WHALEN on 04/24/21 0351 Last Action: Edited Review of Systems Review of Systems Constitutional: chills, dizziness, fever, malaise EENTM: No ear discharge, No ear pain Respiratory: cough; No phlegm; short of breath; No wheezing Cardiovascular: No chest pain, No edema, No Hx of Intervention, No palpitations Gastrointestinal: No abdominal pain, No constipation, No diarrhea Genitourinary: No discharge, No dysuria Musculoskeletal: No back pain, No joint pain Skin: No pruritus, No rash Psychiatric/Neurological: Denies Depressed; Headache; Denies Numbness Hematologic/Lymphatic: Denies Anemia, Denies Blood Clots All Other Systems Reviewed Negative Unless Noted: Yes Past Gcydpsh-Ironub-Dqijjb Hx Patient Social History Tobacco Use?: No Use of E-Cig and/or Vaping dev: No Substance use?: No Alcohol Use?: Yes Alcohol type: Hard Liquor Alcohol Frequency: Rarely Immunizations Up To Date Tetanus Booster (TDap): Unknown First/Initial COVID19 Vaccinat: 04/15/20 Second COVID19 Vaccination [place]: 05/11/20 Third COVID19 Vaccination Date: 10/24/20 Seasonal Allergies Seasonal Allergies: No Past Medical History Surgery/Hospitalization HX: AMPUTATION RIGHT 2ND TOE BY DR. MCLAUGHLIN 06/2020 FOR OSTEOMYELITIS COLONOSCOPY / POLYPECTOMY [address] HERRERA MULTIPLE BIOPSIES FOR LYMPHOMA CARDIAC CATH--NO INTERVENTION CARDIAC ABLATION 2010 FOR ATRIAL FIBRILLATION IN [place] Surgeries: Yes (CA REMOVED FROM NECK, SEVERAL BX) Amputation, Cardiac, Orthopedic, Tonsillectomy Respiratory: Yes (PNEUMOCYSTIS PNEUMONIA BY HX) Pneumonia, Sleep Apnea Currently Using CPAP: Yes Currently Using BIPAP: Yes Cardiac: Yes (CHF; CHRONIC RIGHT LEG SWELLING;CARDIAC ABLATION FOR AFIB;CATH-NO INTERVENT) Atrial Fibrillation, Chronic Edema/Swelling, Hypertension Neurological: Yes Neuropathy Reproductive Disorders: No HIV/AIDS: Yes (HIV +/AIDS-HX OF PNEUMOCYSTIS PNEUMONIA) Genitourinary: No Gastrointestinal: Yes Gastrointestinal Bleed, Diverticulosis, Chronic Diarrhea Musculoskeletal: Yes (RIGHT 2ND TOE AMPUTATED FOR OSTEOMYELITIS ) Amputee, Gout Endocrine: Yes (MORBID OBESITY) HEENT: Yes (NOSEBLEEDS-RARELY; POOR DENTITION) Loss of Vision: Denies Hearing Impairment: Denies Cancer: Yes (NON-HODGKIN'S LYMPHOMA) Skin, Lymphoma Did You Recieve Any Treatments: Yes What Type of Treatment Did You: Surgical Intervention Psychosocial: Yes Eating Disorder, Anxiety, Depression Integumentary: Yes (CELLULITIS/OSTEOMYELITIS) Blood Disorders: Yes (HIV DX IN 1994, ) Adverse Reaction/Blood Tranf: No Family Medical History Cardiovascular disease G8 SISTER Colon cancer G8 BROTHER Diabetes mellitus 19 MOTHER G8 SISTER FHx: COPD (chronic obstructive pulmonary disease) 19 FATHER Malignant neoplasm of prostate G8 BROTHER Paternal family history of emphysema No Pertinent Family Hx Physical Exam Vital Signs - First Documented 04/23/21 22:19 Temp 37.9 Pulse 113 Resp 25 B/P (MAP) 130/90 (103) Pulse Ox 95 O2 Delivery Nasal Cannula O2 Flow Rate 2.00 Capillary Refill : Height: 6'0.00" Weight: 404lbs. 0.0oz. 183.584821un; 54.13 BMI Method:Stated General Appearance: no apparent distress, obese (Superobese) Eyes: Bilateral Eye Normal Inspection, Bilateral Eye PERRL, Bilateral Eye EOMI HEENT: PERRL/EOMI, normal ENT inspection, TMs normal, pharynx normal Neck: full range of motion, normal inspection Respiratory: lungs clear, normal breath sounds, respiratory distress (Oxygen saturation of 84 to 85% on room air after transferring from [facility] to [facility]. 96% on 2 L by nasal cannula), decreased breath sounds Cardiovascular: normal peripheral pulses, regular rate, rhythm Gastrointestinal: normal bowel sounds, non tender, soft Extremities: non-tender, normal inspection, normal capillary refill Neurologic/Psychiatric: alert, normal mood/affect, oriented x 3 Skin: normal color, warm/dry Focused Exam Sepsis Stage: Sepsis Possible Source: Pulmonary Lactate Level 04/23/21 22:25: Lactic Acid Level 1.83 Time of Focused Exam: 00:32 Respiratory: Lungs Clear, No Accessory Muscle Use, Decreased Breath Sounds, Other (95% on 2 L by nasal cannula) Cardiovascular: Regular Rate, Rhythm, Normal Peripheral Pulses Capillary Refill: Less Than 3 Seconds Peripheral Pulses: 2+ Radial Pulses (R), 2+ Radial Pulses (L) Skin: normal color, warm/dry Lactic Acid Level Laboratory Tests Test 04/23/21 22:25 Lactic Acid Level 1.83 MMOL/L (0.50-2.00) Within 3hrs of presentation: Admin fluids, Admin ABX, Blood cultures prior to ABX's, Focus exam, Lactate level Progress/Results/Core Measures Suspected Sepsis SIRS Temperature: Pulse: Respiratory Rate: Blood Pressure / Mean: 04/23/21 22:25: Lactic Acid Level 1.83 Laboratory Tests 04/23/21 22:25: INR Comment 2.7H, Total Bilirubin 1.6H Results/Orders Lab Results Laboratory Tests Test 04/23/21 22:25 Range/Units White Blood Count 14.6 H 4.3-11.0 10^3/uL Red Blood Count 4.71 4.30-5.52 10^6/uL Hemoglobin 14.5 13.3-17.7 g/dL Hematocrit 44 40-54 % Mean Corpuscular Volume 94 80-99 fL Mean Corpuscular Hemoglobin 31 25-34 pg Mean Corpuscular Hemoglobin Concent 33 32-36 g/dL Red Cell Distribution Width 14.0 10.0-14.5 % Platelet Count 154 130-400 10^3/uL Mean Platelet Volume 9.6 9.0-12.2 fL Immature Granulocyte % (Auto) 1 % Neutrophils (%) (Auto) 78 H 42-75 % Lymphocytes (%) (Auto) 14 12-44 % Monocytes (%) (Auto) 8 0-12 % Eosinophils (%) (Auto) 0 0-10 % Basophils (%) (Auto) 0 0-10 % Neutrophils # (Auto) 11.4 H 1.8-7.8 10^3/uL Lymphocytes # (Auto) 2.0 1.0-4.0 10^3/uL Monocytes # (Auto) 1.1 H 0.0-1.0 10^3/uL Eosinophils # (Auto) 0.0 0.0-0.3 10^3/uL Basophils # (Auto) 0.0 0.0-0.1 10^3/uL Immature Granulocyte # (Auto) 0.1 0.0-0.1 10^3/uL Neutrophils % (Manual) 77 % Lymphocytes % (Manual) 13 % Monocytes % (Manual) 9 % Band Neutrophils 1 % Blood Morphology Comment NORMAL Prothrombin Time 28.8 H 12.2-14.7 SEC INR Comment 2.7 H 0.8-1.4 Activated Partial Thromboplast Time 52 H 24-35 SEC Sodium Level 133 L 135-145 MMOL/L Potassium Level 4.4 3.6-5.0 MMOL/L Chloride Level 96 L 98-107 MMOL/L Carbon Dioxide Level 26 21-32 MMOL/L Anion Gap 11 5-14 MMOL/L Blood Urea Nitrogen 22 H 7-18 MG/DL Creatinine 1.36 H 0.60-1.30 MG/DL Estimat Glomerular Filtration Rate 57 BUN/Creatinine Ratio 16 Glucose Level 117 H 70-105 MG/DL Lactic Acid Level 1.83 0.50-2.00 MMOL/L Calcium Level 9.6 8.5-10.1 MG/DL Corrected Calcium 9.7 8.5-10.1 MG/DL Magnesium Level 1.8 1.6-2.4 MG/DL Total Bilirubin 1.6 H 0.1-1.0 MG/DL Aspartate Amino Transf (AST/SGOT) 43 H 5-34 U/L Alanine Aminotransferase (ALT/SGPT) 40 0-55 U/L Alkaline Phosphatase 88 40-136 U/L Troponin I < 0.028 <0.028 NG/ML B-Type Natriuretic Peptide 129.2 H <100.0 PG/ML Total Protein 7.8 6.4-8.2 GM/DL Albumin 3.9 3.2-4.5 GM/DL Influenza Type A (RT-PCR) Not Detected Not Detecte Influenza Type B (RT-PCR) Not Detected Not Detecte SARS-CoV-2 RNA (RT-PCR) Not Detected Not Detecte Micro Results Microbiology 04/23/21 Blood Culture - Preliminary, Resulted No growth 04/23/21 Blood Culture - Preliminary, Resulted No growth My Orders Orders - OCTAVIO JAMES Cbc With Automated Diff (04/23/21 22:22) Comprehensive Metabolic Panel (04/23/21 22:22) Blood Culture (04/23/21 22:22) Sputum Culture (04/23/21 22:22) Urinalysis (04/23/21 22:22) Urine Culture (04/23/21 22:22) Protime With Inr (04/23/21 22:22) Partial Thromboplastin Time (04/23/21 22:22) Chest 1 View, Ap/Pa Only (04/23/21 22:22) Ed Iv/Invasive Line Start (04/23/21 22:22) Ed Iv/Invasive Line Start (04/23/21 22:22) Ekg Tracing (04/23/21 22:22) Troponin I [place] (04/23/21 22:22) Vital Signs Adult Sepsis Patie Q15M (04/23/21 22:22) O2 (04/23/21 22:22) Remove Rings In Anticipation O (04/23/21 22:22) Lactic Acid Analyzer (04/23/21 22:22) Influenza A And B By Pcr (04/23/21 22:22) Covid 19 Inhouse Test (04/23/21 22:22) Magnesium (04/23/21 22:22) Bnp [place] (04/23/21 22:22) Manual Differential (04/23/21 22:25) Ed Iv/Invasive Line Start (04/23/21 23:57) Ns Iv 1000 Ml (Sodium Chloride 0.9%) (04/24/21 00:00) Cefepime Injection (Maxipime Injection) (04/24/21 00:00) Vancomycin Injection (Vancomycin Injecti (04/24/21 00:00) Medications Given in ED Vital Signs/I&O 04/23/21 04/23/21 22:19 22:31 Temp 37.9 Pulse 113 Resp 25 B/P (MAP) 130/90 (103) Pulse Ox 95 97 O2 Delivery Nasal Cannula Nasal Cannula O2 Flow Rate 2.00 2.00 Capillary Refill : Progress Note #1: Time: 22:30 Progress Note We will initiate a septic work-up based on his fever and shortness of air and cough for pneumonia versus viral pneumonia. We will hold off on IV fluids and antibiotics until his Covid and influenza swabs are returned. He is not having any wheezing. Chest x-ray and EKG/troponins ordered. Progress Note #2: Time: 00:29 Progress Note We will treat with Rocephin and azithromycin and be very cautious with IV fluids and start with 1 L given his history of heart failure. We will continue his warfarin. CPAP to sleep at night. Urinalysis not collected yet. ECG Initial ECG Impression Date: Apr 23, 2021 Initial ECG Impression Time: 22:32 Initial ECG Rate: 103 Initial ECG Rhythm: S.Tach Initial ECG Intervals: QT (486) Initial ECG Impression: Normal Comment Atrial fibrillation with borderline tachycardia but not rapid ventricular resp onse. No clinically relevant ST changes Diagnostic Imaging Diagonstic Imaging: Xray Plain Films/CT/US/NM/MRI: chest Comments Trace right-sided infiltrate questionable. [facility] [place] NAME: [facility] REC#: [id number] PT STATUS: ADM IN : 1955 PHYSICIAN: OCTAVIO JAMES MD ADMIT DATE: 04/24/21 Signed Date of Exam:04/23/21 CHEST 1 VIEW, AP/PA ONLY HISTORY: Shortness of air and fever COMPARISON: 08/07/2020 TECHNIQUE: Frontal view of the chest FINDINGS: Lung volumes are mildly low. The cardiac silhouette is mildly prominent but stable in size. There does appear to be some central vascular congestion. There is increased airspace opacity in the right upper lung. There is no large effusion or pneumothorax appreciated. IMPRESSION: 1. Airspace opacity in the right upper lobe, concerning for infection. 2. Low lung volumes with mild central vascular congestion. Dictated by: Dictated on workstation # [id number] Dict: 04/24/21 0652 Trans: 04/24/21800 CVB [id number] Interpreted by: MANOLO WARREN MD Electronically signed by: MANOLO WARREN MD 04/24/21800 Reviewed: Reviewed by Me Departure Communication (Admissions) Time/Spoke to Admitting Phy: 00:25 Discussed the case with Dr. Keane who agrees except the patient on the floor with IV antibiotics, oxygen and consult cardiology. Time/Spoke to Consulting Phy: 00:[address] Sylvester, cardiology and he agrees to consult on the case. Impression Primary Impression: Pneumonia Qualified Codes: J18.9 - Pneumonia, unspecified organism Additional Impressions: Sepsis Qualified Codes: A41.9 - Sepsis, unspecified organism; R65.20 - Severe sepsis without septic shock; J96.01 - Acute respiratory failure with hypoxia Acute respiratory failure with hypoxia Disposition: ADMITTED INPATIENT Condition: Stable Admissions Decision to Admit Reason: Admit from ER (General) Decision to Admit/Date: Apr 24, 2021 Time/Decision to Admit Time: 00:20 Departure-Patient Inst. Referrals: [facility] (PCP) Primary Care Physician SAVANNAH RHOADES APRN (Family) Primary Care Physician [place] Cefdinir (Cefdinir) 300 Mg Capsule 300 MG PO BID, #14 CAP 0 Refills Prov: STEPHANIE ROSALES MD 04/26/21 OCTAVIO JAMES Apr 23, 2021 22:31
[2021-04-23 22:40] LABS: BASOPHILS % (AUTO) 0 % (0-10); EOSINOPHILS % (AUTO) 0 % (0-10); HEMATOCRIT 44 % (40-54); HEMOGLOBIN 14.5 g/dL (13.3-17.7); LYMPHOCYTES % (AUTO) 14 % (12-44); MEAN CORPUSCULAR HEMOGLOBIN 31 pg (25-34); MEAN CORPUSCULAR HGB CONC 33 g/dL (32-36); MEAN CORPUSCULAR VOLUME 94 fL (80-99); MEAN PLATELET VOLUME 9.6 fL (9.0-12.2); MONOCYTES # (AUTO) 1.1 10^3/uL (0.0-1.0); MONOCYTES % (AUTO) 8 % (0-12); NEUTROPHILS # (AUTO) 11.4 10^3/uL (1.8-7.8); NEUTROPHILS % (AUTO) 78 % (42-75); PLATELET COUNT 154 10^3/uL (130-400); WHITE BLOOD COUNT 14.6 10^3/uL (4.3-11.0)
[2021-04-23 22:49] LABS: ALBUMIN 3.9 GM/DL (3.2-4.5); CHLORIDE 96 MMOL/L (98-107); POTASSIUM 4.4 MMOL/L (3.6-5.0); SODIUM 133 MMOL/L (135-145)
[2021-04-23 22:51] LABS: CALCIUM 9.6 MG/DL (8.5-10.1)
[2021-04-23 22:52] LABS: GLUCOSE 117 MG/DL (70-105); TOTAL PROTEIN 7.8 GM/DL (6.4-8.2)
[2021-04-23 22:53] LABS: CARBON DIOXIDE 26 MMOL/L (21-32); INR 2.7 (0.8-1.4); PROTHROMBIN TIME PATIENT 28.8 SEC (12.2-14.7)
[2021-04-23 22:54] LABS: BILIRUBIN,TOTAL 1.6 MG/DL (0.1-1.0)
[2021-04-23 22:55] LABS: ALKALINE PHOSPHATASE 88 U/L (40-136); CREATININE SERUM 1.36 MG/DL (0.60-1.30); GFR ESTIMATED 57
[2021-04-23 22:56] LABS: BUN/CREATININE RATIO 16
[2021-04-23 22:58] LABS: ALANINE AMINOTRANSFERASE 40 U/L (0-55); MAGNESIUM 1.8 MG/DL (1.6-2.4)
[2021-04-23 23:34] LABS: BAND NEUTROPHILS 1 %; LYMPHOCYTES % (MANUAL) 13 %; MONOCYTES % (MANUAL) 9 %; NEUTROPHILS % (MANUAL) 77 %; RBC MORPH NORMAL
[2021-04-24] VITALS (7 sets, daily range): BP systolic 92–114; BP diastolic 51–70
[2021-04-24] MEDS ORDERED: NS IV 1000 ML 1,000 ML IV SCH
[2021-04-24] MEDS ORDERED: CEFEPIME INJECTION 1,000 MG in NS (IVPB) 50 ML IV ONE ×2
[2021-04-24] MEDS: VANCOMYCIN INJECTION 1,000 MG in NS (IVPB) 250 ML IV SCH ×2 (00:54→02:21)
[2021-04-24 01:19] LABS: BILIRUBIN,URINE NEGATIVE (NEGATIVE); CLARITY,URINE CLEAR; COLOR,URINE YELLOW; GLUCOSE, URINE (UA) NEGATIVE (NEGATIVE); KETONES,URINE NEGATIVE (NEGATIVE); LEUKOCYTE ESTERASE ,URINE NEGATIVE (NEGATIVE); NITRITE,URINE NEGATIVE (NEGATIVE); PH,URINE 7.5 (5-9); PROTEIN,URINE NEGATIVE (NEGATIVE)
[2021-04-24 01:28] LABS: BACTERIA,URINE TRACE /HPF; WBC,URINE 0-2 /HPF
[2021-04-24] MEDS ORDERED: LACTATED RINGERS 1,000 ML IV ONE (02:26)
[2021-04-24] MEDS: LACTATED RINGERS 1,000 ML IV SCH ×2 (03:39→10:52)
[2021-04-24] MEDS ORDERED: ONDANSETRON 4 MG/2 ML (SDV) Z0FRAN IV PRN (03:45)
[2021-04-24] MEDS ORDERED: LACTATED RINGERS 1,000 ML IV SCH (03:45)
[2021-04-24] MEDS ORDERED: ACETAMINOPHEN 325 MG TABLET PO PRN (03:45)
[2021-04-24] MEDS ORDERED: RT-ALBUTEROL/IPRATROPIUM 3 ML (DUONEB) VIAL INH PRN (03:45)
[2021-04-24] MEDS ORDERED: LORazepam 0.5 MG (ATIVAN) TABLET PO PRN (03:45)
[2021-04-24] MEDS ORDERED: HYDROcodone/APAP 5 MG/325 MG (LORTAB) TAB PO PRN (03:45)
[2021-04-24] MEDS ORDERED: WRF10T PO (03:51)
[2021-04-24] MEDS: cefTRIAXone 1 GM PRE-MIX 50 ML IV SCH (04:11)
[2021-04-24] MEDS: AZITHROMYCIN INJECTION 500 MG in NS (IVPB) 250 ML IV SCH (04:44)
[2021-04-24 05:51] LABS: BASOPHILS % (AUTO) 0 % (0-10)
[2021-04-24 05:52] LABS: EOSINOPHILS % (AUTO) 0 % (0-10); HEMATOCRIT 40 % (40-54); HEMOGLOBIN 13.1 g/dL (13.3-17.7); LYMPHOCYTES # (AUTO) 1.8 10^3/uL (1.0-4.0); LYMPHOCYTES % (AUTO) 17 % (12-44); MEAN CORPUSCULAR HEMOGLOBIN 31 pg (25-34); MEAN CORPUSCULAR HGB CONC 33 g/dL (32-36); MEAN CORPUSCULAR VOLUME 95 fL (80-99); MEAN PLATELET VOLUME 9.8 fL (9.0-12.2); MONOCYTES # (AUTO) 0.8 10^3/uL (0.0-1.0); MONOCYTES % (AUTO) 8 % (0-12); NEUTROPHILS # (AUTO) 7.9 10^3/uL (1.8-7.8); NEUTROPHILS % (AUTO) 74 % (42-75); PLATELET COUNT 130 10^3/uL (130-400); WHITE BLOOD COUNT 10.7 10^3/uL (4.3-11.0)
[2021-04-24 06:03] LABS: POTASSIUM 4.1 MMOL/L (3.6-5.0)
[2021-04-24 06:05] LABS: CALCIUM 8.8 MG/DL (8.5-10.1)
[2021-04-24 06:09] LABS: CREATININE SERUM 1.28 MG/DL (0.60-1.30)
--- NOTE | 2021-04-24 06:54 | Diagnostic Imaging Report ---
HISTORY: Shortness of air and fever COMPARISON: 08/07/2020 TECHNIQUE: Frontal view of the chest FINDINGS: Lung volumes are mildly low. The cardiac silhouette is mildly prominent but stable in size. There does appear to be some central vascular congestion. There is increased airspace opacity in the right upper lung. There is no large effusion or pneumothorax appreciated. IMPRESSION: 1. Airspace opacity in the right upper lobe, concerning for infection. 2. Low lung volumes with mild central vascular congestion. Dictated by: Dictated on workstation # [id number]
--- NOTE | 2021-04-24 07:35 | History & Physical-Hospitalist ---
History of Present Illness HPI/Chief Complaint Chief complaint: Evaluate shortness of breath History of present illness: This is a 65-year-old white male known to me from prior admission most recent was July 2020 who presented to the ER with shortness of breath and cough was found to be Covid negative but right upper lobe pneumonia meeting criteria for IV antibiotics. Currently he is doing well and his partner is in the room with him. We will discontinue telemetry. We will Hep-Lock his IV fluid. Consultation will be provided by Dr. Sylvester. Source: patient Exam Limitations: no limitations Date Seen 04/24/21 Time Seen by a Provider: 10:30 Attending Physician Suha Keane DO [facility] Referring Physician Date of Admission Apr 24, 2021 at 00:35 Home Medications & Allergies Home Medications Reviewed patient Home Medication Reconciliation performed by pharmacy medication reconciliations industrial maintenance technician and/or nursing. Patients Allergies have been reviewed. Allergies Allergies Coded Allergies No Known Drug Allergies (Cpormsnais67/12/18) Past Hookddk-Jpbtml-Slqtng Hx Patient Social History Marrital Status: cohabiting Employed/Student: retired Tobacco Use?: No Smoking Status: Never a Smoker Smokeless Tobacco Frequency: Never a User Use of E-Cig and/or Vaping dev: No Substance use?: No Alcohol Use?: No Alcohol type: Hard Liquor Alcohol Frequency: Rarely Pt feels they are or have been: No Immunizations Up To Date Date of Influenza Vaccine: Nov 27, 2020 First/Initial COVID19 Vaccinat: 03/2020 Second COVID19 Vaccination [place]: 04/2020 Tetanus Booster (TDap): Unknown Hepatitis A: No Hepatitis B: No Date of Pneumonia Vaccine: Apr 17, 2013 Seasonal Allergies Seasonal Allergies: No Current Status Advance Directives: Unable to obtain Communicates: Verbally Primary Language: Bahraini Preferred Spoken Language: Bahraini Is interpretation needed?: No Sensory deficits: Vision impairment Implanted or Applied Medical D: None Past Medical History Surgeries: Amputation, Cardiac, Orthopedic, Tonsillectomy Pneumonia, Sleep Apnea Currently Using CPAP: Yes Currently Using BIPAP: Yes Atrial Fibrillation, Chronic Edema/Swelling, Hypertension Neuropathy HIV/AIDS: Yes (HIV +/AIDS-HX OF PNEUMOCYSTIS PNEUMONIA) Gastrointestinal Bleed, Diverticulosis, Chronic Diarrhea Amputee, Gout Loss of Vision: Denies Hearing Impairment: Denies Skin, Lymphoma Did You Recieve Any Treatments: Yes What Type of Treatment Did You: Surgical Intervention Eating Disorder, Anxiety, Depression Blood Disorders: Yes (HIV DX IN 1994, ) Adverse Reaction/Blood Tranf: No PMHx: HIV Non-Hodgkin's lymphoma (1994, remission) Depression Congestive heart failure Atrial fibrillation Sleep apnea on CPAP SurgHx: Tonsillectomy Right neck mass removal 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 Family Medical History Cardiovascular disease G8 SISTER Colon cancer G8 BROTHER Diabetes mellitus 19 MOTHER G8 SISTER FHx: COPD (chronic obstructive pulmonary disease) 19 FATHER Malignant neoplasm of prostate G8 BROTHER Paternal family history of emphysema No Pertinent Family Hx Review of Systems Constitutional: see HPI, malaise, weakness EENTM: no symptoms reported Respiratory: dyspnea on exertion, short of breath, wheezing Cardiovascular: no symptoms reported Gastrointestinal: no symptoms reported Genitourinary: no symptoms reported Musculoskeletal: no symptoms reported Skin: no symptoms reported Psychiatric/Neurological: No Symptoms Reported All Other Systems Reviewed Negative Unless Noted: Yes Physical Exam Physical Exam Vital Signs Vital Signs - First Documented 04/23/21 22:19 Temp 37.9 Pulse 113 Resp 25 B/P (MAP) 130/90 (103) Pulse Ox 95 O2 Delivery Nasal Cannula O2 Flow Rate 2.00 Capillary Refill : Less Than 3 Seconds Height, Weight, BMI Height: 6'0.00" Weight: 404lbs. 0.0oz. 183.649645hz; 58.92 BMI Method:Stated General Appearance: No Apparent Distress, Chronically ill, Obese Eyes: Right Eye Normal Inspection, Right Eye PERRL HEENT: PERRL/EOMI, Normal ENT Inspection, Pharynx Normal, Moist Mucous Membranes Neck: Full Range of Motion, Normal Inspection, Non Tender Respiratory: Chest Non Tender, Lungs Clear, Normal Breath Sounds, No Accessory Muscle Use, No Respiratory Distress Cardiovascular: No Gallop, No JVD, No Murmur, Normal Peripheral Pulses, Irregularly Irregular Gastrointestinal: Normal Bowel Sounds, No Organomegaly, No Pulsatile Mass, Non Tender, Soft Back: Normal Inspection, No CVA Tenderness, No Vertebral Tenderness Extremity: Normal Capillary Refill, Normal Inspection, Normal Range of Motion, Non Tender, No Calf Tenderness, Pedal Edema Neurologic/Psychiatric: Alert, Oriented x3, No Motor/Sensory Deficits, Normal Mood/Affect Skin: Normal Color, Warm/Dry Lymphatic: No Adenopathy Results Results/Procedures Labs Laboratory Tests 04/23/21 22:25 04/24/21 05:32 04/25/21 05:55 Patient resulted labs reviewed. Assessment/Plan Admission Diagnosis Assessment: Pneumonia Hypoxia Acute respiratory insufficiency Morbid obesity Atrial fibrillation Warfarin for anticoagulation Hypertension Diabetes Super morbid obesity History of toe imitation Plan: Antibiotics Oxygen Nebs Home meds Admission Status: Inpatient Order (span 2 midnights) Reason for Inpatient Admission: Pneumonia with hypoxia Diagnosis/Problems Diagnosis/Problems (1) Pneumonia Status: Acute Qualifiers: Pneumonia type: due to unspecified organism Laterality: right Lung location: middle lobe of lung Qualified Codes: J18.9 - Pneumonia, unspecified organism (2) Acute respiratory failure with hypoxia Status: Acute (3) Nocturnal hypoxia Status: Chronic (4) Sleep apnea, obstructive Status: Chronic (5) Obesity hypoventilation syndrome Status: Chronic (6) Congestive heart failure Status: Chronic (7) Atrial fibrillation Status: Chronic (8) Human immunodeficiency virus Status: Chronic SUHA KENAE DO Apr 24, 2021 07:35
[2021-04-24] MEDS: RT-ALBUTEROL/IPRATROPIUM 3 ML (DUONEB) VIAL INH SCH ×3 (10:19→22:30)
--- NOTE | 2021-04-24 17:01 | Consultation-Cardiology ---
HPI-Cardiology Cardiology Consultation: Date of Consultation 04/24/21 Time Seen by a Provider: 16:40 Date of Admission Attending Physician Suha Keane DO Admitting Physician [facility], [facility] Consulting Physician REKHA BLEVINS MD, MA, FACP, FACC, [facility] HPI: Chief Complaint: Shortness of breath 65 yo man admitted with increasing exertional shortness of breath and gen malaise and intermittent fever. Denies cp or palp or syncope. Chronic leg swelling remains at its usual baseline. Review of Systems-Cardiology Review of Systems Constitutional: fever, malaise; No weight loss, No weight gain Eyes: No vision change Ears/Nose/Throat: No ear discharge, No nasal drainage, No recent hearing loss Respiratory: As described under HPI Cardiovascular: As described under HPI Gastrointestinal: No diarrhea, No nausea, No vomiting Musculoskeletal: back pain (chronic) Skin: No rash on exposed areas, No ulcerations on exposed areas Psychiatric/Neurological: No focal weakness, No syncope Hematologic: No bleeding abnormalities [id number]-Awhtai Hx Past Medical History PMH As described under Assessment. Family Medical History Family History: Cardiovascular disease G8 SISTER Colon cancer G8 BROTHER Diabetes mellitus 19 MOTHER G8 SISTER FHx: COPD (chronic obstructive pulmonary disease) 19 FATHER Malignant neoplasm of prostate G8 BROTHER Paternal family history of emphysema Allergies and Home Medications Allergies Coded Allergies: No Known Drug Allergies (Unverified , 02/07/18) Patient Home Medication List Home Medication List Reviewed: Yes Allopurinol (Allopurinol) 100 Mg Tablet, 100 MG PO DAILY, (Reported) Entered as Reported by: SAVITA CARBALLO on 03/13/18 7343 Last Action: Reviewed Aspirin (Aspirin EC) 81 Mg Tablet.dr, 81 MG PO HS, (Reported) Entered as Reported by: TERESITA FOX on 04/15/19810 Last Action: Reviewed Bictegrav/Emtricit/Tenofov Ala (Biktarvy 50-200-25 mg Tablet) 1 Each Tablet, 1 EACH PO DAILY, (Reported) Entered as Reported by: TERESITA FOX on 04/15/19810 Last Action: Reviewed Bupropion HCl (Bupropion Xl) 300 Mg Tab.er.24h, 300 MG PO HS, (Reported) Entered as Reported by: MIGUEL RICHARDSON on 10/3/15 1949 Last Action: Reviewed Citalopram Hydrobromide (Citalopram HBr) 40 Mg Tablet, 40 MG PO HS, (Reported) Entered as Reported by: DOT ENCISO on 12/01/14914 Last Action: Reviewed Diltiazem HCl (Diltiazem ER) 180 Mg Capsule.er, 360 MG PO DAILY, (Reported) Entered as Reported by: STEPHANIE ROSALES on 06/24/201417 Last Action: Reviewed Diltiazem HCl (Diltiazem 24Hr ER) 120 Mg Cap.er.24h, 120 MG PO DAILY, (Reported) Entered as Reported by: STEPHANIE ROSALES on 06/24/201417 Last Action: Reviewed Furosemide (Furosemide) 80 Mg Tablet, 160 MG PO DAILY, (Reported) Entered as Reported by: TERESITA FOX on 07/28/20904 Last Action: Reviewed Magnesium Oxide (Magnesium) 400 Mg Tablet, 400 MG PO BID, (Reported) Entered as Reported by: TERESITA FXO on 04/15/19 0811 Last Action: Reviewed Multivit-Min/FA/Lycopene/Lut (Centrum Silver Tablet) 1 Each Tablet, 1 TAB PO DAILY, (Reported) Entered as Reported by: VAHID PEARSON on 03/26/17 1732 Last Action: Reviewed Oxycodone HCl (Oxycodone HCl) 10 Mg Tablet, 10 MG PO Q6H PRN for PAIN-SEVERE (8- 10), (Reported) Entered as Reported by: TERESITA FOX on 07/28/20904 Last Action: Reviewed Potassium Chloride (Klor-Con M20) 20 Meq Tab.er.prt, 40 MEQ PO BID, (Reported) Entered as Reported by: TERESITA FOX on 06/25/20 0834 Last Action: Reviewed Risperidone (Risperidone) 0.5 Mg Tablet, 0.5 MG PO HS, (Reported) Entered as Reported by: DOT ENCISO on 12/01/14914 Last Action: Reviewed Spironolactone (Spironolactone) 50 Mg Tablet, 50 MG PO DAILY, (Reported) Entered as Reported by: TERESITA FOX on 07/28/20904 Last Action: Reviewed Warfarin Sodium (Warfarin Sodium) 5 Mg Tablet, 5 MG PO DAILY, (Reported) Entered as Reported by: SAVITA CARBALLO on 03/13/18 1533 Last Action: Edited Warfarin Sodium (Warfarin Sodium) 10 Mg Tablet, 10 MG PO DAILY, (Reported) Entered as Reported by: SMITH WHALEN on 04/24/21 3677 Last Action: Edited Physical Exam-Cardiology Physical Exam Vital Signs/I&O 04/24/21 04/24/21 04/24/21 04/24/21 07:00 07:27 08:00 10:19 Temp 36.4 Pulse 84 88 Resp 22 B/P (MAP) 114/70 (85) Pulse Ox 93 95 93 O2 Delivery Nasal Cannula Nasal Cannula Nasal Cannula O2 Flow Rate 3.00 3.00 3.00 04/24/21 04/24/21 04/24/21 11:25 15:12 15:30 Temp 36.4 36.7 Pulse 96 82 Resp 24 20 B/P (MAP) 92/58 (69) 93/58 (70) Pulse Ox 96 95 96 O2 Delivery Nasal Cannula Nasal Cannula Nasal Cannula O2 Flow Rate 3.00 3.00 3.00 Capillary Refill : Less Than 3 Seconds Constitutional: AAO x 3, well-developed, well-nourished HEENT: PERRL; No xanthelasmas are seen Neck: carotid pulses are 2 + bilaterally Respiratory: No accessory muscle use; other Cardiovascular: irregularly irregular, S1 and S2, systolic murmur (soft SOO at card base) Gastrointestinal: No tender; soft; No guarding, No rebound; audible bowel sounds Extremities: No clubbing, No cyanosis; significant edema Neurologic/Psychiatric: oriented x 3, other (moves all limbs equally) Skin: No rash on exposed areas, No ulcerations on exposed areas Data Review Labs Laboratory Tests 04/23/21 22:25: White Blood Count 14.6H, Red Blood Count 4.71, Hemoglobin 14.5, Hematocrit 44, Mean Corpuscular Volume 94, Mean Corpuscular Hemoglobin 31, Mean Corpuscular Hemoglobin Concent 33, Red Cell Distribution Width 14.0, Platelet Count 154, Mean Platelet Volume 9.6, Immature Granulocyte % (Auto) 1, Neutrophils (%) (Auto) 78H, Lymphocytes (%) (Auto) 14, Monocytes (%) (Auto) 8, Eosinophils (%) (Auto) 0, Basophils (%) (Auto) 0, Neutrophils # (Auto) 11.4H, Lymphocytes # (Auto) 2.0, Monocytes # (Auto) 1.1H, Eosinophils # (Auto) 0.0, Basophils # (Auto) 0.0, Immature Granulocyte # (Auto) 0.1, Neutrophils % (Manual) 77, Lymphocytes % (Manual) 13, Monocytes % (Manual) 9, Band Neutrophils 1, Blood Morphology Comment NORMAL, Prothrombin Time 28.8H, INR Comment 2.7H, Activated Partial Thromboplast Time 52H, Sodium Level 133L, Potassium Level 4.4, Chloride Level 96L, Carbon Dioxide Level 26, Anion Gap 11, Blood Urea Nitrogen 22H, Creatinine 1.36H, Estimat Glomerular Filtration Rate 57, BUN/Creatinine Ratio 16, Glucose Level 117H, Lactic Acid Level 1.83, Calcium Level 9.6, Corrected Calcium 9.7, Magnesium Level 1.8, Total Bilirubin 1.6H, Aspartate Amino Transf (AST/SGOT) 43H, Alanine Aminotransferase (ALT/SGPT) 40, Alkaline Phosphatase 88, Troponin I < 0.028, B-Type Natriuretic Peptide 129.2H, Total Protein 7.8, Albumin 3.9, Influenza Type A (RT-PCR) Not Detected, Influenza Type B (RT-PCR) Not Detected, SARS-CoV-2 RNA (RT-PCR) Not Detected 04/24/21 01:12: Urine Color YELLOW, Urine Clarity CLEAR, Urine pH 7.5, Urine Specific Deep Gap 1.020, Urine Protein NEGATIVE, Urine Glucose (UA) NEGATIVE, Urine Ketones NEGATIVE, Urine Nitrite NEGATIVE, Urine Bilirubin NEGATIVE, Urine Urobilinogen 0.2, Urine Leukocyte Esterase NEGATIVE, Urine RBC (Auto) NEGATIVE, Urine RBC NONE, Urine WBC 0-2, Urine Crystals NONE, Urine Bacteria TRACE, Urine Casts NONE, Urine Mucus NEGATIVE, Urine Culture Indicated CULTURE PENDING 04/24/21 05:32: White Blood Count 10.7, Red Blood Count 4.22L, Hemoglobin 13.1L, Hematocrit 40, Mean Corpuscular Volume 95, Mean Corpuscular Hemoglobin 31, Mean Corpuscular Hemoglobin Concent 33, Red Cell Distribution Width 14.2, Platelet Count 130, Mean Platelet Volume 9.8, Immature Granulocyte % (Auto) 1, Neutrophils (%) (Auto) 74, Lymphocytes (%) (Auto) 17, Monocytes (%) (Auto) 8, Eosinophils (%) (Auto) 0, Basophils (%) (Auto) 0, Neutrophils # (Auto) 7.9H, Lymphocytes # (Auto) 1.8, Monocytes # (Auto) 0.8, Eosinophils # (Auto) 0.0, Basophils # (Auto) 0.0, Immature Granulocyte # (Auto) 0.1, Sodium Level 134L, Potassium Level 4.1, Chloride Level 100, Carbon Dioxide Level 24, Anion Gap 10, Blood Urea Nitrogen 22H, Creatinine 1.28, Estimat Glomerular Filtration Rate 62, BUN/Creatinine Ratio 17, Glucose Level 148H, Calcium Level 8.8, Percent Immature Platelet Fraction 2.1 Microbiology 04/23/21 Blood Culture - Preliminary, Resulted No growth Laboratory Tests 04/23/21 22:25 04/24/21 05:32 A/P-Cardiology Assessment/Admission Diagnosis Right upper lobe pnuemonia - managed by Dr Keane Chronic diastolic CHF - clinically compensated - Echocardiogram of Feb [address] Obrien showed wall thickness is mildly to mod increased. Concentric hypertrophy. LVEF 55-65%. LA and RA dilated. Mild MR. Mild to mod TR Orthopedic - Osteomyelitis of R 2nd toe, s/p amputation on 06/25/20 Chronic joint and back pain PORTER with segmentals from 11-04-20 showed no evidence of signif obstructive PAD Bilat leg swelling - related to venous insuff and ac on chronic diastolic CHF - controlled Chronic atrial fibrillation - OAC with warfarin H/o intermittent hypokalemia due to chronic diuretic therapy Morbid obesity - BMI approx 55 HIV positive status - managed by Dr Woods in [place], [place] H/o depression - managed by PCP Obstructive sleep apnea syndrome - treated with CPAP Carotid dz - Minimal carotid arterial plaque on carotid u/s of April 2019 Discussion and Recomendations Complex management due to multiple comorbidities (see above) Long-acting dilt for vent rate control Furosemide and spironolactone for CHF Warfarin for stroke prophylaxis Monitor labs closely, especially daily INR Correct any electrolyte abnormalities I spoke with him and answered his CV-related questions in detail REKHA BLEVINS MD FACP FAC CCDS Apr 24, 2021 17:01
[2021-04-24] MEDS ORDERED: warFARin 5 MG (COUMADIN) TAB PO SCH (18:00)
[2021-04-25] VITALS (7 sets, daily range): BP systolic 100–130; BP diastolic 56–72
[2021-04-25] MEDS: RT-ALBUTEROL/IPRATROPIUM 3 ML (DUONEB) VIAL INH SCH ×4 (02:51→23:11)
[2021-04-25] MEDS: cefTRIAXone 1 GM PRE-MIX 50 ML IV SCH (03:14)
[2021-04-25] MEDS: AZITHROMYCIN INJECTION 500 MG in NS (IVPB) 250 ML IV SCH (03:51)
[2021-04-25 06:43] LABS: BASOPHILS % (AUTO) 0 % (0-10); HEMATOCRIT 41 % (40-54); HEMOGLOBIN 13.1 g/dL (13.3-17.7); MEAN CORPUSCULAR HGB CONC 32 g/dL (32-36); PLATELET COUNT 138 10^3/uL (130-400)
[2021-04-25 06:45] LABS: EOSINOPHILS # (AUTO) 0.1 10^3/uL (0.0-0.3); EOSINOPHILS % (AUTO) 1 % (0-10); LYMPHOCYTES # (AUTO) 2.1 10^3/uL (1.0-4.0); LYMPHOCYTES % (AUTO) 23 % (12-44); MEAN CORPUSCULAR HEMOGLOBIN 30 pg (25-34); MEAN CORPUSCULAR VOLUME 95 fL (80-99); MONOCYTES % (AUTO) 11 % (0-12); NEUTROPHILS # (AUTO) 5.7 10^3/uL (1.8-7.8); NEUTROPHILS % (AUTO) 63 % (42-75); WHITE BLOOD COUNT 9.1 10^3/uL (4.3-11.0)
[2021-04-25 06:55] LABS: INR 2.3 (0.8-1.4); PROTHROMBIN TIME PATIENT 25.9 SEC (12.2-14.7)
[2021-04-25 06:57] LABS: ALBUMIN 3.5 GM/DL (3.2-4.5); POTASSIUM 4.2 MMOL/L (3.6-5.0)
[2021-04-25 07:00] LABS: TOTAL PROTEIN 7.2 GM/DL (6.4-8.2)
[2021-04-25] MEDS ORDERED: NON-FORMULARY MEDICATION 1 EA EA (Oxycodone HCl 10 MG) PO PRN (07:00)
[2021-04-25 07:01] LABS: BILIRUBIN,TOTAL 0.6 MG/DL (0.1-1.0)
[2021-04-25 07:03] LABS: CREATININE SERUM 1.1 MG/DL (0.60-1.30)
--- NOTE | 2021-04-25 08:30 | Progress Note - Hospitalist ---
Subjective HPI/CC On Admission Date Seen by Provider: Apr 25, 2021 Time Seen by Provider: 12:15 Chief complaint: Evaluate shortness of breath History of present illness: This is a 65-year-old white male known to me from pr ior admission most recent was July 2020 who presented to the ER with shortness of breath and cough was found to be Covid negative but right upper lobe pneumonia meeting criteria for IV antibiotics. Currently he is doing well and his partner is in the room with him. We will discontinue telemetry. We will Hep-Lock his IV fluid. Consultation will be provided by Dr. Sylvester. Subjective/Events-last exam Patient doing a lot better Still a bit short of breath Likely will need oxygen when he goes home Check meds INR reviewed Appreciate Dr. Sylvester Review of Systems Pulmonary: Dyspnea Focused Exam Lactate Level 04/23/21 22:25: Lactic Acid Level 1.83 Time of Focused Exam: 00:32 Objective Exam Vital Signs Vital Signs Date Time Temp Pulse Resp B/P (MAP) Pulse Ox O2 Delivery O2 Flow Rate FiO2 04/25/21 23:10 35.8 92 20 110/72 (85) 92 Room Air 04/25/21 15:22 0.00 0 Capillary Refill : Less Than 3 Seconds General Appearance: No Apparent Distress, WD/WN, Chronically ill, Obese Respiratory: No Accessory Muscle Use, No Respiratory Distress, Decreased Breath Sounds Cardiovascular: Regular Rate, Rhythm Neurologic/Psychiatric: Alert, Oriented x3, No Motor/Sensory Deficits, Normal Mood/Affect Results/Procedures Lab Laboratory Tests 04/25/21 05:55 Patient resulted labs reviewed. Assessment/Plan Assessment and Plan Assess & Plan/Chief Complaint Assessment: Pneumonia Hypoxia Acute respiratory insufficiency Morbid obesity Atrial fibrillation Warfarin for anticoagulation Hypertension Diabetes Super morbid obesity History of toe imitation Plan: Antibiotics Oxygen Nebs Home meds 04/25/2021: Wean oxygen IV antibiotics Diagnosis/Problems Diagnosis/Problems (1) Pneumonia Status: Acute Qualifiers: Pneumonia type: due to unspecified organism Laterality: right Lung location: middle lobe of lung Qualified Codes: J18.9 - Pneumonia, unspecified organism (2) Acute respiratory failure with hypoxia Status: Acute (3) Nocturnal hypoxia Status: Chronic (4) Sleep apnea, obstructive Status: Chronic (5) Obesity hypoventilation syndrome Status: Chronic (6) Congestive heart failure Status: Chronic (7) Atrial fibrillation Status: Chronic (8) Human immunodeficiency virus Status: Chronic PAULA GOLDSMITH DO Apr 25, 2021 08:30
[2021-04-25] MEDS ORDERED: NON-FORMULARY MEDICATION 1 EA EA (Bictegrav/Emtricit/Tenofov Ala (Biktarvy 50-200-25 mg Ta PO SCH (09:00)
[2021-04-25] MEDS ORDERED: NON-FORMULARY MEDICATION 1 EA EA (Multivit-Min/FA/Lycopene/Lut (Centrum Silver Tablet) 1 T PO SCH (09:00)
[2021-04-25] MEDS ORDERED: NON-FORMULARY MEDICATION 1 EA EA (Spironolactone 50 MG) PO SCH (09:00)
[2021-04-25] MEDS ORDERED: FUROSEMIDE 160 MG PO SCH (09:00)
[2021-04-25] MEDS ORDERED: NON-FORMULARY MEDICATION 1 EA EA (Diltiazem HCl (Diltiazem ER) 360 MG) PO SCH (09:00)
[2021-04-25] MEDS ORDERED: NON-FORMULARY MEDICATION 1 EA EA (Magnesium Oxide (Magnesium) 400 MG) PO SCH (09:00)
[2021-04-25] MEDS ORDERED: SPIRONOLACTONE 25 MG (ALDACTONE) TAB PO SCH (09:00)
[2021-04-25] MEDS ORDERED: dilTIAZem120 MG (CARDIZEM CD) CAP PO SCH ×2 (09:00)
[2021-04-25] MEDS: ALLOPURINOL 100 MG (ZYLOPRIM) TAB PO SCH (09:17)
[2021-04-25] MEDS: FUROSEMIDE 40 MG (LASIX) TAB PO SCH (09:17)
[2021-04-25] MEDS: buPROPion SR 150 MG (WELLBUTRIN SR) TAB PO SCH ×2 (09:17→19:46)
[2021-04-25] MEDS: MAGNESIUM OXIDE (MAG-OX)400 MG TAB PO SCH ×2 (09:17→19:46)
[2021-04-25] MEDS: KCL 20 MEQ TAB (K-DUR) PO SCH ×2 (09:17→17:10)
[2021-04-25] MEDS: SPIRONOLACTONE 25 MG (ALDACTONE) TAB PO SCH (09:17)
--- NOTE | 2021-04-25 16:03 | Progress Note - Cardiology ---
Cardiology SOAP Progress Note Subjective: No cp or palp or syncope Short of breath with activity Swelling at usual baseline No n/v/d Gen malaise present Objective: I&O/Vital Signs 04/25/21 04/25/21 04/25/21 04/25/21 08:00 08:11 10:32 10:42 Temp 35.6 Pulse 98 Resp 20 B/P (MAP) 107/66 (80) Pulse Ox 95 95 96 O2 Delivery Nasal Cannula Nasal Cannula Nasal Cannula Nasal Cannula O2 Flow Rate 3.00 3.00 3.00 1.00 04/25/21 04/25/21 04/25/21 04/25/21 11:56 15:16 15:22 15:32 Temp 36.4 37.2 Pulse 98 87 Resp 22 20 B/P (MAP) 130/67 (88) 114/56 (75) Pulse Ox 92 92 92 O2 Delivery Nasal Cannula Room Air Room Air O2 Flow Rate 1.00 0.00 0.00 FiO2 0 04/25/21 00:00 Intake Total 1780 ml Output Total 1350 ml Balance 430 ml Weight (Pounds): 404 Weight (Ounces): 0.0 Weight (Calculated Kilograms): [phone] Constitutional: AAO x 3, well-developed, well-nourished Respiratory: No accessory muscle use; other Cardiovascular: irregularly irregular, S1 and S2, systolic murmur (soft SOO at card base) Gastrointestional: No tender; soft; No guarding, No rebound; audible bowel sounds Extremities: No clubbing, No cyanosis; significant edema Neurologic/Psychiatric: oriented x 3, other (moves all limbs equally) Skin: No rash on exposed areas, No ulcerations on exposed areas Results/Procedures: Labs Laboratory Tests 04/25/21 05:55: White Blood Count 9.1, Red Blood Count 4.31, Hemoglobin 13.1L, Hematocrit 41, Mean Corpuscular Volume 95, Mean Corpuscular Hemoglobin 30, Mean Corpuscular Hemoglobin Concent 32, Red Cell Distribution Width 14.1, Platelet Count 138, Mean Platelet Volume 10.0, Immature Granulocyte % (Auto) 1, Neutrophils (%) (Auto) 63, Lymphocytes (%) (Auto) 23, Monocytes (%) (Auto) 11, Eosinophils (%) (Auto) 1, Basophils (%) (Auto) 0, Neutrophils # (Auto) 5.7, Lymphocytes # (Auto) 2.1, Monocytes # (Auto) 1.0, Eosinophils # (Auto) 0.1, Basophils # (Auto) 0.0, Immature Granulocyte # (Auto) 0.1, Percent Immature Platelet Fraction 2.9, Prothrombin Time 25.9H, INR Comment 2.3H, Sodium Level 136, Potassium Level 4.2, Chloride Level 99, Carbon Dioxide Level 28, Anion Gap 9, Blood Urea Nitrogen 22H , Creatinine 1.10, Estimat Glomerular Filtration Rate 74, BUN/Creatinine Ratio 20, Glucose Level 110H, Calcium Level 9.0, Corrected Calcium 9.4, Total Bilirubin 0.6, Aspartate Amino Transf (AST/SGOT) 28, Alanine Aminotransferase (ALT/SGPT) 27, Alkaline Phosphatase 92, Total Protein 7.2, Albumin 3.5 Microbiology 04/24/21 Urine Culture - Final, Complete Gram Pos Mixed Bacterial Pauline 04/23/21 Blood Culture - Preliminary, Resulted No growth Laboratory Tests 04/23/21 22:25 04/24/21 05:32 04/25/21 05:55 A/P: Assessment: Right upper lobe pnuemonia - managed by Dr Keane Chronic diastolic CHF - clinically compensated - Echocardiogram of Feb [address] Obrien showed wall thickness is mildly to mod increased. Concentric hypertrophy. LVEF 55-65%. LA and RA dilated. Mild MR. Mild to mod TR Orthopedic - Osteomyelitis of R 2nd toe, s/p amputation on 06/25/20 Chronic joint and back pain PORTER with segmentals from 9-10-17 showed no evidence of signif obstructive PAD Bilat leg swelling - related to venous insuff and ac on chronic diastolic CHF - controlled Chronic atrial fibrillation - OAC with warfarin H/o intermittent hypokalemia due to chronic diuretic therapy Morbid obesity - BMI approx 55 HIV positive status - managed by Dr Woods in [place], [place] H/o depression - managed by PCP Obstructive sleep apnea syndrome - treated with CPAP Carotid dz - Minimal carotid arterial plaque on carotid u/s of April 2019 Plan: Complex management due to multiple comorbidities (see above) Long-acting dilt for vent rate control. BP better now. Increase dose of dilt with the intention of getting back to his usual dose Furosemide and spironolactone for CHF Warfarin for stroke prophylaxis Monitor labs closely, especially daily INR Correct any electrolyte abnormalities I spoke with him in detail today and answered his CV-related questions REKHA BLEVINS MD FACP FAC CCDS Apr 25, 2021 16:03
[2021-04-25] MEDS ORDERED: warFARin 3 MG (COUMADIN) TAB PO SCH (18:00)
[2021-04-25] MEDS ORDERED: warFARin 5 MG (COUMADIN) TAB PO SCH (18:00)
[2021-04-25] MEDS ORDERED: risperiDONE 0.5 MG (RisperDAL) TABLET PO SCH (21:00)
[2021-04-25] MEDS ORDERED: NON-FORMULARY MEDICATION 1 EA EA (Citalopram Hydrobromide (Citalopram HBr) 40 MG) PO SCH (21:00)
[2021-04-25] MEDS ORDERED: ASPIRIN E.C. 81 MG (ECOTRIN) TAB PO SCH (21:00)
[2021-04-25] MEDS ORDERED: NON-FORMULARY MEDICATION 1 EA EA (Bupropion HCl (Bupropion Xl) 300 MG) PO SCH (21:00)
[2021-04-26] MEDS: cefTRIAXone 1 GM PRE-MIX 50 ML IV SCH (03:02)
[2021-04-26] MEDS: AZITHROMYCIN INJECTION 500 MG in NS (IVPB) 250 ML IV SCH (03:35)
[2021-04-26 06:04] LABS: BASOPHILS % (AUTO) 0 % (0-10); EOSINOPHILS # (AUTO) 0.2 10^3/uL (0.0-0.3); EOSINOPHILS % (AUTO) 2 % (0-10); HEMATOCRIT 41 % (40-54); HEMOGLOBIN 13.2 g/dL (13.3-17.7); LYMPHOCYTES # (AUTO) 2.5 10^3/uL (1.0-4.0); LYMPHOCYTES % (AUTO) 29 % (12-44); MEAN CORPUSCULAR HEMOGLOBIN 30 pg (25-34); MEAN CORPUSCULAR HGB CONC 32 g/dL (32-36); MEAN CORPUSCULAR VOLUME 95 fL (80-99); MEAN PLATELET VOLUME 9.9 fL (9.0-12.2); MONOCYTES # (AUTO) 0.8 10^3/uL (0.0-1.0); MONOCYTES % (AUTO) 10 % (0-12); NEUTROPHILS # (AUTO) 4.7 10^3/uL (1.8-7.8); NEUTROPHILS % (AUTO) 57 % (42-75); PLATELET COUNT 161 10^3/uL (130-400); WHITE BLOOD COUNT 8.3 10^3/uL (4.3-11.0)
[2021-04-26 06:18] LABS: PROTHROMBIN TIME PATIENT 23.1 SEC (12.2-14.7)
[2021-04-26 06:20] LABS: ALBUMIN 3.5 GM/DL (3.2-4.5)
[2021-04-26 06:21] LABS: POTASSIUM 4.8 MMOL/L (3.6-5.0)
[2021-04-26 06:22] LABS: CALCIUM 9.4 MG/DL (8.5-10.1)
[2021-04-26 06:23] LABS: TOTAL PROTEIN 7.2 GM/DL (6.4-8.2)
[2021-04-26 06:25] LABS: BILIRUBIN,TOTAL 0.5 MG/DL (0.1-1.0)
[2021-04-26 06:27] LABS: CREATININE SERUM 1.34 MG/DL (0.60-1.30)
[2021-04-26] MEDS ORDERED: MULTIVIT W/MINERALS TAB (THERAGRAN M) PO SCH (08:00)
[2021-04-26 08:09] VITALS: BP 109/58
--- NOTE | 2021-04-26 08:59 | Progress Note - Cardiology ---
Cardiology SOAP Progress Note Subjective: Lying in bed No c/o CP or palpitations Feels his SOB is better, but not yet back to baseline Objective: I&O/Vital Signs 04/25/21 04/26/21 04/26/21 23:10 07:33 08:09 Temp 35.8 36.7 Pulse 92 97 Resp 20 20 B/P (MAP) 110/72 (85) 109/58 (75) Pulse Ox 92 93 O2 Delivery Room Air Room Air Nasal Cannula O2 Flow Rate 1.00 1.00 04/26/21 00:00 Intake Total 2120 ml Balance 2120 ml Weight (Pounds): 404 Weight (Ounces): 0.0 Weight (Calculated Kilograms): 183.312019 Constitutional: AAO x 3, well-developed, well-nourished Respiratory: No accessory muscle use; other Cardiovascular: irregularly irregular, S1 and S2, systolic murmur (soft SOO at card base) Gastrointestional: No tender; soft; No guarding, No rebound; audible bowel sounds Extremities: No clubbing, No cyanosis; significant edema Neurologic/Psychiatric: oriented x 3, other (moves all limbs equally) Skin: No rash on exposed areas, No ulcerations on exposed areas Results/Procedures: Labs Laboratory Tests 04/26/21 05:47: White Blood Count 8.3, Red Blood Count 4.36, Hemoglobin 13.2L, Hematocrit 41, Mean Corpuscular Volume 95, Mean Corpuscular Hemoglobin 30, Mean Corpuscular Hemoglobin Concent 32, Red Cell Distribution Width 13.9, Platelet Count 161, Mean Platelet Volume 9.9, Immature Granulocyte % (Auto) 2, Neutrophils (%) (Auto) 57, Lymphocytes (%) (Auto) 29, Monocytes (%) (Auto) 10, Eosinophils (%) (Auto) 2, Basophils (%) (Auto) 0, Neutrophils # (Auto) 4.7, Lymphocytes # (Auto) 2.5, Monocytes # (Auto) 0.8, Eosinophils # (Auto) 0.2, Basophils # (Auto) 0.0, Immature Granulocyte # (Auto) 0.1, Prothrombin Time 23.1H, INR Comment 2.0H, Sodium Level 136, Potassium Level 4.8, Chloride Level 99, Carbon Dioxide Level 27, Anion Gap 10, Blood Urea Nitrogen 27H, Creatinine 1.34H, Estimat Glomerular Filtration Rate 58, BUN/Creatinine Ratio 20, Glucose Level 121H, Calcium Level 9.4, Corrected Calcium 9.8, Total Bilirubin 0.5, Aspartate Amino Transf ( AST/SGOT) 22, Alanine Aminotransferase (ALT/SGPT) 22, Alkaline Phosphatase 73, Total Protein 7.2, Albumin 3.5 Microbiology 04/24/21 Urine Culture - Final, Complete Gram Pos Mixed Bacterial Pauline 04/23/21 Blood Culture - Preliminary, Resulted No growth A/P: Assessment: Right upper lobe pnuemonia - managed by Dr Keane Chronic diastolic CHF - clinically compensated - Echocardiogram of Feb [address] Obrien showed wall thickness is mildly to mod increased. Concentric hypertrophy. LVEF 55-65%. LA and RA dilated. Mild MR. Mild to mod TR Orthopedic - Osteomyelitis of R 2nd toe, s/p amputation on 06/25/20 Chronic joint and back pain PORTER with segmentals from -10-17 showed no evidence of signif obstructive PAD Bilat leg swelling - related to venous insuff and ac on chronic diastolic CHF - controlled Chronic atrial fibrillation - OAC with warfarin H/o intermittent hypokalemia due to chronic diuretic therapy Morbid obesity - BMI approx 55 HIV positive status - managed by Dr Woods in [place], [place] H/o depression - managed by PCP Obstructive sleep apnea syndrome - treated with CPAP Carotid dz - Minimal carotid arterial plaque on carotid u/s of April 2019 Plan: Complex management due to multiple comorbidities (see above) Long-acting dilt for vent rate control. BP better now. Increase dose of dilt with the intention of getting back to his usual dose Continue furosemide and spironolactone for CHF Warfarin for stroke prophylaxis Monitor labs closely, especially daily INR Correct any electrolyte abnormalities I spoke with him in detail today and answered his CV-related questions JOSE E CHAO Apr 26, 2021 08:59
[2021-04-26] MEDS: RT-ALBUTEROL/IPRATROPIUM 3 ML (DUONEB) VIAL INH SCH ×2 (09:42→14:52)
[2021-04-26] MEDS ORDERED: WARF-48 PO (10:03)
[2021-04-26] MEDS ORDERED: ACET-2267 PO (10:14)
[2021-04-26] MEDS ORDERED: CARB15DR OP (10:17)
[2021-04-26] MEDS: KCL 20 MEQ TAB (K-DUR) PO SCH (10:47)
[2021-04-26] MEDS: SPIRONOLACTONE 25 MG (ALDACTONE) TAB PO SCH (10:49)
[2021-04-26] MEDS: ALLOPURINOL 100 MG (ZYLOPRIM) TAB PO SCH (10:50)
[2021-04-26] MEDS: MAGNESIUM OXIDE (MAG-OX)400 MG TAB PO SCH (10:50)
[2021-04-26] MEDS: FUROSEMIDE 40 MG (LASIX) TAB PO SCH (10:50)
[2021-04-26] MEDS: buPROPion SR 150 MG (WELLBUTRIN SR) TAB PO SCH (10:50)
[2021-04-26] MEDS ORDERED: CEFD300C3 PO (12:26)
--- NOTE | 2021-04-26 15:15 | Discharge Summary ---
Discharge Summary Hospital Course Problems/Diagnosis: (1) Pneumonia Status: Acute Assessment & Plan: Treated with azithromycin and ceftriaxone inpatient, weaned off of supplemental oxygen and not requiring any supplemental O2 at d/c, discharged on cefdinir for 7 days. Qualifiers: Qualified Codes: J18.9 - Pneumonia, unspecified organism (2) Acute respiratory failure with hypoxia Status: Resolved Resolution Date/Time: 04/26/21 @ 15:11 Assessment & Plan: Did not require supplemental oxygen at d/c. (3) Sepsis Status: Resolved Resolution Date/Time: 04/26/21 @ 15:12 Assessment & Plan: Secondary to pneumonia. Qualifiers: Qualified Codes: A41.9 - Sepsis, unspecified organism; R65.20 - Severe sepsis without septic shock; J96.01 - Acute respiratory failure with hypoxia (4) Congestive heart failure Status: Chronic Assessment & Plan: BNP minimally elevated, swelling at baseline, no clear exacerbation. Continued home diuretics. Qualifiers: Qualified Codes: I50.32 - Chronic diastolic (congestive) heart failure (5) Atrial fibrillation Status: Chronic (6) Human immunodeficiency virus Status: Chronic Hospital Course Date of Admission: Apr 24, 2021 at 00:35 Admission Diagnosis : See problem list Family Physician/Provider: Bernice Skelton Aprn Date of Discharge: 04/26/21 Discharge Diagnosis: See problem list Hospital Course: See problem list Labs and Pending Lab Test: Laboratory Tests 04/26/21 05:47: White Blood Count 8.3, Red Blood Count 4.36, Hemoglobin 13.2L, Hematocrit 41, Mean Corpuscular Volume 95, Mean Corpuscular Hemoglobin 30, Mean Corpuscular Hemoglobin Concent 32, Red Cell Distribution Width 13.9, Platelet Count 161, Mean Platelet Volume 9.9, Immature Granulocyte % (Auto) 2, Neutrophils (%) (Auto) 57, Lymphocytes (%) (Auto) 29, Monocytes (%) (Auto) 10, Eosinophils (%) (Auto) 2, Basophils (%) (Auto) 0, Neutrophils # (Auto) 4.7, Lymphocytes # (Auto) 2.5, Monocytes # (Auto) 0.8, Eosinophils # (Auto) 0.2, Basophils # (Auto) 0.0, Immature Granulocyte # (Auto) 0.1, Prothrombin Time 23.1H, INR Comment 2.0H, Sodium Level 136, Potassium Level 4.8, Chloride Level 99, Carbon Dioxide Level 27, Anion Gap 10, Blood Urea Nitrogen 27H, Creatinine 1.34H, Estimat Glomerular Filtration Rate 58, BUN/Creatinine Ratio 20, Glucose Level 121H, Calcium Level 9.4, Corrected Calcium 9.8, Total Bilirubin 0.5, Aspartate Amino Transf (AST/SGOT) 22, Alanine Aminotransferase (ALT/SGPT) 22, Alkaline Phosphatase 73, Total Protein 7.2, Albumin 3.5 Microbiology 04/24/21 Urine Culture - Final, Complete Gram Pos Mixed Bacterial Pauline 04/23/21 Blood Culture - Preliminary, Resulted No growth Home Meds Active Cefdinir 300 Mg Capsule 300 Mg PO BID Reported Refresh Tears (Carboxymethylcellulose Sodium) 15 Ml Drops 1 Drop OP DAILY PRN Tylenol Extra Strength (Acetaminophen) 500 Mg Tablet 1,000 Mg PO Q8H PRN TAKES 2 (500MG) TABLETS Warfarin Sodium 5 Mg Tablet 10 Mg PO SUN,,MON,,SAT@2100 TAKES 2 (5MG) TABLETS Oxycodone HCl 10 Mg Tablet 10 Mg PO Q6H PRN Furosemide 80 Mg Tablet 160 Mg PO DAILY TAKES 2 (80MG) TABS Spironolactone 50 Mg Tablet 50 Mg PO DAILY Klor-Con M20 (Potassium Chloride) 20 Meq Tab.er.prt 40 Meq PO BID TAKES 2 (20MEQ) TABS TWICE DAILY Diltiazem 24Hr ER (Diltiazem HCl) 120 Mg Cap.er.24h 120 Mg PO DAILY TAKES 120MG + 2 (180MG) TABS TO EQUAL 480MG DAILY Diltiazem ER (Diltiazem HCl) 180 Mg Capsule.er 360 Mg PO DAILY TAKES 120MG + 2 (180MG) TABS TO EQUAL 480MG DAILY Aspirin EC (Aspirin) 81 Mg Tablet.dr 81 Mg PO HS Magnesium (Magnesium Oxide) 400 Mg Tablet 400 Mg PO BID Biktarvy 50-200-25 mg Tablet (Bictegrav/Emtricit/Tenofov Ala) 1 Each Tablet 1 Each PO DAILY Warfarin Sodium 5 Mg Tablet 5 Mg PO MON,FRI@2100 Allopurinol 100 Mg Tablet 100 Mg PO DAILY Centrum Silver Tablet (Multivit-Min/FA/Lycopene/Lut) 1 Each Tablet 1 Tab PO DAILY Risperidone 0.5 Mg Tablet 0.5 Mg PO HS Citalopram HBr (Citalopram Hydrobromide) 40 Mg Tablet 40 Mg PO HS Bupropion Xl (Bupropion HCl) 300 Mg Tab.er.24h 300 Mg PO HS Assessment/Pt DC Instructions Follow up with primary provider within one week of discharge. Discharge Diet: Cardiac Diet Activity as Tolerated: Yes Discharge Physical Examination Allergies: Coded Allergies: No Known Drug Allergies (Unverified , 02/07/18) General Appearance: No Apparent Distress, Obese Respiratory: Lungs Clear, Normal Breath Sounds Cardiovascular: Regular Rate, Rhythm, No Murmur Skin: Normal Color, Warm/Dry Neurologic/Psychiatric: Alert, Normal Mood/Affect STEPHANIE ROSALES MD Apr 26, 2021 15:14
[2021-04-26 16:03] VITALS: BP 109/58
--- NOTE | 2021-04-26 16:54 | Progress Note - Cardiology ---
Cardiology SOAP Progress Note Subjective: Feels better today Shortness of breath and swelling at usual baseline No cp or palp or syncope No n/v/d Objective: I&O/Vital Signs 04/26/21 04/26/21 04/26/21 04/26/21 07:33 08:09 14:52 16:03 Temp 36.7 36.7 Pulse 97 97 Resp 20 20 B/P (MAP) 109/58 (75) 109/58 Pulse Ox 93 94 94 O2 Delivery Room Air Nasal Cannula Room Air Room Air O2 Flow Rate 1.00 1.00 1.00 04/26/21 00:00 Intake Total 2120 ml Balance 2120 ml Weight (Pounds): 404 Weight (Ounces): 0.0 Weight (Calculated Kilograms): [phone] Constitutional: AAO x 3, well-developed, well-nourished Respiratory: No accessory muscle use; other Cardiovascular: irregularly irregular, S1 and S2, systolic murmur (soft SOO at card base) Gastrointestional: No tender; soft; No guarding, No rebound; audible bowel sounds Extremities: No clubbing, No cyanosis; significant edema Neurologic/Psychiatric: oriented x 3, other (moves all limbs equally) Skin: No rash on exposed areas, No ulcerations on exposed areas Results/Procedures: Labs Laboratory Tests 04/26/21 05:47: White Blood Count 8.3, Red Blood Count 4.36, Hemoglobin 13.2L, Hematocrit 41, Mean Corpuscular Volume 95, Mean Corpuscular Hemoglobin 30, Mean Corpuscular Hemoglobin Concent 32, Red Cell Distribution Width 13.9, Platelet Count 161, Mean Platelet Volume 9.9, Immature Granulocyte % (Auto) 2, Neutrophils (%) (Auto) 57, Lymphocytes (%) (Auto) 29, Monocytes (%) (Auto) 10, Eosinophils (%) (Auto) 2, Basophils (%) (Auto) 0, Neutrophils # (Auto) 4.7, Lymphocytes # (Auto) 2.5, Monocytes # (Auto) 0.8, Eosinophils # (Auto) 0.2, Basophils # (Auto) 0.0, Immature Granulocyte # (Auto) 0.1, Prothrombin Time 23.1H, INR Comment 2.0H, Sodium Level 136, Potassium Level 4.8, Chloride Level 99, Carbon Dioxide Level 27, Anion Gap 10, Blood Urea Nitrogen 27H, Creatinine 1.34H, Estimat Glomerular Filtration Rate 58, BUN/Creatinine Ratio 20, Glucose Level 121H, Calcium Level 9.4, Corrected Calcium 9.8, Total Bilirubin 0.5, Aspartate Amino Transf (AST/SGOT) 22, Alanine Aminotransferase (ALT/SGPT) 22, Alkaline Phosphatase 73, Total Protein 7.2, Albumin 3.5 Microbiology 04/25/21 Gram Stain - Final, Resulted 04/25/21 Sputum Culture - Preliminary, Resulted Usual upper respiratory raman 04/24/21 Urine Culture - Final, Complete Gram Pos Mixed Bacterial Raman 04/23/21 Blood Culture - Preliminary, Resulted No growth A/P: Assessment: Right upper lobe pnuemonia - managed by Dr Keane Chronic diastolic CHF - clinically compensated - Echocardiogram of Feb [address] Obrien showed wall thickness is mildly to mod increased. Concentric hypertrophy. LVEF 55-65%. LA and RA dilated. Mild MR. Mild to mod TR Orthopedic - Osteomyelitis of R 2nd toe, s/p amputation on 06/25/20 Chronic joint and back pain PORTER with segmentals from 11-04-20 showed no evidence of signif obstructive PAD Bilat leg swelling - related to venous insuff and ac on chronic diastolic CHF - controlled Chronic atrial fibrillation - OAC with warfarin H/o intermittent hypokalemia due to chronic diuretic therapy Morbid obesity - BMI approx 55 HIV positive status - managed by Dr Woods in [place], [place] H/o depression - managed by PCP Obstructive sleep apnea syndrome - treated with CPAP Carotid dz - Minimal carotid arterial plaque on carotid u/s of April 2019 Plan: Complex management due to multiple comorbidities (see above) Long-acting dilt for vent rate control. BP better now. Increase dose of dilt with the intention of getting back to his usual dose Continue furosemide and spironolactone for CHF Warfarin for stroke prophylaxis Monitor labs closely, especially daily INR Correct any electrolyte abnormalities I again spoke with him in detail today and answered his CV-related questions REKHA BLEVINS MD FACP FAC CCDS Apr 26, 2021 16:54
== END 2021-04-26 16:20 | disposition home or self-care (01) | DRG 871 ==
LOC: EDUNIT# 22:11 → ER 22:11 → 4TH 04-24 00:35 → EDLOC 04-24 00:35 → 4TH 04-26 16:32
PROVIDERS: ADMIT Internal Medicine; ATTEND Family Medicine
DX: A41.9 Sepsis, unspecified organism (principal); J18.9 Pneumonia, unspecified organism; J96.21 Acute and chronic respiratory failure with hypoxia; I50.33 Acute on chronic diastolic (congestive) heart failure; I48.20 Chronic atrial fibrillation, unspecified; Z68.43 Body mass index [BMI] 50.0-59.9, adult; Z21 Asymptomatic human immunodeficiency virus [HIV] infection status; I11.0 Hypertensive heart disease with heart failure; K57.90 Diverticulosis of intestine, part unspecified, without perforation or abscess without bleeding; M10.9 Gout, unspecified; G62.9 Polyneuropathy, unspecified; E66.01 Morbid (severe) obesity due to excess calories; F41.9 Anxiety disorder, unspecified; F32.A Depression, unspecified; Z79.82 Long term (current) use of aspirin; Z79.01 Long term (current) use of anticoagulants; Z79.899 Other long term (current) drug therapy; Z20.822 Contact with and (suspected) exposure to COVID-19; G89.29 Other chronic pain; M54.9 Dorsalgia, unspecified; E87.6 Hypokalemia; G47.33 Obstructive sleep apnea (adult) (pediatric); I77.9 Disorder of arteries and arterioles, unspecified; I87.2 Venous insufficiency (chronic) (peripheral)
CPT/HCPCS: 36415; 71045; 80048; 80053; 81000; 83605; 83735; 83880; 84484; 85007; 85025; 85027; 85610; 85730; 87040; 87070; 87088; 87205; 87636; 93005; 94640; 94760; 94761; 96361; 96365; 96375

== ENCOUNTER 2021-11-07 16:04 | Emergency (ER) | payer MEDICARE, MEDICAID ==
[~2021-11-07] VITALS: Ht 180 cm; Wt 188.0 kg
[~2021-11-07 16:04] MED LIST changes: +ACET-2267 PO; +CARB15DR OP; +LEVO750T PO; -LEVO750T39 PO
[2021-11-07] MEDS ORDERED: OXYMETAZOLINE (AFRIN) 0.05% NA 30 ML BTL ONE (17:18)
--- NOTE | 2021-11-07 17:32 | ED EENT ---
History of Present Illness General Chief Complaint: Nasal Problems Stated Complaint: NOSE BLEED Nursing Triage Note: PT STATES BEING ON WARFARIN, NOSE BLEED OFF AND ON FOR 2 WEEKS, LT NARE CURRENTLY HAS IT PLUGGED, NOT BLEEDING BUT HE SAYS IF HE TAKES IT OUT IT WILL BLEED. BLOOD IN MOUTH FROM WHERE HE COUGHED UP A BIG CLOT EARLIER. STATES THIS IS THE 3RD TIME THIS HAS HAPPENED OVER THE YEARS History of Present Illness Date Seen by Provider: Nov 07, 2021 Time Seen by Provider: 16:15 Initial Comments 66-year-old male on Coumadin reports intermittent epistaxis over the last 2 weeks. He reports bleeding from the left nare that began at approximately 10:00 this morning. He has been packing it regularly but co ntinues to have bleeding. He has not used Afrin or tried ice packs. Timing/Duration: this morning Severity: mild Prearrival Treatment: no prearrival treatment Associated Symptoms: denies symptoms Allergies and Home Medications Allergies Coded Allergies: No Known Drug Allergies (Unverified , 02/07/18) Patient Home Medication List Home Medication List Reviewed: Yes Acetaminophen (Tylenol Extra Strength) 500 Mg Tablet, 1,000 MG PO Q8H PRN for PAIN-MILD (1-4), (Reported) Entered as Reported by: MALENA YUN on 04/26/21 1014 Allopurinol (Allopurinol) 100 Mg Tablet, 100 MG PO DAILY, (Reported) Entered as Reported by: SAVITA CARBALLO on 03/13/18 1533 Aspirin (Aspirin EC) 81 Mg Tablet.dr, 81 MG PO HS, (Reported) Entered as Reported by: TERESITA FOX on 04/15/19 0811 Bictegrav/Emtricit/Tenofov Ala (Biktarvy 50-200-25 mg Tablet) 1 Each Tablet, 1 EACH PO DAILY, (Reported) Entered as Reported by: TERESITA FOX on 04/15/19 0811 Bupropion HCl (Bupropion Xl) 300 Mg Tab.er.24h, 300 MG PO HS, (Reported) Entered as Reported by: MIGUEL RICHARDSON on 11/29/14 194 Carboxymethylcellulose Sodium (Refresh Tears) 15 Ml Drops, 1 DROP OP DAILY PRN for DRY EYES, (Reported) Entered as Reported by: MALENA YUN on 04/26/21 1017 Cefdinir (Cefdinir) 300 Mg Capsule, 300 MG PO BID Prescribed by: STEPHANIE ROSALES on 04/26/21 1226 Citalopram Hydrobromide (Citalopram HBr) 40 Mg Tablet, 40 MG PO HS, (Reported) Entered as Reported by: DOT ENCISO on 12/01/14 0915 Diltiazem HCl (Diltiazem ER) 180 Mg Capsule.er, 360 MG PO DAILY, (Reported) Entered as Reported by: STEPHANIE ROSALES on 06/24/20 1418 Diltiazem HCl (Diltiazem 24Hr ER) 120 Mg Cap.er.24h, 120 MG PO DAILY, (Reported) Entered as Reported by: STEHPANIE ROSALES on 06/24/20 1418 Furosemide (Furosemide) 80 Mg Tablet, 160 MG PO DAILY, (Reported) Entered as Reported by: TERESITA FOX on 07/28/20 0905 Magnesium Oxide (Magnesium) 400 Mg Tablet, 400 MG PO BID, (Reported) Entered as Reported by: TERESITA FOX on 04/15/19 0811 Multivit-Min/FA/Lycopene/Lut (Centrum Silver Tablet) 1 Each Tablet, 1 TAB PO DAILY, (Reported) Entered as Reported by: VAHID PEARSON on 03/26/17 1732 Oxycodone HCl (Oxycodone HCl) 10 Mg Tablet, 10 MG PO Q6H PRN for PAIN-SEVERE (8- 10), (Reported) Entered as Reported by: TERESITA FOX on 07/28/20 0905 Potassium Chloride (Klor-Con M20) 20 Meq Tab.er.prt, 40 MEQ PO BID, (Reported) Entered as Reported by: TERESITA FOX on 06/25/20 0834 Risperidone (Risperidone) 0.5 Mg Tablet, 0.5 MG PO HS, (Reported) Entered as Reported by: DOT ENCISO on 12/01/14 0915 Spironolactone (Spironolactone) 50 Mg Tablet, 50 MG PO DAILY, (Reported) Entered as Reported by: TERESITA FOX on 07/28/20 0905 Warfarin Sodium (Warfarin Sodium) 5 Mg Tablet, 5 MG PO MON,FRI@2100, (Reported) Entered as Reported by: SAVITA CARBALLO on 03/13/18 1533 Warfarin Sodium (Warfarin Sodium) 5 Mg Tablet, 10 MG PO SUN,,MON,TH,SAT@2100, (Reported) Entered as Reported by: MALENA YUN on 04/26/21 1003 Review of Systems Review of Systems Constitutional: no symptoms reported, see HPI Nose: see HPI, clots, epistaxis, bloody discharge All Other Systems Reviewed Negative Unless Noted: Yes Past Tcbqypc-Fxhggf-Tbkwgt Hx Patient Social History Tobacco Use?: No Substance use?: No Alcohol Use?: No Immunizations Up To Date Tetanus Booster (TDap): Unknown First/Initial COVID19 Vaccinat: 03/2020 Second COVID19 Vaccination [place]: 04/2020 Third COVID19 Vaccination Date: YES Seasonal Allergies Seasonal Allergies: No Past Medical History Surgery/Hospitalization HX: AMPUTATION RIGHT 2ND TOE BY DR. MCLAUGHLIN 06/2020 FOR OSTEOMYELITIS COLONOSCOPY / POLYPECTOMY [address] HERRERA MULTIPLE BIOPSIES FOR LYMPHOMA CARDIAC CATH--NO INTERVENTION CARDIAC ABLATION 2010 FOR [place]IAL FIB[place]LLATION [place] Surgeries: Yes (CA REMOVED FROM NECK, SEVERAL BX) Amputation, Cardiac, Orthopedic, Tonsillectomy Respiratory: Yes (PNEUMOCYSTIS PNEUMONIA BY HX) Pneumonia, Sleep Apnea Currently Using CPAP: Yes Currently Using BIPAP: Yes Cardiac: Yes (CHF; CHRONIC RIGHT LEG SWELLING;CARDIAC ABLATION FOR AFIB;CATH-NO INTERVENT) Atrial Fibrillation, Chronic Edema/Swelling, Hypertension Neurological: Yes Neuropathy Reproductive Disorders: No HIV/AIDS: Yes (HIV +/AIDS-HX OF PNEUMOCYSTIS PNEUMONIA) Genitourinary: No Gastrointestinal: Yes Gastrointestinal Bleed, Diverticulosis, Chronic Diarrhea Musculoskeletal: Yes (RIGHT 2ND TOE AMPUTATED FOR OSTEOMYELITIS ) Amputee, Gout Endocrine: Yes (MORBID OBESITY) HEENT: Yes (NOSEBLEEDS-RARELY; POOR DENTITION) Loss of Vision: Denies Hearing Impairment: Denies Cancer: Yes (NON-HODGKIN'S LYMPHOMA) Skin, Lymphoma Did You Recieve Any Treatments: Yes What Type of Treatment Did You: Surgical Intervention Psychosocial: Yes Eating Disorder, Anxiety, Depression Integumentary: Yes (CELLULITIS/OSTEOMYELITIS) Blood Disorders: Yes (HIV DX IN 1994, ) Adverse Reaction/Blood Tranf: No Family Medical History Reviewed Nursing Family Hx Cardiovascular disease G8 SISTER Colon cancer G8 BROTHER Diabetes mellitus 19 MOTHER G8 SISTER FHx: COPD (chronic obstructive pulmonary disease) 19 FATHER Malignant neoplasm of prostate G8 BROTHER Paternal family history of emphysema No Pertinent Family Hx Physical Exam Vital Signs Vital Signs - First Documented 11/07/21 16:15 Temp 35.7 Pulse 96 Resp 28 B/P (MAP) 113/69 (84) Pulse Ox 92 O2 Delivery Room Air Height, Weight, BMI Height: 6'0.00" Weight: 404lbs. 0.0oz. 183.379244kr; 58.00 BMI Method:Stated General Appearance: WD/WN, no apparent distress Nose: normal inspection; No active bleeding; dried blood; No sinus tenderness Mouth/Throat: normal mouth inspection, pharynx normal Cardiovascular: normal peripheral pulses, regular rate, rhythm Respiratory: chest non-tender, lungs clear Gastrointestinal: normal bowel sounds, non tender, soft, distended Neurologic/Psychiatric: no motor/sensory deficits, alert, normal mood/affect, oriented x 3 Progress/Results/Core Measures Results/Orders My Orders Orders - MIGUEL MUNROE Oxymetazoline 0.05% Nasal [place] (Afrin 0. (11/07/21 21:00) Oxymetazoline 0.05% Nasal [place] (Afrin 0. (11/07/21 17:18) Vital Signs/I&O 11/07/21 11/07/21 16:15 17:39 Temp 35.7 35.7 Pulse 96 97 Resp 28 26 B/P (MAP) 113/69 (84) 116/81 Pulse Ox 92 92 O2 Delivery Room Air Room Air Blood Pressure Mean: 84 Progress Progress Note : Time: 16:15 Progress Note Patient seen and evaluated, new packing placed, no active bleeding. We will continue to monitor. 1700 4 sprays of Afrin to the left nare, packing replaced. Will monitor. 1720 no further active bleeding to the packing. Packing replaced. Discharge instructions and return precautions reviewed. Departure Impression Primary Impression: Epistaxis Disposition: 01 HOME, SELF-CARE Condition: Improved Departure-Patient Inst. Decision time for Depature: 17:20 Referrals: [facility] (PCP) Primary Care Physician SAVANNAH RHOADES APRN (Family) Primary Care Physician Patient Instructions: Nosebleeds (DC) Add. Discharge Instructions: Follow up with Dr. Hi. Use packing, [place] Nasal [place], Ice packs and pressure, when you have a nose bleed. Return to the emergency department for new, urgent healthcare problems. All discharge instructions reviewed with patient and/or family. Voiced understanding. MIGUEL MUNROE Nov 07, 2021 17:32
[2021-11-07 17:39] VITALS: BP 116/81
[2021-11-07] MEDS ORDERED: OXYMETAZOLINE (AFRIN) 0.05% NA 30 ML BTL SCH (21:00)
[2021-11-08] MEDS ORDERED: AMIT25TA9 PO (20:32)
== END 2021-11-07 17:39 | disposition home or self-care (01) ==
LOC: EDUNIT# 16:04 → ER 16:06
DX: R04.0 Epistaxis (principal); G47.30 Sleep apnea, unspecified; E66.01 Morbid (severe) obesity due to excess calories; Z68.43 Body mass index [BMI] 50.0-59.9, adult; Z99.89 Dependence on other enabling machines and devices
CPT/HCPCS: 99282

== ENCOUNTER 2021-11-08 14:12 | Inpatient (IN) | payer MEDICARE, MEDICAID ==
--- NOTE | 2021-11-08 15:04 | History & Physical ---
ANY TORRES 11/08/21 1504: HPI History of Present Illness: Nikolay is a 66 y M with a pmh of HIV, CHF, afib, HTN, sleep apnea who was a direct admit to us today with a chief complaint of shortness of breath. He states he went to [facility] today for a regular appointment and his O2 saturation was 86% on room air. He has noticed increased shortness of breath and cough for 1 day. He has had episodes of shortness of breath w/ exertion that he has noticed have been more frequent in the past few months but has not noticed his oxygen to be this low. He was seen in the ED yesterday for a nosebleed and says that he coughed up a clot yesterday. Source: patient Exam Limitations: no limitations Time Seen by Provider: 15:03 Attending Physician [place] PCP Admitting Physician: Diana Caba MD Attending Physician: Diana Caba MD Consult Date of Admission Nov 08, 2021 at 14:35 Home Medications Home Medications Reviewed patient Home Medication Reconciliation performed by pharmacy medication reconciliations engineering technician parking and/or nursing. Patients Allergies have been reviewed. Allergies Coded Allergies: No Known Drug Allergies (Unverified , 02/07/18) WTM-Anffvr-Cfapjy Hx Patient Social History Smoking Status: Never a Smoker 2nd Hand Smoke Exposure: No Recent Hopitalizations: Yes (08/17 GI BLEED) Alcohol Use?: No Immunizations Up To Date Tetanus Booster (TDap): Unknown First/Initial COVID19 Vaccinat: 03/2020 Second COVID19 Vaccination [place]: 04/2020 Third COVID19 Vaccination Date: YES Past Medical History PMHx: HIV Non-Hodgkin's lymphoma (1994, remission) Depression Congestive heart failure Atrial fibrillation Sleep apnea on CPAP SurgHx: Tonsillectomy Right neck mass removal 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 Family Medical History Significant Family History: No Pertinent Family Hx, COPD (father) Family History: Cardiovascular disease G8 SISTER Colon cancer G8 BROTHER Diabetes mellitus 19 MOTHER G8 SISTER FHx: COPD (chronic obstructive pulmonary disease) 19 FATHER Malignant neoplasm of prostate G8 BROTHER Paternal family history of emphysema Review of Systems ([facility]) Constitutional: chills (last night) EENTM: no symptoms reported Respiratory: cough, dyspnea on exertion, short of breath Cardiovascular: no symptoms reported; No chest pain, No palpitations Gastrointestinal: no symptoms reported Musculoskeletal: no symptoms reported Skin: no symptoms reported Psychiatric/Neurological: No Symptoms Reported Physical Exam-([facility]) Physical Exam Vital Signs VS - Last 72 Hours, by Label 11/08/21 15:48 Temp 36.6 Pulse 86 Resp 18 B/P (MAP) 121/74 (90) Pulse Ox 94 O2 Delivery Nasal Cannula O2 Flow Rate 1.50 Capillary Refill : General Appearance: no apparent distress HEENT: PERRL/EOMI, normal ENT inspection Neck: supple Respiratory: chest non-tender, lungs clear, normal breath sounds, no respiratory distress Cardiovascular: regular rate, rhythm (trace pretibial edema bilateral lower extremity) Gastrointestinal: normal bowel sounds, non tender, soft Extremities: pedal edema (trace) Neurologic/Psychiatric: no motor/sensory deficits, alert, normal mood/affect, oriented x 3 Skin: normal color, warm/dry Assessment/Plan Assessment/Plan Admission Dx Acute hypoxemia Admission Status: Observation Assessment & Plan 1. Acute Hypoxemia - CBC, CMP, COVID test, PT/INR, CXR, D-Dimer - O2 95% @ 1.5L, continue to monitor - IV Lasix 80 mg BID - 2D Echo 2. CHF - BP Control - Continue home meds. 3. HTN -BP control - Continue home meds 4. Afib - EKG, monitor for cardiac symptoms - Continue home meds as appropriate. 5. HIV - Continue home meds as appropriate. 6. Sleep Apnea - Encourage use of CPAP machine. DIANA CABA MD 11/08/212023: Home Medications Allergies Coded Allergies: No Known Drug Allergies (Unverified , 02/07/18) TBX-Qmzbms-Epnuid Hx Family Medical History Family History: Cardiovascular disease G8 SISTER Colon cancer G8 BROTHER Diabetes mellitus 19 MOTHER G8 SISTER FHx: COPD (chronic obstructive pulmonary disease) 19 FATHER Malignant neoplasm of prostate G8 BROTHER Paternal family history of emphysema Physical Exam-([facility]) Physical Exam General Appearance: no apparent distress, obese Respiratory: lungs clear, normal breath sounds Cardiovascular: irregularly irregular Gastrointestinal: normal bowel sounds Extremities: pedal edema (trace) Neurologic/Psychiatric: alert, normal mood/affect Skin: normal color, warm/dry Assessment/Plan Assessment/Plan Admission Status: Inpatient Order (span 2 midnights) Reason for Inpatient Admission: Acute respiratory insufficiency with multiple comorbidities Supervisory-Addendum Brief Verification & Attestation Participated in pt care: history, MDM, physical Personally performed: exam, history, MDM, supervision of care Care discussed with: Medical Student Procedures: n/a I personally saw and examined patient, see my physical exam for my exam findings. I repeated the history which confirmed that documented by the med student. I directed the plan of care as documented by the med student. Pt states he has been weak and having trouble functioning at home, believes he may need to consider care home, will order PT/OT. ANY TORRES Nov 08, 2021 15:04 DIANA CABA MD Nov 08, 2021 20:24
[2021-11-08 15:25] LABS: HEMATOCRIT 45 % (40-54); HEMOGLOBIN 14.9 g/dL (13.3-17.7); MEAN CORPUSCULAR HEMOGLOBIN 31 pg (25-34); MEAN CORPUSCULAR HGB CONC 33 g/dL (32-36); MEAN CORPUSCULAR VOLUME 94 fL (80-99); MEAN PLATELET VOLUME 8.9 fL (9.0-12.2); PLATELET COUNT 222 10^3/uL (130-400); WHITE BLOOD COUNT 10.2 10^3/uL (4.3-11.0)
--- NOTE | 2021-11-08 15:27 | Diagnostic Imaging Report ---
INDICATION: Dyspnea AP view of chest is obtained with comparison made to study of 04/23/2021. FINDINGS: Heart size and pulmonary vascularity are within normal limits, and the lungs are clear, bilaterally. IMPRESSION: Unremarkable chest. Dictated by: Dictated on workstation # [id number]
[2021-11-08] MEDS ORDERED: FUROSEMIDE 40 MG/4 ML INJ (LASIX) ONE (15:44)
[2021-11-08 15:48] VITALS: BP 121/74
[2021-11-08 15:52] LABS: ALBUMIN 3.8 GM/DL (3.2-4.5); POTASSIUM 4.3 MMOL/L (3.6-5.0)
[2021-11-08 15:53] LABS: CALCIUM 9.8 MG/DL (8.5-10.1)
[2021-11-08 15:54] LABS: TOTAL PROTEIN 7.9 GM/DL (6.4-8.2)
[2021-11-08 15:56] LABS: BILIRUBIN,TOTAL 0.8 MG/DL (0.1-1.0)
[2021-11-08 15:58] LABS: CREATININE SERUM 1.19 MG/DL (0.60-1.30); FIBRIN DEGRADATION PRODUCTS <= 0.27 UG/ML (0.00-0.49); INR 2.9 (0.8-1.4); PROTHROMBIN TIME PATIENT 30.5 SEC (12.2-14.7)
[2021-11-08] MEDS ORDERED: SOD CHL GEL 0.5 OZ (AYR SALINE NASAL GEL) TUBE TOP PRN (16:00)
[2021-11-08] MEDS: FUROSEMIDE 40 MG/4 ML INJ (LASIX) IV SCH (19:50)
[2021-11-08] MEDS ORDERED: ACETAMINOPHEN 500 MG TAB (TYLENOL) ONE (20:00)
[2021-11-08] MEDS: ACETAMINOPHEN 500 MG TAB (TYLENOL) PO PRN (20:31)
[2021-11-08] MEDS ORDERED: AMIT25TA9 PO (20:32)
[2021-11-08] MEDS ORDERED: warFARin 5 MG (COUMADIN) TAB PO SCH ×2 (20:45)
[2021-11-08 20:59] VITALS: BP 135/63
[2021-11-08] MEDS ORDERED: FUROSEMIDE 40 MG/4 ML INJ (LASIX) IV SCH (21:00)
[2021-11-08] MEDS ORDERED: risperiDONE 0.5 MG (RisperDAL) TABLET PO SCH (21:00)
[2021-11-08] MEDS ORDERED: AMITRIPTYLINE 25 MG (ELAVIL) TAB PO SCH (21:00)
[2021-11-08] MEDS ORDERED: ASPIRIN E.C. 81 MG (ECOTRIN) TAB PO SCH (21:00)
[2021-11-08 21:28] VITALS: BP 135/63
[2021-11-08] MEDS ORDERED: ARTIFICAL TEARS 0.4 ML UNIT DOSE (REFRESH PLUS) OU PRN (21:45)
[2021-11-08] MEDS: KCL 20 MEQ TAB (K-DUR) PO SCH (23:07)
[2021-11-09] VITALS (7 sets, daily range): BP systolic 107–132; BP diastolic 64–85
[2021-11-09 05:28] LABS: HEMATOCRIT 44 % (40-54); HEMOGLOBIN 14.3 g/dL (13.3-17.7); MEAN CORPUSCULAR HEMOGLOBIN 30 pg (25-34); MEAN CORPUSCULAR HGB CONC 32 g/dL (32-36); MEAN CORPUSCULAR VOLUME 94 fL (80-99); MEAN PLATELET VOLUME 9.1 fL (9.0-12.2); PLATELET COUNT 183 10^3/uL (130-400)
[2021-11-09 05:55] LABS: CALCIUM 9.4 MG/DL (8.5-10.1)
[2021-11-09 06:00] LABS: CREATININE SERUM 1.35 MG/DL (0.60-1.30)
[2021-11-09] MEDS: FUROSEMIDE 40 MG/4 ML INJ (LASIX) IV SCH (06:38)
[2021-11-09] MEDS: MULTIVIT W/MINERALS TAB (THERAGRAN M) PO SCH (06:38)
[2021-11-09] MEDS: MAGNESIUM OXIDE (MAG-OX)400 MG TAB PO SCH ×2 (08:21→21:09)
[2021-11-09] MEDS: KCL 20 MEQ TAB (K-DUR) PO SCH ×2 (08:21→21:12)
[2021-11-09] MEDS ORDERED: dilTIAZem120 MG (CARDIZEM CD) CAP PO SCH (09:00)
[2021-11-09] MEDS ORDERED: ALLOPURINOL 100 MG (ZYLOPRIM) TAB PO SCH (09:00)
[2021-11-09] MEDS ORDERED: SPIRONOLACTONE 25 MG (ALDACTONE) TAB PO SCH (09:00)
[2021-11-09] MEDS ORDERED: NON-FORMULARY MEDICATION 1 EA EA (Bictegrav/Emtricit/Tenofov Ala (Biktarvy 50-200-25 mg Ta PO SCH (09:00)
--- NOTE | 2021-11-09 11:26 | Physical Therapy Evaluation ---
PT Evaluation-General Medical Diagnosis Admission Date Nov 08, 2021 at 14:35 Medical Diagnosis: hypoxia Onset Date: Nov 08, 2021 Therapy Diagnosis Therapy Diagnosis: impaired mobility Height/Weight Height (Feet): 6 Height (Inches): 0.00 Weight (Pounds): 404 Weight (Ounces): 0.0 Precautions Precautions/Isolations: Fall Prevention, Standard Precautions Referral Physician: Rosales Reason for Referral: Evaluation/Treatment Medical History Pertinent Medical History: Heart Failure, Hypothroidism Additional Medical History HIV/morbid obesity Current History Direct admit from [facility] secondary to decreased SAO2 and SOA Reviewed History: Yes Social History Home: Single Level Current Living Status: Alone Entry Into Home: Level Entry Prior Prior Level of Function SCALE: Activities may be completed with or without assistive devices. 4-Dgmcdkrlhn-jtalkug completes the activity by him/herself with no assistance from a helper. 5-Set-up or Clean-up Assistance-helper sets up or cleans up; patient completes activity. [place] assists only prior to or following the activity. 4-Supervision or Touching Assistance-helper provides verbal cues and/or touching/steadying and/or contact guard assistance as patient completes activity. Assistance may be provided throughout the activity or intermittently. 3-Partial/Moderate Assistance-helper does LESS THAN HALF the effort. [place] lifts, holds or supports trunk or limbs, but provides less than half the effort. 2-Substantial/Maximal Assistance-helper does MORE THAN HALF the effort. [place] lifts or holds trunk or limbs and provides more than half the effort. 3-Efxasnnab-uwqvbs does ALL the effort. Patient does none of the effort to complete the activity. Or, the assistance of 2 or more helpers is required for the patient to complete the activity. If activity was not attempted, code reason: 7-Patient Refused. 9-Not Applicable-not attempted and the patient did not perform the activity before the current illness, exacerbation or injury. 10-Not Attempted due to Environmental Limitations-(lack of equipment, weather restraints, etc.). 88-Not Attempted due to Medical Conditions or Safety Concerns. Bed Mobility: 6 Transfers (B,C,W/C): 6 Gait: 6 Indoor Mobility (Ambulation): Independent Prior Devices Use: None PT Evaluation-Current Subjective Patient agrees to PT. Objective Patient Orientation: Normal For Age Attachments: Oxygen ROM/Strength ROM Lower Extremities bilateral LE WFL Strength Lower Extremities 4/5 grossly bilateral LE all planes Integumentary/Posture Integumentary refer to nursing notes Bowel Incontinence: No Bladder Incontinence: No Posture WFL Neuromuscular (Tone, Coordination, Reflexes) grossly intact Sensory Vision: Wears Glasses Hearing: Functional Transfers Sit to Lying (QC): 6 Lying to Sitting/Side of Bed(Q: 6 Sit to Stand (QC): 6 Chair/Rng-th-Rpwfi Xfer(QC): 6 Gait Mode of Locomotion: Walk Anticipated Mode of Locomotion: Walk Walk 10 feet (QC): 6 Walk 50 ft with 2 Turns(QC): 6 Walk 150 ft (QC): 6 Distance: 150' Gait Assistive Device: None Comments/Gait Description patient able to negotiate O2 tubing in room with ambulation Balance Sitting Static: Normal Sitting Dynamic: Normal Standing Static: Normal Standing Dynamic: Normal Assessment/Needs Patient is currently at independent PLOF with all gross motor skills and does not require skilled PT intervention. Physician notified. Rehab Potential: Fair PT Plan Treatment/Plan Treatment Plan: Discontinue PT, goals met Treatment Duration: Nov 09, 2021 Frequency: 1 time per week Estimated Hrs Per Day: .25 hour per day Patient and/or Family Agrees t: Yes Time/GCodes Time In: 955 Time Out: 1005 Total Billed Treatment Time: 10 Total Billed Treatment 1 visit EVLowC 10 min ANDI POLLOCK PT Nov 09, 2021 11:26
--- NOTE | 2021-11-09 11:46 | Progress Note ---
ANY TORRES 11/09/21 1146: Subjective Subjective/Events-last exam Nikolay is a 66 y M with a pmh of HIV, CHF, afib, HTN, sleep apnea who was a direct admit to us today with a chief complaint of shortness of breath. Today he says his shortness of breath has improved and he is overall doing better. No acute complaints last night. Denies pain, CARPIO, CP, n/v/d/abdo pain, urinary symptoms. Review of Systems General: No Chills, No Night Sweats, No Fatigue, No Malaise, No Appetite, No Other HEENT: No Head Aches, No Visual Changes, No Eye Pain, No Ear Pain, No Dysphasia, No Sinus Congestion, No Post Nasal Drip, No Sore Throat, No Other Pulmonary: Dyspnea Cardiovascular: No: Chest Pain, Palpitations, Orthopnea, Paroxysmal Noc. Dyspnea, Edema, Lt Headedness, Other Gastrointestinal: No: Nausea, Vomiting, Abdominal Pain, Diarrhea, Constipation, Melena, Hematochezia, Other Genitourinary: No Dysuria, No Frequency, No Incontinence, No Hematuria, No Retention, No Other Musculoskeletal: No: other, neck pain, shoulder pain, arm pain, back pain, hand pain, leg pain, foot pain Neurological: No: Weakness, Numbness, Incoordination, Change in speech, Confusion, Seizures, Other Focused Exam Respiratory: Chest Non Tender, Lungs Clear, Normal Breath Sounds, No Respiratory Distress Cardiovascular: Regular Rate, Rhythm, No Edema, No Murmur Skin: normal color, warm/dry Objective Exam Last Set of Vital Signs Vital Signs Date Time Temp Pulse Resp B/P (MAP) Pulse Ox O2 Delivery O2 Flow Rate FiO2 11/09/21 08:00 35.5 92 22 132/72 (92) 92 Nasal Cannula 3.50 Capillary Refill : I&O Intake and Output 11/09/21 00:00 Intake Total 200 ml Balance 200 ml Intake Oral 200 ml # Voids 3 # Bowel Movements 1 Daily Weight Change No General: Alert, Oriented X3, No Acute Distress HEENT: Atraumatic, EOMI Neck: Supple Lungs: Clear to Auscultation, Normal Air Movement Heart: Regular Rate, No Murmurs Abdomen: Normal Bowel Sounds, Soft, No Tenderness Extremities: No Clubbing, No Cyanosis, No Edema Skin: No Rashes Neuro: Normal Gait, Normal Speech Psych/Mental Status: Mental Status NL, Mood NL Results/Procedures Lab Laboratory Tests 11/08/21 15:15: White Blood Count 10.2, Red Blood Count 4.82, Hemoglobin 14.9, Hematocrit 45, Mean Corpuscular Volume 94, Mean Corpuscular Hemoglobin 31, Mean Corpuscular Hemoglobin Concent 33, Red Cell Distribution Width 13.5, Platelet Count 222, Mean Platelet Volume 8.9L, Prothrombin Time 30.5H, INR Comment 2.9H, D-Dimer <= 0.27, Sodium Level 141, Potassium Level 4.3, Chloride Level 101, Carbon Dioxide Level 31, Anion Gap 9, Blood Urea Nitrogen 23H, Creatinine 1.19, Estimat Glomerular Filtration Rate 67, BUN/Creatinine Ratio 19, Glucose Level 106H, Calcium Level 9.8, Corrected Calcium 10.0, Magnesium Level 2.0, Total Bilirubin 0.8, Aspartate Amino Transf (AST/SGOT) 19, Alanine Aminotransferase (ALT/SGPT) 14, Alkaline Phosphatase 89, B-Type Natriuretic Peptide 92.9, Total Protein 7.9, Albumin 3.8 11/08/21 15:44: Influenza Type A (RT-PCR) Not Detected, Influenza Type B (RT-PCR) Not Detected, SARS-CoV-2 RNA (RT-PCR) Not Detected 11/09/21 04:59: White Blood Count 9.0, Red Blood Count 4.71, Hemoglobin 14.3, Hematocrit 44, Mean Corpuscular Volume 94, Mean Corpuscular Hemoglobin 30, Mean Corpuscular Hemoglobin Concent 32, Red Cell Distribution Width 13.4, Platelet Count 183, Mean Platelet Volume 9.1, Sodium Level 142, Potassium Level 4.0, Chloride Level 100, Carbon Dioxide Level 27, Anion Gap 15H, Blood Urea Nitrogen 25H, Creatinine 1.35H, Estimat Glomerular Filtration Rate 58, BUN/Creatinine Ratio 19, Glucose Level 110H, Calcium Level 9.4 Assessment/Plan Assessment/Plan Assessment & Plan 1. Acute Hypoxemia - CBC unremarkable - CMP shows BUN 25 and Cr 1.35, likely due to increased dose of Lasix, Stop IV Lasix, continue home dose. - COVID test neg - PT 30.5, INR 2.9 within therapeutic range for coumadin - CXR shows no acute processes - D-Dimer wnl - O2 94% on 3L on exam this AM, continue supplemental O2 - Consider Echo - PT/OT performed exam, patient able to ambulate and perform ADL's 2. CHF - BP Control - Continue home meds. 3. HTN -BP control - Continue home meds 4. Afib - Monitor for cardiac symptoms - Continue home meds as appropriate. 5. HIV - Continue home meds as appropriate. 6. Sleep Apnea - Encourage use of CPAP machine. STEPHANIE ROSALES MD 11/09/21 1510: Supervisory-Addendum Brief Verification & Attestation Participated in pt care: history, MDM, physical Personally performed: exam, history, MDM, supervision of care Care discussed with: Medical Student Procedures: n/a I personally saw and examined patient and did my own history which confirmed that documented by the medical student. Pt has JASWINDER today, suspect from aggressive diuresis, will return to home dosing and monitor creatinine. ANY TORRES Nov 09, 2021 11:46 STEPHANIE ROSALES MD Nov 09, 2021 15:10
--- NOTE | 2021-11-09 11:53 | Occ Therapy Progress Note ---
Therapy Progress Note OT orders received and chart reviewed. OT visited with pt who indicates he is at his PLOF with ADLs. He is able to toilet independently and has no concerns with his ability to complete ADLs upon discharging. Per PT report, pt is independent with mobility, no AD, 150' while managing O2 tubing. No skilled OT services indicated due to pt being at PLOF and independent with ADLs. D/C from OT. 1, visit ROSETTA JENKINS OT Nov 09, 2021 11:53
[2021-11-09] MEDS ORDERED: PATIENT MAY USE OWN MED,SINGLE MED PO SCH ×13 (12:00→16:45)
[2021-11-09] MEDS ORDERED: MU V PO (12:27)
[2021-11-09] MEDS ORDERED: DILT180C85 PO (12:27)
[2021-11-09] MEDS ORDERED: POTA-51 PO (12:27)
[2021-11-09] MEDS ORDERED: warFARin 5 MG (COUMADIN) TAB PO SCH (18:00)
[2021-11-09] MEDS ORDERED: KCL 20 MEQ TAB (K-DUR) PO SCH (18:00)
[2021-11-09] MEDS ORDERED: buPROPion SR 150 MG (WELLBUTRIN SR) TAB PO SCH (21:00)
[2021-11-09] MEDS: warFARin 5 MG (COUMADIN) TAB PO SCH (21:09)
[2021-11-09] MEDS: AMITRIPTYLINE 25 MG (ELAVIL) TAB PO SCH (21:10)
[2021-11-09] MEDS: CITALOPRAM 40 MG TABLET PO SCH (21:10)
[2021-11-09] MEDS: risperiDONE 0.5 MG (RisperDAL) TABLET PO SCH (21:11)
[2021-11-09] MEDS: BUPROPION 300 MG PO SCH (21:11)
[2021-11-09] MEDS: ASPIRIN E.C. 81 MG (ECOTRIN) TAB PO SCH (21:11)
[2021-11-09] MEDS ORDERED: NS IV 500 ML 500 ML ONE (23:49)
[2021-11-10] VITALS (26 sets, daily range): BP systolic 96–140; BP diastolic 73–114
[2021-11-10] MEDS ORDERED: NS IV 500 ML 500 ML IV ONE
[2021-11-10] MEDS: ACETAMINOPHEN 500 MG TAB (TYLENOL) PO PRN ×2 (00:02→09:53)
[2021-11-10] MEDS ORDERED: AMIODARONE FOR BOLUS 150 MG in NS (IVPB) 100 ML IV ONE (01:56)
[2021-11-10] MEDS ORDERED: AMIODARONE FOR BOLUS 150 MG in NS (IVPB) 100 ML IV SCH (01:56)
[2021-11-10] MEDS ORDERED: NS IV 500 ML 500 ML IV PRN (02:00)
--- NOTE | 2021-11-10 02:08 | Tele-ICU Progress Note ---
Progress Note 66M with HIV, CHF, afib, HTN, GAGE admitted 11/08 for dyspnea, hypoxia. Reported to be 86% on room air at outpatient eval. Had 1 day cough and dyspnea preceeding. Transferred to ICU for RVR. Has had HR>120 for the past 10-12 hours. Given 500 cc bolus without improvement. Also with significant diarrhea. Stool sample sent. - stat labs sent - amio bolus and gtt, BP has been in low 100s. Concerned diltiazem gtt will lower BP - chest XR ordered - urine legionella ordered due to combo resp and GI symtpoms Focused Exam Height, Weight, BMI Height: 6'0.00" Weight: 404lbs. 0.0oz. [id number]; 58.00 BMI Method:Stated CHAVO TAM MD Nov 10, 2021 02:08
[2021-11-10 02:14] LABS: BASOPHILS # (AUTO) 0.1 10^3/uL (0.0-0.1); BASOPHILS % (AUTO) 1 % (0-10); EOSINOPHILS # (AUTO) 0.1 10^3/uL (0.0-0.3); EOSINOPHILS % (AUTO) 1 % (0-10); HEMATOCRIT 46 % (40-54); HEMOGLOBIN 15.1 g/dL (13.3-17.7); LYMPHOCYTES % (AUTO) 9 % (12-44); MEAN CORPUSCULAR HEMOGLOBIN 31 pg (25-34); MEAN CORPUSCULAR HGB CONC 33 g/dL (32-36); MEAN CORPUSCULAR VOLUME 93 fL (80-99); MEAN PLATELET VOLUME 9.2 fL (9.0-12.2); MONOCYTES # (AUTO) 0.7 10^3/uL (0.0-1.0); MONOCYTES % (AUTO) 7 % (0-12); NEUTROPHILS # (AUTO) 8.5 10^3/uL (1.8-7.8); NEUTROPHILS % (AUTO) 82 % (42-75); PLATELET COUNT 172 10^3/uL (130-400); WHITE BLOOD COUNT 10.4 10^3/uL (4.3-11.0)
[2021-11-10] MEDS ORDERED: AMIODARONE (Pyxis Kit Only) BOLUS 150 MG/3 ML IV ONE (02:16)
[2021-11-10] MEDS ORDERED: AMIODARONE (Pyxis Kit Only) DRIP 450 MG/9 ML VIAL IV ONE (02:16)
[2021-11-10] MEDS ORDERED: D5W IV SOLUTION (EXCEL) 250 ML IV ONE (02:17)
[2021-11-10] MEDS ORDERED: D5W 100 ML IVPB 100 ML IV ONE (02:17)
[2021-11-10 02:23] LABS: INR 2.7 (0.8-1.4); PROTHROMBIN TIME PATIENT 29.1 SEC (12.2-14.7)
[2021-11-10 02:24] LABS: ALBUMIN 3.6 GM/DL (3.2-4.5); CHLORIDE 97 MMOL/L (98-107); POTASSIUM 4.9 MMOL/L (3.6-5.0); SODIUM 134 MMOL/L (135-145)
[2021-11-10 02:25] LABS: CALCIUM 8.9 MG/DL (8.5-10.1)
[2021-11-10] MEDS: AMIODARONE INJECTION 450 MG in NORMAL SALINE 250 ML IV SCH ×2 (02:26→10:59)
[2021-11-10 02:27] LABS: GLUCOSE 128 MG/DL (70-105); TOTAL PROTEIN 7.4 GM/DL (6.4-8.2)
[2021-11-10 02:28] LABS: BILIRUBIN,TOTAL 1.2 MG/DL (0.1-1.0); CARBON DIOXIDE 23 MMOL/L (21-32)
[2021-11-10 02:30] LABS: ALKALINE PHOSPHATASE 88 U/L (40-136); CREATININE SERUM 1.97 MG/DL (0.60-1.30); GFR ESTIMATED 37; PHOSPHORUS 2.7 MG/DL (2.3-4.7)
[2021-11-10 02:32] LABS: BILIRUBIN,DIRECT 0.4 MG/DL (0.0-0.3); BILIRUBIN,INDIRECT 0.8 MG/DL; BUN/CREATININE RATIO 20
[2021-11-10 02:33] LABS: ALANINE AMINOTRANSFERASE 16 U/L (0-55); MAGNESIUM 1.7 MG/DL (1.6-2.4)
[2021-11-10 02:46] LABS: BAND NEUTROPHILS 5 %; LYMPHOCYTES % (MANUAL) 15 %; MONOCYTES % (MANUAL) 6 %; NEUTROPHILS % (MANUAL) 72 %; RBC MORPH NORMAL
[2021-11-10] MEDS: POTASSIUM CL 10MEQ/50ML IVPB 50 ML IV SCH (04:24)
[2021-11-10] MEDS: KCL 20 MEQ TAB (K-DUR) PO SCH ×3 (04:25→20:13)
[2021-11-10] MEDS: MAGNESIUM 1 GM/100 ML IVPB 100 ML IV SCH ×3 (04:33→04:56)
--- NOTE | 2021-11-10 06:18 | Diagnostic Imaging Report ---
INDICATION: Hypoxia with atrial fib. COMPARISON: 11/08/2021. FINDINGS: Cardiomegaly is again noted. There are perihilar infiltrates with prominence of pulmonary vasculature. There is obscuration left hemidiaphragm on today's exam. Right costophrenic angle is sharp. IMPRESSION: Development of perihilar infiltrates as well as possible infiltrate in the left lung base versus pleural effusion. Dictated by: Dictated on workstation # [id number]
--- NOTE | 2021-11-10 07:50 | Consultation-Cardiology ---
HPI-Cardiology Cardiology Consultation: Date of Consultation 11/10/21 Time Seen by a Provider: 08:15 Date of Admission 11-08-21 Attending Physician [place] Admitting Physician Admitting Physician: Stephanie Rosales MD Attending Physician: Stephanie Rosales MD Consulting Physician Luis Sylvester MD HPI: Chief Complaint: A-fib with RVR Mr. Gilbert is a 66 yr old male who was admitted on 11-08-21 with increasing SOB, he was feeling better yesterday following aggressive diuresis. Overnight he went into a-fib with RVR necessitating transfer to ICU at which time Amiodarone gtt was initiated. He has chronic a-fib and is maintained on long-acting Cardizem CD and warfarin for stroke prophylaxis. He reports yesterday afternoon he developed diarrhea which has persisted to this morning. He denies any CP or palpitations. He continues to feel SOB, but feels it is better than before. He reports some gen weakness. Review of Systems-Cardiology Review of Systems Constitutional: No chills, No fever; malaise Eyes: No vision change Ears/Nose/Throat: epistaxis; No recent hearing loss Respiratory: As described under HPI Cardiovascular: As described under HPI Gastrointestinal: As described under HPI Genitourinary: No hematuria Musculoskeletal: no symptoms reported Skin: No rash on exposed areas, No ulcerations on exposed areas Psychiatric/Neurological: No anxiety, No depression, No seizure, No focal weakness, No syncope Hematologic: No bleeding abnormalities HJL-Nzctfy-Rwnxnb Hx Patient Social History Smoking Status: Never a Smoker 2nd Hand Smoke Exposure: No Alcohol Use?: No Immunizations Up To Date Tetanus Booster (TDap): Unknown Date of Pneumonia Vaccine: Apr 17, 2013 Date of Influenza Vaccine: Nov 27, 2020 Past Medical History PMH As described under Assessment. Family Medical History Family Medical History: He has reported that his mother had a heart attck in her 50s. He also has fam h/o DM Family History: Cardiovascular disease G8 SISTER Colon cancer G8 BROTHER Diabetes mellitus 19 MOTHER G8 SISTER FHx: COPD (chronic obstructive pulmonary disease) 19 FATHER Malignant neoplasm of prostate G8 BROTHER Paternal family history of emphysema Allergies and Home Medications Allergies Coded Allergies: No Known Drug Allergies (Unverified , 02/07/18) Patient Home Medication List Acetaminophen (Tylenol Extra Strength) 500 Mg Tablet, 1,000 MG PO Q8H PRN for PAIN-MILD (1-4), (Reported) Entered as Reported by: MALENA YUN on 04/26/21 1014 Last Action: Reviewed Allopurinol (Allopurinol) 100 Mg Tablet, 100 MG PO DAILY, (Reported) Entered as Reported by: SAVITA CARBALLO on 03/13/18 1533 Last Action: Reviewed Amitriptyline HCl (Amitriptyline HCl) 25 Mg Tablet, 25 MG PO HS, (Reported) Entered as Reported by: STEPHANIE ROSALES on 11/08/21 203 Last Action: Reviewed Aspirin (Aspirin EC) 81 Mg Tablet.dr, 81 MG PO HS, (Reported) Entered as Reported by: TERESITA FOX on 04/15/19 08 Last Action: Reviewed Bictegrav/Emtricit/Tenofov Ala (Biktarvy 50-200-25 mg Tablet) 1 Each Tablet, 1 EACH PO DAILY, (Reported) Entered as Reported by: TERESITA FOX on 04/15/19 0811 Last Action: Reviewed Bupropion HCl (Bupropion Xl) 300 Mg Tab.er.24h, 300 MG PO HS, (Reported) Entered as Reported by: MIGUEL RICHARDSON on 11/29/14 1949 Last Action: Reviewed Citalopram Hydrobromide (Citalopram HBr) 40 Mg Tablet, 40 MG PO HS, (Reported) Entered as Reported by: DOT ENCISO on 12/01/14 0915 Last Action: Reviewed Diltiazem HCl (Diltiazem 24Hr ER) 120 Mg Cap.er.24h, 120 MG PO DAILY, (Reported) Entered as Reported by: STEPHANIE ROSALES on 06/24/20 1418 Last Action: Reviewed Diltiazem HCl (Diltiazem 24Hr ER) 180 Mg Cap.er.24h, 360 MG PO DAILY, (Reported) Entered as Reported by: TERESITA FOX on 11/09/21 1227 Last Action: Reviewed Furosemide (Furosemide) 80 Mg Tablet, 160 MG PO DAILY, (Reported) Entered as Reported by: TERESITA FOX on 07/28/20 0905 Last Action: Converted Magnesium Oxide (Magnesium) 400 Mg Tablet, 400 MG PO BID, (Reported) Entered as Reported by: TERESITA FOX on 04/15/19 0811 Last Action: Reviewed Multivit-Min/FA/Lycopene/Lut (Sentry Senior Tablet) 0.4 Mg-300 Mcg-250 Mcg Tablet, 1 EACH PO HS, (Reported) Entered as Reported by: TERESITA FOX on 11/09/21 122 Last Action: Reviewed Oxycodone HCl (Oxycodone HCl) 10 Mg Tablet, 10 MG PO Q6H PRN for PAIN-SEVERE (8- 10), (Reported) Entered as Reported by: TERESITA FOX on 07/28/20 09 Last Action: Reviewed Potassium Chloride (Potassium Chloride) 20 Meq Tablet.er, 40 MEQ PO BID, (Reported) Entered as Reported by: TERESITA FOX on 11/09/211226 Last Action: Reviewed Risperidone (Risperidone) 0.5 Mg Tablet, 0.5 MG PO HS, (Reported) Entered as Reported by: DOT ENCISO on 12/01/14 0915 Last Action: Reviewed Spironolactone (Spironolactone) 50 Mg Tablet, 50 MG PO DAILY, (Reported) Entered as Reported by: TERESITA FOX on 07/28/20 09 Last Action: Reviewed Warfarin Sodium (Warfarin Sodium) 5 Mg Tablet, 7.5 MG PO POWER,MO,TU,TH,FR,SA @HS, (Reported) Entered as Reported by: SAVITA CARBALLO on 03/13/18 1533 Last Action: Reviewed Warfarin Sodium (Warfarin Sodium) 5 Mg Tablet, 10 MG PO WED @HS, (Reported) Entered as Reported by: MALENA YUN on 04/26/21 1003 Last Action: Reviewed Discontinued Medications Carboxymethylcellulose Sodium (Refresh Tears) 15 Ml Drops, 1 DROP OP DAILY PRN for DRY EYES, (Reported) Discontinued Reason: No Longer Taking Entered as Reported by: MALENA YUN on 04/26/21 1017 Last Action: Discontinued Cefdinir (Cefdinir) 300 Mg Capsule, 300 MG PO BID Prescribed by: STEPHANIE ROSALES on 04/26/21 1226 Last Action: Discontinued Diltiazem HCl (Diltiazem ER) 180 Mg Capsule.er, 360 MG PO DAILY, (Reported) Discontinued Reason: Duplicate Order Entered as Reported by: STEPHANIE ROSALES on 06/24/20 1418 Last Action: Discontinued Potassium Chloride (Klor-Con M20) 20 Meq Tab.er.prt, 40 MEQ PO BID, (Reported) Discontinued Reason: Duplicate Order Entered as Reported by: TERESITA FOX on 06/25/20 0814 Last Action: Discontinued Physical Exam-Cardiology Physical Exam Vital Signs/I&O 11/10/21 11/10/21 11/10/21 11/10/21 01:38 01:45 02:06 02:09 Temp 37.7 Pulse 158 135 138 Resp 17 25 B/P (MAP) 115/91 (104) 107/83 (96) Pulse Ox 95 94 O2 Delivery Nasal Cannula Nasal Cannula O2 Flow Rate 3.00 3.00 11/10/21 11/10/21 11/10/21 11/10/21 02:15 02:25 02:30 02:45 Pulse 134 135 149 144 Resp 27 B/P (MAP) 111/74 (85) 111/74 109/95 (99) 96/79 (88) Pulse Ox 94 94 95 O2 Delivery Nasal Cannula Nasal Cannula Nasal Cannula O2 Flow Rate 3.00 3.00 3.00 11/10/21 11/10/21 11/10/21 11/10/21 03:00 04:00 04:00 05:00 Pulse 131 129 113 Resp 24 B/P (MAP) 100/86 (90) 112/92 (102) 128/79 (93) Pulse Ox 93 93 96 93 O2 Delivery Nasal Cannula Nasal Cannula Nasal Cannula Nasal Cannula O2 Flow Rate 3.00 3.00 3.00 3.00 11/10/21 11/10/21 11/10/21 11/10/21 06:00 07:00 07:47 08:00 Pulse 112 94 112 114 Resp 23 B/P (MAP) 127/89 (97) 133/93 (106) 121/99 (106) Pulse Ox 90 87 91 O2 Delivery Nasal Cannula Nasal Cannula Nasal Cannula O2 Flow Rate 3.00 3.00 3.00 11/10/21 11/10/21 11/10/21 11/10/21 08:00 09:00 10:00 11:00 Pulse 107 114 96 Resp 23 B/P (MAP) 139/114 (122) 127/95 (106) 117/94 (102) Pulse Ox 96 94 95 94 O2 Delivery Nasal Cannula Nasal Cannula Nasal Cannula Nasal Cannula O2 Flow Rate 3.00 3.00 3.00 3.00 11/10/21 11/10/21 11/10/21 11:28 12:00 12:17 Pulse 101 101 Resp 20 B/P (MAP) 140/80 (100) Pulse Ox 96 91 O2 Delivery Nasal Cannula Nasal Cannula O2 Flow Rate 3.00 3.00 11/10/21 00:00 Intake Total 1690 ml Balance 1690 ml Capillary Refill : Constitutional: AAO x 3, well-developed, well-nourished HEENT: PERRL, hearing is well preserved, oral hygience is good Neck: No carotid bruit; carotid pulses are 2 + bilaterally Respiratory: No accessory muscle use, No respiratory distress; chest expansion is symmetric, chest is bilaterally symmetric, other (good air entry) Gastrointestinal: No tender; soft, round, audible bowel sounds Extremities: other (mild bilat LE swelling) Neurologic/Psychiatric: grossly intact (moves all extremities) Skin: No rash on exposed areas, No ulcerations on exposed areas Data Review Labs Laboratory Tests 11/10/21 02:03: White Blood Count 10.4, Red Blood Count 4.91, Hemoglobin 15.1, Hematocrit 46, Mean Corpuscular Volume 93, Mean Corpuscular Hemoglobin 31, Mean Corpuscular Hemoglobin Concent 33, Red Cell Distribution Width 13.3, Platelet Count 172, Mean Platelet Volume 9.2, Immature Granulocyte % (Auto) 1, Neutrophils (%) (Auto) 82H, Lymphocytes (%) (Auto) 9L, Monocytes (%) (Auto) 7, Eosinophils (%) (Auto) 1, Basophils (%) (Auto) 1, Neutrophils # (Auto) 8.5H, Lymphocytes # (Auto) 1.0, Monocytes # (Auto) 0.7, Eosinophils # (Auto) 0.1, Basophils # (Auto) 0.1, Immature Granulocyte # (Auto) 0.1, Neutrophils % (Manual) 72, Lymphocytes % (Manual) 15, Monocytes % (Manual) 6, Band Neutrophils 5, Blood Morphology Comment NORMAL, Prothrombin Time 29.1H, INR Comment 2.7H, Sodium Level 134L, Potassium Level 4.9, Chloride Level 97L, Carbon Dioxide Level 23, Anion Gap 14, Blood Urea Nitrogen 40H, Creatinine 1.97H, Estimat Glomerular Filtration Rate 37, BUN/Creatinine Ratio 20, Glucose Level 128H, Calcium Level 8.9, Corrected Calcium 9.2, Phosphorus Level 2.7, Magnesium Level 1.7, Total Bilirubin 1.2H, Direct Bilirubin 0.4H, Indirect Bilirubin 0.8, Aspartate Amino Transf (AST/SGOT) 23, Alanine Aminotransferase (ALT/SGPT) 16, Alkaline Phosphatase 88, Troponin I < 0.028, Total Protein 7.4, Albumin 3.6, Thyroid Stimulating Hormone (TSH) 1.80 Microbiology 11/09/21 C. difficile GDH Antigen & Toxins - Final, Complete Radiology NAME: [facility] REC#: [id number] PT STATUS: ADM IN : 1955 PHYSICIAN: CHAVO TAM MD ADMIT DATE: 11/08/21/ICU Signed Date of Exam:11/10/21 CHEST 1 VIEW, AP/PA ONLY INDICATION: Hypoxia with atrial fib. COMPARISON: 11/08/2021. FINDINGS: Cardiomegaly is again noted. There are perihilar infiltrates with prominence of pulmonary vasculature. There is obscuration left hemidiaphragm on today's exam. Right costophrenic angle is sharp. IMPRESSION: Development of perihilar infiltrates as well as possible infiltrate in the left lung base versus pleural effusion. Dictated by: Dictated on workstation # [id number] Dict: 11/10/21 0614 Trans: 11/10/21 0759 [id number] Interpreted by: DOUGLAS COLLIER MD Electronically signed by: DOUGLAS COLLIER MD 11/10/21 0759 ECG Impression ECG Initial ECG Impression: Atrial Fibrillation w/RVR A/P-Cardiology Assessment/Admission Diagnosis Chronic atrial fibrillation - converted to a-fib with RVR - Amiodarone gtt - maintained on long-acting Cardizem - OAC with warfarin - therapeutic INR Chronic diastolic CHF - clinically compensated - Echocardiogram of Feb [address] Obrien showed wall thickness is mildly to mod increased. Concentric hypertrophy. LVEF 55-65%. LA and RA dilated. Mild MR. Mild to mod TR Acute renal insufficiency - likely secondary to vol depletion secondary to aggressive diuresis and diarrhea Diarrhea - undetermined etiology - management per medical services Orthopedic - Osteomyelitis of R 2nd toe, s/p amputation on 06/25/20 - Chronic joint and back pain - PORTER with segmentals from 11-04-20 showed no evidence of signif obstructive PAD Bilat leg swelling - related to venous insuff and ac on chronic diastolic CHF - controlled H/o hypokalemia - due to chronic diuretic therapy Morbid obesity - BMI approx 55 HIV positive status - managed by Dr Woods in [place], [place] H/o depression - managed by PCP Obstructive sleep apnea syndrome - treated with CPAP Carotid dz - Minimal carotid arterial plaque on carotid u/s of April 2019 Discussion and Recomendations Chronic a-fib for which he has converted to a-fib with RVR overnight - Amiodarone gtt initiated - rates still not well controlled - maintained on long acting Cardizem at home - OAC with warfarin - therapeutic INR Diarrhea of undetermined etiology - management per medical services Elevated T.Bili level - undetermined etiology JASWINDER - likely secondary to vol loss d/t aggressive diuresis and diarrhea - reduce diuretic regimen - give IVF and monitor Acute on chronic diastolic CHF - clinically compensated Monitor lab closely - replace electrolytes as indicated Echocardiogram today Further recs will be based on his hospital course We would like to thank medical services for this consult JOSE E CHAO Nov 10, 2021 07:50
[2021-11-10] MEDS ORDERED: FUROSEMIDE 160 MG PO SCH (09:00)
--- NOTE | 2021-11-10 09:31 | Consultation-Cardiology ---
HPI-Cardiology Cardiology Consultation: Date of Consultation 11/10/21 Time Seen by a Provider: 09:00 Date of Admission Attending Physician [facility] Admitting Physician Admitting Physician: Stephanie Rosales MD Attending Physician: Stephanie Rosales MD Consulting Physician REKHA BLEVINS MD, MA, FACP, FACC, [facility], [facility] HPI: Chief Complaint: A-fib with RVR Mr. Cope is a 66 yr old male who was admitted on 11-08-21 with increasing SOB, he was feeling better yesterday following aggressive diuresis. Overnight he went into a-fib with RVR necessitating transfer to ICU at which time Amiodarone gtt was initiated. He has chronic a-fib and is maintained on long-acting Cardizem CD and warfarin for stroke prophylaxis. He reports yesterday afternoon he developed diarrhea which has persisted to this morning. He denies any CP or palpitations. He continues to feel SOB, but feels it is better than before. He reports some gen weakness. Review of Systems-Cardiology Review of Systems Constitutional: No chills, No fever; malaise Eyes: No vision change Ears/Nose/Throat: epistaxis; No recent hearing loss Respiratory: As described under HPI Cardiovascular: As described under HPI Gastrointestinal: As described under HPI Genitourinary: No hematuria Musculoskeletal: no symptoms reported Skin: No rash on exposed areas, No ulcerations on exposed areas Psychiatric/Neurological: No anxiety, No depression, No seizure, No focal weakness, No syncope Hematologic: No bleeding abnormalities BRW-Ijwrxv-Hqxdnu Hx Patient Social History Smoking Status: Never a Smoker 2nd Hand Smoke Exposure: No Alcohol Use?: No Immunizations Up To Date Tetanus Booster (TDap): Unknown Date of Pneumonia Vaccine: Apr 17, 2013 Date of Influenza Vaccine: Nov 27, 2020 Past Medical History PMH As described under Assessment. Family Medical History Family Medical History: He has reported that his mother had a heart attck in her 50s. He also has fam h/o DM Family History: Cardiovascular disease G8 SISTER Colon cancer G8 BROTHER Diabetes mellitus 19 MOTHER G8 SISTER FHx: COPD (chronic obstructive pulmonary disease) 19 FATHER Malignant neoplasm of prostate G8 BROTHER Paternal family history of emphysema Allergies and Home Medications Allergies Coded Allergies: No Known Drug Allergies (Unverified , 02/07/18) Patient Home Medication List Home Medication List Reviewed: Yes Acetaminophen (Tylenol Extra Strength) 500 Mg Tablet, 1,000 MG PO Q8H PRN for PAIN-MILD (1-4), (Reported) Entered as Reported by: MALENA YUN on 04/26/21 1014 Last Action: Reviewed Allopurinol (Allopurinol) 100 Mg Tablet, 100 MG PO DAILY, (Reported) Entered as Reported by: SAVITA CARBALLO on 03/13/18 1533 Last Action: Reviewed Amitriptyline HCl (Amitriptyline HCl) 25 Mg Tablet, 25 MG PO HS, (Reported) Entered as Reported by: STEPHANIE ROSALES on 11/08/212031 Last Action: Reviewed Aspirin (Aspirin EC) 81 Mg Tablet.dr, 81 MG PO HS, (Reported) Entered as Reported by: TERESITA FOX on 04/15/19 08 Last Action: Reviewed Bictegrav/Emtricit/Tenofov Ala (Biktarvy 50-200-25 mg Tablet) 1 Each Tablet, 1 EACH PO DAILY, (Reported) Entered as Reported by: TERESITA FOX on 04/15/19 08 Last Action: Reviewed Bupropion HCl (Bupropion Xl) 300 Mg Tab.er.24h, 300 MG PO HS, (Reported) Entered as Reported by: MIGUEL RICHARDSON on 11/29/14 194 Last Action: Reviewed Citalopram Hydrobromide (Citalopram HBr) 40 Mg Tablet, 40 MG PO HS, (Reported) Entered as Reported by: DOT ENCISO on 12/01/14 0915 Last Action: Reviewed Diltiazem HCl (Diltiazem 24Hr ER) 120 Mg Cap.er.24h, 120 MG PO DAILY, (Reported) Entered as Reported by: STEPHANIE ROSALES on 06/24/20 1418 Last Action: Reviewed Diltiazem HCl (Diltiazem 24Hr ER) 180 Mg Cap.er.24h, 360 MG PO DAILY, (Reported) Entered as Reported by: TERESITA FOX on 11/09/21 1227 Last Action: Reviewed Furosemide (Furosemide) 80 Mg Tablet, 160 MG PO DAILY, (Reported) Entered as Reported by: TERESITA FOX on 07/28/20 0905 Last Action: Converted Magnesium Oxide (Magnesium) 400 Mg Tablet, 400 MG PO BID, (Reported) Entered as Reported by: TERESITA FOX on 04/15/19 0811 Last Action: Reviewed Multivit-Min/FA/Lycopene/Lut (Sentry Senior Tablet) 0.4 Mg-300 Mcg-250 Mcg Tablet, 1 EACH PO HS, (Reported) Entered as Reported by: TERESITA FOX on 11/09/21 122 Last Action: Reviewed Oxycodone HCl (Oxycodone HCl) 10 Mg Tablet, 10 MG PO Q6H PRN for PAIN-SEVERE (8- 10), (Reported) Entered as Reported by: TERESITA FOX on 07/28/20 09 Last Action: Reviewed Potassium Chloride (Potassium Chloride) 20 Meq Tablet.er, 40 MEQ PO BID, (Reported) Entered as Reported by: TERESITA FOX on 11/09/211226 Last Action: Reviewed Risperidone (Risperidone) 0.5 Mg Tablet, 0.5 MG PO HS, (Reported) Entered as Reported by: DOT ENCISO on 12/01/14 0915 Last Action: Reviewed Spironolactone (Spironolactone) 50 Mg Tablet, 50 MG PO DAILY, (Reported) Entered as Reported by: TERESITA FOX on 07/28/20904 Last Action: Reviewed Warfarin Sodium (Warfarin Sodium) 5 Mg Tablet, 7.5 MG PO POWER,MO,TU,TH,FR,SA @HS, (Reported) Entered as Reported by: SAVITA CARBALLO on 03/13/18 1533 Last Action: Reviewed Warfarin Sodium (Warfarin Sodium) 5 Mg Tablet, 10 MG PO WED @HS, (Reported) Entered as Reported by: MALENA YUN on 04/26/21 1003 Last Action: Reviewed Discontinued Medications Carboxymethylcellulose Sodium (Refresh Tears) 15 Ml Drops, 1 DROP OP DAILY PRN for DRY EYES, (Reported) Discontinued Reason: No Longer Taking Entered as Reported by: MALENA YUN on 04/26/21 1017 Last Action: Discontinued Cefdinir (Cefdinir) 300 Mg Capsule, 300 MG PO BID Prescribed by: STEPHANIE ROSALES on 04/26/21 1226 Last Action: Discontinued Diltiazem HCl (Diltiazem ER) 180 Mg Capsule.er, 360 MG PO DAILY, (Reported) Discontinued Reason: Duplicate Order Entered as Reported by: STEPHANIE ROSALES on 06/24/20 1418 Last Action: Discontinued Potassium Chloride (Klor-Con M20) 20 Meq Tab.er.prt, 40 MEQ PO BID, (Reported) Discontinued Reason: Duplicate Order Entered as Reported by: TERESITA FOX on 06/25/20 0874 Last Action: Discontinued Physical Exam-Cardiology Physical Exam Vital Signs/I&O 11/09/21 11/10/21 11/10/21 11/10/21 23:15 01:00 01:38 01:45 Temp 36.2 Pulse 100 154 158 135 Resp 17 B/P (MAP) 130/85 (100) 115/91 (104) Pulse Ox 96 95 O2 Delivery Nasal Cannula Nasal Cannula O2 Flow Rate 3.50 3.00 11/10/21 11/10/21 11/10/21 11/10/21 02:06 02:09 02:15 02:25 Temp 37.7 Pulse 138 134 135 Resp B/P (MAP) 107/83 (96) 111/74 (85) 111/74 Pulse Ox 94 94 O2 Delivery Nasal Cannula Nasal Cannula O2 Flow Rate 3.00 3.00 11/10/21 11/10/21 11/10/21 11/10/21 02:30 02:45 03:00 04:00 Pulse 149 144 131 129 Resp 27 B/P (MAP) 109/95 (99) 96/79 (88) 100/86 (90) 112/92 (102) Pulse Ox 94 95 93 93 O2 Delivery Nasal Cannula Nasal Cannula Nasal Cannula Nasal Cannula O2 Flow Rate 3.00 3.00 3.00 3.00 11/10/21 11/10/21 11/10/21 11/10/21 04:00 05:00 06:00 07:00 Pulse 113 112 94 Resp 23 B/P (MAP) 128/79 (93) 127/89 (97) 133/93 (106) Pulse Ox 96 93 90 87 O2 Delivery Nasal Cannula Nasal Cannula Nasal Cannula Nasal Cannula O2 Flow Rate 3.00 3.00 3.00 3.00 11/10/21 11/10/21 07:47 08:00 Pulse 112 114 Resp 23 B/P (MAP) 121/99 (106) Pulse Ox 91 O2 Delivery Nasal Cannula O2 Flow Rate 3.00 11/10/21 00:00 Intake Total 1690 ml Balance 1690 ml Capillary Refill : Constitutional: AAO x 3, well-developed, well-nourished HEENT: PERRL, hearing is well preserved, oral hygience is good Neck: No carotid bruit; carotid pulses are 2 + bilaterally Respiratory: No accessory muscle use, No respiratory distress; chest expansion is symmetric, chest is bilaterally symmetric, other (good air entry) Gastrointestinal: No tender; soft, round, audible bowel sounds Extremities: other (mild bilat LE swelling) Neurologic/Psychiatric: grossly intact (moves all extremities) Skin: No rash on exposed areas, No ulcerations on exposed areas Data Review Labs Laboratory Tests 11/10/21 02:03: White Blood Count 10.4, Red Blood Count 4.91, Hemoglobin 15.1, Hematocrit 46, Mean Corpuscular Volume 93, Mean Corpuscular Hemoglobin 31, Mean Corpuscular Hemoglobin Concent 33, Red Cell Distribution Width 13.3, Platelet Count 172, Mean Platelet Volume 9.2, Immature Granulocyte % (Auto) 1, Neutrophils (%) (Auto) 82H, Lymphocytes (%) (Auto) 9L, Monocytes (%) (Auto) 7, Eosinophils (%) (Auto) 1, Basophils (%) (Auto) 1, Neutrophils # (Auto) 8.5H, Lymphocytes # (Auto) 1.0, Monocytes # (Auto) 0.7, Eosinophils # (Auto) 0.1, Basophils # (Auto) 0.1, Immature Granulocyte # (Auto) 0.1, Neutrophils % (Manual) 72, Lymphocytes % (Manual) 15, Monocytes % (Manual) 6, Band Neutrophils 5, Blood Morphology Comment NORMAL, Prothrombin Time 29.1H, INR Comment 2.7H, Sodium Level 134L, Potassium Level 4.9, Chloride Level 97L, Carbon Dioxide Level 23, Anion Gap 14, Blood Urea Nitrogen 40H, Creatinine 1.97H, Estimat Glomerular Filtration Rate 37, BUN/Creatinine Ratio 20, Glucose Level 128H, Calcium Level 8.9, Corrected Calcium 9.2, Phosphorus Level 2.7, Magnesium Level 1.7, Total Bilirubin 1.2H, Direct Bilirubin 0.4H, Indirect Bilirubin 0.8, Aspartate Amino Transf (AST/SGOT) 23, Alanine Aminotransferase (ALT/SGPT) 16, Alkaline Phosphatase 88, Troponin I < 0.028, Total Protein 7.4, Albumin 3.6, Thyroid Stimulating Hormone (TSH) 1.80 Microbiology 11/09/21 C. difficile GDH Antigen & Toxins - Final, Complete A/P-Cardiology Assessment/Admission Diagnosis Chronic atrial fibrillation, currently exhibiting RVR - Amiodarone gtt - maintained on long-acting Cardizem - OAC with warfarin - therapeutic INR Chronic diastolic CHF - clinically compensated - Echocardiogram of Feb [address] Obrien showed wall thickness is mildly to mod increased. Concentric hypertrophy. LVEF 55-65%. LA and RA dilated. Mild MR. Mild to mod TR Acute renal insufficiency - likely secondary to vol depletion secondary to aggressive diuresis and diarrhea Diarrhea - undetermined etiology - management per medical services Orthopedic - Osteomyelitis of R 2nd toe, s/p amputation on 06/25/20 - Chronic joint and back pain - PORTER with segmentals from 11-04-20 showed no evidence of signif obstructive PAD Bilat leg swelling - related to venous insuff and ac on chronic diastolic CHF - controlled H/o hypokalemia - due to chronic diuretic therapy Morbid obesity - BMI approx 55 HIV positive status - managed by Dr Woods in [place], [place] H/o depression - managed by PCP Obstructive sleep apnea syndrome - treated with CPAP Carotid dz - Minimal carotid arterial plaque on carotid u/s of April 2019 Discussion and Recomendations Chronic a-fib with RVR - Amiodarone gtt initiated - rates still not well controlled - continue, but amiodarone not a good fdc med for him (amiodarone unlikely to convert him to NSR, given ch A Fib) - resume long-acting Cardizem at home. Consider dig, if needed - continue OAC with warfarin - therapeutic INR - hydrate as needed. Heart rate expected to improve as diarrhea and volume status improve Diarrhea of undetermined etiology - management per medical services Elevated T.Bili level - undetermined etiology JASWINDER - likely secondary to vol loss d/t diuretics and diarrhea - reduce diuretic regimen - give IVF and monitor Acute on chronic diastolic CHF - clinically compensated Monitor lab closely - replace electrolytes as indicated Echocardiogram today Further recs will be based on his hospital course Discussed with Dr Rosales pathak am REKHA BLEVINS MD [facility] Nov 10, 2021 09:31
[2021-11-10] MEDS: dilTIAZem120 MG (CARDIZEM CD) CAP PO SCH (09:49)
[2021-11-10] MEDS: ALLOPURINOL 100 MG (ZYLOPRIM) TAB PO SCH (09:50)
[2021-11-10] MEDS: FUROSEMIDE 80 MG TABLET PO SCH (09:53)
[2021-11-10] MEDS: MULTIVIT W/MINERALS TAB (THERAGRAN M) PO SCH ×2 (09:53→20:50)
[2021-11-10] MEDS: MAGNESIUM OXIDE (MAG-OX)400 MG TAB PO SCH ×2 (09:53→20:44)
[2021-11-10] MEDS: SPIRONOLACTONE 50 MG TABLET PO SCH (09:53)
--- NOTE | 2021-11-10 11:00 | Progress Note ---
ANY TORRES 11/10/21 1100: Subjective Subjective/Events-last exam Nikolay is a 66 y M with a pmh of HIV, CHF, afib, HTN, sleep apnea who was a direct admit to us with a chief complaint of shortness of breath. He was transferred to the ICU after episode of RVR with HR in 150-180's overnight. He is now on Amiodarone drip. He states he has felt palpitations. He had several episodes of diarrhea overnight and had to get up to use the bathroom every 15-20 minutes. He says cholestyramine and Lomotil have worked for him in the past. Review of Systems General: No Chills, No Night Sweats, No Fatigue, No Malaise, No Appetite, No Other HEENT: Head Aches; No Visual Changes, No Dysphasia Pulmonary: No Dyspnea, No Cough Cardiovascular: Palpitations; No: Chest Pain, Edema Gastrointestinal: Diarrhea; No: Nausea, Vomiting Genitourinary: No Dysuria Musculoskeletal: No: neck pain, shoulder pain, back pain Neurological: Incoordination (stumbled once when getting up to use bathroom); No: Weakness, Numbness Focused Exam Respiratory: Normal Breath Sounds, No Respiratory Distress (on 3L O2 with sat at 92-94%) Cardiovascular: No Edema, No Murmur, Irregularly Irregular Skin: normal color, warm/dry Objective Exam Last Set of Vital Signs Vital Signs Date Time Temp Pulse Resp B/P (MAP) Pulse Ox O2 Delivery O2 Flow Rate FiO2 11/10/21 10:00 114 24 127/95 (106) 95 Nasal Cannula 3.00 11/10/21 02:09 37.7 Capillary Refill : I&O Intake and Output 11/10/21 00:00 Intake Total 1989 ml Balance 1989 ml Intake Oral 1990 ml # Voids 7 # Bowel Movements 12 General: Alert, Oriented X3, Cooperative, No Acute Distress HEENT: Atraumatic, EOMI, Mucous Memb Moist/[place] Neck: Supple Lungs: Clear to Auscultation Heart: Other (irregularly irregular) Abdomen: Normal Bowel Sounds, Soft, No Tenderness Extremities: No Edema Skin: No Rashes, No Significant Lesion Neuro: Normal Speech, Cranial Nerves 3-12 NL Psych/Mental Status: Mental Status NL, Mood NL Results/Procedures Lab Laboratory Tests 11/10/21 02:03: White Blood Count 10.4, Red Blood Count 4.91, Hemoglobin 15.1, Hematocrit 46, Mean Corpuscular Volume 93, Mean Corpuscular Hemoglobin 31, Mean Corpuscular Hemoglobin Concent 33, Red Cell Distribution Width 13.3, Platelet Count 172, Mean Platelet Volume 9.2, Immature Granulocyte % (Auto) 1, Neutrophils (%) (Auto) 82H, Lymphocytes (%) (Auto) 9L, Monocytes (%) (Auto) 7, Eosinophils (%) (Auto) 1, Basophils (%) (Auto) 1, Neutrophils # (Auto) 8.5H, Lymphocytes # (Auto) 1.0, Monocytes # (Auto) 0.7, Eosinophils # (Auto) 0.1, Basophils # (Auto) 0.1, Immature Granulocyte # (Auto) 0.1, Neutrophils % (Manual) 72, Lymphocytes % (Manual) 15, Monocytes % (Manual) 6, Band Neutrophils 5, Blood Morphology Comm ent NORMAL, Prothrombin Time 29.1H, INR Comment 2.7H, Sodium Level 134L, Potassium Level 4.9, Chloride Level 97L, Carbon Dioxide Level 23, Anion Gap 14, Blood Urea Nitrogen 40H, Creatinine 1.97H, Estimat Glomerular Filtration Rate 37, BUN/Creatinine Ratio 20, Glucose Level 128H, Calcium Level 8.9, Corrected Calcium 9.2, Phosphorus Level 2.7, Magnesium Level 1.7, Total Bilirubin 1.2H, Direct Bilirubin 0.4H, Indirect Bilirubin 0.8, Aspartate Amino Transf (AST/SGOT) 23, Alanine Aminotransferase (ALT/SGPT) 16, Alkaline Phosphatase 88, Troponin I < 0.028, Total Protein 7.4, Albumin 3.6, Thyroid Stimulating Hormone (TSH) 1.80 Microbiology 11/09/21 C. difficile GDH Antigen & Toxins - Final, Complete Radiology NAME: [facility] REC#: [id number] PT STATUS: ADM IN : 1955 PHYSICIAN: CHAVO TAM MD ADMIT DATE: 11/08/21/ICU Signed Date of Exam:11/10/21 CHEST 1 VIEW, AP/PA ONLY INDICATION: Hypoxia with atrial fib. COMPARISON: 11/08/2021. FINDINGS: Cardiomegaly is again noted. There are perihilar infiltrates with prominence of pulmonary vasculature. There is obscuration left hemidiaphragm on today's exam. Right costophrenic angle is sharp. IMPRESSION: Development of perihilar infiltrates as well as possible infiltrate in the left lung base versus pleural effusion. Dictated by: Dictated on workstation # [id number] Dict: 11/10/21613 Trans: 11/10/21 0759 [id number] Interpreted by: DOUGLAS COLLIER MD Electronically signed by: DOUGLAS COLLIER MD 11/10/21 0759 Assessment/Plan Assessment/Plan Assessment & Plan 1. Afib with RVR - In ICU on Amiodarone drip - On daily Cardizem and Warfarin for stroke prevention - Cardiology consulted. 2. Acute diarrhea - stool culture for ova/parasite, C.diff - urine study for legionella - Consider anti motility agents. Pt. has used Lomotil and Cholestyramine in the past. 3. Acute Hypoxemia - CBC no change today, unremarkable - CMP shows BUN 40 and Cr 1.97, Continued on home dose of Lasix. - COVID test neg - PT 30.5, INR 2.9 within therapeutic range for coumadin - CXR shows no acute processes - D-Dimer wnl - O2 93% on 3L on exam this AM, continue supplemental O2 - - PT/OT performed exam, patient able to ambulate and perform ADL's 4. JASWINDER - IV Fluids - Hold Lasix - Cr 1.97, monitor as fluid status improves 5. CHF - BP Control - Continue home meds. 6. HTN -BP control - Continue home meds 7. Afib - Monitor for cardiac symptoms - Continue home meds as appropriate. 8. HIV - Continue home meds as appropriate. 9. Sleep Apnea - Encourage use of CPAP machine. STEPHANIE ROSALES MD 11/10/21 3825: Supervisory-Addendum Brief Verification & Attestation Participated in pt care: history, MDM, physical Personally performed: exam, history, MDM, supervision of care Care discussed with: Medical Student Procedures: n/a I personally saw and examined patient and did my own history which confirmed that documented by the medical student. I directed the plan of care as documented by the medical student. ANY TORRES Nov 10, 2021 11:00 STEPHANIE ROSALES MD Nov 10, 2021 14:07
[2021-11-10] MEDS: NS IV 1000 ML 1,000 ML IV SCH (11:01)
--- NOTE | 2021-11-10 12:16 | Tele-ICU Progress Note ---
Progress Note FOLLOW UP ON CONSULT DONE THIS AM (Tele-ICU Physician , Progress Note ) Available chart/ vitals / labs / Images reviewed Video assessment done using teleICU camera, rest of exam as per RN Discussed with RN Events overnight : Afebrile hemodynamically stable Respiratory - 3L I/O + Drips: NS 75 Pressors- no Consultants: kallie Hospital course: (11/08) 66y/M admitted iwth hypoxemia (11/10)[place] to icu with afib rvr. A/P A fib RVR - as per cards - on amio gtt - AC with coumadin - INR > 2 , follow as per cards/PCP -ECHO pending Acute rersp failurte ( neg for covid and flu ) PFT 06/2020- no obstruction , + restrictin - attemted diuresis - with BNP 92 , ECHO pending - ? CD4 count - should consided PJP if low JASWINDER - ? dehydration due to diarrhea + diuretics - furosemide on hold , hydration HIV -to cont meds - ? recent CD4/CD8 Diarrhea - w/up pending - c diff negative GAGE- ? compliant with CPAP Lines : periph , (Central Line Necessity Reviewed) Muñoz: void OG: Nutrition: po Analgesia: Anxiety/ delirium VTE Prophylaxis: inr> 2 Stress Ulcer Prophylaxis: po intake Plans in collaboration with bedside consultants and IM MDs. Discussed with RN to reach out if any questions or concerns Focused Exam Height, Weight, BMI Height: 6'0.00" Weight: 404lbs. 0.0oz. 183.547262nl; 58.00 BMI Method:Stated FELICIA CASTRO MD Nov 10, 2021 12:16
[2021-11-10] MEDS ORDERED: warFARin 5 MG (COUMADIN) TAB PO SCH ×2 (18:00→21:00)
[2021-11-10] MEDS: warFARin 5 MG (COUMADIN) TAB PO SCH (20:43)
[2021-11-10] MEDS: BUPROPION 300 MG PO SCH (20:44)
[2021-11-10] MEDS: ASPIRIN E.C. 81 MG (ECOTRIN) TAB PO SCH (20:44)
[2021-11-10] MEDS: risperiDONE 0.5 MG (RisperDAL) TABLET PO SCH (20:44)
[2021-11-10] MEDS: CITALOPRAM 40 MG TABLET PO SCH (20:44)
[2021-11-10] MEDS: AMITRIPTYLINE 25 MG (ELAVIL) TAB PO SCH (20:44)
[2021-11-11] VITALS (19 sets, daily range): BP systolic 71–130; BP diastolic 56–106
[2021-11-11] MEDS: ACETAMINOPHEN 500 MG TAB (TYLENOL) PO PRN (02:46)
[2021-11-11] MEDS: NS IV 1000 ML 1,000 ML IV SCH (03:22)
[2021-11-11 05:10] LABS: BASOPHILS % (AUTO) 0 % (0-10); EOSINOPHILS # (AUTO) 0.1 10^3/uL (0.0-0.3); EOSINOPHILS % (AUTO) 1 % (0-10); HEMATOCRIT 41 % (40-54); HEMOGLOBIN 13.4 g/dL (13.3-17.7); LYMPHOCYTES # (AUTO) 2.7 10^3/uL (1.0-4.0); LYMPHOCYTES % (AUTO) 27 % (12-44); MEAN CORPUSCULAR HEMOGLOBIN 31 pg (25-34); MEAN CORPUSCULAR HGB CONC 32 g/dL (32-36); MEAN CORPUSCULAR VOLUME 95 fL (80-99); MEAN PLATELET VOLUME 8.9 fL (9.0-12.2); MONOCYTES % (AUTO) 10 % (0-12); NEUTROPHILS # (AUTO) 6.1 10^3/uL (1.8-7.8); NEUTROPHILS % (AUTO) 61 % (42-75); PLATELET COUNT 132 10^3/uL (130-400); WHITE BLOOD COUNT 10.1 10^3/uL (4.3-11.0)
[2021-11-11 05:26] LABS: POTASSIUM 4.6 MMOL/L (3.6-5.0)
[2021-11-11 05:27] LABS: CALCIUM 8.7 MG/DL (8.5-10.1)
[2021-11-11 05:31] LABS: PHOSPHORUS 3.4 MG/DL (2.3-4.7)
[2021-11-11 05:32] LABS: CREATININE SERUM 1.19 MG/DL (0.60-1.30)
[2021-11-11 05:34] LABS: MAGNESIUM 2.1 MG/DL (1.6-2.4)
[2021-11-11] MEDS: POTASSIUM CL 10MEQ/50ML IVPB 50 ML IV SCH (05:44)
[2021-11-11] MEDS: KCL 20 MEQ TAB (K-DUR) PO SCH ×3 (05:44→18:39)
[2021-11-11] MEDS: MAGNESIUM 1 GM/100 ML IVPB 100 ML IV SCH (05:44)
[2021-11-11] MEDS: dilTIAZem120 MG (CARDIZEM CD) CAP PO SCH (08:06)
[2021-11-11] MEDS: ALLOPURINOL 100 MG (ZYLOPRIM) TAB PO SCH (08:08)
[2021-11-11] MEDS: FUROSEMIDE 80 MG TABLET PO SCH (08:09)
[2021-11-11] MEDS: SPIRONOLACTONE 50 MG TABLET PO SCH (08:10)
--- NOTE | 2021-11-11 08:26 | Progress Note - Cardiology ---
Cardiology SOAP Progress Note Subjective: Lying in bed States he is feeling much better than yesterday Feels his breathing is back to baseline No c/o CP, palpitations No further c/o diarrhea Objective: I&O/Vital Signs 11/11/21 11/11/21 11/11/21 11/11/21 05:00 06:00 06:14 07:00 Pulse 89 79 75 B/P (MAP) 124/86 (99) 127/86 (100) Pulse Ox 94 92 92 O2 Delivery Nasal Cannula Nasal Cannula Nasal Cannula O2 Flow Rate 3.00 3.00 3.00 11/11/21 11/11/21 11/11/21 11/11/21 07:00 08:00 08:00 08:00 Temp 37.1 Pulse 72 71 B/P (MAP) 121/75 (90) 130/88 (102) Pulse Ox 88 91 95 O2 Delivery Nasal Cannula Nasal Cannula Nasal Cannula O2 Flow Rate 3.00 3.00 3.00 11/11/21 11/11/21 11/11/21 11/11/21 09:00 10:00 11:00 11:49 Temp 37.6 Pulse 79 73 71 Resp 22 22 B/P (MAP) 108/78 (88) 124/83 (97) 122/85 (97) Pulse Ox 89 93 92 O2 Delivery Nasal Cannula Nasal Cannula Nasal Cannula O2 Flow Rate 3.00 3.00 3.00 11/11/21 11/11/21 12:00 13:00 Pulse 74 73 Resp 24 B/P (MAP) 124/104 (111) Pulse Ox 92 O2 Delivery Nasal Cannula O2 Flow Rate 3.00 11/11/21 00:00 Intake Total 1050 ml Output Total 900 ml Balance 150 ml Weight (Pounds): 404 Weight (Ounces): 0.0 Weight (Calculated Kilograms): [id number] Constitutional: AAO x 3, well-developed, well-nourished Respiratory: No accessory muscle use, No respiratory distress; chest expansion is symmetric, chest is bilaterally symmetric, other (good air entry) Cardiovascular: irregularly irregular, S1 and S2 Gastrointestional: No tender; soft, round, audible bowel sounds Extremities: other (mild bilat LE swelling) Neurologic/Psychiatric: grossly intact (moves all extremities) Skin: normal color, warm/dry; No rash on exposed areas, No ulcerations on exposed areas Results/Procedures: Labs Laboratory Tests 11/11/21 04:50: White Blood Count 10.1, Red Blood Count 4.35, Hemoglobin 13.4, Hematocrit 41, Mean Corpuscular Volume 95, Mean Corpuscular Hemoglobin 31, Mean Corpuscular Hemoglobin Concent 32, Red Cell Distribution Width 13.5, Platelet Count 132, M thais Platelet Volume 8.9L, Immature Granulocyte % (Auto) 1, Neutrophils (%) (Auto) 61, Lymphocytes (%) (Auto) 27, Monocytes (%) (Auto) 10, Eosinophils (%) (Auto) 1, Basophils (%) (Auto) 0, Neutrophils # (Auto) 6.1, Lymphocytes # (Auto) 2.7, Monocytes # (Auto) 1.0, Eosinophils # (Auto) 0.1, Basophils # (Auto) 0.0, Immature Granulocyte # (Auto) 0.1, Sodium Level 138, Potassium Level 4.6, Chloride Level 101, Carbon Dioxide Level 26, Anion Gap 11, Blood Urea Nitrogen 25H, Creatinine 1.19, Estimat Glomerular Filtration Rate 67, BUN/Creatinine Ratio 21, Glucose Level 120H, Calcium Level 8.7, Phosphorus Level 3.4, Magnesium Level 2.1 11/11/21 08:50: Prothrombin Time 41.8H, INR Comment 4.3H Microbiology 11/10/21 Cryptosporidium/Giardia - Final, Complete A/P: Assessment: Chronic atrial fibrillation - rate controlled - maintained on long-acting Cardizem - OAC with warfarin - therapeutic INR - change to Eliquis once INR falls below 2.0 Chronic diastolic CHF - clinically compensated - Echocardiogram of Feb [address] Obrien showed wall thickness is mildly to mod increased. Concentric hypertrophy. LVEF 55-65%. LA and RA dilated. Mild MR. Mild to mod TR Acute renal insufficiency - likely secondary to vol depletion secondary to aggressive diuresis and diarrhea Diarrhea - undetermined etiology - management per medical services Orthopedic - Osteomyelitis of R 2nd toe, s/p amputation on 06/25/20 - Chronic joint and back pain - PORTER with segmentals from 11-04-20 showed no evidence of signif obstructive PAD Bilat leg swelling - related to venous insuff and ac on chronic diastolic CHF - controlled H/o hypokalemia - due to chronic diuretic therapy Morbid obesity - BMI approx 55 HIV positive status - managed by Dr Woods in [place], [place] H/o depression - managed by PCP Obstructive sleep apnea syndrome - treated with CPAP Carotid dz - Minimal carotid arterial plaque on carotid u/s of April 2019 Plan: Chronic a-fib with RVR - resume long-acting Cardizem at home. Consider dig, if needed - change OAC to Eliquis when INR is 2.0 or less Diarrhea of undetermined etiology - management per medical services - improved Elevated T.Bili level - undetermined etiology JASWINDER - likely secondary to vol loss d/t diuretics and diarrhea - reduce diuretic regimen - renal function improved following IVF - stop Acute on chronic diastolic CHF - clinically compensated Monitor lab closely - replace electrolytes as indicated Echocardiogram today - pending JOSE E CHAO Nov 11, 2021 08:26
--- NOTE | 2021-11-11 08:43 | Progress Note - Cardiology ---
Cardiology SOAP Progress Note Subjective: No cp or palp or syncope No shortness of breath at rest Chronic, exertional shortness of breath No n/v/d now Gen malaise and weakness present Chronic back pain Requests NOAC (in place of warfarin) Objective: I&O/Vital Signs 11/10/21 11/10/21 11/10/21 11/10/21 20:56 21:00 22:00 23:00 Pulse 77 85 85 B/P (MAP) 108/83 (91) 110/90 (97) 130/73 (92) Pulse Ox 94 95 93 O2 Delivery Nasal Cannula Nasal Cannula Nasal Cannula Nasal Cannula O2 Flow Rate 3.00 3.00 3.00 3.00 11/11/21 11/11/21 11/11/21 11/11/21 00:00 00:00 01:00 01:00 Pulse 79 90 82 B/P (MAP) 117/86 (96) 129/76 (93) Pulse Ox 93 95 92 O2 Delivery Nasal Cannula Nasal Cannula Nasal Cannula O2 Flow Rate 3.00 3.00 3.00 11/11/21 11/11/21 11/11/21 11/11/21 02:00 03:00 04:00 04:00 Pulse 76 94 80 B/P (MAP) 122/76 (91) 130/106 (114) 128/88 (101) Pulse Ox 93 91 95 91 O2 Delivery Nasal Cannula Nasal Cannula Nasal Cannula Nasal Cannula O2 Flow Rate 3.00 3.00 3.00 3.00 11/11/21 11/11/21 11/11/21 11/11/21 05:00 06:00 06:14 07:00 Pulse 89 79 75 B/P (MAP) 124/86 (99) 127/86 (100) Pulse Ox 94 92 92 O2 Delivery Nasal Cannula Nasal Cannula Nasal Cannula O2 Flow Rate 3.00 3.00 3.00 11/11/21 11/11/21 11/11/21 11/11/21 07:00 08:00 08:00 08:00 Temp 37.1 Pulse 72 71 B/P (MAP) 121/75 (90) 130/88 (102) Pulse Ox 88 91 95 O2 Delivery Nasal Cannula Nasal Cannula Nasal Cannula O2 Flow Rate 3.00 3.00 3.00 11/11/21 00:00 Intake Total 1050 ml Output Total 900 ml Balance 150 ml Weight (Pounds): 404 Weight (Ounces): 0.0 Weight (Calculated Kilograms): 183.803593 Constitutional: AAO x 3, well-developed, well-nourished Respiratory: No accessory muscle use, No respiratory distress; chest expansion is symmetric, chest is bilaterally symmetric, other (good air entry) Cardiovascular: irregularly irregular, S1 and S2 Gastrointestional: No tender; soft, round, audible bowel sounds Extremities: other (mild bilat LE swelling) Neurologic/Psychiatric: grossly intact (moves all extremities) Skin: normal color, warm/dry; No rash on exposed areas, No ulcerations on exposed areas Results/Procedures: Labs Laboratory Tests 11/11/21 04:50: White Blood Count 10.1, Red Blood Count 4.35, Hemoglobin 13.4, Hematocrit 41, Mean Corpuscular Volume 95, Mean Corpuscular Hemoglobin 31, Mean Corpuscular Hemoglobin Concent 32, Red Cell Distribution Width 13.5, Platelet Count 132, Mean Platelet Volume 8.9L, Immature Granulocyte % (Auto) 1, Neutrophils (%) (Auto) 61, Lymphocytes (%) (Auto) 27, Monocytes (%) (Auto) 10, Eosinophils (%) (Auto) 1, Basophils (%) (Auto) 0, Neutrophils # (Auto) 6.1, Lymphocytes # (Auto) 2.7, Monocytes # (Auto) 1.0, Eosinophils # (Auto) 0.1, Basophils # (Auto) 0.0, Immature Granulocyte # (Auto) 0.1, Sodium Level 138, Potassium Level 4.6, Chloride Level 101, Carbon Dioxide Level 26, Anion Gap 11, Blood Urea Nitrogen 25H, Creatinine 1.19, Estimat Glomerular Filtration Rate 67, BUN/Creatinine Ratio 21, Glucose Level 120H, Calcium Level 8.7, Phosphorus Level 3.4, Magnesium Level 2.1 Microbiology 11/10/21 Stool Culture - Preliminary, Resulted Laboratory Tests 11/10/21 02:03 11/11/21 04:50 A/P: Assessment: Chronic atrial fibrillation - rate controlled (after improvement of hydration status) - maintained on long-acting Cardizem - OAC with warfarin - therapeutic INR - change to Eliquis once INR falls below 2.0 Chronic diastolic CHF - clinically compensated - Echocardiogram of Feb [address] Khalid showed wall thickness is mildly to mod increased. Concentric hypertrophy. LVEF 55-65%. LA and RA dilated. Mild MR. Mild to mod TR Acute renal insufficiency - likely secondary to vol depletion secondary to aggressive diuresis and diarrhea. Much improved after hydration Diarrhea - undetermined etiology - management per medical services Orthopedic - Osteomyelitis of R 2nd toe, s/p amputation on 06/25/20 - Chronic joint and back pain - PORTER with segmentals from 11-04-20 showed no evidence of signif obstructive PAD Bilat leg swelling - related to venous insuff and ac on chronic diastolic CHF - controlled H/o hypokalemia - due to chronic diuretic therapy Morbid obesity - BMI approx 55 HIV positive status - managed by Dr Woods in [place], [place] H/o depression - managed by PCP Obstructive sleep apnea syndrome - treated with CPAP Carotid dz - Minimal carotid arterial plaque on carotid u/s of April 2019 Plan: Chronic a-fib with RVR - resume long-acting Cardizem at home. Consider dig, if needed - change OAC to Eliquis when INR is 2.0 or less Diarrhea of undetermined etiology - management per Medical services - improved Elevated T.Bili level - undetermined etiology JASWINDER - likely secondary to vol loss d/t diuretics and diarrhea - reduce diuretic regimen - renal function improved following IVF - stop Acute on chronic diastolic CHF - clinically compensated Monitor lab closely - replace electrolytes as indicated Echocardiogram today - pending REKHA BLEVINS MD FACP [facility] CCDS Nov 11, 2021 08:43
[2021-11-11] MEDS ORDERED: PATIENT MAY USE OWN MED,SINGLE MED PO SCH (09:00)
[2021-11-11 09:16] LABS: INR 4.3 (0.8-1.4); PROTHROMBIN TIME PATIENT 41.8 SEC (12.2-14.7)
[2021-11-11] MEDS: MAGNESIUM OXIDE (MAG-OX)400 MG TAB PO SCH ×2 (09:41→20:14)
--- NOTE | 2021-11-11 11:08 | Progress Note ---
ANY TORRES 11/11/21 1108: Subjective Subjective/Events-last exam Nikolay is a 66 y M with a pmh of HIV, CHF, afib, HTN, sleep apnea who was a direct admit to us with a chief complaint of shortness of breath. He was seen in the ICU this AM, had Amiodarone drip stopped at 2 am. Rate is stable wnl at the time of exam. He says his diarrhea has completely resolved and that his only issue is a 2/10 headache that he chronically gets that he manages with tylenol at home. He has a lump on his abdomen he would like examined. He states he has had it in the past but has forgotten to have it looked at. It is mildly tender to palpation and he states it fluctuates in size. Review of Systems General: No Chills, No Night Sweats, No Fatigue HEENT: Head Aches; No Eye Pain, No Dysphasia Pulmonary: No Dyspnea, No Cough Cardiovascular: No: Chest Pain, Palpitations Gastrointestinal: No: Nausea, Vomiting, Abdominal Pain, Diarrhea Genitourinary: No Dysuria, No Frequency Musculoskeletal: No: neck pain, back pain Neurological: No: Weakness, Change in speech, Confusion Focused Exam Respiratory: Chest Non Tender, Lungs Clear, Normal Breath Sounds, No Respiratory Distress Cardiovascular: No Murmur, Irregularly Irregular Skin: normal color, warm/dry Objective Exam Last Set of Vital Signs Vital Signs Date Time Temp Pulse Resp B/P (MAP) Pulse Ox O2 Delivery O2 Flow Rate FiO2 11/11/21 09:00 79 108/78 (88) 89 Nasal Cannula 3.00 11/11/21 08:00 37.1 11/10/21 13:00 32 Capillary Refill : I&O Intake and Output 11/11/21 00:00 Intake Total 1953 ml Output Total 1550 ml Balance 403 ml Intake Oral 1650 ml IV Total 303 ml Output Urine Total 1550 ml # Bowel Movements 3 General: Alert, Oriented X3, Cooperative HEENT: Atraumatic, PERRLA, EOMI Neck: Supple Lungs: Clear to Auscultation, Normal Air Movement Heart: No Murmurs, Other (Irregular rhythm) Abdomen: Normal Bowel Sounds, Soft, No Tenderness, Other (subcutaneous abdominal mass) Extremities: No Clubbing, No Cyanosis, Other (Trace pretibial edema) Neuro: Normal Speech, Cranial Nerves 3-12 NL Psych/Mental Status: Mental Status NL, Mood NL Results/Procedures Lab Laboratory Tests 11/11/21 04:50: White Blood Count 10.1, Red Blood Count 4.35, Hemoglobin 13.4, Hematocrit 41, Mean Corpuscular Volume 95, Mean Corpuscular Hemoglobin 31, Mean Corpuscular Hemoglobin Concent 32, Red Cell Distribution Width 13.5, Platelet Count 132, Mean Platelet Volume 8.9L, Immature Granulocyte % (Auto) 1, Neutrophils (%) (Auto) 61, Lymphocytes (%) (Auto) 27, Monocytes (%) (Auto) 10, Eosinophils (%) (Auto) 1, Basophils (%) (Auto) 0, Neutrophils # (Auto) 6.1, Lymphocytes # (Auto) 2.7, Monocytes # (Auto) 1.0, Eosinophils # (Auto) 0.1, Basophils # (Auto) 0.0, Immature Granulocyte # (Auto) 0.1, Sodium Level 138, Potassium Level 4.6, Chloride Level 101, Carbon Dioxide Level 26, Anion Gap 11, Blood Urea Nitrogen 25H, Creatinine 1.19, Estimat Glomerular Filtration Rate 67, BUN/Creatinine Ratio 21, Glucose Level 120H, Calcium Level 8.7, Phosphorus Level 3.4, Magnesium Level 2.1 11/11/21 08:50: Prothrombin Time 41.8H, INR Comment 4.3H Microbiology 11/10/21 Stool Culture - Preliminary, Resulted Radiology NAME: NIKOLAY GILBERT [facility] REC#: [id number] PT STATUS: ADM IN : 1955 PHYSICIAN: CHAVO TAM MD ADMIT DATE: 11/08/21/ICU Signed Date of Exam:11/10/21 CHEST 1 VIEW, AP/PA ONLY INDICATION: Hypoxia with atrial fib. COMPARISON: 11/08/2021. FINDINGS: Cardiomegaly is again noted. There are perihilar infiltrates with prominence of pulmonary vasculature. There is obscuration left hemidiaphragm on today's exam. Right costophrenic angle is sharp. IMPRESSION: Development of perihilar infiltrates as well as possible infiltrate in the left lung base versus pleural effusion. Dictated by: Dictated on workstation # [id number] Dict: 11/10/2114 Trans: 11/10/21 0759 [id number] Interpreted by: DOUGLAS COLLIER MD Electronically signed by: DOUGLAS COLLIER MD 11/10/21 0759 Assessment/Plan Assessment/Plan Assessment & Plan 1. Afib with RVR - Amiodarone stopped - INR 4.3 - On daily Cardizem and Warfarin for stroke prevention - Cardiology following, appreciate their assistance. 2. Acute diarrhea - Resolved currently - stool culture for ova/parasite - pending, C.diff - negative - urine study for legionella cancelled 3. Acute Hypoxemia - CBC no change today, unremarkable - CMP shows BUN 25 and Cr 1.19, Continued on home dose of Lasix. - INR 4.3, continue to monitor - CXR shows no acute processes - D-Dimer wnl - O2 93% on 3L on exam this AM, continue supplemental O2 - PT/OT performed exam, patient able to ambulate and perform ADL's 4. JASWINDER - Stop IV Fluids - Hold Lasix - Cr 1.19 today,improved. Continue to monitor 5. Subcutaneous Abdominal Mass - Soft Tissue U/S ordered 6. CHF - BP Control - Continue home meds. 7. HTN -BP control - Continue home meds 8. Afib - Monitor for cardiac symptoms - Continue home meds as appropriate. 9. HIV - Continue home meds as appropriate. 10. Sleep Apnea - Encourage use of CPAP machine. STEPHANIE ROSALES MD 11/11/21 1457: Objective Exam General: Alert, Cooperative HEENT: EOMI Lungs: Clear to Auscultation, Normal Air Movement Heart: Other (irregularly irregular, normal rate) Abdomen: Normal Bowel Sounds, Soft, No Tenderness, Other (indurated mass in left upper abdominal wall about 5-6 cm in width and 3-4 cm in height, irregular shape, non-tender) Neuro: Normal Speech Psych/Mental Status: Mood NL Supervisory-Addendum Brief Verification & Attestation Participated in pt care: history, MDM, physical Personally performed: exam, history, MDM, supervision of care Care discussed with: Medical Student Procedures: n/a I personally saw and examined patient, see my physical exam for my exam findings. Cardiology changing warfarin to Eliquis. US for abdominal soft tissue mass. JASWINDER improving, hold IVF to avoid fluid overload with history of CHF. ANY TORRES Nov 11, 2021 11:08 STEPHANIE ROSALES MD Nov 11, 2021 14:57
--- NOTE | 2021-11-11 11:43 | Tele-ICU Progress Note ---
Subjective Date Seen by a Provider: Nov 11, 2021 Time Seen by a Provider: 11:43 Subjective/Events-last exam Tele-ICU Physician , Progress Note ) Available chart/ vitals / labs / Images reviewed Video assessment done using teleICU camera, rest of exam as per RN Discussed with RN Events overnight : FEBRILE hemodynamically stable Respiratory - 3L I/O + 400 Drips: NS 75 Pressors- no Consultants: kallie Hospital course: (11/08) 66y/M admitted iwth hypoxemia (11/10)TX to icu with afib rvr. A/P A fib RVR - as per cards - on amio gtt - AC with coumadin - INR > 2 , follow as per cards/PCP- as per cardfs note" change to Eliquis once INR falls below 2.0 -ECHO pending Acute rersp failurte ( neg for covid and flu ) PFT 06/2020- no obstruction , + restrictin - attemted diuresis - with BNP 92 , ECHO pending - ? CD4 count - should consided PJP if low JASWINDER - ? dehydration due to diarrhea + diuretics - furosemide on hold , hydration last 24 h --> RESOLVED HIV -to cont meds - ? recent CD4/CD8 Diarrhea - w/up pending - c diff negative GAGE- ? compliant with CPAP Bilat leg swelling - related to venous insuff and ac on chronic diastolic CHF - controlled Lines : periph , (Central Line Necessity Reviewed) Muñoz: void OG: Nutrition: po Analgesia: Anxiety/ delirium VTE Prophylaxis: inr> 2 Stress Ulcer Prophylaxis: po intake Plans in collaboration with bedside consultants and IM MDs. Discussed with RN to reach out if any questions or concerns A total of 20 minutes of critical care time was devoted to this patient today, required to treat and/or prevent further deterioration of critical care condition ( as above ) . Sepsis Event Evaluation Height, Weight, BMI Height: 6'0.00" Weight: 404lbs. 0.0oz. 183.474251at; 58.00 BMI Method:Stated Exam Exam Patient acknowledged, consented, and participated in this virtual visit which was conducted using real time audio/video Vital Signs Date Time Temp Pulse Resp B/P (MAP) Pulse Ox O2 Delivery O2 Flow Rate FiO2 11/11/21 11:00 71 22 122/85 (97) 92 Nasal Cannula 3.00 11/11/21 10:00 73 22 124/83 (97) 93 Nasal Cannula 3.00 11/11/21 09:00 79 108/78 (88) 89 Nasal Cannula 3.00 11/11/21 08:00 37.1 11/11/21 08:00 95 Nasal Cannula 3.00 11/11/21 08:00 71 130/88 (102) 91 Nasal Cannula 3.00 11/11/21 07:00 72 121/75 (90) 88 Nasal Cannula 3.00 11/11/21 07:00 75 11/11/21 06:14 92 Nasal Cannula 3.00 11/11/21 06:00 79 127/86 (100) 92 Nasal Cannula 3.00 11/11/21 05:00 89 124/86 (99) 94 Nasal Cannula 3.00 11/11/21 04:00 80 128/88 (101) 91 Nasal Cannula 3.00 11/11/21 04:00 95 Nasal Cannula 3.00 11/11/21 03:00 94 130/106 (114) 91 Nasal Cannula 3.00 11/11/21 02:00 76 122/76 (91) 93 Nasal Cannula 3.00 11/11/21 01:00 82 129/76 (93) 92 Nasal Cannula 3.00 11/11/21 01:00 90 11/11/21 00:00 95 Nasal Cannula 3.00 11/11/21 00:00 79 117/86 (96) 93 Nasal Cannula 3.00 11/10/21 23:00 85 130/73 (92) 93 Nasal Cannula 3.00 11/10/21 22:00 85 110/90 (97) 95 Nasal Cannula 3.00 11/10/21 21:00 77 108/83 (91) 94 Nasal Cannula 3.00 11/10/21 20:56 Nasal Cannula 3.00 11/10/21 20:00 81 106/77 (87) 95 Nasal Cannula 3.00 11/10/21 20:00 36.5 11/10/21 20:00 95 Nasal Cannula 3.00 11/10/21 19:00 85 129/94 (106) 93 Nasal Cannula 3.00 11/10/21 19:00 85 11/10/21 18:00 73 121/88 (99) 94 Nasal Cannula 3.00 11/10/21 17:00 85 125/79 (94) 91 Nasal Cannula 3.00 11/10/21 16:00 96 Nasal Cannula 3.00 11/10/21 16:00 69 125/77 (93) 93 Nasal Cannula 3.00 11/10/21 15:00 80 120/94 (103) 90 Nasal Cannula 3.00 11/10/21 14:00 84 98/80 (86) 91 Nasal Cannula 3.00 11/10/21 13:00 103 32 106/74 (85) 90 Nasal Cannula 3.00 11/10/21 12:17 101 11/10/21 12:00 101 20 140/80 (100) 91 Nasal Cannula 3.00 I & O 11/11/21 07:00 Intake Total 2325 ml Output Total 1875 ml Balance 450 ml Height & Weight Height: 6'0.00" Weight: 404lbs. 0.0oz. 183.251248bc; 58.00 BMI Method:Stated General Appearance: No Apparent Distress Respiratory: Chest Non Tender, Lungs Clear, Normal Breath Sounds, No Res piratory Distress Cardiovascular: No Murmur, Irregularly Irregular Gastrointestinal: normal bowel sounds Results Lab Laboratory Tests 11/10/21 02:03 11/11/21 04:50 Assessment/Plan Assessment/Plan 1 FELICIA CASTRO MD Nov 11, 2021 11:43
--- NOTE | 2021-11-11 13:07 | Diagnostic Imaging Report ---
US SOFT TISSUE UNLISTED 23549 INDICATION: Palpable lump in the abdominal wall. COMPARISON: None available. TECHNIQUE: Grayscale and color Doppler imaging at the site of concern was performed. FINDINGS: At the site of palpable concern, there is a mixed solid and cystic lesion measuring 3.4 x 2.6 x 4.7 cm. There is no vascularity within the mass. In the central areas that are more fluid appearing, there is some echogenic debris. IMPRESSION: Complex mixed solid and cystic lesion at the site of palpable concern could represent an abscess, hematoma, or necrotic neoplasm. Correlation with physical exam and patient's history is advised. Dictated by: Dictated on workstation # [id number]
[2021-11-11] MEDS: ASPIRIN E.C. 81 MG (ECOTRIN) TAB PO SCH (20:13)
[2021-11-11] MEDS: AMITRIPTYLINE 25 MG (ELAVIL) TAB PO SCH (20:14)
[2021-11-11] MEDS: BUPROPION 300 MG PO SCH (20:15)
[2021-11-11] MEDS: CITALOPRAM 40 MG TABLET PO SCH (20:16)
[2021-11-11] MEDS: risperiDONE 0.5 MG (RisperDAL) TABLET PO SCH (20:17)
[2021-11-12] VITALS (10 sets, daily range): BP systolic 110–143; BP diastolic 70–84
[2021-11-12 05:06] LABS: BASOPHILS % (AUTO) 0 % (0-10); EOSINOPHILS # (AUTO) 0.1 10^3/uL (0.0-0.3); EOSINOPHILS % (AUTO) 1 % (0-10); HEMATOCRIT 41 % (40-54); HEMOGLOBIN 13.4 g/dL (13.3-17.7); LYMPHOCYTES # (AUTO) 2.4 10^3/uL (1.0-4.0); LYMPHOCYTES % (AUTO) 26 % (12-44); MEAN CORPUSCULAR HEMOGLOBIN 31 pg (25-34); MEAN CORPUSCULAR HGB CONC 32 g/dL (32-36); MEAN CORPUSCULAR VOLUME 95 fL (80-99); MEAN PLATELET VOLUME 9.4 fL (9.0-12.2); MONOCYTES # (AUTO) 0.8 10^3/uL (0.0-1.0); MONOCYTES % (AUTO) 9 % (0-12); NEUTROPHILS # (AUTO) 5.8 10^3/uL (1.8-7.8); NEUTROPHILS % (AUTO) 62 % (42-75); PLATELET COUNT 151 10^3/uL (130-400); WHITE BLOOD COUNT 9.2 10^3/uL (4.3-11.0)
[2021-11-12 05:37] LABS: CALCIUM 8.4 MG/DL (8.5-10.1); CREATININE SERUM 1.1 MG/DL (0.60-1.30); MAGNESIUM 1.6 MG/DL (1.6-2.4); POTASSIUM 4.5 MMOL/L (3.6-5.0)
[2021-11-12 07:11] LABS: INR 4.1 (0.8-1.4); PROTHROMBIN TIME PATIENT 40.1 SEC (12.2-14.7)
--- NOTE | 2021-11-12 08:52 | Progress Note ---
Subjective Subjective/Events-last exam Nikolay is a 66 y M with a pmh of HIV, CHF, afib, HTN, sleep apnea who was a direct admit to us with a chief complaint of shortness of breath. He is awake and sitting at the bedside this morning. He states he feels well and did not report any events overnight. He states his diarrhea has resolved. He is curious to know what his abdominal ultrasound shows, he thinks the lump is in the same place he leans up against the sink to brush his teeth in the morning. Objective Exam Last Set of Vital Signs Vital Signs Date Time Temp Pulse Resp B/P (MAP) Pulse Ox O2 Delivery O2 Flow Rate FiO2 11/12/21 08:00 80 29 110/79 (89) 92 Nasal Cannula 3.00 11/12/21 04:01 37.0 Capillary Refill : I&O Intake and Output 11/12/21 00:00 Intake Total 3100 ml Output Total 2225 ml Balance 875 ml Intake Oral 2350 ml IV Total 750 ml Output Urine Total 2225 ml # Bowel Movements 4 General: Alert, Oriented X3, Cooperative, No Acute Distress HEENT: Atraumatic, EOMI Neck: Supple Lungs: Clear to Auscultation Heart: Other (irregular) Abdomen: Normal Bowel Sounds, Soft, No Tenderness Extremities: No Clubbing, No Cyanosis Skin: No Rashes, No Significant Lesion Neuro: Normal Speech Psych/Mental Status: Mental Status NL, Mood NL Results/Procedures Lab Laboratory Tests 11/11/21 08:50: Prothrombin Time 41.8H, INR Comment 4.3H 11/12/21 04:45: Prothrombin Time 40.1H, INR Comment 4.1H, White Blood Count 9.2, Red Blood Count 4.34, Hemoglobin 13.4, Hematocrit 41, Mean Corpuscular Volume 95, Mean Corpuscular Hemoglobin 31, Mean Corpuscular Hemoglobin Concent 32, Red Cell Distribution Width 13.6, Platelet Count 151, Mean Platelet Volume 9.4, Immature Granulocyte % (Auto) 1, Neutrophils (%) (Auto) 62, Lymphocytes (%) (Auto) 26, Monocytes (%) (Auto) 9, Eosinophils (%) (Auto) 1, Basophils (%) (Auto) 0, Neutrophils # (Auto) 5.8, Lymphocytes # (Auto) 2.4, Monocytes # (Auto) 0.8, Eosinophils # (Auto) 0.1, Basophils # (Auto) 0.0, Immature Granulocyte # (Auto) 0.1, Sodium Level 139, Potassium Level 4.5, Chloride Level 100, Carbon Dioxide Level 27, Anion Gap 12, Blood Urea Nitrogen 19H, Creatinine 1.10, Estimat Glomerular Filtration Rate 74, BUN/Creatinine Ratio 17, Glucose Level 103, Calcium Level 8.4L, Magnesium Level 1.6 Microbiology 11/10/21 Cryptosporidium/Giardia - Final, Complete Radiology NAME: NIKOLAY GILBERT [facility] REC#: [id number] PT STATUS: ADM IN : 1955 PHYSICIAN: CHAVO TAM MD ADMIT DATE: 11/08/21/ICU Signed Date of Exam:11/10/21 CHEST 1 VIEW, AP/PA ONLY INDICATION: Hypoxia with atrial fib. COMPARISON: 11/08/2021. FINDINGS: Cardiomegaly is again noted. There are perihilar infiltrates with prominence of pulmonary vasculature. There is obscuration left hemidiaphragm on today's exam. Right costophrenic angle is sharp. IMPRESSION: Development of perihilar infiltrates as well as possible infiltrate in the left lung base versus pleural effusion. Dictated by: Dictated on workstation # [id number] Dict: 11/10/21613 Trans: 11/10/21 0759 [id number] Interpreted by: DOUGLAS COLLIER MD Electronically signed by: DOUGLAS COLLIER MD 11/10/21 0759 Assessment/Plan Assessment/Plan Assessment & Plan 1. Afib with RVR - HR stable through night, will continue to monitor - INR 4.3, switching to Eliquis when INR reaches 2 - D-Dimer wnl - On daily Cardizem and Warfarin for stroke prevention - Cardiology following, appreciate their assistance. - Likely move out of ICU today. 2. Acute diarrhea - Resolved currently - stool culture neg - pending, C.diff - negative 3. Acute Hypoxemia - CBC no change today, unremarkable - CMP shows BUN 19 improving and Cr 1.1, Continued on home dose of Lasix. - CXR shows no acute processes - O2 93% on 3L on exam this AM, continue supplemental O2 - PT/OT performed exam, patient able to ambulate and perform ADL's 4. JASWINDER - Resolved - Lasix held. - Cr 1.1 today,improved. Continue to monitor 5. Subcutaneous Abdominal Mass - Soft Tissue U/S ordered - Hematoma, infection ruled out. Likely lipoma. - Follow with surgery outpatient 6. CHF - BP Control - Continue home meds. 7. HTN -BP control - Continue home meds 8. HIV - Continue home meds as appropriate. 9. Sleep Apnea - Encourage use of CPAP machine. ANY TORRES Nov 12, 2021 08:52
--- NOTE | 2021-11-12 09:07 | Tele-ICU Progress Note ---
Subjective Date Seen by a Provider: Nov 12, 2021 Subjective/Events-last exam This virtual visit was conducted using real time audio/video. Thank you for asking us to see this patient for respiratory insufficiency due to heart failure, afib/RVR Recent events: transferred to ICU 11/10. PE: Morbid obesity.VSS. O2 sat 94% on 3 LPM NC. HEENT: No obvious masses, adenopathy or JVD. Chest: clear to auscultation. Diminished. CV: Irreg S1 S2 No murmur or added sounds. Abd: Non-tender. Bowel sounds Y. : Unremarkable. Muñoz N. GREENSMAN/psychiatric: Grossly intact. No obvious focal findings. Extremities: trace edema. Capillary refill < 3 seconds. Skin: unremarkable. Results: Elevated BUN 19, INR 4.1. CXR: Perihilar infilts. Available chart/ vitals / labs / images reviewed. Video assessment done using teleICU camera, rest of exam as per RN. A/P: Respiratory insufficiency: Continue present management with O2, weaning as bertha. Monitor for increasing oxygenation needs and/or need for intubation. Critical Care: critically ill patient. Cont. amiod., lasix, dilt., ASA, alop., elavil, Biktarvy. To start Eliquis after INR corrects. Could transfer today. Discussed with RN . Asked RN to reach out to eICU if any questions or concerns later. Time spent with patient/coordination of care with other health professionals (mins): 18 Sepsis Event Evaluation Height, Weight, BMI Height: 6'0.00" Weight: 404lbs. 0.0oz. 183.017712vs; 58.00 BMI Method:Stated Exam Exam Patient acknowledged, consented, and participated in this virtual visit which was conducted using real time audio/video Vital Signs Date Time Temp Pulse Resp B/P (MAP) Pulse Ox O2 Delivery O2 Flow Rate FiO2 11/12/21 08:00 80 29 110/79 (89) 92 Nasal Cannula 3.00 11/12/21 07:00 97 11/12/21 06:00 82 24 111/70 (84) 93 Nasal Cannula 3.00 11/12/21 05:00 83 25 112/83 (93) 93 Nasal Cannula 3.00 11/12/21 04:01 37.0 11/12/21 04:00 78 26 117/77 (90) 94 Nasal Cannula 3.00 11/12/21 03:00 70 24 118/84 (95) 93 Nasal Cannula 3.00 11/12/21 02:00 80 21 120/73 (89) 93 Nasal Cannula 3.00 11/12/21 01:00 80 21 139/84 (102) 94 Nasal Cannula 3.00 11/12/21 01:00 80 11/12/21 00:01 36.9 11/12/21 00:00 84 23 117/75 (89) 95 Nasal Cannula 3.00 11/11/21 23:00 70 17 118/82 (94) 93 Nasal Cannula 3.00 11/11/21 22:38 90 Nasal Cannula 3.00 11/11/21 22:00 81 17 128/69 (88) 90 Nasal Cannula 3.00 11/11/21 21:00 73 22 118/65 (82) 91 Nasal Cannula 3.00 11/11/21 21:00 93 Nasal Cannula 3.00 11/11/21 20:01 37.2 11/11/21 20:00 78 19 112/81 (91) 91 Nasal Cannula 3.00 11/11/21 19:00 81 11/11/21 19:00 81 17 71/56 (61) 93 Nasal Cannula 3.00 11/11/21 16:00 78 20 110/61 (77) 93 Nasal Cannula 3.00 11/11/21 13:00 73 11/11/21 12:00 74 24 124/104 (111) 92 Nasal Cannula 3.00 11/11/21 11:49 37.6 11/11/21 11:00 71 22 122/85 (97) 92 Nasal Cannula 3.00 11/11/21 10:00 73 22 124/83 (97) 93 Nasal Cannula 3.00 I & O 11/12/21 07:00 Intake Total 2525 ml Output Total 2650 ml Balance -125 ml Height & Weight Height: 6'0.00" Weight: 404lbs. 0.0oz. 183.380157xk; 58.00 BMI Method:Stated General Appearance: No Apparent Distress Respiratory: Chest Non Tender, Lungs Clear, Normal Breath Sounds, No Respiratory Distress Cardiovascular: No Murmur, Irregularly Irregular Gastrointestinal: normal bowel sounds Results Lab Laboratory Tests 11/11/21 04:50 11/12/21 04:45 Assessment/Plan Assessment/Plan See free text. Critical Care: Critically Ill Patient SHOBHA COTTER MD Nov 12, 2021 09:07
[2021-11-12] MEDS: dilTIAZem120 MG (CARDIZEM CD) CAP PO SCH (09:08)
[2021-11-12] MEDS: FUROSEMIDE 80 MG TABLET PO SCH (09:08)
[2021-11-12] MEDS: KCL 20 MEQ TAB (K-DUR) PO SCH (09:10)
[2021-11-12] MEDS: SPIRONOLACTONE 50 MG TABLET PO SCH (09:11)
[2021-11-12] MEDS: MAGNESIUM OXIDE (MAG-OX)400 MG TAB PO SCH (09:11)
[2021-11-12] MEDS: ALLOPURINOL 100 MG (ZYLOPRIM) TAB PO SCH (09:12)
[2021-11-12] MEDS: MULTIVIT W/MINERALS TAB (THERAGRAN M) PO SCH (09:12)
--- NOTE | 2021-11-12 10:38 | Progress Note - Cardiology ---
Cardiology SOAP Progress Note Subjective: Sitting up in recliner at the bedside States he feels good this morning No c/o CP, SOB, palpitations, n/v/d Objective: I&O/Vital Signs 11/12/21 11/12/21 11/12/21 11/12/21 03:00 04:00 04:01 05:00 Temp 37.0 Pulse 70 78 83 Resp 24 26 25 B/P (MAP) 118/84 (95) 117/77 (90) 112/83 (93) Pulse Ox 93 94 93 O2 Delivery Nasal Cannula Nasal Cannula Nasal Cannula O2 Flow Rate 3.00 3.00 3.00 11/12/21 11/12/21 11/12/21 11/12/21 06:00 07:00 08:00 08:00 Temp 36.8 Pulse 82 97 80 Resp 24 29 B/P (MAP) 111/70 (84) 110/79 (89) Pulse Ox 93 92 O2 Delivery Nasal Cannula Nasal Cannula O2 Flow Rate 3.00 3.00 11/12/21 11/12/21 11/12/21 09:00 10:00 11:00 Temp 36.6 Pulse 80 115 Resp 18 29 B/P (MAP) 131/71 (79) 143/78 (99) Pulse Ox 95 83 93 O2 Delivery Nasal Cannula Nasal Cannula Nasal Cannula O2 Flow Rate 3.00 3.00 3.00 11/12/21 00:00 Intake Total 1200 ml Output Total 1100 ml Balance 100 ml Weight (Pounds): 404 Weight (Ounces): 0.0 Weight (Calculated Kilograms): 183.003541 Constitutional: AAO x 3, well-developed, well-nourished Respiratory: No accessory muscle use, No respiratory distress; chest expansion is symmetric, chest is bilaterally symmetric, other (good air entry) Cardiovascular: irregularly irregular, S1 and S2 Gastrointestional: No tender; soft, round, audible bowel sounds Extremities: other (mild bilat LE swelling) Neurologic/Psychiatric: grossly intact (moves all extremities) Skin: normal color, warm/dry Results/Procedures: Labs Laboratory Tests 11/12/21 04:45: White Blood Count 9.2, Red Blood Count 4.34, Hemoglobin 13.4, Hematocrit 41, Mean Corpuscular Volume 95, Mean Corpuscular Hemoglobin 31, Mean Corpuscular Hemoglobin Concent 32, Red Cell Distribution Width 13.6, Platelet Count 151, Mean Platelet Volume 9.4, Immature Granulocyte % (Auto) 1, Neutrophils (%) (Auto) 62, Lymphocytes (%) (Auto) 26, Monocytes (%) (Auto) 9, Eosinophils (%) (Auto) 1, Basophils (%) (Auto) 0, Neutrophils # (Auto) 5.8, Lymphocytes # (Auto) 2.4, Monocytes # (Auto) 0.8, Eosinophils # (Auto) 0.1, Basophils # (Auto) 0.0, Immature Granulocyte # (Auto) 0.1, Prothrombin Time 40.1H, INR Comment 4.1H, Sodium Level 139, Potassium Level 4.5, Chloride Level 100, Carbon Dioxide Level 27, Anion Gap 12, Blood Urea Nitrogen 19H, Creatinine 1.10, Estimat Glomerular Filtration Rate 74, BUN/Creatinine Ratio 17, Glucose Level 103, Calcium Level 8.4L, Magnesium Level 1.6 Microbiology 11/10/21 Cryptosporidium/Giardia - Final, Complete A/P: Assessment: Chronic atrial fibrillation - rate controlled (after improvement of hydration status) - maintained on long-acting Cardizem - OAC with warfarin - therapeutic INR - change to Eliquis once INR falls below 2.0 Chronic diastolic CHF - clinically compensated - Echocardiogram of Feb [address] Obrien showed wall thickness is mildly to mod increased. Concentric hypertrophy. LVEF 55-65%. LA and RA dilated. Mild MR. Mild to mod TR Acute renal insufficiency - likely secondary to vol depletion secondary to aggressive diuresis and di arrhea. Much improved after hydration - D/C IVF Diarrhea - undetermined etiology - management per medical services Orthopedic - Osteomyelitis of R 2nd toe, s/p amputation on 06/25/20 - Chronic joint and back pain - PORTER with segmentals from 11-04-20 showed no evidence of signif obstructive PAD Bilat leg swelling - related to venous insuff and ac on chronic diastolic CHF - controlled H/o hypokalemia - due to chronic diuretic therapy Morbid obesity - BMI approx 55 HIV positive status - managed by Dr Woods in [place], [place] H/o depression - managed by PCP Obstructive sleep apnea syndrome - treated with CPAP Carotid dz - Minimal carotid arterial plaque on carotid u/s of April 2019 Plan: Chronic a-fib with RVR - continue current long-acting Cardizem - change OAC to Eliquis when INR is 2.0 or less (spoke with Dr. Caba, in order to make it affordable, they will order through [facility] pharmacy at time of discharge) Diarrhea of undetermined etiology - management per Medical services - improved Elevated T.Bili level - undetermined etiology JASWINDER - likely secondary to vol loss d/t diuretics and diarrhea - improved Acute on chronic diastolic CHF - clinically compensated Monitor lab closely - replace electrolytes as indicated Echocardiogram today - pending JOSE E CHAO [facility] Nov 12, 2021 10:38
[2021-11-12] MEDS ORDERED: APIX5TAB PO (11:39)
--- NOTE | 2021-11-12 11:55 | Progress Note - Cardiology ---
Cardiology SOAP Progress Note Subjective: Gen weakness and malaise present No focal weakness No shortness of breath at rest No n/v/d No focal weakness No cp or palp or syncope Objective: I&O/Vital Signs 11/12/21 11/12/21 11/12/21 11/12/21 00:00 00:01 01:00 01:00 Temp 36.9 Pulse 84 80 80 Resp 23 21 B/P (MAP) 117/75 (89) 139/84 (102) Pulse Ox 95 94 O2 Delivery Nasal Cannula Nasal Cannula O2 Flow Rate 3.00 3.00 11/12/21 11/12/21 11/12/21 11/12/21 02:00 03:00 04:00 04:01 Temp 37.0 Pulse 80 70 78 Resp 21 24 26 B/P (MAP) 120/73 (89) 118/84 (95) 117/77 (90) Pulse Ox 93 93 94 O2 Delivery Nasal Cannula Nasal Cannula Nasal Cannula O2 Flow Rate 3.00 3.00 3.00 11/12/21 11/12/21 11/12/21 11/12/21 05:00 06:00 07:00 08:00 Pulse 83 82 97 80 Resp 25 24 29 B/P (MAP) 112/83 (93) 111/70 (84) 110/79 (89) Pulse Ox 93 93 92 O2 Delivery Nasal Cannula Nasal Cannula Nasal Cannula O2 Flow Rate 3.00 3.00 3.00 11/12/21 00:00 Intake Total 1200 ml Output Total 1100 ml Balance 100 ml Weight (Pounds): 404 Weight (Ounces): 0.0 Weight (Calculated Kilograms): 183.963572 Constitutional: AAO x 3, well-developed, well-nourished Respiratory: No accessory muscle use, No respiratory distress; chest expansion is symmetric, chest is bilaterally symmetric, other (good air entry) Cardiovascular: irregularly irregular, S1 and S2 Gastrointestional: No tender; soft, round, audible bowel sounds Extremities: other (mild bilat LE swelling) Neurologic/Psychiatric: grossly intact (moves all extremities) Skin: normal color, warm/dry Results/Procedures: Labs Laboratory Tests 11/12/21 04:45: White Blood Count 9.2, Red Blood Count 4.34, Hemoglobin 13.4, Hematocrit 41, Mean Corpuscular Volume 95, Mean Corpuscular Hemoglobin 31, Mean Corpuscular Hemoglobin Concent 32, Red Cell Distribution Width 13.6, Platelet Count 151, Mean Platelet Volume 9.4, Immature Granulocyte % (Auto) 1, Neutrophils (%) (Auto) 62, Lymphocytes (%) (Auto) 26, Monocytes (%) (Auto) 9, Eosinophils (%) (Auto) 1, Basophils (%) (Auto) 0, Neutrophils # (Auto) 5.8, Lymphocytes # (Auto) 2.4, Monocytes # (Auto) 0.8, Eosinophils # (Auto) 0.1, Basophils # (Auto) 0.0, Immature Granulocyte # (Auto) 0.1, Prothrombin Time 40.1H, INR Comment 4.1H, Sodium Level 139, Potassium Level 4.5, Chloride Level 100, Carbon Dioxide Level 27, Anion Gap 12, Blood Urea Nitrogen 19H, Creatinine 1.10, Estimat Glomerular Filtration Rate 74, BUN/Creatinine Ratio 17, Glucose Level 103, Calcium Level 8.4L, Magnesium Level 1.6 Microbiology 11/10/21 Cryptosporidium/Giardia - Final, Complete Laboratory Tests 11/11/21 04:50 11/12/21 04:45 A/P: Assessment: Chronic atrial fibrillation - rate controlled (after improvement of hydration status) - maintained on long-acting Cardizem - OAC with warfarin - therapeutic INR - change to Eliquis once INR falls below 2.0 Chronic diastolic CHF - clinically compensated - Echocardiogram of Feb [address] Obrien showed wall thickness is mildly to mod increased. Concentric hypertrophy. LVEF 55-65%. LA and RA dilated. Mild MR. Mild to mod TR Acute renal insufficiency - likely secondary to vol depletion secondary to aggressive diuresis and diarrhea. Much improved after hydration - D/C IVF Diarrhea - undetermined etiology - management per medical services Orthopedic - Osteomyelitis of R 2nd toe, s/p amputation on 06/25/20 - Chronic joint and back pain - PORTER with segmentals from 11-04-20 showed no evidence of signif obstructive PAD Bilat leg swelling - related to venous insuff and ac on chronic diastolic CHF - controlled H/o hypokalemia - due to chronic diuretic therapy Morbid obesity - BMI approx 55 HIV positive status - managed by Dr Woods in [place], [place] H/o depression - managed by PCP Obstructive sleep apnea syndrome - treated with CPAP Carotid dz - Minimal carotid arterial plaque on carotid u/s of April 2019 Plan: * Complex management due to multiple comorbidities * Continue current regimen * Switch to apixaban after INR 2 or less * Continue other cardiac regimen * Discussed his CV issues with him * Discussed his case with REKHA Desai MD FACP [facility] Nov 12, 2021 11:55
--- NOTE | 2021-11-12 13:01 | Discharge Summary ---
ANY TORRES 11/12/21 1242: Discharge Summary Hospital Course Hospital Course Date of Admission: Nov 08, 2021 at 14:35 Admission Diagnosis : Afib with RVR Acute Hypoxemia Subcutaneous Abdominal Mass CHF HTN HIV Sleep Apnea [facility] Date of [facility]: 11/12/21 Discharge Diagnosis: [Atrial Fibrillation] Hospital Course: [ Nikolay was admitted via [facility] due to a reading of hypoxemia in the clinic. He was admitted for observation with O2 supplementation. Overnight he had an episode of diarrhea which resolved without intervention. Hewas moved to the ICU due to an episode of RVR and was placed on amiodarone drip. Once out of RVR and rhythm controlled he was started on Aspirin and diltiazem. His heart rate has remained within normal range. He was taken off his warfarin and will be switched to eliquis once INR reaches 2.0. He will need INR checked outpatient within the week. He will be sent home with supplemental O2. He will need to follow up with Surgery for subcutaneous abdominal mass. ] Labs and Pending Lab Test: Laboratory Tests 11/12/21 04:45: White Blood Count 9.2, Red Blood Count 4.34, Hemoglobin 13.4, Hematocrit 41, Mean Corpuscular Volume 95, Mean Corpuscular Hemoglobin 31, Mean Corpuscular Hemoglobin Concent 32, Red Cell Distribution Width 13.6, Platelet Count 151, Mean Platelet Volume 9.4, Immature Granulocyte % (Auto) 1, Neutrophils (%) (Auto) 62, Lymphocytes (%) (Auto) 26, Monocytes (%) (Auto) 9, Eosinophils (%) (Auto) 1, Basophils (%) (Auto) 0, Neutrophils # (Auto) 5.8, Lymphocytes # (Auto) 2.4, Monocytes # (Auto) 0.8, Eosinophils # (Auto) 0.1, Basophils # (Auto) 0.0, Immature Granulocyte # (Auto) 0.1, Prothrombin Time 40.1H, INR Comment 4.1H, Sodium Level 139, Potassium Level 4.5, Chloride Level 100, Carbon Dioxide Level 27, Anion Gap 12, Blood Urea Nitrogen 19H, Creatinine 1.10, Estimat Glomerular Filtration Rate 74, BUN/Creatinine Ratio 17, Glucose Level 103, Calcium Level 8.4L, Magnesium Level 1.6 Microbiology 11/10/21 Cryptosporidium/Giardia - Final, Complete Home Meds Active Eliquis (Apixaban) 5 Mg Tablet 5 Mg PO BID Reported Diltiazem 24Hr ER (Diltiazem HCl) 180 Mg Cap.er.24h 360 Mg PO DAILY TAKES 2 (180MG) CAPS +120MG CAP Potassium Chloride 20 Meq Tablet.er 40 Meq PO BID TAKES 2 (20MEQ) TABS Sentry Senior Tablet (Multivit-Min/FA/Lycopene/Lut) 0.4 Mg-300 Mcg-250 Mcg Tablet 1 Each PO HS Amitriptyline HCl 25 Mg Tablet 25 Mg PO HS Tylenol Extra Strength (Acetaminophen) 500 Mg Tablet 1,000 Mg PO Q8H PRN TAKES 2 (500MG) TABLETS Oxycodone HCl 10 Mg Tablet 10 Mg PO Q6H PRN Furosemide 80 Mg Tablet 160 Mg PO DAILY TAKES 2 (80MG) TABS Spironolactone 50 Mg Tablet 50 Mg PO DAILY Diltiazem 24Hr ER (Diltiazem HCl) 120 Mg Cap.er.24h 120 Mg PO DAILY TAKES 120MG + 2 (180MG) TABS Aspirin EC (Aspirin) 81 Mg Tablet.dr 81 Mg PO HS Magnesium (Magnesium Oxide) 400 Mg Tablet 400 Mg PO BID Biktarvy 50-200-25 mg Tablet (Bictegrav/Emtricit/Tenofov Ala) 1 Each Tablet 1 Each PO DAILY Allopurinol 100 Mg Tablet 100 Mg PO DAILY Risperidone 0.5 Mg Tablet 0.5 Mg PO HS Citalopram HBr (Citalopram Hydrobromide) 40 Mg Tablet 40 Mg PO HS Bupropion Xl (Bupropion HCl) 300 Mg Tab.er.24h 300 Mg PO HS Discharge Diet: No Restrictions Discharge Physical Examination Allergies: Coded Allergies: No Known Drug Allergies (Unverified , 02/07/18) General Appearance: No Apparent Distress HEENT: PERRL/EOMI, Normal ENT Inspection Respiratory: Lungs Clear, Normal Breath Sounds, No Accessory Muscle Use Cardiovascular: No Edema, No Murmur, Irregularly Irregular Gastrointestinal: Normal Bowel Sounds, Non Tender, Soft Extremity: Normal Inspection, Non Tender, No Calf Tenderness Skin: Normal Color, Warm/Dry Neurologic/Psychiatric: Alert, Oriented x3, No Motor/Sensory Deficits, Normal Mood/Affect Discharge Summary Date of Admission Date of Discharge Admission Diagnosis STEPHANIE ROSALES MD 11/12/21 1447: Discharge Summary Hospital Course Problems/Diagnosis: (1) Congestive heart failure Status: Chronic (2) Anticoagulant long-term use Status: Chronic (3) Atrial fibrillation Status: Chronic (4) Human immunodeficiency virus Status: Chronic (5) Obesity hypoventilation syndrome Status: Chronic Assessment/Pt DC Instructions Follow up with Dr. Cunningham within a week of discharge. Get INR checked on Monday, do not start Eliquis until INR is less than 2. Discharge Physical Examination Allergies: Coded Allergies: No Known Drug Allergies (Unverified , 02/07/18) Supervisory-Addendum Brief Verification & Attestation Participated in pt care: history, MDM, physical Personally performed: exam, history, MDM, supervision of care Care discussed with: Medical Student Procedures: n/a I personally saw and examined patient and agree with student documentation. Pt was seen by PT during stay and did not require further treatment and declined home health. He was discharged with supplemental oxygen. ANY TORRES Nov 12, 2021 12:42 STEPHANIE ROSALES MD Nov 12, 2021 14:47
--- NOTE | 2021-11-12 14:10 | Physician Query Clarification ---
Physician Query-General Query to Physician: The medical record reflects the following clinical evidence: Clinical Indicators: Prior to admission: "O2 saturation was 86% on room air", (P/F=213), respiratory rate 18 on admission did increase to 25-30 for several hours on the 14 has been on 1.5 - 3.5 L O2 since admission, documentation of shortness of air with exertion: on admission, O2 sat 94% on 1.5 L Has been as low as 87% on 3 L (P/F= 166) Risk Factor(s): Hx; HIV, non-Hodgkin's lymphoma, depression, congestive heart failure, atrial fibrillation, sleep apnea on CPAP, Treatment: Supplemental O2 was unable to titrate off will need home 02, Lasix IV, Respiratory Monitoring, 1. Acute respiratory failure with hypoxia, present on admission 2. Other explanation of clinical findings 3. Unable to determine (no explanation for clinical findings) Please clarify and document your clinical opinion in the progress notes and discharge summary including the definitive and/or presumptive diagnosis, (suspected or probable), related to the above clinical findings. Please include clinical findings supporting your diagnosis. Estela Murillo RN, MSN Clinical Assembly Department Supervisor [phone] [email or web address] PHYSICIAN RESPONSE: Based on the clinical findings in the record, please respond to the query above on this document as an addendum. Physician Response: Physician Response 1 If you have questions please contact: Biotechnologist: Ext: Thank you for your time and cooperation. Clinical Assembly Department Supervisor/Biotechnologist This is a permanent part of the medical record ESTELA MURILLO Nov 12, 2021 14:09 STEPHANIE ROSALES MD Nov 12, 2021 15:08
== END 2021-11-12 14:50 | disposition home or self-care (01) | DRG 308 ==
LOC: 4TH 14:35 → ICU 11-10 01:34
PROVIDERS: ADMIT Family Medicine; ATTEND Family Medicine
DX: I48.20 Chronic atrial fibrillation, unspecified (principal); J96.01 Acute respiratory failure with hypoxia; I50.32 Chronic diastolic (congestive) heart failure; N17.9 Acute kidney failure, unspecified; Z68.43 Body mass index [BMI] 50.0-59.9, adult; I11.0 Hypertensive heart disease with heart failure; G47.33 Obstructive sleep apnea (adult) (pediatric); Z20.822 Contact with and (suspected) exposure to COVID-19; F32.A Depression, unspecified; E66.01 Morbid (severe) obesity due to excess calories; Z21 Asymptomatic human immunodeficiency virus [HIV] infection status; Z85.72 Personal history of non-Hodgkin lymphomas; Z79.01 Long term (current) use of anticoagulants; Z82.49 Family history of ischemic heart disease and other diseases of the circulatory system; Z79.82 Long term (current) use of aspirin; Z89.421 Acquired absence of other right toe(s)
CPT/HCPCS: 36415; 71045; 76999; 80048; 80053; 80076; 82330; 83735; 83880; 84100; 84443; 84484; 85007; 85025; 85027; 85379; 85610; 87015; 87045; 87046; 87324; 87328; 87329; 87449; 87636; 87899; 93005; 93306; 94760; 94761

== ENCOUNTER 2022-02-09 10:12 | Inpatient (IN) | payer MEDICARE, MEDICAID ==
[~2022-02-09] VITALS: Ht 185.5 cm; Wt 184.8 kg
[~2022-02-09 10:12] MED LIST changes: +AMIT25TA9 PO; +APIX5TAB PO; +MU V PO
--- NOTE | 2022-02-09 10:39 | Diagnostic Imaging Report ---
EXAMINATION: Chest, 1 view. HISTORY: SOA, Hypoxia. COMPARISON: 11/10/2021. FINDINGS: Stable enlargement of the cardiac silhouette. There are diffuse interstitial opacities within the perihilar and lower lungs. Persistent left pleural effusion. No pneumothorax. The osseous structures are intact. IMPRESSION: Cardiomegaly with left-sided pleural effusion and perihilar/bibasilar interstitial opacities. These findings could be seen with pulmonary edema or atypical infection. Dictated by: Dictated on workstation # [id number]
[2022-02-09 11:03] LABS: BASOPHILS % (AUTO) 0 % (0-10); EOSINOPHILS # (AUTO) 0.1 10^3/uL (0.0-0.3); EOSINOPHILS % (AUTO) 0 % (0-10); HEMOGLOBIN 14.2 g/dL (13.3-17.7)
[2022-02-09 11:05] LABS: ALBUMIN 3.6 GM/DL (3.2-4.5); POTASSIUM 5.3 MMOL/L (3.6-5.0)
[2022-02-09 11:06] LABS: HEMATOCRIT 44 % (40-54); LYMPHOCYTES # (AUTO) 1.7 10^3/uL (1.0-4.0); LYMPHOCYTES % (AUTO) 12 % (12-44); MEAN CORPUSCULAR HEMOGLOBIN 31 pg (25-34); MEAN CORPUSCULAR HGB CONC 33 g/dL (32-36); MEAN CORPUSCULAR VOLUME 94 fL (80-99); MONOCYTES # (AUTO) 1.4 10^3/uL (0.0-1.0); MONOCYTES % (AUTO) 10 % (0-12); NEUTROPHILS % (AUTO) 77 % (42-75); PLATELET COUNT 132 10^3/uL (130-400); WHITE BLOOD COUNT 14.3 10^3/uL (4.3-11.0)
[2022-02-09 11:07] LABS: TOTAL PROTEIN 7.7 GM/DL (6.4-8.2)
[2022-02-09 11:09] LABS: BILIRUBIN,TOTAL 0.8 MG/DL (0.1-1.0)
[2022-02-09 11:11] LABS: CREATININE SERUM 1.71 MG/DL (0.60-1.30)
[2022-02-09 11:24] LABS: BAND NEUTROPHILS 1 %; LYMPHOCYTES % (MANUAL) 15 %; MONOCYTES % (MANUAL) 4 %; NEUTROPHILS % (MANUAL) 80 %; RBC MORPH NORMAL
[2022-02-09] MEDS ORDERED: RT-ALBUTEROL HFA 8.5 GM INHALER IH STA (11:49)
--- NOTE | 2022-02-09 11:54 | ED Respiratory ---
General Chief Complaint: Respiratory Problems Stated Complaint: SOB Nursing Triage Note: PT TO RM 6 SOB FOR ABOUT 5 DAYS, COUGHING, DENIES FEVER, 86% ON 3.5 LPM NC AT TRIAGE, NO O2 ON ARRIVAL BUT IS ON O2 AT HOME, 3-4 LPM AT HOME (PATRICA SHI) History of Present Illness Date Seen by Provider: Feb 09, 2022 Time Seen by Provider: 11:40 Initial Comments 66 yo male with significant pmhx of CHF, pneumonia, Afib, HTN, Lymphoma, and HIV here for increase in SOA since Monday. Pt is usually on 3-4L O2 NC but has had more SOB even with O2. Says he is having difficulty walking from bedroom to bathroom which he normally does not have trouble with. Has associated weakness, lightheadedness/dizziness, CARPIO, and loss of appetite. Pt denies fever, CP, nausea/vomiting. Pt is COVID and flu vaccinated. No sick contacts. Denies hx of COPD or asthma. Pt has only taken Ibuprofen for CARPIO. No other complaints. (PATRICA SHI) Initial Comments Patient is stable on 5 L nasal cannula at this time. Patient reports he follows with Dr. Woods for HIV care. His CD4 count is reportedly 1100 to 1200, and viral load is reportedly undetectable at last check. He follows with Dr. Woods every 6 months and reports 100% compliance with his antiviral medications. His blanket winder helper is Dr. Sylvester and his surgeon is Dr. Savage. (RADHA TAVAREZ MD) Allergies and Home Medications Allergies Coded Allergies: No Known Drug Allergies (Unverified , 02/07/18) Patient Home Medication List Home Medication List Reviewed: Yes (PATRICA SHI) Acetaminophen (Tylenol Extra Strength) 500 Mg Tablet, 1,000 MG PO Q8H PRN for PAIN-MILD (1-4), (Reported) Entered as Reported by: MALENA YUN on 04/26/21 1014 Last Action: Held Allopurinol (Allopurinol) 100 Mg Tablet, 100 MG PO DAILY, (Reported) Entered as Reported by: SAVITA CARBALLO on 03/13/181532 Last Action: Continued Amitriptyline HCl (Amitriptyline HCl) 25 Mg Tablet, 25 MG PO HS, (Reported) Entered as Reported by: STEPHANIE ROSALES on 11/08/212031 Last Action: Continued Apixaban (Eliquis) 5 Mg Tablet, 5 MG PO BID Prescribed by: STEPHANIE ROSALES on 11/12/21 1139 Last Action: Held Aspirin (Aspirin EC) 81 Mg Tablet.dr, 81 MG PO HS, (Reported) Entered as Reported by: TERESITA FOX on 04/15/19 0811 Last Action: Continued Bictegrav/Emtricit/Tenofov Ala (Biktarvy 50-200-25 mg Tablet) 1 Each Tablet, 1 EACH PO DAILY, (Reported) Entered as Reported by: TERESITA FOX on 04/15/19 08 Last Action: Converted Bupropion HCl (Bupropion Xl) 300 Mg Tab.er.24h, 300 MG PO HS, (Reported) Entered as Reported by: MIGUEL RICHARDSON on 11/29/141948 Last Action: Converted Citalopram Hydrobromide (Citalopram HBr) 40 Mg Tablet, 40 MG PO HS, (Reported) Entered as Reported by: DOT ENCISO on 12/01/14 0915 Last Action: Converted Diltiazem HCl (Diltiazem 24Hr ER) 120 Mg Cap.er.24h, 120 MG PO DAILY, (Reported) Entered as Reported by: STEPHANIE ROSALES on 06/24/20 1418 Last Action: Continued Diltiazem HCl (Diltiazem 24Hr ER) 180 Mg Cap.er.24h, 360 MG PO DAILY, (Reported) Entered as Reported by: TERESITA FOX on 11/09/21 1227 Last Action: Continued Furosemide (Furosemide) 80 Mg Tablet, 160 MG PO DAILY, (Reported) Entered as Reported by: TERESITA FOX on 07/28/20 0905 Last Action: Held Magnesium Oxide (Magnesium) 400 Mg Tablet, 400 MG PO BID, (Reported) Entered as Reported by: TERESITA FOX on 04/15/19 08 Last Action: Converted Multivit-Min/FA/Lycopene/Lut (Sentry Senior Tablet) 0.4 Mg-300 Mcg-250 Mcg Tablet, 1 EACH PO HS, (Reported) Entered as Reported by: TERESITA FOX on 11/09/21 1227 Last Action: Converted Oxycodone HCl (Oxycodone HCl) 10 Mg Tablet, 10 MG PO Q6H PRN for PAIN-SEVERE (8- 10), (Reported) Entered as Reported by: TERESITA FOX on 07/28/20904 Last Action: Converted Potassium Chloride (Potassium Chloride) 20 Meq Tablet.er, 40 MEQ PO BID, (Reported) Entered as Reported by: TERESITA FOX on 11/09/21 1227 Last Action: Converted Risperidone (Risperidone) 0.5 Mg Tablet, 0.5 MG PO HS, (Reported) Entered as Reported by: DOT ENCISO on 12/01/14 0915 Last Action: Continued Spironolactone (Spironolactone) 50 Mg Tablet, 50 MG PO DAILY, (Reported) Entered as Reported by: TERESITA FOX on 07/28/20904 Last Action: Converted Review of Systems Review of Systems Constitutional: No chills, No diaphoresis; dizziness; No fever; weakness EENTM: see HPI Respiratory: dyspnea on exertion, short of breath, wheezing Cardiovascular: no symptoms reported Gastrointestinal: loss of appetite Genitourinary: no symptoms reported Musculoskeletal: no symptoms reported Skin: no symptoms reported Psychiatric/Neurological: Headache Hematologic/Lymphatic: No Symptoms Reported Immunological/Allergic: no symptoms reported (PATRICA SHI) All Other Systems Reviewed Negative Unless Noted: Yes (PATRICA SHI) Past Ftfojip-Ilqynp-Porfvd Hx Patient Social History Tobacco Use?: No Substance use?: No Alcohol Use?: No (PATRICA SHI) Immunizations Up To Date Tetanus Booster (TDap): Unknown Influenza Vaccine Up-to-Date: Yes; Up-to-Date First/Initial COVID19 Vaccinat: 03/2020 Second COVID19 Vaccination [place]: 04/2020 Third COVID19 Vaccination Date: YES (PATRICA SHI) Seasonal Allergies Seasonal Allergies: No (PATRICA SHI) Past Medical History Surgery/Hospitalization HX: AMPUTATION RIGHT 2ND TOE BY DR. MCLAUGHLIN 06/2020 FOR OSTEOMYELITIS COLONOSCOPY / POLYPECTOMY [address] HERRERA MULTIPLE BIOPSIES FOR LYMPHOMA CARDIAC CATH--NO INTERVENTION CARDIAC ABLATION 2010 FOR ATRIAL FIBRILLATION IN [place] Surgeries: Yes (CA REMOVED FROM NECK, SEVERAL BX) Amputation, Cardiac, Orthopedic, Tonsillectomy Respiratory: Yes (PNEUMOCYSTIS PNEUMONIA BY HX) Pneumonia, Sleep Apnea Currently Using CPAP: Yes Currently Using BIPAP: Yes Cardiac: Yes (CHF; CHRONIC RIGHT LEG SWELLING;CARDIAC ABLATION FOR AFIB;CATH-NO INTERVENT) Atrial Fibrillation, Chronic Edema/Swelling, Hypertension Neurological: Yes Neuropathy Reproductive Disorders: No HIV/AIDS: Yes (HIV +/AIDS-HX OF PNEUMOCYSTIS PNEUMONIA) Genitourinary: No Gastrointestinal: Yes Gastrointestinal Bleed, Diverticulosis, Chronic Diarrhea Musculoskeletal: Yes (RIGHT 2ND TOE AMPUTATED FOR OSTEOMYELITIS ) Amputee, Gout Endocrine: Yes (MORBID OBESITY) HEENT: Yes (NOSEBLEEDS-RARELY; POOR DENTITION) Loss of Vision: Denies Hearing Impairment: Denies Cancer: Yes (NON-HODGKIN'S LYMPHOMA) Skin, Lymphoma Did You Recieve Any Treatments: Yes What Type of Treatment Did You: Surgical Intervention Psychosocial: Yes Eating Disorder, Anxiety, Depression Integumentary: Yes (CELLULITIS/OSTEOMYELITIS) Blood Disorders: Yes (HIV DX IN 1994, ) Adverse Reaction/Blood Tranf: No (PATRICA SHI) Family Medical History Cardiovascular disease G8 SISTER Colon cancer G8 BROTHER Diabetes mellitus 19 MOTHER G8 SISTER FHx: COPD (chronic obstructive pulmonary disease) 19 FATHER Malignant neoplasm of prostate G8 BROTHER Paternal family history of emphysema No Pertinent Family Hx, COPD (PATRICA SHI) Physical Exam Vital Signs - First Documented 02/09/22 02/09/22 10:16 10:17 Temp 37.0 Pulse 110 Resp 26 B/P (MAP) 121/78 (92) Pulse Ox 96 O2 Delivery Nasal Cannula O2 Flow Rate 6.00 (RADHA TAVAREZ MD) Capillary Refill : (PATRICA SHI) Height: 6'0.00" Weight: 404lbs. 0.0oz. 183.021717ry; 55.00 BMI Method:Stated General Appearance: WD/WN, mild distress HEENT: PERRL/EOMI, normal ENT inspection, TMs normal, pharynx normal Neck: non-tender, full range of motion, supple, normal inspection Respiratory: chest non-tender, respiratory distress, wheezing Cardiovascular: regular rate, rhythm, no edema, no gallop, no JVD, no murmur Gastrointestinal: normal bowel sounds, non tender, soft, no organomegaly, no pulsatile mass Extremities: normal range of motion, non-tender, normal inspection, no pedal edema, no calf tenderness, normal capillary refill Neurologic/Psychiatric: caustic liquor maker II-XII nml as tested, no motor/sensory deficits, alert, normal mood/affect, oriented x 3 Skin: normal color, warm/dry Lymphatic: no adenopathy (PATRICA SHI) Focused Exam Reason for ruling out sepsis: Sepsic uncertain, A-Fib and other chronic conditions are confabulating Possible Source: Pulmonary Lactate Level 02/09/22 12:12: Lactic Acid Level 1.02 (RADHA TAVAREZ MD) Time of Focused Exam: 16:15 Respiratory: Lungs Clear, Accessory Muscle Use Cardiovascular: Irregularly Irregular, Other (LE edema) Skin: normal color, warm/dry Lactic Acid Level Laboratory Tests Test 02/09/22 12:12 Lactic Acid Level 1.02 MMOL/L (0.50-2.00) (RADHA TAVAREZ MD) Within 3hrs of presentation: Admin fluids, Blood cultures prior to ABX's, Focus exam, Lactate level (RADHA TAVAREZ MD) Progress/Results/Core Measures Suspected Sepsis SIRS Temperature: Pulse: 110 Respiratory Rate: 26 Laboratory Tests 02/09/22 10:20: White Blood Count 14.3H Blood Pressure / Mean: Laboratory Tests 02/09/22 10:20: Creatinine 1.71H, Platelet Count 132, Total Bilirubin 0.8 (PATRICA SHI) Results/Orders Lab Results Laboratory Tests Test 02/09/22 10:20 02/09/22 11:44 02/09/22 12:12 02/09/22 12:13 Range/Units White Blood Count 14.3 H 4.3-11.0 10^3/uL Red Blood Count 4.64 4.30-5.52 10^6/uL Hemoglobin 14.2 13.3-17.7 g/dL Hematocrit 44 40-54 % Mean Corpuscular Volume 94 80-99 fL Mean Corpuscular Hemoglobin 31 25-34 pg Mean Corpuscular Hemoglobin Concent 33 32-36 g/dL Red Cell Distribution Width 13.4 10.0-14.5 % Platelet Count 132 130-400 10^3/uL Mean Platelet Volume 11.0 9.0-12.2 fL Immature Granulocyte % (Auto) 1 % Neutrophils (%) (Auto) 77 H 42-75 % Lymphocytes (%) (Auto) 12 12-44 % Monocytes (%) (Auto) 10 0-12 % Eosinophils (%) (Auto) 0 0-10 % Basophils (%) (Auto) 0 0-10 % Neutrophils # (Auto) 11.0 H 1.8-7.8 10^3/uL Lymphocytes # (Auto) 1.7 1.0-4.0 10^3/uL Monocytes # (Auto) 1.4 H 0.0-1.0 10^3/uL Eosinophils # (Auto) 0.1 0.0-0.3 10^3/uL Basophils # (Auto) 0.0 0.0-0.1 10^3/uL Immature Granulocyte # (Auto) 0.1 0.0-0.1 10^3/uL Neutrophils % (Manual) 80 % Lymphocytes % (Manual) 15 % Monocytes % (Manual) 4 % Band Neutrophils 1 % Percent Immature Platelet Fraction 4.1 0.0-7.6 % Blood Morphology Comment NORMAL Sodium Level 132 L 135-145 MMOL/L Potassium Level 5.3 H 3.6-5.0 MMOL/L Chloride Level 99 98-107 MMOL/L Carbon Dioxide Level 25 21-32 MMOL/L Anion Gap 8 5-14 MMOL/L Blood Urea Nitrogen 46 H 7-18 MG/DL Creatinine 1.71 H 0.60-1.30 MG/DL Estimat Glomerular Filtration Rate 43 BUN/Creatinine Ratio 27 Glucose Level 116 H 70-105 MG/DL Calcium Level 10.0 8.5-10.1 MG/DL Corrected Calcium 10.3 H 8.5-10.1 MG/DL Total Bilirubin 0.8 0.1-1.0 MG/DL Aspartate Amino Transf (AST/SGOT) 22 5-34 U/L Alanine Aminotransferase (ALT/SGPT) 14 0-55 U/L Alkaline Phosphatase 111 40-136 U/L C-Reactive Protein High Sensitivity 31.84 H 0.00-0.50 MG/DL B-Type Natriuretic Peptide 174.6 H <100.0 PG/ML Total Protein 7.7 6.4-8.2 GM/DL Albumin 3.6 3.2-4.5 GM/DL Influenza Type A (RT-PCR) Not Detected Not Detecte Influenza Type B (RT-PCR) Not Detected Not Detecte SARS-CoV-2 RNA (RT-PCR) Not Detected Not Detecte Lactic Acid Level 1.02 0.50-2.00 MMOL/L Prothrombin Time 20.7 H 12.2-14.7 SEC INR Comment 1.7 H 0.8-1.4 Activated Partial Thromboplast Time 41 H 24-35 SEC Procalcitonin 9.58 H <0.10 NG/ML (RADHA TAVAREZ MD) My Orders Orders - RADHA TAVAREZ MD Bnp [place] (02/09/22 10:29) Cbc With Automated Diff (02/09/22 10:29) Comprehensive Metabolic Panel (02/09/22 10:29) Hs C Reactive Protein (02/09/22 10:29) Ed Iv/Invasive Line Start (02/09/22 10:) O2 (02/09/22 10:29) Monitor-Rhythm Ecg Trace Only (02/09/22 10:29) Chest 1 View, Ap/Pa Only (02/09/22 10:29) Covid 19 Inhouse Test (02/09/22 10:29) Influenza A And B By Pcr (02/09/22 10:29) Manual Differential (02/09/22 10:20) Albuterol Inhaler (Albuterol) (02/09/22 11:49) Blood Culture (02/09/22 11:49) Sputum Culture (02/09/22 11:49) Urinalysis (02/09/22 11:49) Urine Culture (02/09/22 11:49) Protime With Inr (02/09/22 11:49) Partial Thromboplastin Time (02/09/22 11:49) Vital Signs Adult Sepsis Patie Q15M (02/09/22 11:49) Remove Rings In Anticipation O (02/09/22 11:49) Lactic Acid Analyzer (02/09/22 11:49) Procalcitonin (Pct) (02/09/22 11:49) Cefepime Injection (Maxipime Injection) (02/09/22 12:00) Albuterol/Ipra Inhalation Soln (Duoneb I (02/09/22 13:30) Svn Small Volume Nebulizer (02/09/22 13:17) Ns Iv 1000 Ml (Sodium Chloride 0.9%) (02/09/22 14:00) Vancomycin Injection (Vancomycin Injecti (02/09/22 14:00) Code/Resuscitation (02/09/22 13:58) Ed Admission (Communication) (02/09/22 13:58) (RADHA TAVAREZ MD) Medications Given in ED (RADHA TAVAREZ MD) Vital Signs/I&O 02/09/22 02/09/22 02/09/22 10:16 10:17 10:20 Temp 37.0 Pulse 110 Resp 26 B/P (MAP) 121/78 (92) Pulse Ox 96 95 O2 Delivery Nasal Cannula Nasal Cannula Nasal Cannula O2 Flow Rate 6.00 6.00 02/10/22 00:00 Intake Total 50 ml Balance 50 ml (RADHA TAVAREZ MD) Vital Signs/I&O Capillary Refill : (PATRICA SHI) Progress Note #1: Time: 13:54 Progress Note Patient is stable at this time on 5 L nasal cannula. He had significant wheezing on exam and received a DuoNeb treatment. Pneumonia suspected on his chest x-ray. Antibiotic therapy was initiated with cefepime. Vancomycin is being added after discussion with Dr. Keane. Patient does not ever recall having a large pleural effusion in the past or needing thoracentesis. Dr. Savage is being consulted to evaluate this further. Dr. Sylvester will be consulted for cardiology. I discussed CODE STATUS with the patient and he wis hes to be a DO NOT RESUSCITATE. Progress Note #2: Time: 14:17 Progress Note We are awaiting bed assignment for admission to the ICU. Dr. Sylvester was consulted and reminded the team to hold Eliquis if a thoracentesis will be performed. Otherwise he would like usual cardiac medications continued. Progress Note #3: Time: 16:21 Progress Note Patient has had a prolonged ER stay due to awaiting bed availability. He should be transferred to the ICU soon. Wheezing has improved with DuoNeb treatment. He still have some accessory muscle use effort on expiration. He does not believe he needs another nebulizer treatment at this time. He has been treated with cefepime and vancomycin. Admission orders have been placed (RADHA TAVAREZ MD) Diagnostic Imaging Diagonstic Imaging: Xray Plain Films/CT/US/NM/MRI: chest Comments Chest x-ray viewed by me and report reviewed. See report below: NAME: BROOK GILBERT [facility] REC#: [id number] PT STATUS: REG ER : 1955 PHYSICIAN: RADHA TAVAREZ MD ADMIT DATE: 02/09/22/ER Signed Date of Exam:02/09/22 CHEST 1 VIEW, AP/PA ONLY EXAMINATION: Chest, 1 view. HISTORY: SOA, Hypoxia. COMPARISON: 11/10/2021. FINDINGS: Stable enlargement of the cardiac silhouette. There are diffuse interstitial opacities within the perihilar and lower lungs. Persistent left pleural effusion. No pneumothorax. The osseous structures are intact. IMPRESSION: Cardiomegaly with left-sided pleural effusion and perihilar/bibasilar interstitial opacities. These findings could be seen with pulmonary edema or atypical infection. Dictated by: Dictated on workstation # [id number] Dict: 02/09/22 1036 Trans: 02/09/22 1043 [id number] Interpreted by: KYLIE KARIMI DO Electronically signed by: KYLIE KARIMI DO 02/09/22 1043 (RADHA TAVAREZ MD) Departure Communication (Admissions) Time/Spoke to Admitting Phy: 13:45 Dr. Keane (RADHA TAVAREZ MD) Communication (PCP) Dr. Savage [phone]. Dr. Sylvester (RADHA TAVAREZ MD) Impression Primary Impression: Sepsis Qualified Codes: A41.9 - Sepsis, unspecified organism Additional Impressions: Pneumonia Qualified Codes: J18.9 - Pneumonia, unspecified organism HIV positive Disposition: ADMITTED INPATIENT Condition: Stable Admissions Decision to Admit Reason: Admit from ER (General) Decision to Admit/Date: Feb 09, 2022 Time/Decision to Admit Time: 13:45 (RADHA TAVAREZ MD) Departure-Patient Inst. Referrals: [facility] (PCP/Family) Primary Care Physician Medical Student Attestation and Attending Note: I have personally interviewed and examined this patient along with BRIAN Acharya. I have reviewed student documentation including history, physical, and assessments. I agree with the documentation except where otherwise noted. Exam: General: Alert, oriented, short of air, well developed, obese HEENT: Normocephalic and atraumatic Heart: Regular rate and rhythm without murmur Lungs: Tight wheezing bilaterally. Diminished air movement. Increased work of breathing but not in distress. Abdomen: Soft, nontender, nondistended, normal bowel sounds Neuropsych: Alert, oriented, no focal deficits Skin: Warm and dry without rashes Extremities: Mild to moderate lower extremity pitting edema, stated as chronic and unchanged. (RADHA TAVAREZ MD) Copy Copies To 1: FLORIAN BLUE MD, ANISHA T Feb 09, 2022 11:54 RADHA TAVAREZ MD Feb 09, 2022 13:41
[2022-02-09] MEDS ORDERED: CEFEPIME INJECTION 2,000 MG in NS (IVPB) 50 ML IV ONE (12:00)
[2022-02-09 12:26] LABS: INR 1.7 (0.8-1.4); PROTHROMBIN TIME PATIENT 20.7 SEC (12.2-14.7)
[2022-02-09] MEDS ORDERED: RT-ALBUTEROL/IPRATROPIUM 3 ML (DUONEB) VIAL INH ONE (13:30)
[2022-02-09] MEDS ORDERED: NS IV 1000 ML 1,000 ML IV ONE (14:00)
--- NOTE | 2022-02-09 14:08 | Consultation - Surgery ---
MELISANDRA 02/09/22 1408: History of Present Illness History of Present Illness Patient Consulted On(drake/time) 02/09/22 14:08 Date Seen by Provider: Feb 09, 2022 Time Seen by Provider: 14:00 History of Present Illness Nikolay Cope is a 66 yo male with a history of HIV, PJP, CHF, AFib, HTN, Non- Hodgkin Lymphoma, who presented to the ED for evaluation and management of progressively worsening SOA since Monday (02/05). Patient states that he does have SOA at baseline, but he is still able to get to the bathroom and let his dog out; however, since Monday, his SOA significantly worsened, requiring increased supplemental oxygen. At home, he supplements with 3-4 L of O2 by MO, however, he presently requires 6 L. He states that his SOA worsens with any sort of movement, and resolves with rest. He states he is dizzy, weak, has a CARPIO, and no appetite. He denies any fever, CP, Nausea or vomiting. Nikolay follows with Dr. Woods every 6 months for his HIV care; he states complete compliance with his anti-viral regimen, with a current CD4 count of [id number], and an undetectable viral load. CXR revealed cardiomegaly, L-sided pleural effusion, with perihilar and bibasilar interstitial opacities, for which a surgery consult was placed. He states that while he has had fluid around his heart and lungs in the past, he has never had it drained before. Nikolay is conversational, pleasant, and sitting upright in his wheelchair. Allergies and Home Medications Allergies Coded Allergies: No Known Drug Allergies (Unverified , 02/07/18) Patient Home Medication List Home Medication List Reviewed: Yes Acetaminophen (Tylenol Extra Strength) 500 Mg Tablet, 1,000 MG PO Q8H PRN for PAIN-MILD (1-4), (Reported) Entered as Reported by: MALENA YUN on 04/26/21 1014 Last Action: Held Allopurinol (Allopurinol) 100 Mg Tablet, 100 MG PO DAILY, (Reported) Entered as Reported by: SAVITA CARBALLO on 03/13/18 1533 Last Action: Continued Amitriptyline HCl (Amitriptyline HCl) 25 Mg Tablet, 25 MG PO HS, (Reported) Entered as Reported by: STEPHANIE ROSALES on 11/08/212031 Last Action: Continued Apixaban (Eliquis) 5 Mg Tablet, 5 MG PO BID Prescribed by: STEPHANIE ROSALES on 11/12/21 1139 Last Action: Held Aspirin (Aspirin EC) 81 Mg Tablet.dr, 81 MG PO HS, (Reported) Entered as Reported by: TERESITA FOX on 04/15/19 08 Last Action: Continued Bictegrav/Emtricit/Tenofov Ala (Biktarvy 50-200-25 mg Tablet) 1 Each Tablet, 1 EACH PO DAILY, (Reported) Entered as Reported by: TERESITA FOX on 04/15/19810 Last Action: Converted Bupropion HCl (Bupropion Xl) 300 Mg Tab.er.24h, 300 MG PO HS, (Reported) Entered as Reported by: MIGUEL RICHARDSON on 11/29/141948 Last Action: Converted Citalopram Hydrobromide (Citalopram HBr) 40 Mg Tablet, 40 MG PO HS, (Reported) Entered as Reported by: DOT ENCISO on 12/01/14 0915 Last Action: Converted Diltiazem HCl (Diltiazem 24Hr ER) 120 Mg Cap.er.24h, 120 MG PO DAILY, (Reported) Entered as Reported by: STEPHANIE ROSALES on 06/24/20 1418 Last Action: Continued Diltiazem HCl (Diltiazem 24Hr ER) 180 Mg Cap.er.24h, 360 MG PO DAILY, (Reported) Entered as Reported by: TERESITA FOX on 11/09/21 1227 Last Action: Continued Furosemide (Furosemide) 80 Mg Tablet, 160 MG PO DAILY, (Reported) Entered as Reported by: TERESITA FOX on 07/28/20 0905 Last Action: Held Magnesium Oxide (Magnesium) 400 Mg Tablet, 400 MG PO BID, (Reported) Entered as Reported by: TERESITA FOX on 04/15/19 08 Last Action: Converted Multivit-Min/FA/Lycopene/Lut (Sentry Senior Tablet) 0.4 Mg-300 Mcg-250 Mcg Tablet, 1 EACH PO HS, (Reported) Entered as Reported by: TERESITA FOX on 9/13/22 1227 Last Action: Converted Oxycodone HCl (Oxycodone HCl) 10 Mg Tablet, 10 MG PO Q6H PRN for PAIN-SEVERE (8- 10), (Reported) Entered as Reported by: TERESITA FOX on 07/28/20904 Last Action: Converted Potassium Chloride (Potassium Chloride) 20 Meq Tablet.er, 40 MEQ PO BID, (Reported) Entered as Reported by: TERESITA FOX on 11/09/211226 Last Action: Converted Risperidone (Risperidone) 0.5 Mg Tablet, 0.5 MG PO HS, (Reported) Entered as Reported by: DOT ENCISO on 12/01/14 0915 Last Action: Continued Spironolactone (Spironolactone) 50 Mg Tablet, 50 MG PO DAILY, (Reported) Entered as Reported by: TERESITA FOX on 07/28/20904 Last Action: Converted Past Arvmfgk-Owqbna-Kiudsz Hx Patient Social History 2nd Hand Smoke Exposure: No Recent Hopitalizations: Yes (08/17 GI BLEED) Alcohol Use?: No Have you traveled recently?: No Immunizations Up To Date Tetanus Booster (TDap): Unknown Date of Pneumonia Vaccine: Apr 17, 2013 Date of Influenza Vaccine: Nov 27, 2020 Seasonal Allergies Seasonal Allergies: No Surgeries History of Surgeries: Yes (CA REMOVED FROM NECK, SEVERAL BX) Surgeries: Amputation, Cardiac, Orthopedic, Tonsillectomy Respiratory History of Respiratory Disorde: Yes (PNEUMOCYSTIS PNEUMONIA BY HX) Respiratory Disorders: Pneumonia (Multiple episodes of PNA in past), Sleep Apnea (Has Cpap/BiPAP) Cardiovascular History of Cardiac Disorders: Yes (CHF; CHRONIC RIGHT LEG SWELLING;CARDIAC ABLATION FOR AFIB;CATH-NO INTERVENT) Cardiac Disorders: Atrial Fibrillation, Chronic Edema/Swelling, Hypertension Neurological History of Neurological Disord: Yes Neurological Disorders: Neuropathy Reproductive System Hx Reproductive Disorders: No HIV/AIDS: Yes (HIV +/AIDS-HX OF PNEUMOCYSTIS PNEUMONIA) Genitourinary History of Genitourinary Disor: No Gastrointestinal History of Gastrointestinal Di: Yes Gastrointestinal Disorders: Gastrointestinal Bleed, Diverticulosis, Chronic Diarrhea Musculoskeletal History of Musculoskeletal Dis: Yes (RIGHT 2ND TOE AMPUTATED FOR OSTEOMYELITIS ) Musculoskeletal Disorders: Amputee, Gout Endocrine History of Endocrine Disorders: Yes (MORBID OBESITY) HEENT History of HEENT Disorders: Yes (NOSEBLEEDS-RARELY; POOR DENTITION) Loss of Vision: Denies Hearing Impairment: Denies Cancer History of Cancer: Yes (NON-HODGKIN'S LYMPHOMA) Cancer: Skin, Lymphoma Psychosocial History of Psychiatric Problem: Yes Behavioral Health Disorders: Eating Disorder, Anxiety, Depression Integumentary History of Skin or Integumenta: Yes (CELLULITIS/OSTEOMYELITIS) Blood Transfusions History of Blood Disorders: Yes (HIV DX IN 1994, ) Adverse Reaction to a Blood Tr: No Family Medical History Significant Family History: No Pertinent Family Hx, COPD Family Medial History: Cardiovascular disease G8 SISTER Colon cancer G8 BROTHER Diabetes mellitus 19 MOTHER G8 SISTER FHx: COPD (chronic obstructive pulmonary disease) 19 FATHER Malignant neoplasm of prostate G8 BROTHER Paternal family history of emphysema Review of Systems-General Constitutional: No chills, No diaphoresis; dizziness; No fever; malaise, weakness EENTM: No ear pain, No blurred vision Respiratory: dyspnea on exertion (Significantly worse than baseline), short of breath Cardiovascular: No chest pain; edema Gastrointestinal: No abdominal pain Genitourinary: No dysuria Musculoskeletal: No back pain, No joint pain Skin: other (Stasis Dermatitis bilaterally) Psychiatric/Neurological: Anxiety Physical Exam-General Problems Physical Exam Vital Signs Vital Signs - First Documented 02/09/22 02/09/22 10:16 10:17 Temp 37.0 Pulse 110 Resp 26 B/P (MAP) 121/78 (92) Pulse Ox 96 O2 Delivery Nasal Cannula O2 Flow Rate 6.00 Capillary Refill : General Appearance: WD/WN, no apparent distress, obese Eyes: Bilateral Eye Normal Inspection, Bilateral Eye PERRL HEENT: PERRL/EOMI, normal ENT inspection Neck: non-tender, supple Respiratory: chest non-tender, no accessory muscle use, respiratory distress, decreased breath sounds, rales; No stridor Cardiovascular: regular rate, rhythm, no gallop, no murmur Peripheral Pulses: 2+ Radial Pulses (L) Gastrointestinal: non tender, soft Rectal: deferred Extremities: non-tender, normal capillary refill, swelling Neurologic/Psychiatric: no motor/sensory deficits, alert, normal mood/affect, oriented x 3 Skin: normal color, warm/dry, other (Stasis dermatitis bilat) Data Review Labs Laboratory Tests 02/09/22 10:20: White Blood Count 14.3H, Red Blood Count 4.64, Hemoglobin 14.2, Hematocrit 44, Mean Corpuscular Volume 94, Mean Corpuscular Hemoglobin 31, Mean Corpuscular Hemoglobin Concent 33, Red Cell Distribution Width 13.4, Platelet Count 132, Mean Platelet Volume 11.0, Immature Granulocyte % (Auto) 1, Neutrophils (%) (A uto) 77H, Lymphocytes (%) (Auto) 12, Monocytes (%) (Auto) 10, Eosinophils (%) (Auto) 0, Basophils (%) (Auto) 0, Neutrophils # (Auto) 11.0H, Lymphocytes # (Auto) 1.7, Monocytes # (Auto) 1.4H, Eosinophils # (Auto) 0.1, Basophils # (Auto) 0.0, Immature Granulocyte # (Auto) 0.1, Neutrophils % (Manual) 80, Lymphocytes % (Manual) 15, Monocytes % (Manual) 4, Band Neutrophils 1, Percent Immature Platelet Fraction 4.1, Blood Morphology Comment NORMAL, Sodium Level 132L, Potassium Level 5.3H, Chloride Level 99, Carbon Dioxide Level 25, Anion Gap 8, Blood Urea Nitrogen 46H, Creatinine 1.71H, Estimat Glomerular Filtration Rate 43, BUN/Creatinine Ratio 27, Glucose Level 116H, Calcium Level 10.0, Corrected Calcium 10.3H, Total Bilirubin 0.8, Aspartate Amino Transf (AST/SGOT) 22, Alanine Aminotransferase (ALT/SGPT) 14, Alkaline Phosphatase 111, C-Reactive Protein High Sensitivity 31.84H, B-Type Natriuretic Peptide 174.6H, Total Prote in 7.7, Albumin 3.6 02/09/22 11:44: Influenza Type A (RT-PCR) Not Detected, Influenza Type B (RT-PCR) Not Detected, SARS-CoV-2 RNA (RT-PCR) Not Detected 02/09/22 12:12: Lactic Acid Level 1.02 02/09/22 12:13: Prothrombin Time 20.7H, INR Comment 1.7H, Activated Partial Thromboplast Time 4 1H, Procalcitonin 9.58H Radiology EXAMINATION: Chest, 1 view. HISTORY: SOA, Hypoxia. COMPARISON: 11/10/2021. FINDINGS: Stable enlargement of the cardiac silhouette. There are diffuse interstitial opacities within the perihilar and lower lungs. Persistent left pleural effusion. No pneumothorax. The osseous structures are intact. IMPRESSION: Cardiomegaly with left-sided pleural effusion and perihilar/bibasilar interstitial opacities. These findings could be seen with pulmonary edema or atypical infection. Assessment/Plan Assessment/Plan Assessment/Plan Left pleural effusion Dyspnea on Exertion Consider thoracentesis Consider holding anticoagulation (eliquis) x 24h =>Last dose of Eliquis was taken this AM Supplemental Oxygen by NC 6L Pneumonia On vancomycin Received bag of Cefepime Elevated PCT 9.58 ng/ml Concern for sepsis risk HIV Follows with Dr. Woods in [place], [place] Q6 months CD4 ~7704-7119, undetectable On Biktarvy AFib On Eliquis, consider holding if thora, see above On Diltiazem CHF Lasix Leg swelling appears to be minimal Sleep Apnea Utilizes CPAP SARABJIT ORTIZ DO 02/10/222052: History of Present Illness History of Present Illness History of Present Illness 66 year old male having increasing shortness of air since Monday. He is on oxygen at home but had to increase it. Movement makes worse. Sitting still and working on breathing does make it slightly better. wbc elevated. Patient with chest x ray Cardiomegaly with left-sided pleural effusion and perihilar/bibasilar interstitial opacities. These findings could be seen with pulmonary edema or atypical infection.. Allergies and Home Medications Allergies Coded Allergies: No Known Drug Allergies (Unverified , 02/07/18) Patient Home Medication List Acetaminophen (Tylenol Extra Strength) 500 Mg Tablet, 1,000 MG PO Q8H PRN for PAIN-MILD (1-4), (Reported) Entered as Reported by: MALENA YUN on 04/26/21 1014 Last Action: Held Allopurinol (Allopurinol) 100 Mg Tablet, 100 MG PO DAILY, (Reported) Entered as Reported by: SAVITA CARBALLO on 03/13/18 1533 Last Action: Continued Amitriptyline HCl (Amitriptyline HCl) 25 Mg Tablet, 25 MG PO HS, (Reported) Entered as Reported by: STEPHANIE ROSALES on 11/08/212031 Last Action: Continued Apixaban (Eliquis) 5 Mg Tablet, 5 MG PO BID Prescribed by: STEPHANIE ROSALES on 11/12/21 1139 Last Action: Held Aspirin (Aspirin EC) 81 Mg Tablet., 81 MG PO HS, (Reported) Entered as Reported by: TERESITA FOX on 04/15/19810 Last Action: Continued Bictegrav/Emtricit/Tenofov Ala (Biktarvy 50-200-25 mg Tablet) 1 Each Tablet, 1 EACH PO DAILY, (Reported) Entered as Reported by: TERESITA FOX on 04/15/19810 Last Action: Converted Bupropion HCl (Bupropion Xl) 300 Mg Tab.er.24h, 300 MG PO HS, (Reported) Entered as Reported by: MIGUEL RICHARDSON on 11/29/141948 Last Action: Converted Citalopram Hydrobromide (Citalopram HBr) 40 Mg Tablet, 40 MG PO HS, (Reported) Entered as Reported by: DOT ENCSIO on 12/01/14914 Last Action: Converted Diltiazem HCl (Diltiazem 24Hr ER) 120 Mg Cap.er.24h, 120 MG PO DAILY, (Reported) Entered as Reported by: STEPHANIE ROSALES on 06/24/20 1418 Last Action: Continued Diltiazem HCl (Diltiazem 24Hr ER) 180 Mg Cap.er.24h, 360 MG PO DAILY, (Reported) Entered as Reported by: TERESITA FOX on 11/09/21 122 Last Action: Continued Furosemide (Furosemide) 80 Mg Tablet, 160 MG PO DAILY, (Reported) Entered as Reported by: TERESITA FOX on 07/28/20904 Last Action: Held Magnesium Oxide (Magnesium) 400 Mg Tablet, 400 MG PO BID, (Reported) Entered as Reported by: TERESITA FOX on 04/15/19810 Last Action: Converted Multivit-Min/FA/Lycopene/Lut (Sentry Senior Tablet) 0.4 Mg-300 Mcg-250 Mcg Tablet, 1 EACH PO HS, (Reported) Entered as Reported by: TERESITA FOX on 11/09/21 122 Last Action: Converted Oxycodone HCl (Oxycodone HCl) 10 Mg Tablet, 10 MG PO Q6H PRN for PAIN-SEVERE (8- 10), (Reported) Entered as Reported by: TERESITA FOX on 07/28/20904 Last Action: Converted Potassium Chloride (Potassium Chloride) 20 Meq Tablet.er, 40 MEQ PO BID, (Reported) Entered as Reported by: TERESITA FOX on 11/09/21 1227 Last Action: Converted Risperidone (Risperidone) 0.5 Mg Tablet, 0.5 MG PO HS, (Reported) Entered as Reported by: DOT ENCISO on 12/01/14 0915 Last Action: Continued Spironolactone (Spironolactone) 50 Mg Tablet, 50 MG PO DAILY, (Reported) Entered as Reported by: TERESITA FOX on 07/28/20 0905 Last Action: Converted Past Quyeeio-Mmbwcg-Azsjla Hx Reviewed Nursing Assessment Reviewed/Agree w Nursing PMH: Yes Family Medical History Significant Family History: No Pertinent Family Hx Family Medial History: Cardiovascular disease G8 SISTER Colon cancer G8 BROTHER Diabetes mellitus 19 MOTHER G8 SISTER FHx: COPD (chronic obstructive pulmonary disease) 19 FATHER Malignant neoplasm of prostate G8 BROTHER Paternal family history of emphysema Review of Systems-General Constitutional: No chills, No diaphoresis; dizziness; No fever; weakness Respiratory: dyspnea on exertion (Significantly worse than baseline), short of breath Cardiovascular: No chest pain; edema Gastrointestinal: No abdominal pain, No nausea, No vomiting Genitourinary: No decreased output, No discharge Musculoskeletal: No back pain, No joint pain Skin: No change in color, No change in hair/nails; other (Stasis Dermatitis bilaterally) Psychiatric/Neurological: Denies Anxiety, Denies Depressed, Denies Emotional Problems All Other Systems Reviewed Negative Unless Noted: Yes (Negative excepted noted.) Physical Exam-General Problems Physical Exam General Appearance: no apparent distress, obese HEENT: PERRL/EOMI, normal ENT inspection Neck: non-tender, supple Respiratory: chest non-tender; No respiratory distress; other (minimally labored breathing) Cardiovascular: regular rate, rhythm, no JVD Gastrointestinal: non tender, soft Rectal: deferred Back: normal inspection, no CVA tenderness Extremities: non-tender, swelling Neurologic/Psychiatric: alert, normal mood/affect, oriented x 3 Skin: normal color, warm/dry Lymphatic: no adenopathy Assessment/Plan Assessment/Plan Assessment/Plan Left pleural effusion Shortness of air Obesity Long-term anticoagulation HIV Patient with left pleural effusion on chest x ray. Will repeat chest x ray tomorrow, and get u/s chest to see if able to be drained. Patient Discussed plan which he understands and agrees with. Will follow. Supervisory-Addendum Brief Verification & Attestation Participated in pt care: history, MDM, physical Personally performed: exam, history, MDM, supervision of care Care discussed with: Medical Student Procedures: n/a Results interpretation: Verified all documentation Verification and Attestation of Medical Student E/M Service A medical student performed and documented this service in my presence. I reviewed and verified all information documented by the medical student and made modifications to such information, when appropriate. I personally performed the physical exam and medical decision making. Sarabjit Ortiz, Feb 09, 2022,20:02 SANDRA GARRISON Feb 09, 2022 14:08 SARABJIT ORTIZ DO Feb 10, 2022 20:53
[2022-02-09] MEDS: VANCOMYCIN INJECTION 1,000 MG in NS (IVPB) 250 ML IV SCH ×2 (14:25→15:49)
--- NOTE | 2022-02-09 15:09 | Consultation-Cardiology ---
HPI-Cardiology Cardiology Consultation: Date of Consultation 02/09/22 Time Seen by a Provider: 15:15 Date of Admission 02-09-22 Attending Physician [facility] Admitting Physician Admitting Physician: Attending Physician: Consulting Physician Luis Sylvester MD HPI: Chief Complaint: Progressive dyspnea Mr. Gilbert is a 66 yr old male being admitted from the ED for increasing SOB. He reports he has had an occ productive cough of thick, yellow sputum. No c/o CP, palpitations, syncope, near syncope or LE swelling. He states he has been compliant with his medications. No c/o n/v/d. No c/o fever or chills. Review of Systems-Cardiology Review of Systems Constitutional: No chills, No fever; malaise Eyes: No vision change Ears/Nose/Throat: No epistaxis Respiratory: As described under HPI Cardiovascular: As described under HPI Gastrointestinal: As described under HPI Genitourinary: No dysuria, No hematuria Skin: No rash on exposed areas, No ulcerations on exposed areas Psychiatric/Neurological: No anxiety, No depression, No seizure, No focal weakness, No syncope Hematologic: No bleeding abnormalities All Other Systems Reviewed Negative Unless Noted: Yes YRJ-Hgoput-Juoydk Hx Patient Social History 2nd Hand Smoke Exposure: No Have you traveled recently?: No Alcohol Use?: No Immunizations Up To Date Tetanus Booster (TDap): Unknown Date of Pneumonia Vaccine: Apr 17, 2013 Date of Influenza Vaccine: Nov 27, 2020 Past Medical History PMH As described under Assessment. Family Medical History Family Medical History: He has reported that his mother had a heart attck in her 50s. He also has fam h/o DM Family History: Cardiovascular disease G8 SISTER Colon cancer G8 BROTHER Diabetes mellitus 19 MOTHER G8 SISTER FHx: COPD (chronic obstructive pulmonary disease) 19 FATHER Malignant neoplasm of prostate G8 BROTHER Paternal family history of emphysema Allergies and Home Medications Allergies Coded Allergies: No Known Drug Allergies (Unverified , 02/07/18) Patient Home Medication List Acetaminophen (Tylenol Extra Strength) 500 Mg Tablet, 1,000 MG PO Q8H PRN for PAIN-MILD (1-4), (Reported) Entered as Reported by: MALENA YUN on 04/26/21 1014 Last Action: Held Allopurinol (Allopurinol) 100 Mg Tablet, 100 MG PO DAILY, (Reported) Entered as Reported by: SAVITA CARBALLO on 03/13/18 1533 Last Action: Continued Amitriptyline HCl (Amitriptyline HCl) 25 Mg Tablet, 25 MG PO HS, (Reported) Entered as Reported by: STEPHANIE ROSALES on 11/08/212031 Last Action: Continued Apixaban (Eliquis) 5 Mg Tablet, 5 MG PO BID Prescribed by: STEPHANIE ROSALES on 11/12/21 1139 Last Action: Held Aspirin (Aspirin EC) 81 Mg Tablet.dr, 81 MG PO HS, (Reported) Entered as Reported by: TERESITA FOX on 04/15/19 08 Last Action: Continued Bictegrav/Emtricit/Tenofov Ala (Biktarvy 50-200-25 mg Tablet) 1 Each Tablet, 1 EACH PO DAILY, (Reported) Entered as Reported by: TERESITA FOX on 04/15/19 0811 Last Action: Converted Bupropion HCl (Bupropion Xl) 300 Mg Tab.er.24h, 300 MG PO HS, (Reported) Entered as Reported by: MIGUEL RICHARDSON on 11/29/14 194 Last Action: Converted Citalopram Hydrobromide (Citalopram HBr) 40 Mg Tablet, 40 MG PO HS, (Reported) Entered as Reported by: DOT ENCISO on 12/01/14 0915 Last Action: Converted Diltiazem HCl (Diltiazem 24Hr ER) 120 Mg Cap.er.24h, 120 MG PO DAILY, (Reported) Entered as Reported by: STEPHANIE ROSALES on 06/24/20 1418 Last Action: Continued Diltiazem HCl (Diltiazem 24Hr ER) 180 Mg Cap.er.24h, 360 MG PO DAILY, (Reported) Entered as Reported by: TERESITA FOX on 11/09/21 1227 Last Action: Continued Furosemide (Furosemide) 80 Mg Tablet, 160 MG PO DAILY, (Reported) Entered as Reported by: TERESITA FOX on 07/28/20 0905 Last Action: Held Magnesium Oxide (Magnesium) 400 Mg Tablet, 400 MG PO BID, (Reported) Entered as Reported by: TERESITA FOX on 04/15/19 08 Last Action: Converted Multivit-Min/FA/Lycopene/Lut (Sentry Senior Tablet) 0.4 Mg-300 Mcg-250 Mcg Tablet, 1 EACH PO HS, (Reported) Entered as Reported by: TERESITA FOX on 11/09/211226 Last Action: Converted Oxycodone HCl (Oxycodone HCl) 10 Mg Tablet, 10 MG PO Q6H PRN for PAIN-SEVERE (8- 10), (Reported) Entered as Reported by: TERESITA FOX on 07/28/20904 Last Action: Converted Potassium Chloride (Potassium Chloride) 20 Meq Tablet.er, 40 MEQ PO BID, (Reported) Entered as Reported by: TERESITA FOX on 11/09/211226 Last Action: Converted Risperidone (Risperidone) 0.5 Mg Tablet, 0.5 MG PO HS, (Reported) Entered as Reported by: DOT ENCISO on 12/01/14914 Last Action: Continued Spironolactone (Spironolactone) 50 Mg Tablet, 50 MG PO DAILY, (Reported) Entered as Reported by: TERESITA FOX on 07/28/20904 Last Action: Converted Physical Exam-Cardiology Physical Exam Vital Signs/I&O 02/09/22 02/09/22 02/10/22 02/10/22 22:00 23:00 00:00 00:00 Temp 37.2 Pulse 97 89 Resp 23 35 B/P (MAP) 111/84 (93) 113/79 (90) Pulse Ox 93 91 94 O2 Delivery Nasal Cannula Nasal Cannula High Flow N/C O2 Flow Rate 5.00 5.00 8.00 02/10/22 02/10/22 02/10/22 02/10/22 00:00 01:00 01:00 02:00 Pulse 101 107 111 101 Resp 20 27 16 B/P (MAP) 127/80 (96) 137/79 (98) 130/84 (99) Pulse Ox 94 93 94 O2 Delivery High Flow N/C High Flow N/C High Flow N/C O2 Flow Rate 8.00 8.00 8.00 02/10/22 02/10/22 02/10/22 02/10/22 03:00 04:00 04:00 05:00 Pulse 98 112 97 Resp 17 23 26 B/P (MAP) 121/78 (92) 131/84 (100) 131/86 (101) Pulse Ox 95 95 94 95 O2 Delivery High Flow N/C High Flow N/C High Flow N/C High Flow N/C O2 Flow Rate 8.00 8.00 8.00 8.00 02/10/22 02/10/22 02/10/22 02/10/22 06:00 07:00 07:21 08:00 Pulse 96 89 113 91 Resp 25 25 18 B/P (MAP) 128/94 (105) 134/119 (124) 128/93 (105) Pulse Ox 93 93 O2 Delivery High Flow N/C High Flow N/C High Flow N/C O2 Flow Rate 8.00 8.00 8.00 02/10/22 00:00 Intake Total 1700 ml Output Total 1 ml Balance 1699 ml Capillary Refill : Constitutional: AAO x 3, well-developed, well-nourished HEENT: PERRL, hearing is well preserved, oral hygience is good Neck: No carotid bruit; carotid pulses are 2 + bilaterally Respiratory: No accessory muscle use, No respiratory distress; chest expansion is symmetric, chest is bilaterally symmetric, rhonchi (scattered), other (coarse breath sounds bilat) Cardiovascular: irregularly irregular; No JVD; S1 and S2 Gastrointestinal: No tender; soft, round, audible bowel sounds Rectal: deferred Extremities: no lower extremity edema bilateral Neurologic/Psychiatric: grossly intact (moves all extremities) Skin: No rash on exposed areas, No ulcerations on exposed areas Lymphatic: no adenopathy Data Review Labs Laboratory Tests 02/09/22 10:20: White Blood Count 14.3H, Red Blood Count 4.64, Hemoglobin 14.2, Hematocrit 44, Mean Corpuscular Volume 94, Mean Corpuscular Hemoglobin 31, Mean Corpuscular Hemoglobin Concent 33, Red Cell Distribution Width 13.4, Platelet Count 132, Mean Platelet Volume 11.0, Immature Granulocyte % (Auto) 1, Neutrophils (%) (Auto) 77H, Lymphocytes (%) (Auto) 12, Monocytes (%) (Auto) 10, Eosinophils (%) (Auto) 0, Basophils (%) (Auto) 0, Neutrophils # (Auto) 11.0H, Lymphocytes # (Auto) 1.7, Monocytes # (Auto) 1.4H, Eosinophils # (Auto) 0.1, Basophils # (Auto) 0.0, Immature Granulocyte # (Auto) 0.1, Neutrophils % (Manual) 80, Lympho cytes % (Manual) 15, Monocytes % (Manual) 4, Band Neutrophils 1, Percent Immature Platelet Fraction 4.1, Blood Morphology Comment NORMAL, Sodium Level 132L, Potassium Level 5.3H, Chloride Level 99, Carbon Dioxide Level 25, Anion Gap 8, Blood Urea Nitrogen 46H, Creatinine 1.71H, Estimat Glomerular Filtration Rate 43, BUN/Creatinine Ratio 27, Glucose Level 116H, Calcium Level 10.0, Corrected Calcium 10.3H, Total Bilirubin 0.8, Aspartate Amino Transf (AST/SGOT) 22, Alanine Aminotransferase (ALT/SGPT) 14, Alkaline Phosphatase 111, C-Reactive Protein High Sensitivity 31.84H, B-Type Natriuretic Peptide 174.6H, Total Protein 7.7, Albumin 3.6 02/09/22 11:44: Influenza Type A (RT-PCR) Not Detected, Influenza Type B (RT-PCR) Not Detected, SARS-CoV-2 RNA (RT-PCR) Not Detected 02/09/22 12:12: Lactic Acid Level 1.02 02/09/22 12:13: Prothrombin Time 20.7H, INR Comment 1.7H, Activated Partial Thromboplast Time 41H, Procalcitonin 9.58H 02/09/22 21:30: Glucometer 142H 02/10/22 05:04: Venous Blood pH 7.31, Venous Blood Partial Pressure CO2 58H, Venous Blood HCO3 29H 02/10/22 05:06: White Blood Count 10.0, Red Blood Count 4.35, Hemoglobin 13.4, Hematocrit 42, Mean Corpuscular Volume 95, Mean Corpuscular Hemoglobin 31, Mean Corpuscular Hemoglobin Concent 32, Red Cell Distribution Width 13.3, Platelet Count 124L, Mean Platelet Volume 10.7, Immature Granulocyte % (Auto) 1, Neutrophils (%) (Auto) 76H, Lymphocytes (%) (Auto) 11L, Monocytes (%) (Auto) 10, Eosinophils (%) (Auto) 1, Basophils (%) (Auto) 0, Neutrophils # (Auto) 7.6, Lymphocytes # (Auto) 1.1, Monocytes # (Auto) 1.0, Eosinophils # (Auto) 0.1, Basophils # (Auto) 0.0, Immature Granulocyte # (Auto) 0.1, Percent Immature Platelet Fraction 3.6, Sodium Level 134L, Potassium Level 4.8, Chloride Level 101, Carbon Dioxide Level 24, Anion Gap 9, Blood Urea Nitrogen 39H, Creatinine 1.44H, Estimat Glomerular Filtration Rate 53, BUN/Creatinine Ratio 27, Glucose Level 106H, Calcium Level 9.3, Corrected Calcium 9.9, Phosphorus Level 2.9, Magnesium Level 2.3, Total Bilirubin 0.5, Aspartate Amino Transf (AST/SGOT) 21, Alanine Aminotransferase (ALT/SGPT) 11, Alkaline Phosphatase 112, Total Protein 7.2, Albumin 3.3 Radiology NAME: [facility] REC#: [id number] PT STATUS: REG ER : 1955 PHYSICIAN: RADHA TAVAREZ MD ADMIT DATE: 02/09/22/ER Signed Date of Exam:02/09/22 CHEST 1 VIEW, AP/PA ONLY EXAMINATION: Chest, 1 view. HISTORY: SOA, Hypoxia. COMPARISON: 11/10/2021. FINDINGS: Stable enlargement of the cardiac silhouette. There are diffuse interstitial opacities within the perihilar and lower lungs. Persistent left pleural effusion. No pneumothorax. The osseous structures are intact. IMPRESSION: Cardiomegaly with left-sided pleural effusion and perihilar/bibasilar interstitial opacities. These findings could be seen with pulmonary edema or atypical infection. Dictated by: Dictated on workstation # [id number] Dict: 02/09/22 1036 Trans: 02/09/22 1043 [id number] Interpreted by: KYLIE KARIMI DO Electronically signed by: KYLIE KARIMI DO 02/09/22 1043 A/P-Cardiology Assessment/Admission Diagnosis Pneumonia - management per medical services Chronic atrial fibrillation - rate controlled - maintained on long-acting Cardizem - OAC with Eliquis Chronic diastolic CHF - clinically compensated - Echocardiogram of Feb [address] Obrien showed wall thickness is mildly to mod increased. Concentric hypertrophy. LVEF 55-65%. LA and RA dilated. Mild MR. Mild to mod TR Diarrhea - undetermined etiology - management per medical services Orthopedic - Osteomyelitis of R 2nd toe, s/p amputation on 06/25/20 - Chronic joint and back pain - PORTER with segmentals from 9 showed no evidence of signif obstructive PAD Bilat leg swelling - related to venous insuff and ac on chronic diastolic CHF - controlled H/o hypokalemia - currently hyperkalemic - due to chronic diuretic therapy Morbid obesity - BMI approx 55 HIV positive status - managed by Dr Woods in [place], [place] H/o depression - managed by PCP Obstructive sleep apnea syndrome - treated with CPAP Carotid dz - Minimal carotid arterial plaque on carotid u/s of April 2019 Discussion and Recomendations Management of pneumonia per medical services Chronic a-fib - continue OAC Continue home medications Monitor lab closely Replace electrolytes as indicated Further recs will be based on his hospital course We would like to thank medical services for this consult JOSE E CHAO Feb 09, 2022 15:09
[2022-02-09] MEDS ORDERED: ANTACID SUSP 30 ML UDC (MYLANTA) PO PRN (17:00)
[2022-02-09] MEDS ORDERED: ONDANSETRON 4 MG (ZOFRAN) ORAL DISSOLVE TAB PO PRN (17:00)
[2022-02-09] MEDS ORDERED: VANCOMYCIN INJECTION 0.1 MG in NS (IVPB) 250 ML IV SCH (17:00)
[2022-02-09] MEDS ORDERED: NALOXONE 0.4 MG/ML 1 ML (NARCAN) VIAL IV PRN (17:00)
[2022-02-09] MEDS ORDERED: BISACODYL 10 MG SUPP (DULCOLAX) PR PRN (17:00)
[2022-02-09] MEDS ORDERED: MILK OF MAGNESIA 400 MG/5 ML 30 ML UDC PO PRN (17:00)
[2022-02-09] MEDS ORDERED: LACTULOSE SYRUP 10GM/15ML (ENULOSE) 30ML UDC PO PRN (17:00)
[2022-02-09] MEDS ORDERED: diphenhydrAMINE 25 MG TAB (BENADRYL) PO PRN (17:00)
[2022-02-09] MEDS ORDERED: ENOXAPARIN 40 MG/0.4 ML (LOVENOX) SYR SC SCH (17:00)
[2022-02-09] MEDS ORDERED: diphenhydrAMINE 50 MG/ML INJ (BENADRYL) IVP PRN (17:00)
[2022-02-09] MEDS ORDERED: CALCIUM CARBONATE 500 MG (TUMS) TAB.CHEW PO PRN (17:00)
[2022-02-09] MEDS ORDERED: MELATONIN 3 MG TABLET PO PRN (17:00)
[2022-02-09] MEDS ORDERED: ONDANSETRON 4 MG/2 ML (SDV) Z0FRAN IV PRN (17:00)
[2022-02-09] MEDS ORDERED: polyethylene glycoL POWDER 17 GM (MIRALAX) PACK PO PRN (17:00)
[2022-02-09] MEDS ORDERED: HYDROmorphone 2 MG/ML VIAL (DILAUDID) IV PRN (17:00)
[2022-02-09] MEDS ORDERED: NS IV 500 ML 500 ML IV PRN ×2 (17:00)
[2022-02-09] MEDS: NS IV 1000 ML 1,000 ML IV SCH (17:41)
[2022-02-09] MEDS ORDERED: ENOXAPARIN 60 MG/0.6 ML (LOVENOX) SYR SC SCH (18:00)
--- NOTE | 2022-02-09 18:17 | Tele-ICU Consult ---
History of Present Illness History of Present Illness Date Seen by Provider: Feb 09, 2022 Time Seen by Provider: 18:16 History of Present Illness (Tele-ICU Physician , consultation as per request of PCP Service provided via interactive audio and video telecommunications E-CARE system to a patient admitted to ICU bed in [facility]. Available chart/ vitals / labs / Images reviewed H&P is from ER notes Patient's information available about PMH, Shx, Fhx allergy reviewed inEMR. ROS as per chart and RN report Now in ICU, hemodynamically stable Video assessment done using teleICU camera, rest of exam as per RN Discussed with RN. Consultants: Hospital course: (02/09) positive severe sepsis 66 y/o male with HIV admitted with pna and left pleural effusion A/P Sepsis with PNA - started on IVF and abx, monitor - given Chronic diastolic CHF , mildly elev BNP and stable vitals will not initiate NS boluses and reassess Pneumonia, CAP ( reported NL CD4 by patient ) -( neg for covid and flu ) - cont CAP coverage , Vanco since was in hospital 10/2021 Hypotension , relative - EF 55% 2018 , mod TR - gentle hydration JASWINDER - ? 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 Left pleural effusion -sx consulted for thoracentesis - Eliquis on hold - to re-eval AM HIV -to cont meds, reports compliance with his anti-viral regimen - as per patient -= untetectable viral load and NL recent CD4/CD8 Diarrhea - chronic GAGE - non compliant with CPAP Bilat leg swelling, chronic - related to venous insuff and ac on chronic diastolic CHF - controlled Lines : periph , (Central Line Necessity Reviewed) Muñoz: void OG: Nutrition: Analgesia: Anxiety/ delirium VTE Prophylaxis: eliquis on hold now for possible thora , job proph dose Stress Ulcer Prophylaxis: Plans in collaboration with bedside consultants and IM MDs. Discussed with RN to reach out if any questions or concerns A total of 33 minutes of critical care time was devoted to this patient today, required to treat and/or prevent further deterioration of critical care condition ( as above ) . I am remotely monitoring this patient from another state. I am unable to do the bedside exam, and history/physical and pertinent information is taken from other notes in the computer and bedside staff. . Allergies and Home Medications Allergies Coded Allergies: No Known Drug Allergies (Unverified , 02/07/18) Home Medications Acetaminophen 500 Mg Tablet, 1,000 MG PO Q8H PRN for PAIN-MILD (1-4), (Reported) TAKES 2 (500MG) TABLETS Allopurinol 100 Mg Tablet, 100 MG PO DAILY, (Reported) Amitriptyline HCl 25 Mg Tablet, 25 MG PO HS, (Reported) Apixaban 5 Mg Tablet, 5 MG PO BID Prescribed by: STEPHANIE ROSALES on 11/12/21 1139 Aspirin 81 Mg Tablet.dr, 81 MG PO HS, (Reported) Bictegrav/Emtricit/Tenofov Ala 1 Each Tablet, 1 EACH PO DAILY, (Reported) Bupropion HCl 300 Mg Tab.er.24h, 300 MG PO HS, (Reported) Citalopram Hydrobromide 40 Mg Tablet, 40 MG PO HS, (Reported) Diltiazem HCl 120 Mg Cap.er.24h, 120 MG PO DAILY, (Reported) TAKES 120MG + 2 (180MG) TABS Diltiazem HCl 180 Mg Cap.er.24h, 360 MG PO DAILY, (Reported) TAKES 2 (180MG) CAPS +120MG CAP Furosemide 80 Mg Tablet, 160 MG PO DAILY, (Reported) TAKES 2 (80MG) TABS Magnesium Oxide 400 Mg Tablet, 400 MG PO BID, (Reported) Multivit-Min/FA/Lycopene/Lut 0.4 Mg-300 Mcg-250 Mcg Tablet, 1 EACH PO HS, (Reported) Oxycodone HCl 10 Mg Tablet, 10 MG PO Q6H PRN for PAIN-SEVERE (8-10), (Reported) Potassium Chloride 20 Meq Tablet.er, 40 MEQ PO BID, (Reported) TAKES 2 (20MEQ) TABS Risperidone 0.5 Mg Tablet, 0.5 MG PO HS, (Reported) Spironolactone 50 Mg Tablet, 50 MG PO DAILY, (Reported) Past Medical/Social/Family Hx Patient Social History Tobacco Use?: No Smoking Status: Never a Smoker Smokeless Tobacco Frequency: Never a User Use of E-Cig and/or Vaping dev: No Substance use?: No Alcohol Use?: No Pt stated abuse/neglect: No Immunizations Up To Date Influenza Vaccine Up-to-Date: Yes; Up-to-Date First/Initial COVID19 Vaccinat: 03/2020 Second COVID19 Vaccination [place]: 04/2020 Tetanus Booster (TDap): Unknown Hepatitis A: No Hepatitis B: No TB Skin Test: None Date of Pneumonia Vaccine: Apr 17, 2013 Current Status Advance Directives: No Primary Language: Nigerian Preferred Spoken Language: Nigerian Is interpretation needed?: No Sensory deficits: Vision impairment Implanted or Applied Medical D: CPAP Past Medical History PMHx: HIV Non-Hodgkin's lymphoma (1994, remission) Depression Congestive heart failure Atrial fibrillation Sleep apnea on CPAP SurgHx: Tonsillectomy Right neck mass removal 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 0.0oz. 183.896343sm; 53.47 BMI Method:Stated Time of Focused Exam: 16:15 Exam Exam Patient acknowledged, consented, and participated in this virtual visit which was conducted using real time audio/video Vital Signs Date Time Temp Pulse Resp B/P (MAP) Pulse Ox O2 Delivery O2 Flow Rate FiO2 02/09/22 18:00 97 45 113/58 (76) 93 Nasal Cannula 5.00 02/09/22 17:15 37.1 80 30 105/79 (88) 93 Nasal Cannula 5.00 02/09/22 16:45 36.8 85 20 110/70 95 Nasal Cannula 5.00 02/09/22 10:20 Nasal Cannula 6.00 02/09/22 10:17 95 Nasal Cannula 6.00 02/09/22 10:16 37.0 110 26 121/78 (92) 96 Nasal Cannula Height & Weight Height: 6'0.00" Weight: 404lbs. 0.0oz. 183.686304bf; 53.47 BMI Method:Stated General Appearance: No Apparent Distress Respiratory: Lungs Clear, Accessory Muscle Use Cardiovascular: Irregularly Irregular, Other (LE edema) Peripheral Pulses: 2+ Radial Pulses (L) Gastrointestinal: non tender, soft Results Lab Laboratory Tests 02/09/22 10:20 Assessment/Plan Assessment/Plan 1 FELICIA CASTRO MD Feb 09, 2022 18:17
[2022-02-09 18:32] VITALS: BP 127/78
[2022-02-09] MEDS: CEFEPIME INJECTION 1,000 MG in NS (IVPB) 50 ML IV SCH (18:34)
--- NOTE | 2022-02-09 18:42 | Consultation-Cardiology ---
HPI-Cardiology Cardiology Consultation: Date of Consultation 02/09/22 Time Seen by a Provider: 18:30 Date of Admission Attending Physician [facility] Admitting Physician Admitting Physician: Suha Keane DO Attending Physician: Suha Keane DO Consulting Physician REKHA BLEVINS MD, MA, FACP, FACC, FSCAI, CCDS HPI: Chief Complaint: Progressive shortness of breath Mr. Cope is a 66 yr old male being admitted from the ED for increasing SOB. He reports he has had an occ productive cough of thick, yellow sputum. No c/o CP, palpitations, syncope, near syncope or LE swelling. He states he has been compliant with his medications. No c/o n/v/d. No c/o fever or chills. Review of Systems-Cardiology Review of Systems Constitutional: No chills, No fever; malaise Eyes: No vision change Ears/Nose/Throat: No epistaxis Respiratory: As described under HPI Cardiovascular: As described under HPI Gastrointestinal: As described under HPI Genitourinary: No dysuria, No hematuria Skin: No rash on exposed areas, No ulcerations on exposed areas Psychiatric/Neurological: No anxiety, No depression, No seizure, No focal weakness, No syncope Hematologic: No bleeding abnormalities All Other Systems Reviewed Negative Unless Noted: Yes LFO-Khipcg-Dmoxom Hx Patient Social History Smoking Status: Never a Smoker 2nd Hand Smoke Exposure: No Have you traveled recently?: No Alcohol Use?: No Pt feels they are or have been: No Immunizations Up To Date Tetanus Booster (TDap): Unknown Date of Pneumonia Vaccine: Apr 17, 2013 Date of Influenza Vaccine: Nov 27, 2021 Past Medical History PMH As described under Assessment. Family Medical History Family Medical History: He has reported that his mother had a heart attck in her 50s. He also has fam h/o DM Family History: Cardiovascular disease G8 SISTER Colon cancer G8 BROTHER Diabetes mellitus 19 MOTHER G8 SISTER FHx: COPD (chronic obstructive pulmonary disease) 19 FATHER Malignant neoplasm of prostate G8 BROTHER Paternal family history of emphysema Allergies and Home Medications Allergies Coded Allergies: No Known Drug Allergies (Unverified , 02/07/18) Patient Home Medication List Home Medication List Reviewed: Yes Acetaminophen (Tylenol Extra Strength) 500 Mg Tablet, 1,000 MG PO Q8H PRN for PAIN-MILD (1-4), (Reported) Entered as Reported by: MALENA YUN on 04/26/21 1014 Allopurinol (Allopurinol) 100 Mg Tablet, 100 MG PO DAILY, (Reported) Entered as Reported by: SAVITA CARBALLO on 03/13/18 1533 Amitriptyline HCl (Amitriptyline HCl) 25 Mg Tablet, 25 MG PO HS, (Reported) Entered as Reported by: STEPHANIE ROSALES on 11/08/21 203 Apixaban (Eliquis) 5 Mg Tablet, 5 MG PO BID Prescribed by: STEPHANIE ROSALES on 11/12/21 1139 Aspirin (Aspirin EC) 81 Mg Tablet.dr, 81 MG PO HS, (Reported) Entered as Reported by: TERESITA FOX on 04/15/19 0811 Bictegrav/Emtricit/Tenofov Ala (Biktarvy 50-200-25 mg Tablet) 1 Each Tablet, 1 EACH PO DAILY, (Reported) Entered as Reported by: TERESITA FOX on 04/15/19 0811 Bupropion HCl (Bupropion Xl) 300 Mg Tab.er.24h, 300 MG PO HS, (Reported) Entered as Reported by: MIGUEL RICHARDSON on 11/29/14 1949 Citalopram Hydrobromide (Citalopram HBr) 40 Mg Tablet, 40 MG PO HS, (Reported) Entered as Reported by: DOT ENCISO on 12/01/14 0915 Diltiazem HCl (Diltiazem 24Hr ER) 120 Mg Cap.er.24h, 120 MG PO DAILY, (Reported) Entered as Reported by: STEPHANIE ROSALES on 06/24/20 1418 Diltiazem HCl (Diltiazem 24Hr ER) 180 Mg Cap.er.24h, 360 MG PO DAILY, (Reported) Entered as Reported by: TERESITA FOX on 11/09/21 1227 Furosemide (Furosemide) 80 Mg Tablet, 160 MG PO DAILY, (Reported) Entered as Reported by: TERESITA FOX on 07/28/20 0905 Magnesium Oxide (Magnesium) 400 Mg Tablet, 400 MG PO BID, (Reported) Entered as Reported by: TERESITA FOX on 04/15/19 0811 Multivit-Min/FA/Lycopene/Lut (Sentry Senior Tablet) 0.4 Mg-300 Mcg-250 Mcg Tablet, 1 EACH PO HS, (Reported) Entered as Reported by: TERESITA FOX on 11/09/21 1227 Oxycodone HCl (Oxycodone HCl) 10 Mg Tablet, 10 MG PO Q6H PRN for PAIN-SEVERE (8- 10), (Reported) Entered as Reported by: TERESITA FOX on 07/28/20 0905 Potassium Chloride (Potassium Chloride) 20 Meq Tablet.er, 40 MEQ PO BID, (Reported) Entered as Reported by: TERESITA FOX on 11/09/21 1227 Risperidone (Risperidone) 0.5 Mg Tablet, 0.5 MG PO HS, (Reported) Entered as Reported by: DOT ENCISO on 12/01/14 0915 Spironolactone (Spironolactone) 50 Mg Tablet, 50 MG PO DAILY, (Reported) Entered as Reported by: TERESITA FOX on 07/28/20 0905 Physical Exam-Cardiology Physical Exam Vital Signs/I&O 02/09/22 02/09/22 02/09/22 02/09/22 10:16 10:17 10:20 16:45 Temp 37.0 36.8 Pulse 110 85 Resp 26 20 B/P (MAP) 121/78 (92) 110/70 Pulse Ox 96 95 95 O2 Delivery Nasal Cannula Nasal Cannula Nasal Cannula Nasal Cannula O2 Flow Rate 6.00 6.00 5.00 02/09/22 02/09/22 17:15 18:00 Temp 37.1 Pulse 80 97 Resp 30 45 B/P (MAP) 105/79 (88) 113/58 (76) Pulse Ox 93 93 O2 Delivery Nasal Cannula Nasal Cannula O2 Flow Rate 5.00 5.00 Capillary Refill : Constitutional: AAO x 3, well-developed, well-nourished HEENT: PERRL, hearing is well preserved, oral hygience is good Neck: No carotid bruit; carotid pulses are 2 + bilaterally Respiratory: No accessory muscle use, No respiratory distress; chest expansion is symmetric, chest is bilaterally symmetric, rhonchi (scattered), other (coarse breath sounds bilat) Cardiovascular: irregularly irregular; No JVD; S1 and S2 Gastrointestinal: No tender; soft, round, audible bowel sounds Extremities: other (mod leg swelling and features of chronic stassi dermatitis, chronic) Neurologic/Psychiatric: other (moves all limbs equally) Skin: normal color, warm/dry, other (See under Extremities exam) Lymphatic: no adenopathy Data Review Labs Laboratory Tests 02/09/22 10:20: White Blood Count 14.3H, Red Blood Count 4.64, Hemoglobin 14.2, Hematocrit 44, Mean Corpuscular Volume 94, Mean Corpuscular Hemoglobin 31, Mean Corpuscular Hemoglobin Concent 33, Red Cell Distribution Width 13.4, Platelet Count 132, Mean Platelet Volume 11.0, Immature Granulocyte % (Auto) 1, Neutrophils (%) (Auto) 77H, Lymphocytes (%) (Auto) 12, Monocytes (%) (Auto) 10, Eosinophils (%) (Auto) 0, Basophils (%) (Auto) 0, Neutrophils # (Auto) 11.0H, Lymphocytes # (Auto) 1.7, Monocytes # (Auto) 1.4H, Eosinophils # (Auto) 0.1, Basophils # (Auto) 0.0, Immature Granulocyte # (Auto) 0.1, Neutrophils % (Manual) 80, Lymphocytes % (Manual) 15, Monocytes % (Manual) 4, Band Neutrophils 1, Percent Immature Platelet Fraction 4.1, Blood Morphology Comment NORMAL, Sodium Level 132L, Potassium Level 5.3H, Chloride Level 99, Carbon Dioxide Level 25, Anion Gap 8, Blood Urea Nitrogen 46H, Creatinine 1.71H, Estimat Glomerular Filtration Rate 43, BUN/Creatinine Ratio 27, Glucose Level 116H, Calcium Level 10.0, Corrected Calcium 10.3H, Total Bilirubin 0.8, Aspartate Amino Transf (AST/SGOT) 22, Alanine Aminotransferase (ALT/SGPT) 14, Alkaline Phosphatase 111, C-Reactive Protein High Sensitivity 31.84H, B-Type Natriuretic Peptide 174.6H, Total Protein 7.7, Albumin 3.6 02/09/22 11:44: Influenza Type A (RT-PCR) Not Detected, Influenza Type B (RT-PCR) Not Detected, SARS-CoV-2 RNA (RT-PCR) Not Detected 02/09/22 12:12: Lactic Acid Level 1.02 02/09/22 12:13: Prothrombin Time 20.7H, INR Comment 1.7H, Activated Partial Thromboplast Time 41H, Procalcitonin 9.58H A/P-Cardiology Assessment/Admission Diagnosis Pneumonia - management per Medical services Chronic atrial fibrillation - rate controlled - maintained on long-acting Cardizem - OAC with Eliquis Chronic diastolic CHF - clinically compensated - Echocardiogram of Feb [address] Obrien showed wall thickness is mildly to mod increased. Concentric hypertrophy. LVEF 55-65%. LA and RA dilated. Mild MR. Mild to mod TR Diarrhea - undetermined etiology - management per medical services Orthopedic - Osteomyelitis of R 2nd toe, s/p amputation on 06/25/20 - Chronic joint and back pain - PORTER with segmentals from 11-04-20 showed no evidence of signif obstructive PAD Bilat leg swelling - related to venous insuff and ac on chronic diastolic CHF - controlled H/o hypokalemia - currently hyperkalemic - due to chronic diuretic therapy Morbid obesity - BMI approx 55 HIV positive status - managed by Dr Woods in [place], [place] H/o depression - managed by PCP Obstructive sleep apnea syndrome - treated with CPAP Carotid dz - Minimal carotid arterial plaque on carotid u/s of April 2019 Discussion and Recomendations Management of pneumonia per medical services Chronic a-fib - continue OAC Continue home medications Monitor lab closely Replace electrolytes as indicated Further recs will be based on his hospital course We would like to thank Medical services for this consult REKHA BLEVINS MD FACP FACC CCDS Feb 09, 2022 18:42
[2022-02-09] MEDS ORDERED: RT-ALBUTEROL/IPRATROPIUM 3 ML (DUONEB) VIAL INH PRN (19:00)
[2022-02-09] MEDS ORDERED: NON-FORMULARY MEDICATION 1 EA EA (Oxycodone HCl 10 MG) PO PRN (19:45)
[2022-02-09] MEDS ORDERED: NON-FORMULARY MEDICATION 1 EA EA (Citalopram Hydrobromide (Citalopram HBr) 40 MG) PO SCH (21:00)
[2022-02-09] MEDS ORDERED: [UNRECOGNIZED DRUG - OTHER] PO SCH (21:00)
[2022-02-09] MEDS ORDERED: NON-FORMULARY MEDICATION 1 EA EA (Bupropion HCl (Bupropion Xl) 300 MG) PO SCH (21:00)
[2022-02-09] MEDS ORDERED: NON-FORMULARY MEDICATION 1 EA EA (Magnesium Oxide (Magnesium) 400 MG) PO SCH (21:00)
[2022-02-09] MEDS: AMITRIPTYLINE 25 MG (ELAVIL) TAB PO SCH (21:19)
[2022-02-09] MEDS: DOCUSATE SODIUM 100 MG (COLACE) CAP PO SCH (21:19)
[2022-02-09] MEDS: risperiDONE 0.5 MG (RisperDAL) TABLET PO SCH (21:20)
[2022-02-09] MEDS: buPROPion SR 150 MG (WELLBUTRIN SR) TAB PO SCH (21:20)
[2022-02-09] MEDS: SENNOSIDES 8.6 MG (SENOKOT) TAB PO SCH (21:20)
[2022-02-09] MEDS: ASPIRIN E.C. 81 MG (ECOTRIN) TAB PO SCH (21:20)
[2022-02-09] MEDS: MAGNESIUM OXIDE (MAG-OX)400 MG TAB PO SCH (21:20)
[2022-02-09] MEDS: RT-ALBUTEROL/IPRATROPIUM 3 ML (DUONEB) VIAL INH SCH (21:25)
[2022-02-09] MEDS: inSUlin ASPART (NovoLOG) 1 UNIT/0.01 ML (CHARGE PER UNIT) SC SCH (21:45)
[2022-02-10] MEDS: CEFEPIME INJECTION 1,000 MG in NS (IVPB) 50 ML IV SCH ×5 (01:00→23:50)
[2022-02-10] MEDS: VANCOMYCIN 1 GM/NS 250 ML IVPB IV SCH ×4 (01:31→13:00)
[2022-02-10] MEDS: NS IV 1000 ML 1,000 ML IV SCH ×4 (01:46→23:57)
[2022-02-10 05:55] LABS: MEAN CORPUSCULAR VOLUME 95 fL (80-99); NEUTROPHILS # (AUTO) 7.6 10^3/uL (1.8-7.8)
[2022-02-10 05:57] LABS: BASOPHILS % (AUTO) 0 % (0-10); EOSINOPHILS # (AUTO) 0.1 10^3/uL (0.0-0.3); EOSINOPHILS % (AUTO) 1 % (0-10); HEMATOCRIT 42 % (40-54); HEMOGLOBIN 13.4 g/dL (13.3-17.7); LYMPHOCYTES # (AUTO) 1.1 10^3/uL (1.0-4.0); LYMPHOCYTES % (AUTO) 11 % (12-44); MEAN CORPUSCULAR HEMOGLOBIN 31 pg (25-34); MEAN CORPUSCULAR HGB CONC 32 g/dL (32-36); MEAN PLATELET VOLUME 10.7 fL (9.0-12.2); MONOCYTES % (AUTO) 10 % (0-12); NEUTROPHILS % (AUTO) 76 % (42-75); PLATELET COUNT 124 10^3/uL (130-400)
[2022-02-10] MEDS ORDERED: KCL 20 MEQ TAB (K-DUR) PO SCH (06:00)
[2022-02-10] MEDS ORDERED: MAGNESIUM 1 GM/100 ML IVPB 100 ML IV SCH (06:00)
[2022-02-10] MEDS ORDERED: POTASSIUM CL 10MEQ/50ML IVPB 50 ML IV SCH (06:00)
[2022-02-10 06:11] LABS: ALBUMIN 3.3 GM/DL (3.2-4.5); POTASSIUM 4.8 MMOL/L (3.6-5.0)
[2022-02-10] MEDS: inSUlin ASPART (NovoLOG) 1 UNIT/0.01 ML (CHARGE PER UNIT) SC SCH ×4 (06:11→22:20)
[2022-02-10 06:13] LABS: CALCIUM 9.3 MG/DL (8.5-10.1)
[2022-02-10 06:14] LABS: TOTAL PROTEIN 7.2 GM/DL (6.4-8.2)
[2022-02-10] MEDS: POTASSIUM CL 10MEQ/50ML IVPB 50 ML IV SCH (06:15)
[2022-02-10 06:16] LABS: BILIRUBIN,TOTAL 0.5 MG/DL (0.1-1.0)
[2022-02-10] MEDS: KCL 20 MEQ TAB (K-DUR) PO SCH ×3 (06:16→20:08)
[2022-02-10 06:17] LABS: PHOSPHORUS 2.9 MG/DL (2.3-4.7)
[2022-02-10 06:18] LABS: CREATININE SERUM 1.44 MG/DL (0.60-1.30)
[2022-02-10 06:20] LABS: MAGNESIUM 2.3 MG/DL (1.6-2.4)
--- NOTE | 2022-02-10 06:43 | Progress Note - Surgery ---
MELISANDRA 02/10/22 0643: Subjective Date Seen by a Provider: Feb 10, 2022 Time Seen by a Provider: 06:43 Subjective/Events-last exam Upon follow-up for L-sided pleural effusion, Nikolay is laying supine in bed, with 8 L O2 by NC, which is increased from yesterday, 02/09. He states that he was not able to sleep during the night, as his SOA and neuorpathy made him quite uncomfortable. He reports that he has had a headache, for which tylenol seems to help. He states that he has completed two duoneb treatments, which has improved his breathing. Denies fever, chills, nausea, and vomiting. Last bowel movement was last night, appetite remains minimal. Repeat CXR demonstrates better aeration of lungs as compared to yesterday (02/09). He is conversational and pleasant. Review of Systems General: No Chills, No Night Sweats HEENT: Head Aches; No Visual Changes Pulmonary: Dyspnea Cardiovascular: No: Chest Pain, Palpitations Gastrointestinal: No: Nausea, Vomiting, Abdominal Pain Musculoskeletal: No: other Neurological: No: Weakness, Numbness Focused Exam Lactate Level 02/09/22 12:12: Lactic Acid Level 1.02 Time of Focused Exam: 16:15 Respiratory: Chest Non Tender, Accessory Muscle Use, Decreased Breath Sounds Cardiovascular: Regular Rate, Rhythm, No Gallop, No Murmur Peripheral Pulses: 2+ Radial Pulses (L) Skin: normal color, warm/dry Objective Exam Vital Signs Date Time Temp Pulse Resp B/P (MAP) Pulse Ox O2 Delivery O2 Flow Rate FiO2 02/10/22 06:00 96 25 128/94 (105) 93 High Flow N/C 8.00 02/10/22 05:00 97 26 131/86 (101) 95 High Flow N/C 8.00 02/10/22 04:00 94 High Flow N/C 8.00 02/10/22 04:00 112 23 131/84 (100) 95 High Flow N/C 8.00 02/10/22 03:00 98 17 121/78 (92) 95 High Flow N/C 8.00 02/10/22 02:00 101 16 130/84 (99) 94 High Flow N/C 8.00 02/10/22 01:00 111 02/10/22 01:00 107 27 137/79 (98) 93 High Flow N/C 8.00 02/10/22 00:00 101 20 127/80 (96) 94 High Flow N/C 8.00 02/10/22 00:00 37.2 02/10/22 00:00 94 High Flow N/C 8.00 02/09/22 23:00 89 35 113/79 (90) 91 Nasal Cannula 5.00 02/09/22 22:00 97 23 111/84 (93) 93 Nasal Cannula 5.00 02/09/22 21:25 94 Nasal Cannula 5.00 02/09/22 21:00 92 18 110/86 (94) 93 Nasal Cannula 5.00 02/09/22 20:46 36.7 02/09/22 20:00 93 29 114/76 (89) 93 Nasal Cannula 5.00 02/09/22 20:00 92 Nasal Cannula 6.00 02/09/22 19:00 88 02/09/22 19:00 94 22 117/72 (87) 93 Nasal Cannula 5.00 02/09/22 18:32 110 96 02/09/22 18:00 97 45 113/58 (76) 93 Nasal Cannula 5.00 02/09/22 17:15 37.1 80 30 105/79 (88) 93 Nasal Cannula 5.00 02/09/22 17:00 96 Nasal Cannula 5.00 02/09/22 16:45 36.8 85 20 110/70 95 Nasal Cannula 5.00 02/09/22 10:20 Nasal Cannula 6.00 02/09/22 10:17 95 Nasal Cannula 6.00 02/09/22 10:16 37.0 110 26 121/78 (92) 96 Nasal Cannula I & O 02/10/22 07:00 Intake Total 4010 ml Output Total 801 ml Balance 3209 ml Capillary Refill : General Appearance: No Apparent Distress, Obese HEENT: PERRL/EOMI, TMs Normal Neck: Full Range of Motion, Normal Inspection, Supple Respiratory: Lungs Clear, Accessory Muscle Use, Decreased Breath Sounds Cardiovascular: Irregularly Irregular, Other (LE edema) Peripheral Pulses: 2+ Radial Pulses (L) Gastrointestinal: normal bowel sounds, non tender, soft Extremity: Swelling (bilat LE, non-pitting, 1+) Neurologic/Psychiatric: Alert, Oriented x3, No Motor/Sensory Deficits, Normal Mood/Affect, ingot passer II-XII Norm as Tested Skin: Normal Color, Warm/Dry Results Lab Laboratory Tests 02/09/22 10:20: White Blood Count 14.3H, Red Blood Count 4.64, Hemoglobin 14.2, Hematocrit 44, Mean Corpuscular Volume 94, Mean Corpuscular Hemoglobin 31, Mean Corpuscular Hemoglobin Concent 33, Red Cell Distribution Width 13.4, Platelet Count 132, Mean Platelet Volume 11.0, Immature Granulocyte % (Auto) 1, Neutrophils (%) (Auto) 77H, Lymphocytes (%) (Auto) 12, Monocytes (%) (Auto) 10, Eosinophils (%) (Auto) 0, Basophils (%) (Auto) 0, Neutrophils # (Auto) 11.0H, Lymphocytes # (Auto) 1.7, Monocytes # (Auto) 1.4H, Eosinophils # (Auto) 0.1, Basophils # (Auto) 0.0, Immature Granulocyte # (Auto) 0.1, Neutrophils % (Manual) 80, Lymphocytes % (Manual) 15, Monocytes % (Manual) 4, Band Neutrophils 1, Percent Immature Platelet Fraction 4.1, Blood Morphology Comment NORMAL, Sodium Level 132L, Potassium Level 5.3H, Chloride Level 99, Carbon Dioxide Level 25, Anion Gap 8, Blood Urea Nitrogen 46H, Creatinine 1.71H, Estimat Glomerular Filtration Rate 43, BUN/Creatinine Ratio 27, Glucose Level 116H, Calcium Level 10.0, Corrected Calcium 10.3H, Total Bilirubin 0.8, Aspartate Amino Transf (AST/SGOT) 22, Alanine Aminotransferase (ALT/SGPT) 14, Alkaline Phosphatase 111, C-Reactive Protein High Sensitivity 31.84H, B-Type Natriuretic Peptide 174.6H, Total Protein 7.7, Albumin 3.6 02/09/22 11:44: Influenza Type A (RT-PCR) Not Detected, Influenza Type B (RT-PCR) Not Detected, SARS-CoV-2 RNA (RT-PCR) Not Detected 02/09/22 12:12: Lactic Acid Level 1.02 02/09/22 12:13: Prothrombin Time 20.7H, INR Comment 1.7H, Activated Partial Thromboplast Time 41H, Procalcitonin 9.58H 02/09/22 21:30: Glucometer 142H 02/10/22 05:04: Venous Blood pH 7.31, Venous Blood Partial Pressure CO2 58H, Venous Blood HCO3 29H 02/10/22 05:06: White Blood Count 10.0, Red Blood Count 4.35, Hemoglobin 13.4, Hematocrit 42, Mean Corpuscular Volume 95, Mean Corpuscular Hemoglobin 31, Mean Corpuscular Hemoglobin Concent 32, Red Cell Distribution Width 13.3, Platelet Count 124L, Mean Platelet Volume 10.7, Immature Granulocyte % (Auto) 1, Neutrophils (%) (Auto) 76H, Lymphocytes (%) (Auto) 11L, Monocytes (%) (Auto) 10, Eosinophils (%) (Auto) 1, Basophils (%) (Auto) 0, Neutrophils # (Auto) 7.6, Lymphocytes # (Auto) 1.1, Monocytes # (Auto) 1.0, Eosinophils # (Auto) 0.1, Basophils # (Auto) 0.0, Immature Granulocyte # (Auto) 0.1, Percent Immature Platelet Fraction 3.6, Sodium Level 134L, Potassium Level 4.8, Chloride Level 101, Carbon Dioxide Level 24, Anion Gap 9, Blood Urea Nitrogen 39H, Creatinine 1.44H, Estimat Glomerular Filtration Rate 53, BUN/Creatinine Ratio 27, Glucose Level 106H, Calcium Level 9.3, Corrected Calcium 9.9, Phosphorus Level 2.9, Magnesium Level 2.3, Total Bilirubin 0.5, Aspartate Amino Transf (AST/SGOT) 21, Alanine Aminotransferase (ALT/SGPT) 11, Alkaline Phosphatase 112, Total Protein 7.2, Albumin 3.3 Radiology Date of Exam:02/10/22 CHEST 1 VIEW, AP/PA ONLY INDICATION: Pneumonia. TIME OF EXAM: 5:42 AM Correlation is made with prior chest from 02/09/2022. Heart is enlarged. Perihilar and bibasilar infiltrates and small left effusion persists. Overall aeration does appear to be slightly improved since yesterday. There is no pneumothorax identified. IMPRESSION: Slight overall improvement in aeration of both lungs when compared to examination one day earlier. Date of Exam:02/10/22 CHEST [id number] INDICATION: Left pleural effusion. COMPARISON: Chest radiograph of 02/10/2022. TECHNIQUE: Targeted ultrasound imaging of the left chest. FINDINGS: Imaging of the left chest shows no pleural effusion. There is aerated lung abutting the pleural space. IMPRESSION: No left-sided pleural effusion. Assessment/Plan Assessment/Plan Assessment/Plan Left pleural effusion Dyspnea on Exertion Consider thoracentesis Consider holding anticoagulation (eliquis) x 24h =>Last dose of Eliquis was taken morning of 02/09 Supplemental Oxygen by NC 8L Pneumonia On vancomycin Received bag of Cefepime Incentive spirometry Repeat CXR demonstrated improved lung aeration as compared to yesterday Chest US reveals no L pleural effusion Elevated PCT 9.58 ng/ml Concern for sepsis risk HIV Follows with Dr. Woods in [place], [place] Q6 months CD4 ~5071-4593, undetectable On Biktarvy AFib On Eliquis, consider holding if thora, see above On Diltiazem CHF Lasix Leg swelling appears to be minimal Sleep Apnea Utilizes CPAP SARABJIT SAVAGE DO 02/10/222134: Subjective Subjective/Events-last exam breathing easier today. feels like fluid removed. He states more back to his baseline. Denies n/v fever sweats chills or chest pain. Chest x ray improved aeration b/l. U/S chest no left pleural effusion Objective Exam General Appearance: No Apparent Distress, Obese HEENT: PERRL/EOMI, TMs Normal Neck: Normal Inspection, Supple Respiratory: Chest Non Tender; No No Respiratory Distress, No Accessory Muscle Use; Other (breathing easier) Cardiovascular: Irregularly Irregular, Other (LE edema) Gastrointestinal: non tender, soft Extremity: Non Tender, Swelling (bilat LE, non-pitting, 1+) Neurologic/Psychiatric: Alert, Oriented x3, Normal Mood/Affect Skin: Normal Color, Warm/Dry Lymphatic: No Adenopathy Assessment/Plan Assessment/Plan Assessment/Plan Left pleural effusion Shortness of air Obesity Long-term anticoagulation HIV left pleural effusion resolved, u/s showing no fluid collection. breathing improving. no surgical intervention, will sign off, call if needed. Supervisory-Addendum Brief Verification & Attestation Participated in pt care: history, MDM, physical Personally performed: exam, history, MDM, supervision of care Care discussed with: Medical Student Procedures: n/a Results interpretation: Verified all documentation Verification and Attestation of Medical Student E/M Service A medical student performed and documented this service in my presence. I reviewed and verified all information documented by the medical student and made modifications to such information, when appropriate. I personally performed the physical exam and medical decision making. Sarabjit Savage, Feb 10, 2022,22:05 SANDRA GARRISON Feb 10, 2022 06:43 SARABJIT SAVAGE DO Feb 10, 2022 21:35
[2022-02-10] MEDS: MAGNESIUM 1 GM/100 ML IVPB 100 ML IV SCH (06:51)
[2022-02-10] MEDS: MULTIVIT W/MINERALS TAB (THERAGRAN M) PO SCH (06:54)
[2022-02-10] MEDS: RT-ALBUTEROL/IPRATROPIUM 3 ML (DUONEB) VIAL INH SCH ×4 (07:27→18:54)
--- NOTE | 2022-02-10 07:48 | Cardiology Progress Note ---
Subjective Date Seen by Provider: Feb 10, 2022 Time Seen by Provider: 07:45 Subjective/Events-last exam Patient was seen at bedside, sitting comfortably, tachycardic. Denied any chest pain. Review of Systems General: No Chills, No Night Sweats; Fatigue, Malaise; No Appetite, No Other HEENT: No Head Aches, No Visual Changes, No Eye Pain, No Ear Pain, No Dysphasia, No Sinus Congestion, No Post Nasal Drip, No Sore Throat, No Other Pulmonary: Dyspnea; No Cough, No Pleuritic Chest Pain, No Other Cardiovascular: No: Chest Pain, Palpitations, Orthopnea, Paroxysmal Noc. Dyspnea, Edema, Lt Headedness, Other Focused Exam Lactate Level 02/09/22 12:12: Lactic Acid Level 1.02 Time of Focused Exam: 16:15 Objective-Cardiology Exam Last Set of Vital Signs Vital Signs 02/10/22 02/10/22 06:00 07:21 Pulse 113 Resp 25 B/P (MAP) 128/94 (105) Pulse Ox 93 O2 Delivery High Flow N/C O2 Flow Rate 8.00 I&O Intake and Output 02/10/22 00:00 Intake Total 1700 ml Output Total 1 ml Balance 1699 ml Intake Oral 1400 ml IV Total 300 ml Output Urine Total 1 ml # Voids 1 # Bowel Movements 2 Daily Weight Change No General: Alert, Oriented X3, Cooperative HEENT: Atraumatic, PERRLA Neck: Supple, No JVD, No Thyromegaly Lungs: Clear to Auscultation, Normal Air Movement Heart: Normal S1, Normal S2, No Murmurs, Other (Atrial fibrillation) Abdomen: Normal Bowel Sounds, Soft, No Tenderness, No Hepatosplenomegaly, No Masses Extremities: No Clubbing, No Cyanosis, Normal Pulses, No Tenderness/Swelling, Other (Lower extremities edema) Skin: No Rashes, No Breakdown, No Significant Lesion Neuro: Normal Gait, Normal Speech, Strength at 5/5 X4 Ext, Normal Tone, Sensation Intact Psych/Mental Status: Mental Status NL, Mood NL Results Lab Laboratory Tests 02/09/22 10:20 02/10/22 05:06 A/P-Cardiology Admission Diagnosis Pneumonia Atrial fibrillation Congestive heart failure, acute on chronic left ventricular diastolic dysfunction Shortness of breath Assessment/Plan Pneumonia, shortness of breath Chest x-ray showed pleural effusion and pulmonary edema, starting on diuretics. Continue to monitor Atrial fibrillation, chronic, maintained on long-acting Cardizem and oral anticoagulation Currently anticoagulation on hold due to possible thoracentesis Tachycardia secondary to respiratory failure, maintained on Cardizem CD 480 mg daily. Continue to monitor heart rate, will use Cardizem drip if needed Pleural effusion, scheduled for possible thoracentesis. Congestive heart failure, acute on chronic left ventricular diastolic dysfunction Last echo done by Dr. Obrien in February 2017 with mild to moderate LVH, ejection fraction 55 to 65%, biatrial dilatation, mild mitral regurgitation, mild to moderate tricuspid regurgitation Bilateral chronic lower extremities edema secondary to chronic venous insufficiency Morbid obesity History of HIV followed by Dr. Woods History of depression Obstructive sleep apnea maintained on CPAP Carotid stenosis. ERIK CORRAL MD Feb 10, 2022 07:48
[2022-02-10] MEDS: DOCUSATE SODIUM 100 MG (COLACE) CAP PO SCH ×2 (08:00→20:09)
[2022-02-10] MEDS: SENNOSIDES 8.6 MG (SENOKOT) TAB PO SCH ×2 (08:00→20:08)
[2022-02-10] MEDS: buPROPion SR 150 MG (WELLBUTRIN SR) TAB PO SCH ×2 (08:19→20:08)
[2022-02-10] MEDS: ALLOPURINOL 100 MG (ZYLOPRIM) TAB PO SCH (08:19)
[2022-02-10] MEDS: dilTIAZem120 MG (CARDIZEM CD) CAP PO SCH (08:19)
[2022-02-10] MEDS: SPIRONOLACTONE 25 MG (ALDACTONE) TAB PO SCH (08:19)
[2022-02-10] MEDS: MAGNESIUM OXIDE (MAG-OX)400 MG TAB PO SCH ×2 (08:19→20:08)
[2022-02-10] MEDS ORDERED: PATIENT MAY USE OWN MED,SINGLE MED PO SCH (08:30)
--- NOTE | 2022-02-10 08:48 | Diagnostic Imaging Report ---
INDICATION: Pneumonia. TIME OF EXAM: 5:42 AM Correlation is made with prior chest from 02/09/2022. Heart is enlarged. Perihilar and bibasilar infiltrates and small left effusion persists. Overall aeration does appear to be slightly improved since yesterday. There is no pneumothorax identified. IMPRESSION: Slight overall improvement in aeration of both lungs when compared to examination one day earlier. Dictated by: Dictated on workstation # [id number]
[2022-02-10] MEDS ORDERED: NON-FORMULARY MEDICATION 1 EA EA (Spironolactone 50 MG) PO SCH (09:00)
--- NOTE | 2022-02-10 09:13 | Tele-ICU Progress Note ---
Subjective Date Seen by a Provider: Feb 10, 2022 Time Seen by a Provider: 09:13 Subjective/Events-last exam (Tele-ICU Physician , Progress Note ) Service provided via interactive audio and video telecommunications E-CARE system to a patient admitted to ICU bed in [facility]. Available chart/ vitals / labs / Images reviewed Video assessment done using teleICU camera, rest of exam as per RN Discussed with RN Events overnight : Afebrile hemodynamically stable Respiratory - 8 L I/O = Drips: ns 125 Pressors- no Consultants: Hospital course: Patient is seen today due to persistent and new Consultants: kallie, Sx Hospital course: (02/09) positive severe sepsis 66 y/o male with HIV admitted with pna and left pleural effusion A/P Sepsis with PNA - started on IVF and abx, monitor - given Chronic diastolic CHF , mildly elev BNP and stable vitals will not initiate NS boluses and reassess - decrease fluid today ( for JASWINDER ) - will stop if need to increase O2 Pneumonia, CAP ( reported NL CD4 by patient ) -( neg for covid and flu ) - cont CAP coverage , Vanco since was in hospital 10/2021 - sputum cx pending Hypotension , relative - EF 55% 2018 , mod TR - gentle hydration , consider to stop soon JASWINDER - ? 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 - TO RESUME PER CARDS and SX Left pleural effusion -sx consulted for thoracentesis - Eliquis on hold - to re-eval with US HIV -to cont meds, reports compliance with his anti-viral regimen - as per patient -= untetectable viral load and NL recent CD4/CD8 Diarrhea - chronic GAGE - non compliant with CPAP - DID NOT USED HERE TOO Bilat leg swelling, chronic - related to venous insuff and ac on chronic diastolic CHF - controlled Lines : periph , (Central Line Necessity Reviewed) Muñoz: void OG: Nutrition: Analgesia: Anxiety/ delirium VTE Prophylaxis: eliquis on hold now for possible thora , job proph dose Stress Ulcer Prophylaxis: Plans in collaboration with bedside consultants and IM MDs. Discussed with RN to reach out if any questions or concerns A total of 31 minutes of critical care time was devoted to this patient today, required to treat and/or prevent further deterioration of critical care condition ( as above ) . I am remotely monitoring this patient from another state. I am unable to do the bedside exam, and history/physical and pertinent information is taken from other notes in the computer and bedside staff. . Sepsis Event Evaluation Height, Weight, BMI Height: 6'0.00" Weight: 404lbs. 0.0oz. 183.244663ub; 53.47 BMI Method:Stated Focused Exam Lactate Level 02/09/22 12:12: Lactic Acid Level 1.02 Time of Focused Exam: 16:15 Exam Exam Patient acknowledged, consented, and participated in this virtual visit which was conducted using real time audio/video Vital Signs Date Time Temp Pulse Resp B/P (MAP) Pulse Ox O2 Delivery O2 Flow Rate FiO2 02/10/22 08:00 91 18 128/93 (105) 93 High Flow N/C 8.00 02/10/22 07:21 113 02/10/22 07:00 89 25 134/119 (124) High Flow N/C 8.00 02/10/22 06:00 96 25 128/94 (105) 93 High Flow N/C 8.00 02/10/22 05:00 97 26 131/86 (101) 95 High Flow N/C 8.00 02/10/22 04:00 94 High Flow N/C 8.00 02/10/22 04:00 112 23 131/84 (100) 95 High Flow N/C 8.00 02/10/22 03:00 98 17 121/78 (92) 95 High Flow N/C 8.00 02/10/22 02:00 101 16 130/84 (99) 94 High Flow N/C 8.00 02/10/22 01:00 111 02/10/22 01:00 107 27 137/79 (98) 93 High Flow N/C 8.00 02/10/22 00:00 101 20 127/80 (96) 94 High Flow N/C 8.00 02/10/22 00:00 37.2 02/10/22 00:00 94 High Flow N/C 8.00 02/09/22 23:00 89 35 113/79 (90) 91 Nasal Cannula 5.00 02/09/22 22:00 97 23 111/84 (93) 93 Nasal Cannula 5.00 02/09/22 21:25 94 Nasal Cannula 5.00 02/09/22 21:00 92 18 110/86 (94) 93 Nasal Cannula 5.00 02/09/22 20:46 36.7 02/09/22 20:00 93 29 114/76 (89) 93 Nasal Cannula 5.00 02/09/22 20:00 92 Nasal Cannula 6.00 02/09/22 19:00 88 02/09/22 19:00 94 22 117/72 (87) 93 Nasal Cannula 5.00 02/09/22 18:32 110 96 02/09/22 18:00 97 45 113/58 (76) 93 Nasal Cannula 5.00 02/09/22 17:15 37.1 80 30 105/79 (88) 93 Nasal Cannula 5.00 02/09/22 17:00 96 Nasal Cannula 5.00 02/09/22 16:45 36.8 85 20 110/70 95 Nasal Cannula 5.00 02/09/22 10:20 Nasal Cannula 6.00 02/09/22 10:17 95 Nasal Cannula 6.00 02/09/22 10:16 37.0 110 26 121/78 (92) 96 Nasal Cannula I & O 02/10/22 07:00 Intake Total 4010 ml Output Total 801 ml Balance 3209 ml Height & Weight Height: 6'0.00" Weight: 404lbs. 0.0oz. 183.235174la; 53.47 BMI Method:Stated General Appearance: No Apparent Distress, Obese HEENT: PERRL/EOMI, TMs Normal Neck: Full Range of Motion, Normal Inspection, Supple Respiratory: Lungs Clear, Accessory Muscle Use, Decreased Breath Sounds Cardiovascular: Irregularly Irregular, Other (LE edema) Peripheral Pulses: 2+ Radial Pulses (L) Gastrointestinal: normal bowel sounds, non tender, soft Extremity: Swelling (bilat LE, non-pitting, 1+) Neurologic/Psychiatric: Alert, Oriented x3, No Motor/Sensory Deficits, Normal Mood/Affect, skilled nursing case manager II-XII Norm as Tested Skin: Normal Color, Warm/Dry Results Lab Laboratory Tests 02/09/22 10:20 02/10/22 05:06 Assessment/Plan Assessment/Plan 1 FELICIA CASTRO MD Feb 10, 2022 09:13
[2022-02-10] MEDS: Biktarvy 50-200-25 mg Tablet PO SCH (09:19)
--- NOTE | 2022-02-10 12:27 | History & Physical-Hospitalist ---
[facility] 02/10/22 1227: History of Present Illness HPI/Chief Complaint This is a 66 yo WM with history of HIV, CHF, AFib, HTN, Non-Hodgkin Lymphoma, GAGE, obesity and depression who presented to the ED on 02/09 for worsening SOB since 02/05. He reports having SOB at baseline but he is usually still able to perform his daily activities. Since exacerbation he has needed to take more frequent breaks in walking around his apartment. He is also having associated light headedness and weakness. At home he uses 3-4L of oxygen via nasal cannula. He is currently requiring 8L high flow oxygen via nasal cannula. CXR revealed cardiomegaly, L-sided pleural effusion, with perihilar and bibasilar interstitial opacities. Surgery was consulted for the pleural effusion. Chest ultrasound was performed this morning and results are pending. Cardiology is fol lowing the patient and recommends continuing home meds of Cardizem and OAC with Eliquis. Last echo done by Dr. Obrien in February 2017 with mild to moderate LVH, ejection fraction 55 to 65%, biatrial dilatation, mild mitral regurgitation, mild to moderate tricuspid regurgitation. Flu and COVID testing negative. Procalcitonin was elevated at 9.58 and BNP was elevated at 174.6. He is compliant with HIV care and has CPAP. Today he presents sitting up in recliner chair eating breakfast. He reports h aving SOB at rest that significantly worsens with any exertion. Denies CP, n/v/d, fever. Last BM was last night and was formed without blood. He has a ortiz in place producing plenty of urine. Source: patient Exam Limitations: no limitations Date Seen 02/10/22 Time Seen by a Provider: 10:10 Attending Physician [facility] PCP Admitting Physician: Suha Goldsmith DO Attending Physician: Suha Goldsmith DO Referring Physician Date of Admission Feb 09, 2022 at 14:00 Home Medications & Allergies Home Medications Reviewed patient Home Medication Reconciliation performed by pharmacy medication reconciliations fiscal technician and/or nursing. Patients Allergies have been reviewed. Allergies Allergies Coded Allergies No Known Drug Allergies (Yfzkvdpevg94/12/18) Past Umfyfwj-Fzzfjh-Yquykk Hx Patient Social History Tobacco Use?: No Smoking Status: Never a Smoker Smokeless Tobacco Frequency: Never a User Use of E-Cig and/or Vaping dev: No Substance use?: No Alcohol Use?: Yes Alcohol Frequency: Rarely Pt feels they are or have been: No Immunizations Up To Date Date of Influenza Vaccine: Nov 27, 2021 First/Initial COVID19 Vaccinat: 03/2020 Second COVID19 Vaccination [place]: 04/2020 Tetanus Booster (TDap): Unknown Hepatitis A: No Hepatitis B: No Date of Pneumonia Vaccine: Apr 17, 2013 Seasonal Allergies Seasonal Allergies: No Current Status Primary Language: [place] Preferred Spoken Language: [place] Is interpretation needed?: No Implanted or Applied Medical D: CPAP Past Medical History Surgeries: Amputation (right 2nd toe), Cardiac, Orthopedic, Tonsillectomy Pneumonia (Multiple episodes of PNA in past), Sleep Apnea (Has Cpap/BiPAP) Currently Using CPAP: Yes Currently Using BIPAP: Yes Atrial Fibrillation, Chronic Edema/Swelling, Hypertension Neuropathy HIV/AIDS: Yes (HIV +/AIDS-HX OF PNEUMOCYSTIS PNEUMONIA) Gastrointestinal Bleed, Diverticulosis, Chronic Diarrhea Amputee, Gout Loss of Vision: Denies Hearing Impairment: Denies Skin, Lymphoma (non-hodgkins) Did You Recieve Any Treatments: Yes What Type of Treatment Did You: Surgical Intervention Anxiety, Depression Blood Disorders: Yes (HIV DX IN 1994) Adverse Reaction/Blood Tranf: No PMHx: HIV Non-Hodgkin's lymphoma (1994, remission) Depression Congestive heart failure Atrial fibrillation Sleep apnea on CPAP SurgHx: Tonsillectomy Right neck mass removal 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 Family Medical History Cardiovascular disease G8 SISTER Colon cancer G8 BROTHER Diabetes mellitus 19 MOTHER G8 SISTER FHx: COPD (chronic obstructive pulmonary disease) 19 FATHER Malignant neoplasm of prostate G8 BROTHER Paternal family history of emphysema No Pertinent Family Hx, Heart Disease, COPD (father), Diabetes Review of Systems Constitutional: No fever; weakness EENTM: No nose congestion, No throat pain Respiratory: No cough; dyspnea on exertion, short of breath Cardiovascular: No chest pain; edema Gastrointestinal: No abdominal pain, No diarrhea, No nausea, No vomiting Genitourinary: No decreased output, No dysuria Physical Exam Physical Exam Vital Signs Vital Signs - First Documented 02/09/22 02/09/22 10:16 10:17 Temp 37.0 Pulse 110 Resp 26 B/P (MAP) 121/78 (92) Pulse Ox 96 O2 Delivery Nasal Cannula O2 Flow Rate 6.00 Capillary Refill : Height, Weight, BMI Height: 6'0.00" Weight: 404lbs. 0.0oz. 183.151116ow; 53.47 BMI Method:Stated General Appearance: No Apparent Distress, Chronically ill, Obese HEENT: PERRL/EOMI, Pharynx Normal, Moist Mucous Membranes Neck: Full Range of Motion Respiratory: Chest Non Tender, No Respiratory Distress, Accessory Muscle Use, Wheezing Cardiovascular: No Murmur, Normal Peripheral Pulses, Irregularly Irregular Gastrointestinal: Normal Bowel Sounds, Non Tender, Soft Extremity: Normal Capillary Refill, Pedal Edema, Swelling (b/l LE swelling), Other (stasis dermatitis b/l LE) Neurologic/Psychiatric: Alert, Oriented x3, No Motor/Sensory Deficits, Normal Mood/Affect, outside event sales specialist II-XII Norm as Tested Skin: Normal Color, Warm/Dry Results Results/Procedures Labs Laboratory Tests 02/09/22 10:20 02/10/22 05:06 Patient resulted labs reviewed. Imaging: Reviewed Imaging Report Assessment/Plan Admission Diagnosis Pneumonia, pleural effusion, acute on chronic CHF, Afib Admission Status: Inpatient Order (span 2 midnights) Reason for Inpatient Admission: Need for IV antibiotics, sepsis concern Assessment and Plan Pneumonia Left pleural effusion Dyspnea Elevated PCT - 9.58 HIV pos - antiviral compliant Chronic Afib Acute on chronic diastolic CHF Obstructive Sleep Apnea - CPAP B/l LE edema Obesity Depression History Non-Hodgkin Lymphoma S/p orthopedic surgery Surgery consulted for possible thoracentesis Hold eliquis pending need for thoracentesis IV vanc and cefepime Spironolactone Afib maintained on cardizem CD Cardiology appreciated Oxygen support- currently 8L HF via SUHA JAVED DO 02/11/22 0456: Past Somrneg-Zrmnmw-Xrcwip Hx Family Medical History Cardiovascular disease G8 SISTER Colon cancer G8 BROTHER Diabetes mellitus 19 MOTHER G8 SISTER FHx: COPD (chronic obstructive pulmonary disease) 19 FATHER Malignant neoplasm of prostate G8 BROTHER Paternal family history of emphysema Assessment/Plan Admission Diagnosis Assessment: Sepsis Pneumonia Pleural effusion Morbid obesity BMI 54 Hypoxia on 4 L of oxygen at home HIV status Ortiz catheter in place Plan: Maintain ICU Supportive care Admission Status: Inpatient Order (span 2 midnights) Reason for Inpatient Admission: Sepsis with pneumonia Supervisory-Addendum Brief Verification & Attestation Participated in pt care: history, MDM, physical Personally performed: exam, history, MDM, supervision of care Care discussed with: Medical Student Procedures: n/a Results interpretation: Verified all documentation Verification and Attestation of Medical Student E/M Service A medical student performed and documented this service in my presence. I reviewed and verified all information documented by the medical student and made modifications to such information, when appropriate. I personally performed the physical exam and medical decision making. Suha Goldsmith, Feb 11, 2022,04:55 LINNEA TRONCOSO Feb 10, 2022 12:27 SUHA GOLDSMITH DO Feb 11, 2022 04:56
--- NOTE | 2022-02-10 13:00 | Diagnostic Imaging Report ---
US CHEST 80200 INDICATION: Left pleural effusion. COMPARISON: Chest radiograph of 02/10/2022. TECHNIQUE: Targeted ultrasound imaging of the left chest. FINDINGS: Imaging of the left chest shows no pleural effusion. There is aerated lung abutting the pleural space. IMPRESSION: No left-sided pleural effusion. Dictated by: Dictated on workstation # [id number]
[2022-02-10] MEDS: risperiDONE 0.5 MG (RisperDAL) TABLET PO SCH (20:08)
[2022-02-10] MEDS: ASPIRIN E.C. 81 MG (ECOTRIN) TAB PO SCH (20:08)
[2022-02-10] MEDS: AMITRIPTYLINE 25 MG (ELAVIL) TAB PO SCH (20:08)
[2022-02-10] MEDS: ACETAMINOPHEN 325 MG TABLET PO PRN (23:57)
[2022-02-11] MEDS ORDERED: TROUGH ORDER-PHARMACY XX NR (01:00)
[2022-02-11] MEDS: VANCOMYCIN 1 GM/NS 250 ML IVPB IV SCH ×4 (01:53→13:01)
[2022-02-11 04:45] LABS: EOSINOPHILS # (AUTO) 0.2 10^3/uL (0.0-0.3); EOSINOPHILS % (AUTO) 2 % (0-10); LYMPHOCYTES % (AUTO) 21 % (12-44); MEAN CORPUSCULAR HEMOGLOBIN 31 pg (25-34); MEAN CORPUSCULAR HGB CONC 32 g/dL (32-36); MEAN CORPUSCULAR VOLUME 97 fL (80-99)
[2022-02-11 04:47] LABS: BASOPHILS % (AUTO) 1 % (0-10); HEMATOCRIT 43 % (40-54); HEMOGLOBIN 13.8 g/dL (13.3-17.7); LYMPHOCYTES # (AUTO) 1.6 10^3/uL (1.0-4.0); MEAN PLATELET VOLUME 10.3 fL (9.0-12.2); MONOCYTES # (AUTO) 1.1 10^3/uL (0.0-1.0); MONOCYTES % (AUTO) 13 % (0-12); NEUTROPHILS % (AUTO) 63 % (42-75); PLATELET COUNT 136 10^3/uL (130-400); WHITE BLOOD COUNT 7.9 10^3/uL (4.3-11.0)
[2022-02-11 05:14] LABS: ALBUMIN 3.3 GM/DL (3.2-4.5); BILIRUBIN,TOTAL 0.5 MG/DL (0.1-1.0); CALCIUM 9.4 MG/DL (8.5-10.1); CREATININE SERUM 1.24 MG/DL (0.60-1.30); MAGNESIUM 2.3 MG/DL (1.6-2.4); PHOSPHORUS 3.5 MG/DL (2.3-4.7); POTASSIUM 4.6 MMOL/L (3.6-5.0); TOTAL PROTEIN 7.6 GM/DL (6.4-8.2)
[2022-02-11] MEDS: MAGNESIUM 1 GM/100 ML IVPB 100 ML IV SCH (05:25)
[2022-02-11] MEDS: POTASSIUM CL 10MEQ/50ML IVPB 50 ML IV SCH (05:25)
[2022-02-11] MEDS: inSUlin ASPART (NovoLOG) 1 UNIT/0.01 ML (CHARGE PER UNIT) SC SCH ×4 (05:25→20:19)
[2022-02-11] MEDS: KCL 20 MEQ TAB (K-DUR) PO SCH ×3 (05:25→20:29)
[2022-02-11] MEDS: MULTIVIT W/MINERALS TAB (THERAGRAN M) PO SCH (05:38)
[2022-02-11] MEDS: CEFEPIME INJECTION 1,000 MG in NS (IVPB) 50 ML IV SCH ×4 (05:39→23:01)
[2022-02-11] MEDS: RT-ALBUTEROL/IPRATROPIUM 3 ML (DUONEB) VIAL INH SCH ×4 (07:10→19:09)
[2022-02-11] MEDS: SENNOSIDES 8.6 MG (SENOKOT) TAB PO SCH ×2 (07:34→20:29)
[2022-02-11] MEDS: MAGNESIUM OXIDE (MAG-OX)400 MG TAB PO SCH ×2 (07:34→20:29)
[2022-02-11] MEDS: DOCUSATE SODIUM 100 MG (COLACE) CAP PO SCH ×2 (07:34→20:29)
[2022-02-11] MEDS: dilTIAZem120 MG (CARDIZEM CD) CAP PO SCH (07:34)
[2022-02-11] MEDS: buPROPion SR 150 MG (WELLBUTRIN SR) TAB PO SCH ×2 (07:34→20:29)
[2022-02-11] MEDS: ALLOPURINOL 100 MG (ZYLOPRIM) TAB PO SCH (07:34)
[2022-02-11] MEDS: Biktarvy 50-200-25 mg Tablet PO SCH (07:35)
[2022-02-11] MEDS: ACETAMINOPHEN 325 MG TABLET PO PRN (07:35)
[2022-02-11] MEDS: SPIRONOLACTONE 25 MG (ALDACTONE) TAB PO SCH (07:35)
--- NOTE | 2022-02-11 08:40 | Progress Note - Cardiology ---
Cardiology SOAP Progress Note Subjective: Sitting up in recliner\ C/O continued SOB with orthopnea C/O bilat LE swelling No c/o CP or palpitations Objective: I&O/Vital Signs 02/10/22 02/10/22 02/10/22 02/10/22 21:00 22:00 23:00 23:47 Temp 36.6 Pulse 79 89 76 83 Resp 24 23 19 20 B/P (MAP) 137/80 (99) 132/76 (94) 129/84 (99) 141/97 (112) Pulse Ox 93 93 93 92 O2 Delivery High Flow N/C High Flow N/C High Flow N/C High Flow N/C O2 Flow Rate 8.00 8.00 8.00 8.00 02/11/22 02/11/22 02/11/22 02/11/22 00:00 00:00 01:00 01:00 Pulse 85 108 88 Resp 25 32 B/P (MAP) 137/84 (101) 129/79 (96) Pulse Ox 92 94 92 O2 Delivery High Flow N/C High Flow N/C High Flow N/C O2 Flow Rate 8.00 8.00 8.00 02/11/22 02/11/22 02/11/22 02/11/22 02:00 03:00 04:00 04:00 Pulse 95 78 87 Resp 17 17 16 B/P (MAP) 126/80 (95) 115/79 (91) 149/76 (100) Pulse Ox 92 93 92 93 O2 Delivery High Flow N/C High Flow N/C High Flow N/C High Flow N/C O2 Flow Rate 8.00 8.00 8.00 8.00 02/11/22 02/11/22 02/11/22 02/11/22 04:16 05:00 06:00 07:00 Temp 36.6 Pulse 82 80 80 Resp 23 25 23 B/P (MAP) 127/100 (109) 128/80 (96) 114/76 (89) Pulse Ox 92 92 94 O2 Delivery High Flow N/C High Flow N/C High Flow N/C O2 Flow Rate 8.00 8.00 8.00 02/11/22 02/11/22 02/11/22 02/11/22 07:00 07:11 07:30 08:00 Temp 36.5 Pulse 87 80 Resp 21 B/P (MAP) 131/77 (95) Pulse Ox 94 94 O2 Delivery Nasal Cannula High Flow N/C O2 Flow Rate 8.00 8.00 02/11/22 00:00 Intake Total 2450 ml Output Total 1625 ml Balance 825 ml Weight (Pounds): 404 Weight (Ounces): 0.0 Weight (Calculated Kilograms): 183.323281 Constitutional: AAO x 3, well-developed, well-nourished Respiratory: No accessory muscle use, No respiratory distress; chest expansion is symmetric, chest is bilaterally symmetric, rhonchi (scattered), other (coarse breath sounds bilat) Cardiovascular: irregularly irregular; No JVD; S1 and S2 Gastrointestional: No tender; soft, round, audible bowel sounds Extremities: other (features of chronic stassi dermatitis, chronic), significant edema (bilat LE pitting edema) Neurologic/Psychiatric: other (moves all limbs equally) Skin: normal color, warm/dry; No rash on exposed areas, No ulcerations on exposed areas Results/Procedures: Labs Laboratory Tests 02/10/22 10:49: Glucometer 131H 02/10/22 22:17: Glucometer 144H 02/11/22 01:00: Vancomycin Level Trough 12.3 02/11/22 04:13: White Blood Count 7.9, Red Blood Count 4.48, Hemoglobin 13.8, Hematocrit 43, Mean Corpuscular Volume 97, Mean Corpuscular Hemoglobin 31, Mean Corpuscular Hemoglobin Concent 32, Red Cell Distribution Width 13.5, Platelet Count 136, Mean Platelet Volume 10.3, Immature Granulocyte % (Auto) 1, Neutrophils (%) (Auto) 63, Lymphocytes (%) (Auto) 21, Monocytes (%) (Auto) 13H, Eosinophils (%) (Auto) 2, Basophils (%) (Auto) 1, Neutrophils # (Auto) 5.0, Lymphocytes # (Auto) 1.6, Monocytes # (Auto) 1.1H, Eosinophils # (Auto) 0.2, Basophils # (Auto) 0.0, Immature Granulocyte # (Auto) 0.1, Percent Immature Platelet Fraction 3.0, Sodium Level 140, Potassium Level 4.6, Chloride Level 103, Carbon Dioxide Level 26, Anion Gap 11, Blood Urea Nitrogen 29H, Creatinine 1.24, Estimat Glomerular Filtration Rate 64, BUN/Creatinine Ratio 23, Glucose Level 111H, Calcium Level 9.4, Corrected Calcium 10.0, Phosphorus Level 3.5, Magnesium Level 2.3, Total Bilirubin 0.5, Aspartate Amino Transf (AST/SGOT) 17, Alanine Aminotransferase (ALT/SGPT) 13, Alkaline Phosphatase 108, Total Protein 7.6, Albumin 3.3 02/11/22 06:02: Glucometer 112H Microbiology 02/09/22 MRSA Screen - Final, Complete MRSA not isolated 02/09/22 Blood Culture - Preliminary, Resulted No growth Laboratory Tests 02/09/22 10:20 02/10/22 05:06 02/11/22 04:13 A/P: Assessment: Pneumonia - management per Medical services Chronic atrial fibrillation - rate controlled - maintained on long-acting Cardizem - OAC with Eliquis (had been on hold d/t poss thoracentesis, which was not needed - resumed on 02-11-22) Acut on chronic diastolic CHF - Echocardiogram of Feb [address] Obrien showed wall thickness is mildly to mod increased. Concentric hypertrophy. LVEF 55-65%. LA and RA dilated. Mild MR. Mild to mod TR Diarrhea - undetermined etiology - management per medical services Orthopedic - Osteomyelitis of R 2nd toe, s/p amputation on 06/25/20 - Chronic joint and back pain - PORTER with segmentals from 11-04-20 showed no evidence of signif obstructive PAD Bilat leg swelling - related to venous insuff and ac on chronic diastolic CHF - controlled H/o hypokalemia - due to chronic diuretic therapy Morbid obesity - BMI approx 55 HIV positive status - managed by Dr Woods in [place], [place] H/o depression - managed by PCP Obstructive sleep apnea syndrome - treated with CPAP Carotid dz - Minimal carotid arterial plaque on carotid u/s of April 2019 Plan: Management of pneumonia per medical services Chronic a-fib - continue OAC and long acting calcium channel blockers Give IV Lasix today d/t increased swelling, orthopnea and positive fluid balance Monitor lab closely Replace electrolytes as indicated JOSE E CHAO Feb 11, 2022 08:40
[2022-02-11] MEDS: APIXABAN 5 MG (ELIQUIS) TABLET PO SCH ×2 (08:58→20:29)
[2022-02-11] MEDS ORDERED: FUROSEMIDE 40 MG/4 ML INJ (LASIX) IVP ONE (09:00)
--- NOTE | 2022-02-11 09:23 | Tele-ICU Progress Note ---
Subjective Date Seen by a Provider: Feb 11, 2022 Time Seen by a Provider: 09:23 Subjective/Events-last exam (Tele-ICU Physician , Progress Note ) Service provided via interactive audio and video telecommunications E-CARE system to a patient admitted to ICU bed in [facility]. Available chart/ vitals / labs / Images reviewed Video assessment done using teleICU camera, rest of exam as per RN Discussed with RN Events overnight : Afebrile hemodynamically stable Respiratory - 8 L I/O = pos 3 L Drips: ns 75 Pressors- no Consultants: Hospital course: Patient is seen today due to persistent hypoxia Consultants: kallie, Sx Hospital course: (02/09) positive severe sepsis 66 y/o male with HIV admitted with pna and left pleural effusion A/P Sepsis with PNA -resolved - stop fluid today Pneumonia, CAP ( reported NL CD4 by patient ) -( neg for covid and flu ) - cont CAP coverage , Vanco since was in hospital 10/2021 - sputum cx pending Hypotension , relative - EF 55% 2018 , mod TR - gentle hydration , consider to stop soon JASWINDER - ? dehydration due to diarrhea + diuretics +PNA - RESOLVED with IVF - furosemide to resume Acute rerp failure , hypoxic , with dyspnea due to PNA and effusion - monitor , might benefit from NIPPV ( baseline 3-4 L of O2 by NC, he presently requires 8 L- WILL RESUME DIURESIS< IS PFT 06/2020- no obstruction , + restriction A fib , chronic - as per cards - rate controlled - ECHO 2017 - EF 55% - AC with Eliquis NYLON WINDER - ON HOLD for possible thora - TO RESUME PER CARDS and SX Left pleural effusion - US with minimal fluid - no krystian for thora HIV -to cont meds, reports compliance with his anti-viral regimen - as per patient -= untetectable viral load and NL recent CD4/CD8 Diarrhea - chronic GAGE - non compliant with CPAP - DID NOT USED HERE TOO Bilat leg swelling, chronic - related to venous insuff and ac on chronic diastolic CHF - controlled Lines : periph , (Central Line Necessity Reviewed) Muñoz: void OG: Nutrition: Analgesia: Anxiety/ delirium VTE Prophylaxis: eliquis to resume Stress Ulcer Prophylaxis: Plans in collaboration with bedside consultants and IM MDs. Discussed with RN to reach out if any questions or concerns A total of 31 minutes of critical care time was devoted to this patient today, required to treat and/or prevent further deterioration of critical care condition ( as above ) . I am remotely monitoring this patient from another state. I am unable to do the bedside exam, and history/physical and pertinent information is taken from other notes in the computer and bedside staff. . Sepsis Event Evaluation Height, Weight, BMI Height: 6'0.00" Weight: 404lbs. 0.0oz. 183.277019it; 53.47 BMI Method:Stated Focused Exam Lactate Level 02/09/22 12:12: Lactic Acid Level 1.02 Time of Focused Exam: 16:15 Exam Exam Patient acknowledged, consented, and participated in this virtual visit which was conducted using real time audio/video Vital Signs Date Time Temp Pulse Resp B/P (MAP) Pulse Ox O2 Delivery O2 Flow Rate FiO2 02/11/22 08:00 80 21 131/77 (95) 94 High Flow N/C 8.00 02/11/22 07:30 36.5 02/11/22 07:11 94 Nasal Cannula 8.00 02/11/22 07:00 87 02/11/22 07:00 80 23 114/76 (89) 94 High Flow N/C 8.00 02/11/22 06:00 80 25 128/80 (96) 92 High Flow N/C 8.00 02/11/22 05:00 82 23 127/100 (109) 92 High Flow N/C 8.00 02/11/22 04:16 36.6 02/11/22 04:00 93 High Flow N/C 8.00 02/11/22 04:00 87 16 149/76 (100) 92 High Flow N/C 8.00 02/11/22 03:00 78 17 115/79 (91) 93 High Flow N/C 8.00 02/11/22 02:00 95 17 126/80 (95) 92 High Flow N/C 8.00 02/11/22 01:00 88 32 129/79 (96) 92 High Flow N/C 8.00 02/11/22 01:00 108 02/11/22 00:00 94 High Flow N/C 8.00 02/11/22 00:00 85 25 137/84 (101) 92 High Flow N/C 8.00 02/10/22 23:47 36.6 83 20 141/97 (112) 92 High Flow N/C 8.00 02/10/22 23:00 76 19 129/84 (99) 93 High Flow N/C 8.00 02/10/22 22:00 89 23 132/76 (94) 93 High Flow N/C 8.00 02/10/22 21:00 79 24 137/80 (99) 93 High Flow N/C 8.00 02/10/22 20:00 36.8 02/10/22 20:00 90 18 127/85 (99) 93 High Flow N/C 8.00 02/10/22 20:00 94 High Flow N/C 8.00 02/10/22 19:00 81 30 142/78 (99) 92 High Flow N/C 8.00 02/10/22 19:00 91 02/10/22 18:54 95 Nasal Cannula 8.00 02/10/22 18:00 81 18 99/53 (68) 93 High Flow N/C 8.00 02/10/22 17:00 84 17 113/77 (89) 93 High Flow N/C 8.00 02/10/22 16:00 93 43 126/80 (95) 91 High Flow N/C 8.00 02/10/22 15:49 90 High Flow N/C 8.00 02/10/22 15:00 96 13 117/95 (102) 96 High Flow N/C 8.00 02/10/22 14:56 92 Nasal Cannula 8.00 02/10/22 14:30 98 24 132/74 (93) 93 High Flow N/C 8.00 02/10/22 14:00 101 28 135/117 (123) 93 High Flow N/C 8.00 02/10/22 13:00 101 27 131/76 (94) 93 High Flow N/C 8.00 02/10/22 12:20 103 02/10/22 12:00 101 132/86 (101) 94 High Flow N/C 8.00 02/10/22 12:00 36.2 02/10/22 11:11 96 High Flow N/C 8.00 02/10/22 11:00 88 128/78 (95) 98 High Flow N/C 8.00 12/15/22 10:59 94 Nasal Cannula 8.00 02/10/22 10:00 106 30 126/85 (99) 94 High Flow N/C 8.00 I & O 02/11/22 07:00 Intake Total 4540 ml Output Total 2750 ml Balance 1790 ml Height & Weight Height: 6'0.00" Weight: 404lbs. 0.0oz. 183.376229lo; 53.47 BMI Method:Stated General Appearance: No Apparent Distress, Obese HEENT: PERRL/EOMI, TMs Normal Neck: Normal Inspection, Supple Respiratory: Chest Non Tender; No No Respiratory Distress, No Accessory Muscle Use; Other (breathing easier) Cardiovascular: Irregularly Irregular, Other (LE edema) Peripheral Pulses: 2+ Radial Pulses (L) Gastrointestinal: non tender, soft Extremity: Non Tender, Swelling (bilat LE, non-pitting, 1+) Neurologic/Psychiatric: Alert, Oriented x3, Normal Mood/Affect Skin: Normal Color, Warm/Dry Lymphatic: No Adenopathy Results Lab Laboratory Tests 02/09/22 10:20 02/10/22 05:06 02/11/22 04:13 Assessment/Plan Assessment/Plan 1 FELICIA CASTRO MD Feb 11, 2022 09:23
[2022-02-11] MEDS ORDERED: APIX5TAB PO (10:08)
--- NOTE | 2022-02-11 10:08 | Diagnostic Imaging Report ---
INDICATION: Cardiomegaly is again noted with bilateral infiltrates. Overall appearance has improved slightly. The lungs are well-aerated. There continues to be obscuration of the left costophrenic angle. No pneumothorax. IMPRESSION: Cardiomegaly with decreasing infiltrates. Persistent left basilar effusion. Dictated by: Dictated on workstation # [id number]
--- NOTE | 2022-02-11 13:07 | Progress Note - Hospitalist ---
[facility] 02/11/22 1307: Subjective HPI/CC On Admission Date Seen by Provider: Feb 11, 2022 Time Seen by Provider: 11:00 This is a 66 yo WM with history of HIV, CHF, AFib, HTN, Non-Hodgkin Lymphoma, GAGE, obesity and depression who presented to the ED on 02/09 for worsening SOB since 02/05. He reports having SOB at baseline but he is usually still able to perform his daily activities. Since exacerbation he has needed to take more frequent breaks in walking around his apartment. He is also having associated light headedness and weakness. At home he uses 3-4L of oxygen via nasal cannula. He is currently requiring 8L high flow oxygen via nasal cannula. CXR revealed cardiomegaly, L-sided pleural effusion, with perihilar and bibasilar interstitial opacities. Surgery was consulted for the pleural effusion. Chest ultrasound was performed this morning and results are pending. Cardiology is following the patient and recommends continuing home meds of Cardizem and OAC with Eliquis. Last echo done by Dr. Obrien in February 2017 with mild to moderate LVH, ejection fraction 55 to 65%, biatrial dilatation, mild mitral regurgitation, mild to moderate tricuspid regurgitation. Flu and COVID testing negative. Procalcitonin was elevated at 9.58 and BNP was elevated at 174.6. He is compliant with HIV care and has CPAP. Subjective/Events-last exam Ultrasound yesterday revealed no pleural effusion. CXR today still with possible left basilar effusion but improved infiltrates. Eliquis was restarted as there will be no need for thoracentesis at this time. Today he presents sitting up in recliner chair. He reports having SOB only with exertion and is overall feeling similarly to yesterday. Pt does note feeling some edema in his legs. eICU stopped his IV fluids and started Lasix today. Den ies CP, n/v/d, fever. Last BM was two days ago. He has a ortiz in place producing plenty of urine. Dr. Goldsmith spoke with the patient today and he confirmed that he is DNR and DNI status but would like to have BIPAP/CPAP if needed. Review of Systems General: No Chills; Fatigue, Malaise Pulmonary: Dyspnea, Cough Cardiovascular: Edema; No: Chest Pain Gastrointestinal: No: Nausea, Vomiting, Abdominal Pain Focused Exam Lactate Level 12/14/22 12:12: Lactic Acid Level 1.02 Time of Focused Exam: 16:15 Objective Exam Vital Signs Vital Signs Date Time Temp Pulse Resp B/P (MAP) Pulse Ox O2 Delivery O2 Flow Rate FiO2 02/11/22 13:03 90 High Flow N/C 9.00 02/11/22 13:00 110 02/11/22 12:00 141/84 (103) 02/11/22 10:00 24 02/11/22 07:30 36.5 Capillary Refill : General Appearance: No Apparent Distress, Chronically ill, Obese HEENT: PERRL/EOMI, Moist Mucous Membranes Neck: Full Range of Motion Respiratory: Chest Non Tender, No Accessory Muscle Use, No Respiratory Distress, Wheezing Cardiovascular: No Murmur, Normal Peripheral Pulses, Irregularly Irregular Gastrointestinal: Normal Bowel Sounds, Non Tender, Soft Extremity: Normal Capillary Refill, Pedal Edema, Swelling (b/l LE swelling 1+ ) Neurologic/Psychiatric: Alert, Oriented x3, Normal Mood/Affect Skin: Normal Color, Warm/Dry, Other (stasis dermatitis b/l LE) Results/Procedures Lab Laboratory Tests 02/11/22 04:13 Patient resulted labs reviewed. Imaging: Reviewed Imaging Report Assessment/Plan Assessment and Plan Assess & Plan/Chief Complaint Sepsis Pneumonia Left pleural effusion- resolved on U/S Dyspnea Elevated PCT - 9.58 HIV status - antiviral compliant Chronic Afib Acute on chronic diastolic CHF Obstructive Sleep Apnea - CPAP B/l LE edema Obesity - BMI 53 Depression History Non-Hodgkin Lymphoma S/p orthopedic surgery Ortiz catheter in place Hypoxia on 4 L of oxygen at home Surgery consulted - no indication for thoracentesis Eliquis restarted IV vanc and cefepime Afib maintained on cardizem CD Cardiology appreciated Oxygen support- currently 8L HF via NC Continue supportive care Maintain in ICU given high oxygen demand PAULA GOLDSMITH DO 02/12/22 0525: Assessment/Plan Assessment and Plan Assess & Plan/Chief Complaint Patient high risk for decompensation Keep in ICU Supervisory-Addendum Brief Verification & Attestation Participated in pt care: history, MDM, physical Personally performed: exam, history, MDM, supervision of care Care discussed with: Medical Student Procedures: n/a Results interpretation: Verified all documentation Verification and Attestation of Medical Student E/M Service A medical student performed and documented this service in my presence. I reviewed and verified all information documented by the medical student and made modifications to such information, when appropriate. I personally performed the physical exam and medical decision making. Paula Goldsmith, Feb 12, 2022,05:25 LINNEA TRONCOSO Feb 11, 2022 13:07 PAULA GOLDSMITH DO Feb 12, 2022 05:25
--- NOTE | 2022-02-11 17:22 | Progress Note - Cardiology ---
Cardiology SOAP Progress Note Subjective: Persistent malaise Persistent shortness of breath No cp or palp or syncope No n/v/d Objective: I&O/Vital Signs 02/11/22 02/11/22 02/11/22 02/11/22 06:00 07:00 07:00 07:11 Pulse 80 80 87 Resp 25 23 B/P (MAP) 128/80 (96) 114/76 (89) Pulse Ox 92 94 94 O2 Delivery High Flow N/C High Flow N/C Nasal Cannula O2 Flow Rate 8.00 8.00 8.00 02/11/22 02/11/22 02/11/22 02/11/22 07:30 08:00 08:00 09:00 Temp 36.5 Pulse 80 103 Resp 21 B/P (MAP) 131/77 (95) 104/83 (90) Pulse Ox 95 94 90 O2 Delivery High Flow N/C High Flow N/C High Flow N/C O2 Flow Rate 8.00 8.00 8.00 02/11/22 02/11/22 02/11/22 02/11/22 10:00 11:00 11:25 12:00 Pulse 75 81 85 Resp 24 B/P (MAP) 143/82 (102) 131/87 (102) 141/84 (103) Pulse Ox 91 91 92 92 O2 Delivery High Flow N/C High Flow N/C Nasal Cannula High Flow N/C O2 Flow Rate 8.00 8.00 8.00 8.00 02/11/22 02/11/22 02/11/22 02/11/22 12:57 13:00 13:00 13:03 Pulse 102 110 B/P (MAP) 134/100 (111) Pulse Ox 93 90 90 O2 Delivery High Flow N/C High Flow N/C High Flow N/C O2 Flow Rate 8.00 8.00 9.00 02/11/22 02/11/22 02/11/22 02/11/22 14:00 14:36 15:00 15:24 Temp 36.4 Pulse 112 101 B/P (MAP) 142/89 (106) 138/95 (109) Pulse Ox 91 92 91 O2 Delivery High Flow N/C Nasal Cannula High Flow N/C O2 Flow Rate 9.00 8.00 9.00 02/11/22 02/11/22 16:00 16:00 Pulse 97 Resp 24 B/P (MAP) 156/85 (108) Pulse Ox 90 91 O2 Delivery High Flow N/C High Flow N/C O2 Flow Rate 9.00 9.00 02/11/22 00:00 Intake Total 2450 ml Output Total 1625 ml Balance 825 ml Weight (Pounds): 404 Weight (Ounces): 0.0 Weight (Calculated Kilograms): 183.339486 Constitutional: AAO x 3, well-developed, well-nourished Respiratory: No accessory muscle use, No respiratory distress; chest expansion is symmetric, chest is bilaterally symmetric, rhonchi (scattered), other (coarse breath sounds bilat) Cardiovascular: irregularly irregular; No JVD; S1 and S2 Gastrointestional: No tender; soft, round, audible bowel sounds Extremities: other (features of chronic stassi dermatitis, chronic), significant edema (bilat LE pitting edema) Neurologic/Psychiatric: other (moves all limbs equally) Skin: normal color, warm/dry; No rash on exposed areas, No ulcerations on exposed areas Results/Procedures: Labs Laboratory Tests 02/10/22 22:17: Glucometer 144H 02/11/22 01:00: Vancomycin Level Trough 12.3 02/11/22 04:13: White Blood Count 7.9, Red Blood Count 4.48, Hemoglobin 13.8, Hematocrit 43, Mean Corpuscular Volume 97, Mean Corpuscular Hemoglobin 31, Mean Corpuscular Hemoglobin Concent 32, Red Cell Distribution Width 13.5, Platelet Count 136, Mean Platelet Volume 10.3, Immature Granulocyte % (Auto) 1, Neutrophils (%) (Auto) 63, Lymphocytes (%) (Auto) 21, Monocytes (%) (Auto) 13H, Eosinophils (%) (Auto) 2, Basophils (%) (Auto) 1, Neutrophils # (Auto) 5.0, Lymphocytes # (Auto) 1.6, Monocytes # (Auto) 1.1H, Eosinophils # (Auto) 0.2, Basophils # (Auto) 0.0, Immature Granulocyte # (Auto) 0.1, Percent Immature Platelet Fraction 3.0, Sodium Level 140, Potassium Level 4.6, Chloride Level 103, Carbon Dioxide Level 26, Anion Gap 11, Blood Urea Nitrogen 29H, Creatinine 1.24, Estimat Glomerular F iltration Rate 64, BUN/Creatinine Ratio 23, Glucose Level 111H, Calcium Level 9 .4, Corrected Calcium 10.0, Phosphorus Level 3.5, Magnesium Level 2.3, Total Bilirubin 0.5, Aspartate Amino Transf (AST/SGOT) 17, Alanine Aminotransferase (ALT/SGPT) 13, Alkaline Phosphatase 108, Total Protein 7.6, Albumin 3.3 02/11/22 06:02: Glucometer 112H 02/11/22 10:37: Glucometer 109 02/11/22 15:42: Glucometer 137H Microbiology 02/10/22 Gram Stain - Final, Resulted 02/10/22 Sputum Culture - Preliminary, Resulted Culture In Progress 02/09/22 Blood Culture - Preliminary, Resulted No growth Laboratory Tests 02/10/22 05:06 A/P: Assessment: Pneumonia - management per Medical services Chronic atrial fibrillation - rate controlled - maintained on long-acting Cardizem - OAC with Eliquis (had been on hold d/t poss thoracentesis, which was not needed - resumed on 02-11-22) Acut on chronic diastolic CHF - Echocardiogram of Feb [address] Obrien showed wall thickness is mildly to mod increased. Concentric hypertrophy. LVEF 55-65%. LA and RA dilated. Mild MR. Mild to mod TR Diarrhea - undetermined etiology - management per medical services Orthopedic - Osteomyelitis of R 2nd toe, s/p amputation on 06/25/20 - Chronic joint and back pain - PORTER with segmentals from 11-04-20 showed no evidence of signif obstructive PAD Bilat leg swelling - related to venous insuff and ac on chronic diastolic CHF - controlled H/o hypokalemia - due to chronic diuretic therapy Morbid obesity - BMI approx 55 HIV positive status - managed by Dr Woods in [place], [place] H/o depression - managed by PCP Obstructive sleep apnea syndrome - treated with CPAP Carotid dz - Minimal carotid arterial plaque on carotid u/s of April 2019 Plan: Management of pneumonia per medical services Chronic a-fib - continue OAC and long acting calcium channel blockers Give IV Lasix today d/t increased swelling, orthopnea and positive fluid balance Monitor lab closely Replace electrolytes as indicated REKHA BLEVINS MD FACP [facility] Feb 11, 2022 17:22
[2022-02-11] MEDS: FUROSEMIDE 40 MG/4 ML INJ (LASIX) IVP SCH (17:49)
[2022-02-11] MEDS: risperiDONE 0.5 MG (RisperDAL) TABLET PO SCH (20:29)
[2022-02-11] MEDS: AMITRIPTYLINE 25 MG (ELAVIL) TAB PO SCH (20:29)
[2022-02-11] MEDS: ASPIRIN E.C. 81 MG (ECOTRIN) TAB PO SCH (20:29)
[2022-02-12] MEDS: VANCOMYCIN 1 GM/NS 250 ML IVPB IV SCH ×2 (01:27)
[2022-02-12 05:29] LABS: BASOPHILS % (AUTO) 0 % (0-10); EOSINOPHILS # (AUTO) 0.1 10^3/uL (0.0-0.3); EOSINOPHILS % (AUTO) 1 % (0-10); HEMATOCRIT 45 % (40-54); HEMOGLOBIN 13.9 g/dL (13.3-17.7); LYMPHOCYTES # (AUTO) 2.5 10^3/uL (1.0-4.0); LYMPHOCYTES % (AUTO) 22 % (12-44); MEAN CORPUSCULAR HEMOGLOBIN 30 pg (25-34); MEAN CORPUSCULAR HGB CONC 31 g/dL (32-36); MEAN CORPUSCULAR VOLUME 97 fL (80-99); MEAN PLATELET VOLUME 9.9 fL (9.0-12.2); MONOCYTES # (AUTO) 1.2 10^3/uL (0.0-1.0); MONOCYTES % (AUTO) 11 % (0-12); NEUTROPHILS % (AUTO) 63 % (42-75); PLATELET COUNT 183 10^3/uL (130-400); WHITE BLOOD COUNT 11.1 10^3/uL (4.3-11.0)
[2022-02-12 05:44] LABS: ALBUMIN 3.2 GM/DL (3.2-4.5); BILIRUBIN,TOTAL 0.4 MG/DL (0.1-1.0); CALCIUM 9.3 MG/DL (8.5-10.1); CREATININE SERUM 1.27 MG/DL (0.60-1.30); MAGNESIUM 2.5 MG/DL (1.6-2.4); PHOSPHORUS 2.5 MG/DL (2.3-4.7); POTASSIUM 5.2 MMOL/L (3.6-5.0); TOTAL PROTEIN 7.3 GM/DL (6.4-8.2)
[2022-02-12] MEDS: POTASSIUM CL 10MEQ/50ML IVPB 50 ML IV SCH (06:20)
[2022-02-12] MEDS: inSUlin ASPART (NovoLOG) 1 UNIT/0.01 ML (CHARGE PER UNIT) SC SCH ×3 (06:21→16:34)
[2022-02-12] MEDS: MAGNESIUM 1 GM/100 ML IVPB 100 ML IV SCH (06:21)
[2022-02-12] MEDS: KCL 20 MEQ TAB (K-DUR) PO SCH ×2 (06:21→09:51)
[2022-02-12] MEDS: FUROSEMIDE 40 MG/4 ML INJ (LASIX) IVP SCH ×2 (06:33→16:30)
[2022-02-12] MEDS: MULTIVIT W/MINERALS TAB (THERAGRAN M) PO SCH (06:33)
[2022-02-12] MEDS: CEFEPIME INJECTION 1,000 MG in NS (IVPB) 50 ML IV SCH ×2 (06:33→13:15)
--- NOTE | 2022-02-12 06:34 | Progress Note - Hospitalist ---
Subjective HPI/CC On Admission Date Seen by Provider: Feb 12, 2022 Time Seen by Provider: 11:00 This is a 66 yo WM with history of HIV, CHF, AFib, HTN, Non-Hodgkin Lymphoma, GAGE, obesity and depression who presented to the ED on 02/09 for worsening SOB since 02/05. He reports having SOB at baseline but he is usually still able to perform his daily activities. Since exacerbation he has needed to take more frequent breaks in walking around his apartment. He is also having associated light headedness and weakness. At home he uses 3-4L of oxygen via nasal cannula. He is currently requiring 8L high flow oxygen via nasal cannula. CXR revealed cardiomegaly, L-sided pleural effusion, with perihilar and bibasilar interstitial opacities. Surgery was consulted for the pleural effusion. Chest ultrasound was performed this morning and results are pending. Cardiology is following the patient and recommends continuing home meds of Cardizem and OAC with Eliquis. Last echo done by Dr. Obrien in February 2017 with mild to moderate LVH, ejection fraction 55 to 65%, biatrial dilatation, mild mitral regurgitation, mild to moderate tricuspid regurgitation. Flu and COVID testing negative. Procalcitonin was elevated at 9.58 and BNP was elevated at 174.6. He is compliant with HIV care and has CPAP. Subjective/Events-last exam Patient not improving Breathing is worse We talked about several things as far as options Patient continued to decline in the afternoon so ultimately placed on comfort care Review of Systems General: Fatigue, Malaise Pulmonary: Dyspnea Focused Exam Lactate Level Time of Focused Exam: 16:15 Objective Exam Vital Signs Vital Signs Date Time Temp Pulse Resp B/P (MAP) Pulse Ox O2 Delivery O2 Flow Rate FiO2 02/13/22 00:17 OxyMask 5.00 02/12/22 23:59 83 02/12/22 23:00 96 25 131/86 (101) 02/12/22 19:00 36.9 Capillary Refill : General Appearance: Anxious, Chronically ill, Moderate Distress, Obese Respiratory: Accessory Muscle Use, Decreased Breath Sounds Cardiovascular: Regular Rate, Rhythm Neurologic/Psychiatric: Alert, Oriented x3 Results/Procedures Lab Patient resulted labs reviewed. Imaging: Reviewed Imaging Report Assessment/Plan Assessment and Plan Assess & Plan/Chief Complaint Sepsis Pneumonia Left pleural effusion- resolved on U/S Dyspnea Elevated PCT - 9.58 HIV status - antiviral compliant Chronic Afib Acute on chronic diastolic CHF Obstructive Sleep Apnea - CPAP B/l LE edema Obesity - BMI 53 Depression History Non-Hodgkin Lymphoma S/p orthopedic surgery Muñoz catheter in place Hypoxia on 4 L of oxygen at home Surgery consulted - no indication for thoracentesis Eliquis restarted IV vanc and cefepime Afib maintained on cardizem CD Cardiology appreciated Oxygen support- currently 8L HF via NC Continue supportive care Maintain in ICU given high oxygen demand PAULA GOLDSMITH DO Feb 12, 2022 06:34
[2022-02-12] MEDS: RT-ALBUTEROL/IPRATROPIUM 3 ML (DUONEB) VIAL INH SCH ×4 (06:55→14:47)
--- NOTE | 2022-02-12 07:52 | Diagnostic Imaging Report ---
INDICATION: Pneumonia, sepsis COMPARISON: 02/11/2022 TECHNIQUE: Single radiograph of the chest dated 02/12/2022. FINDINGS: The cardiac silhouette is enlarged. Central pulmonary vascular congestion present. Veiling opacities are noted within the bilateral lungs, increased since the prior examination. No pneumothorax. Osseous structures are unchanged. IMPRESSION: Developing significant central pulmonary vascular congestion with worsening veiling opacities within the lungs bilaterally concerning for worsening congestive heart failure with worsening edema and effusions. Superimposed infectious infiltrate not excluded. Dictated by: Dictated on workstation # [id number]
--- NOTE | 2022-02-12 08:19 | Tele-ICU Progress Note ---
Subjective Date Seen by a Provider: Feb 12, 2022 Time Seen by a Provider: 12:40 Subjective/Events-last exam (Tele-ICU Physician , consultation) Available chart/ vitals / labs / Images reviewed H&P is from ER notes Patient's information available about PMH, allergy reviewed in EMR. ROS as per chart and RN report Video assessment done using teleICU camera, rest of exam as per RN Discussed with RN. He is a 66-year-old male with past medical history of super morbid obesity with a BMI of 53, HIV infection on Biktarvy therapy, hypertension, chronic atrial fibrillation, GAGE presented to the emergency room with a complaint of progressively worsening shortness of breath. He required a supplemental oxygen as well as a CPAP therapy. He is known to have a diastolic congestive heart failure. Upon admission a chest x-ray showed congestive changes. He is started on IV Lasix and admitted to the intensive care unit. Today he states that he is still short of breath but does not look like any acu te respiratory distress with supplemental oxygen and at rest. Denies any chest pain. He was seen by retort loader and is being followed from cardiac standpoint of view. There is a question of pneumonia present hence he is started on IV antibiotics. But he has no fever present. He developped nose bleed today. advised to insert a nasal tampon. Impression 1. Acute and chronic diastolic congestive heart failure 2. Acute hypoxic respiratory failure secondary to obstructive sleep apnea and congestive heart failure 3. Super morbid obesity with possible obstructive sleep apnea 4. Questionable pneumonia. 5. Chronic atrial fibrillation and on anticoagulant therapy. 6. Today he had a nosebleed. He has a elevated INR of 1.7 but also on Eliquis therapy. Recommendations 1. Continue supplemental oxygen and BiPAP as needed 2. Diuretic therapy per cardiology 3. Antibiotic therapy per primary care 4. I have asked the RN to insert a nasal tampon to control bleeding 5. We will give vitamin K 5 mg IV 6. We will check PT/INR 7. We will repeat a chest x-ray in a.m. Sepsis Event Evaluation Height, Weight, BMI Height: 6'0.00" Weight: 404lbs. 0.0oz. [id number]; 53.70 BMI Method:Stated Focused Exam Lactate Level 02/09/22 12:12: Lactic Acid Level 1.02 Time of Focused Exam: 16:15 Exam Exam Patient acknowledged, consented, and participated in this virtual visit which was conducted using real time audio/video Vital Signs Date Time Temp Pulse Resp B/P (MAP) Pulse Ox O2 Delivery O2 Flow Rate FiO2 02/12/22 08:00 102 20 127/90 (102) 93 High Flow N/C 9.00 02/12/22 08:00 36.7 02/12/22 07:00 102 02/12/22 07:00 94 18 150/94 (112) 93 High Flow N/C 9.00 02/12/22 06:55 93 Nasal Cannula 9.00 02/12/22 06:00 93 21 149/99 (116) 90 High Flow N/C 9.00 02/12/22 05:00 93 23 167/87 (113) 90 High Flow N/C 9.00 02/12/22 04:00 89 26 143/90 (107) 90 High Flow N/C 9.00 02/12/22 03:48 36.8 02/12/22 03:44 93 High Flow N/C 9.00 02/12/22 03:00 92 14 145/81 (102) 90 High Flow N/C 9.00 02/12/22 02:00 90 23 136/84 (101) 91 High Flow N/C 9.00 02/12/22 01:00 96 28 152/86 (108) 94 High Flow N/C 9.00 02/12/22 01:00 100 02/12/22 00:00 94 19 139/85 (103) 92 High Flow N/C 9.00 02/11/22 23:54 93 High Flow N/C 9.00 02/11/22 23:51 36.6 02/11/22 23:00 86 21 149/97 (114) 93 High Flow N/C 9.00 02/11/22 22:00 87 30 139/93 (108) 92 High Flow N/C 9.00 02/11/22 21:00 98 21 127/92 (104) 92 High Flow N/C 9.00 02/11/22 20:00 98 18 124/107 (113) 92 High Flow N/C 9.00 02/11/22 19:45 93 High Flow N/C 9.00 02/11/22 19:42 36.8 02/11/22 19:09 93 Nasal Cannula 8.00 02/11/22 19:00 93 02/11/22 19:00 87 22 136/81 (99) 91 High Flow N/C 9.00 02/11/22 18:00 98 31 136/90 (105) 89 High Flow N/C 9.00 02/11/22 17:00 106 25 142/104 (117) 91 High Flow N/C 9.00 02/11/22 16:00 91 High Flow N/C 9.00 02/11/22 16:00 97 24 156/85 (108) 90 High Flow N/C 9.00 02/11/22 15:24 36.4 02/11/22 15:00 101 138/95 (109) 91 High Flow N/C 9.00 02/11/22 14:36 92 Nasal Cannula 8.00 02/11/22 14:00 112 142/89 (106) 91 High Flow N/C 9.00 02/11/22 13:03 90 High Flow N/C 9.00 02/11/22 13:00 110 02/11/22 13:00 102 134/100 (111) 90 High Flow N/C 8.00 02/11/22 12:57 93 High Flow N/C 8.00 02/11/22 12:00 85 141/84 (103) 92 High Flow N/C 8.00 02/11/22 11:25 92 Nasal Cannula 8.00 02/11/22 11:00 81 131/87 (102) 91 High Flow N/C 8.00 02/11/22 10:00 75 24 143/82 (102) 91 High Flow N/C 8.00 02/11/22 09:00 103 104/83 (90) 90 High Flow N/C 8.00 I & O 02/12/22 07:00 Intake Total 3372 ml Output Total 4300 ml Balance -928 ml Height & Weight Height: 6'0.00" Weight: 404lbs. 0.0oz. [id number]; 53.70 BMI Method:Stated General Appearance: No Apparent Distress, Chronically ill, Obese HEENT: PERRL/EOMI, Moist Mucous Membranes Neck: Full Range of Motion Respiratory: Chest Non Tender, No Accessory Muscle Use, No Respiratory Distress, Wheezing Cardiovascular: No Murmur, Normal Peripheral Pulses, Irregularly Irregular Peripheral Pulses: 2+ Radial Pulses (L) Gastrointestinal: non tender, soft Extremity: Normal Capillary Refill, Pedal Edema, Swelling (b/l LE swelling 1+ ) Neurologic/Psychiatric: Alert, Oriented x3, Normal Mood/Affect Skin: Normal Color, Warm/Dry, Other (stasis dermatitis b/l LE) Lymphatic: No Adenopathy Results Lab Laboratory Tests 02/11/22 04:13 02/12/22 04:20 Assessment/Plan Assessment/Plan as above Critical Care: Critically Ill Patient Time spent with patient (mins): 25 VINOD WILSON MD Feb 12, 2022 08:19
[2022-02-12] MEDS: APIXABAN 5 MG (ELIQUIS) TABLET PO SCH (08:41)
[2022-02-12] MEDS: SPIRONOLACTONE 25 MG (ALDACTONE) TAB PO SCH (08:41)
[2022-02-12] MEDS: ALLOPURINOL 100 MG (ZYLOPRIM) TAB PO SCH (08:41)
[2022-02-12] MEDS: buPROPion SR 150 MG (WELLBUTRIN SR) TAB PO SCH (08:41)
[2022-02-12] MEDS: dilTIAZem120 MG (CARDIZEM CD) CAP PO SCH (08:41)
[2022-02-12] MEDS: Biktarvy 50-200-25 mg Tablet PO SCH (08:43)
[2022-02-12] MEDS: SENNOSIDES 8.6 MG (SENOKOT) TAB PO SCH (09:51)
[2022-02-12] MEDS: MAGNESIUM OXIDE (MAG-OX)400 MG TAB PO SCH (09:51)
[2022-02-12] MEDS: DOCUSATE SODIUM 100 MG (COLACE) CAP PO SCH (09:51)
[2022-02-12] MEDS ORDERED: KCL 20 MEQ TAB (K-DUR) PO SCH (11:45)
[2022-02-12] MEDS ORDERED: PHYTONADIONE (ADULT) INJECTION 5 MG in NS (IVPB) 50 ML IV NR (12:00)
--- NOTE | 2022-02-12 14:00 | Progress Note - Cardiology ---
Cardiology SOAP Progress Note Subjective: Gen weakness and malaise present No cp or palp or syncope o Still has shortness of breath No n/v/d No focal weakness Objective: I&O/Vital Signs 02/12/22 02/12/22 02/12/22 02/12/22 02:00 03:00 03:44 03:48 Temp 36.8 Pulse 90 92 Resp 23 14 B/P (MAP) 136/84 (101) 145/81 (102) Pulse Ox 91 90 93 O2 Delivery High Flow N/C High Flow N/C High Flow N/C O2 Flow Rate 9.00 9.00 9.00 02/12/22 02/12/22 02/12/22 02/12/22 04:00 05:00 06:00 06:55 Pulse 89 93 93 Resp 26 23 21 B/P (MAP) 143/90 (107) 167/87 (113) 149/99 (116) Pulse Ox 90 90 90 93 O2 Delivery High Flow N/C High Flow N/C High Flow N/C Nasal Cannula O2 Flow Rate 9.00 9.00 9.00 9.00 02/12/22 02/12/22 02/12/22 02/12/22 07:00 07:00 08:00 08:00 Temp 36.7 Pulse 94 102 Resp 18 B/P (MAP) 150/94 (112) Pulse Ox 93 93 O2 Delivery High Flow N/C High Flow N/C O2 Flow Rate 9.00 9.00 02/12/22 02/12/22 02/12/22 02/12/22 08:00 09:00 10:00 10:59 Pulse 102 90 96 Resp 20 20 17 B/P (MAP) 127/90 (102) 157/109 (125) 142/112 (122) Pulse Ox 93 93 89 91 O2 Delivery High Flow N/C High Flow N/C High Flow N/C Nasal Cannula O2 Flow Rate 9.00 9.00 9.00 9.00 02/12/22 02/12/22 02/12/22 02/12/22 11:00 12:00 12:00 12:00 Temp 37.2 Pulse 104 107 Resp 19 21 B/P (MAP) 115/80 (92) 121/77 (92) Pulse Ox 90 89 93 O2 Delivery High Flow N/C High Flow N/C OxyMask O2 Flow Rate 9.00 9.00 15.00 02/12/22 00:00 Intake Total 922 ml Output Total 2425 ml Balance -1503 ml Weight (Pounds): 404 Weight (Ounces): 0.0 Weight (Calculated Kilograms): [id number] Constitutional: AAO x 3, well-developed, well-nourished Respiratory: No accessory muscle use, No respiratory distress; chest expansion is symmetric, chest is bilaterally symmetric, rhonchi (scattered), other (coarse breath sounds bilat) Cardiovascular: irregularly irregular; No JVD; S1 and S2 Gastrointestional: No tender; soft, round, audible bowel sounds Extremities: other (features of chronic stassi dermatitis, chronic), significant edema (bilat LE pitting edema) Neurologic/Psychiatric: other (moves all limbs equally) Skin: normal color, warm/dry; No rash on exposed areas, No ulcerations on exposed areas Results/Procedures: Labs Laboratory Tests 02/11/22 15:42: Glucometer 137H 02/11/22 20:05: Glucometer 138H 02/12/22 04:20: White Blood Count 11.1H, Red Blood Count 4.60, Hemoglobin 13.9, Hematocrit 45, Mean Corpuscular Volume 97, Mean Corpuscular Hemoglobin 30, Mean Corpuscular He moglobin Concent 31L, Red Cell Distribution Width 13.3, Platelet Count 183, Mean Platelet Volume 9.9, Immature Granulocyte % (Auto) 2, Neutrophils (%) (Auto) 63, Lymphocytes (%) (Auto) 22, Monocytes (%) (Auto) 11, Eosinophils (%) (Auto) 1, Basophils (%) (Auto) 0, Neutrophils # (Auto) 7.0, Lymphocytes # (Auto) 2.5, Monocytes # (Auto) 1.2H, Eosinophils # (Auto) 0.1, Basophils # (Auto) 0.0, Immature Granulocyte # (Auto) 0.2H, Sodium Level 138, Potassium Level 5.2H, Chloride Level 104, Carbon Dioxide Level 26, Anion Gap 8, Blood Urea Nitrogen 32H, Creatinine 1.27, Estimat Glomerular Filtration Rate 62, BUN/Creatinine Ratio 25, Glucose Level 107H, Calcium Level 9.3, Corrected Calcium 9.9, Phosphorus Level 2.5, Magnesium Level 2.5H, Total Bilirubin 0.4, Aspartate Amino Transf (AST/SGOT) 17, Alanine Aminotransferase (ALT/SGPT) 14, Alkaline Phosphatase 97, Total Protein 7.3, Albumin 3.2 Microbiology 02/10/22 Gram Stain - Final, Resulted 02/10/22 Sputum Culture - Preliminary, Resulted YEAST 02/09/22 Blood Culture - Preliminary, Resulted No growth Laboratory Tests 02/11/22 04:13 02/12/22 04:20 A/P: Assessment: Pneumonia - management per Medical services Chronic atrial fibrillation - rate controlled - maintained on long-acting Cardizem - OAC with Eliquis (had been on hold d/t poss thoracentesis, which was not needed - resumed on 02-11-22) Acut on chronic diastolic CHF - Echocardiogram of Feb [address] Obrien showed wall thickness is mildly to mod increased. Concentric hypertrophy. LVEF 55-65%. LA and RA dilated. Mild MR. Mild to mod TR Diarrhea - undetermined etiology - management per medical services Orthopedic - Osteomyelitis of R 2nd toe, s/p amputation on 06/25/20 - Chronic joint and back pain - PORTER with segmentals from 11-04-20 showed no evidence of signif obstructive PAD Bilat leg swelling - related to venous insuff and ac on chronic diastolic CHF - controlled H/o hypokalemia - due to chronic diuretic therapy Morbid obesity - BMI approx 55 HIV positive status - managed by Dr Woods in [place], [place] H/o depression - managed by PCP Obstructive sleep apnea syndrome - treated with CPAP Carotid dz - Minimal carotid arterial plaque on carotid u/s of April 2019 Plan: Management of pneumonia per Medical services Chronic a-fib - continue OAC and long acting calcium channel blockers Give IV Lasix when indicated Monitor lab closely and manage electrolytes REKHA BLEVINS MD FACP FACC CCDS Feb 12, 2022 14:00
[2022-02-12] MEDS ORDERED: SALIVA SUBSTITUTE 60 ML SPRAY(MOUTHKOTE) MM PRN (17:15)
[2022-02-12] MEDS ORDERED: RT-ALBUTEROL/IPRATROPIUM 3 ML (DUONEB) VIAL INH PRN (17:15)
[2022-02-12] MEDS ORDERED: SCOPOLAMINE 1.5 MG (TRANSDERM-SCOP) PATCH TOP SCH (17:15)
[2022-02-12] MEDS ORDERED: ONDANSETRON 4 MG/2 ML (SDV) Z0FRAN IVP PRN (17:15)
[2022-02-12] MEDS ORDERED: GLYCOPYRROLATE 0.2 MG/ML (ROBINUL) 2 ML VIAL IV PRN (17:15)
[2022-02-12] MEDS ORDERED: ARTIFICAL TEARS 0.4 ML UNIT DOSE (REFRESH PLUS) OU PRN (17:15)
[2022-02-12] MEDS ORDERED: PROMETHAZINE INJ 25 MG/ML (PHENERGAN) AMP IVP PRN (17:15)
[2022-02-12] MEDS ORDERED: ATROPINE 1% OPHTHALMIC SOLN 2 ML SL PRN (17:15)
[2022-02-12] MEDS ORDERED: LORazepam 1 MG (ATIVAN) TAB SL PRN (17:15)
[2022-02-12] MEDS ORDERED: ACETAMINOPHEN 650 MG SUPP (TYLENOL) PR PRN (17:15)
[2022-02-12] MEDS ORDERED: BISACODYL 10 MG SUPP (DULCOLAX) PR PRN (17:15)
[2022-02-12] MEDS ORDERED: morphine INJ 4 MG/ML 1 ML (VIAL/SYRINGE) ONE ×2 (17:32→19:32)
[2022-02-12] MEDS: morphine INJ 4 MG/ML 1 ML (VIAL/SYRINGE) IV PRN ×3 (17:35→22:34)
[2022-02-12] MEDS ORDERED: SCOPOLAMINE 1.5 MG (TRANSDERM-SCOP) PATCH ONE (18:13)
[2022-02-12] MEDS: LORazepam INJ 2 MG/ML (ATIVAN) VIAL IVP PRN (22:06)
[2022-02-13] MEDS: morphine INJ 4 MG/ML 1 ML (VIAL/SYRINGE) IV PRN (00:27)
[2022-02-13] MEDS: LORazepam INJ 2 MG/ML (ATIVAN) VIAL IVP PRN (00:27)
--- NOTE | 2022-02-13 06:08 | Discharge Summary ---
Discharge Summary Hospital Course Was the Problem List Reviewed?: Yes Problems/Dx: (1) Acute respiratory failure with hypoxia Status: Resolved (2) Pneumonia Status: Acute Qualifiers: Qualified Codes: J18.9 - Pneumonia, unspecified organism (3) Sepsis Status: Resolved Qualifiers: Qualified Codes: A41.9 - Sepsis, unspecified organism (4) Obesity hypoventilation syndrome Status: Chronic (5) Sleep apnea, obstructive Status: Chronic (6) Congestive heart failure Status: Chronic (7) Atrial fibrillation Status: Chronic (8) Morbid obesity Status: Chronic (9) HIV positive Status: Acute Hospital Course Date of Admission: Feb 09, 2022 at 14:00 Admission Diagnosis : Family Physician/Provider: [place] Date of Discharge: 02/13/22 Discharge Diagnosis: Worsening status placed on comfort care Sepsis Pneumonia Left pleural effusion- resolved on U/S Dyspnea Elevated PCT - 9.58 HIV status - antiviral compliant Chronic Afib Acute on chronic diastolic CHF Obstructive Sleep Apnea - CPAP B/l LE edema Obesity - BMI 53 Depression History Non-Hodgkin Lymphoma S/p orthopedic surgery Muñoz catheter in place Hypoxia on 4 L of oxygen at home Surgery consulted - no indication for thoracentesis Eliquis restarted IV vanc and cefepime Afib maintained on cardizem CD Cardiology appreciated Oxygen support- currently 8L HF via NC Continue supportive care Maintain in ICU given high oxygen demand Hospital Course: Standard hospital course after he was admitted for sepsis and pneumonia acute on chronic respiratory failure. He was maintained in the ICU. IV antibiotics and cardiology consulted. Patient remains a DNR and I had a lengthy conversation about that with him. Patient ultimately declined and comfort care protocol initiated and he . Labs and Pending Lab Test: Laboratory Tests 02/12/22 16:04: Glucometer 163H Microbiology 02/10/22 Gram Stain - Final, Complete 02/10/22 Sputum Culture - Final, Complete YEAST 02/09/22 Blood Culture - Preliminary, Resulted No growth Home Meds Active Reported Eliquis (Apixaban) 5 Mg Tablet 5 Mg PO BID Diltiazem 24Hr ER (Diltiazem HCl) 180 Mg Cap.er.24h 360 Mg PO DAILY TAKES 2 (180MG) CAPS +120MG CAP Potassium Chloride 20 Meq Tablet.er 40 Meq PO BID TAKES 2 (20MEQ) TABS Sentry Senior Tablet (Multivit-Min/FA/Lycopene/Lut) 0.4 Mg-300 Mcg-250 Mcg Tablet 1 Each PO HS Amitriptyline HCl 25 Mg Tablet 25 Mg PO HS Tylenol Extra Strength (Acetaminophen) 500 Mg Tablet 1,000 Mg PO Q8H PRN TAKES 2 (500MG) TABLETS Oxycodone HCl 10 Mg Tablet 10 Mg PO Q6H PRN Furosemide 80 Mg Tablet 160 Mg PO DAILY TAKES 2 (80MG) TABS Spironolactone 50 Mg Tablet 50 Mg PO DAILY Diltiazem 24Hr ER (Diltiazem HCl) 120 Mg Cap.er.24h 120 Mg PO DAILY TAKES 120MG + 2 (180MG) TABS Aspirin EC (Aspirin) 81 Mg Tablet.dr 81 Mg PO HS Magnesium (Magnesium Oxide) 400 Mg Tablet 400 Mg PO BID Biktarvy 50-200-25 mg Tablet (Bictegrav/Emtricit/Tenofov Ala) 1 Each Tablet 1 Each PO DAILY Allopurinol 100 Mg Tablet 100 Mg PO DAILY Risperidone 0.5 Mg Tablet 0.5 Mg PO HS Citalopram HBr (Citalopram Hydrobromide) 40 Mg Tablet 40 Mg PO HS Bupropion Xl (Bupropion HCl) 300 Mg Tab.er.24h 300 Mg PO HS Assessment/Pt Instructions Discharge Planning: <30 minutes discharge planning Discharge Physical Examination Vital Signs Vital Signs Date Time Temp Pulse Resp B/P (MAP) Pulse Ox O2 Delivery O2 Flow Rate FiO2 02/13/22 00:17 OxyMask 5.00 02/12/22 23:59 83 02/12/22 23:00 96 25 131/86 (101) 02/12/22 19:00 36.9 Allergies: Coded Allergies: No Known Drug Allergies (Unverified , 02/07/18) Discharge Summary Date of Admission Feb 09, 2022 at 14:00 Date of Discharge Admission Diagnosis Assessment: Sepsis Pneumonia Pleural effusion Morbid obesity BMI 54 Hypoxia on 4 L of oxygen at home HIV status Muñoz catheter in place Plan: Maintain ICU Supportive care Comfort Measures/ End of Life Care: Comfort Measures Discharge Diagnosis Sepsis Pneumonia Left pleural effusion- resolved on U/S Dyspnea Elevated PCT - 9.58 HIV status - antiviral compliant Chronic Afib Acute on chronic diastolic CHF Obstructive Sleep Apnea - CPAP B/l LE edema Obesity - BMI 53 Depression History Non-Hodgkin Lymphoma S/p orthopedic surgery Muñoz catheter in place Hypoxia on 4 L of oxygen at home Surgery consulted - no indication for thoracentesis Eliquis restarted IV vanc and cefepime Afib maintained on cardizem CD Cardiology appreciated Oxygen support- currently 8L HF via NC Continue supportive care Maintain in ICU given high oxygen demand PAULA GOLDSMITH DO Feb 13, 2022 06:08
== END 2022-02-13 06:20 | disposition expired | DRG 974 ==
LOC: EDUNIT# 10:12 → ER 10:14 → ICU 14:00
PROVIDERS: ADMIT Internal Medicine; ATTEND Internal Medicine
PROC: 5A0945A Assistance with Respiratory Ventilation, 24-96 Consecutive Hours, High Flow/Velocity Cannula (ICD-10-PCS; principal; 2022-02-10)
DX: A41.9 Sepsis, unspecified organism (principal); I50.33 Acute on chronic diastolic (congestive) heart failure; B20 Human immunodeficiency virus [HIV] disease; J18.9 Pneumonia, unspecified organism; J96.21 Acute and chronic respiratory failure with hypoxia; E66.2 Morbid (severe) obesity with alveolar hypoventilation; I48.20 Chronic atrial fibrillation, unspecified; J90 Pleural effusion, not elsewhere classified; Z68.43 Body mass index [BMI] 50.0-59.9, adult; N17.9 Acute kidney failure, unspecified; F32.A Depression, unspecified; Z85.72 Personal history of non-Hodgkin lymphomas; Z66 Do not resuscitate; Z51.5 Encounter for palliative care; I11.0 Hypertensive heart disease with heart failure; Z20.822 Contact with and (suspected) exposure to COVID-19; R65.20 Severe sepsis without septic shock; I95.9 Hypotension, unspecified; E86.0 Dehydration; Z79.82 Long term (current) use of aspirin; Z79.01 Long term (current) use of anticoagulants; Z79.899 Other long term (current) drug therapy; F41.9 Anxiety disorder, unspecified; R19.7 Diarrhea, unspecified
CPT/HCPCS: 36415; 36600; 71045; 76604; 80053; 80202; 82805; 82947; 83605; 83735; 83880; 84100; 84145; 85007; 85025; 85027; 85610; 85730; 86141; 87040; 87070; 87081; 87205; 87636; 94640